=== PATIENT | male | born 1975 | race Caucasian/White ===

== ENCOUNTER 2017-06-30 05:47 | Inpatient (IN) ==
[2017-06-30] MEDS ORDERED: Ipratropium/Albuterol Neb 3 ML IH ONE (06:07)
[2017-06-30] MEDS ORDERED: Nitroglycerin 0.4 MG TAB.SUBL SL PRN (06:08)
--- NOTE | 2017-06-30 06:16 | Emergency Department Note ---
Disposition Clinical Impression: Hypoxia, SOB (shortness of breath) on exertion, Bronchitis Disposition: Admitted As Inpatient Condition: Serious Referrals: NONE,PCP [Primary Care Provider] - Forms: ED Satisfaction Letter Time of Disposition: 07:11 General Adult HPI - General Chief complaint: ED Upper Respiratory Infection Stated complaint: bronchitis Time Seen by Provider: 06/30/17 06:05 Source: patient Limitations: no limitations Nursing Notes Reviewed: Yes Vital Signs Reviewed: Yes - History of Present Illness HPI Narrative: 42-year-old male complains of severe shortness of breath over the past 4 days status post worsening. Patient states he has a history of having bad episodes of bronchitis. Patient has no history of prior lung issues or cardiac pathology. Patient states that 4 days ago he went to urgent care, and was sent home on medications. He found to be hypoxic at about 70% O2 sat. Patient was advised that his symptoms should get better with the medications. Patient's symptoms continue or worsen. The patient stated any standing would make him severely short of breath. Patient denies family history of cardiac or pulmonary pathology. Patient denies tobacco use, illicit drug use, alcohol use. Pain Scale: 6 - Related Data Previous Rx's Medication Instructions Recorded Albuterol Sulfate [Albuterol 1 puff IH Q4HR PRN #1 hfa.aer.ad 06/27/17 Inhaler] GuaiFENesin ER [Mucinex] 1,200 mg PO BID #20 tbbp.12hr 06/27/17 cephALEXin [Keflex] 500 mg PO QID #40 capsule 06/27/17 predniSONE [PredniSONE] See Taper PO DAILY #18 tablet 06/27/17 Allergies Allergy/AdvReac Type Severity Reaction Status Date / Time No Known Allergies Allergy Verified 06/30/17 05:55 All systems ED: reviewed and negative except as stated. Review of Systems: As Per HPI Constitutional: Denies: fever, chills ENT ED: Reports: congestion Cardiovascular: Denies: chest pain, palpitations Respiratory: Reports: cough, dyspnea, wheezes, sputum production Gastrointestinal: Denies: abdominal pain, nausea, vomiting, diarrhea Neurological: Denies: headache Endocrine: Reports: fatigue Past Medical History - Past Medical History Attestation: Yes The following information was validated with the patient. Source: patient, nursing notes reviewed Medical history: Reports: other Psychiatric history: Reports: anxiety - Social History Smoking Status: Never smoker Smokeless Tobacco Status: No Alcohol use: Reports: none Drug use: Reports: none Physical Exam Vital Signs Temperature 97.3 F L 06/30/17 05:49 Pulse Rate 105 06/30/17 05:49 Respiratory Rate 24 06/30/17 05:49 Blood Pressure 195/129 06/30/17 05:49 O2 Sat by Pulse Oximetry 65 06/30/17 05:49 Temperature 97.3 F L 06/30/17 05:49 Pulse Rate 105 06/30/17 05:49 Respiratory Rate 24 06/30/17 05:49 Blood Pressure 195/129 06/30/17 05:49 O2 Sat by Pulse Oximetry 65 06/30/17 05:49 Oxygen Delivery Oxygen Delivery Room Air CONSTITUTIONAL: Patient is alert and oriented 3, patient is nontoxic- appearing but is in respiratory distress. Respiratory rate 24 minute, patient has severe conversational dyspnea needing to take a breath after every word area patient is afebrile but has abnormal vital signs of tachycardia at 105, blood pressure 195/129, O2 sat 65% and was placed on supplemental oxygen 5 L/m via nasal cannula which improved his O2 saturation to 89% HEAD: Normocephalic; atraumatic EYES: PERRL, no scleral icterus NOSE: The nose is normal in appearance without rhinorrhea NECK: No JVD or distended neck veins RESP: Abnormal lung sounds with bilateral wheezing and rhonchi with rails. Poor air exchange with shallow rapid breathing CARD: Regular rhythm, without murmurs, rub or gallop ABD: Non-distended; non-tender, soft, without rigidity, rebound or guarding,no pulsatile mass CHEST: No pain with palpation SKIN: Normal for age and race; warm and dry without diaphoresis ; no apparent lesions EXTREMITIES: Pulses are 2 plus and equal times 4 extremities, no peripheral edema or calf muscle pain - General Limitations: no limitations General appearance: alert Course - Reevaluation(s) Reevaluation #1: Troponin 0.13 Time: 06:51 Vital Signs Temperature 97.3 F L 06/30/17 05:49 Pulse Rate 105 06/30/17 05:49 Respiratory Rate 24 06/30/17 05:49 Blood Pressure 195/129 06/30/17 05:49 O2 Sat by Pulse Oximetry 65 06/30/17 05:49 Temperature 97.3 F L 06/30/17 05:49 Pulse Rate 92 06/30/17 06:21 Respiratory Rate 20 06/30/17 06:21 Blood Pressure 155/100 06/30/17 06:21 O2 Sat by Pulse Oximetry 96 06/30/17 06:21 Oxygen Delivery Oxygen Delivery Bipap Medical Decision Making - MDM Narrative Medical decision making narrative: Patient in respiratory distress with associated hypoxia of 65%. Concerns for severe bronchitis/pneumonia, with possible systemic infection. Need to rule out sepsis. Patient is morbidly obese with a BMI 64 and weighing 498 pounds. RT has been notified. Duo nebs and BiPAP ordered. Nitroglycerin 0.4 mg sublingual 3 ordered Chest x-ray shows signs of pulmonary edema placing patient in the morbidly congestive heart failure presentation. Nitroglycerin places added after DuoNeb therapy and sublingual nitroglycerin therapy. Patient's BNP came back not high enough for CHF but patient is morbidly obese with subcutaneous the results. Clinically patient seems like CHF with bronchitis. Patient has an elevated WBC of 18.6 with left shift. The patient's electrolytes showed no abnormalities. But, troponin mildly elevated at 0.13. Patient's evaluation is not completed as yet but will end in admission. They crew Dr. Nascimento and Dr. Owen Ed Attending will finish the patient's workup and disposition. - Lab Data Lab results reviewed: Yes I reviewed the patient's lab results. Lab results narrative: Short CBC 06/30/17 Range/Units 06:05 WBC 18.5 H (4.3-11.1) K/mcL Hgb 14.4 (12.9-16.9) g/dL Hct 46.1 (37.5-50.1) % Plt Count 461 H (140-400) K/mcL Neutrophils # 14.2 H (1.6-8.9) K/mcL BMP 06/30/17 Range/Units 06:05 Sodium 138 (136-145) mEq/L Potassium 4.1 (3.5-5.1) mEq/L Chloride 100 (98-107) mEq/L Carbon Dioxide 28 (23-29) mEq/L BUN 14 (6-20) mg/dL Creatinine 0.71 (0.70-1.30) mg/dL Glucose 243 H (70-105) mg/dL Calcium 8.8 (8.6-10.3) mg/dL Cardiac Enzymes 06/30/17 Range/Units 06:05 Troponin I 0.13 H* (< 0.04) ng/mL Result diagrams: 06/30/17 06:05 06/30/17 06:05 Lab Results 06/30/17 06/30/17 06/30/17 Range/Units 06:05 06:05 06:08 WBC 18.5 H (4.3-11.1) K/mcL RBC 5.13 (4.19-5.50) M/mcL Hgb 14.4 (12.9-16.9) g/dL Hct 46.1 (37.5-50.1) % MCV 89.9 (83.0-100.0) fL MCH 28.1 (28.0-33.3) pg MCHC 31.2 L (31.6-35.5) g/dL RDW 13.3 (11.5-14.5) % Plt Count 461 H (140-400) K/mcL MPV 9.6 (9.4-12.4) fL Immature Gran % 2.0 (0-4) % Seg Neutrophils % 76.5 % Lymphocytes % 13.1 % Monocytes % 7.7 % Eosinophils % 0.1 % Basophils % 0.6 % Neutrophils # 14.2 H (1.6-8.9) K/mcL Lymphocytes # 2.4 (0.6-4.6) K/mcL Monocytes # 1.4 H (0.0-1.3) K/mcL Eosinophils # 0.0 (0.0-0.6) K/mcL Basophils # 0.1 (0.0-0.2) K/mcL Nucleated RBCs/100 WBC 1.0 H (0) /100 WBC Sodium 138 (136-145) mEq/L Potassium 4.1 (3.5-5.1) mEq/L Chloride 100 (98-107) mEq/L Carbon Dioxide 28 (23-29) mEq/L BUN 14 (6-20) mg/dL Creatinine 0.71 (0.70-1.30) mg/dL Est GFR ( Amer) > 60 (> 60) Est GFR (Non-Af Amer) > 60 (> 60) BUN/Creatinine Ratio 20 (6-26) Glucose 243 H (70-105) mg/dL Calculated Osmolality 295 (280-300) Lactic Acid (0.5-2.2) mmol/L Calcium 8.8 (8.6-10.3) mg/dL Phosphorus 4.1 (2.7-4.5) mg/dL Magnesium 1.9 (1.6-2.6) mg/dL Troponin I 0.13 H* (< 0.04) ng/mL B-Natriuretic Peptide 134 H (Less than 100) pg/mL 06/30/17 Range/Units 06:09 WBC (4.3-11.1) K/mcL RBC (4.19-5.50) M/mcL Hgb (12.9-16.9) g/dL Hct (37.5-50.1) % MCV (83.0-100.0) fL MCH (28.0-33.3) pg MCHC (31.6-35.5) g/dL RDW (11.5-14.5) % Plt Count (140-400) K/mcL MPV (9.4-12.4) fL Immature Gran % (0-4) % Seg Neutrophils % % Lymphocytes % % Monocytes % % Eosinophils % % Basophils % % Neutrophils # (1.6-8.9) K/mcL Lymphocytes # (0.6-4.6) K/mcL Monocytes # (0.0-1.3) K/mcL Eosinophils # (0.0-0.6) K/mcL Basophils # (0.0-0.2) K/mcL Nucleated RBCs/100 WBC (0) /100 WBC Sodium (136-145) mEq/L Potassium (3.5-5.1) mEq/L Chloride (98-107) mEq/L Carbon Dioxide (23-29) mEq/L BUN (6-20) mg/dL Creatinine (0.70-1.30) mg/dL Est GFR ( Amer) (> 60) Est GFR (Non-Af Amer) (> 60) BUN/Creatinine Ratio (6-26) Glucose (70-105) mg/dL Calculated Osmolality (280-300) Lactic Acid 2.0 (0.5-2.2) mmol/L Calcium (8.6-10.3) mg/dL Phosphorus (2.7-4.5) mg/dL Magnesium (1.6-2.6) mg/dL Troponin I (< 0.04) ng/mL B-Natriuretic Peptide (Less than 100) pg/mL - Radiology Data Radiology results reviewed: Yes I reviewed the patient's radiology results. Chest X-Ray 06/30/17 06:08 IMPRESSION: Limited exam with suspected pulmonary edema. D/ / Anand Dotson MD / Anand Dotson MD Interpreting Provider: Anand Dotson MD - EKG Data EKG #1 EKG attestation: Yes I reviewed and interpreted this EKG. EKG results narrative: EKG taken 06/30/2017 at 0602 hrs. shows sinus rhythm at a rate of 90 bpm with no acute [address] S.B.Fara - Diogenes.Yaneth Situation: Demographics, MOA Background: Presenting Complaint, Relevant PMH, Meds, & Allergies Assessment: Vital Signs, Course and respsone to treatment, Exam Concerns, Patient/Family Expectation, Pertinant Lab Results, Outstanding Labs Recommendation: Barrier(s) to disposition, Recommendation based on pending studies, treatments, or consults S.B.[email or web address] Report Given to: Dr. Azam Macias Repor Time: 07:00
--- NOTE | 2017-06-30 06:35 | Emergency Department Note ---
Disposition Clinical Impression: Hypoxia, SOB (shortness of breath) on exertion Disposition: Admitted As Inpatient Condition: Serious Referrals: NONE,PCP [Primary Care Provider] - Forms: ED Satisfaction Letter General Adult HPI - General Chief complaint: ED Upper Respiratory Infection Stated complaint: bronchitis Time Seen by Provider: 06/30/17 06:05 Source: patient Limitations: no limitations Nursing Notes Reviewed: Yes Vital Signs Reviewed: Yes - History of Present Illness Pain Scale: 6 - Related Data Previous Rx's Medication Instructions Recorded Albuterol Sulfate [Albuterol 1 puff IH Q4HR PRN #1 hfa.aer.ad 06/27/17 Inhaler] GuaiFENesin ER [Mucinex] 1,200 mg PO BID #20 tbbp.12hr 06/27/17 cephALEXin [Keflex] 500 mg PO QID #40 capsule 06/27/17 predniSONE [PredniSONE] See Taper PO DAILY #18 tablet 06/27/17 Allergies Allergy/AdvReac Type Severity Reaction Status Date / Time No Known Allergies Allergy Verified 06/30/17 05:55 Constitutional: Denies: fever, chills ENT ED: Reports: congestion Cardiovascular: Denies: chest pain, palpitations Respiratory: Reports: cough, dyspnea, wheezes, sputum production Gastrointestinal: Denies: abdominal pain, nausea, vomiting, diarrhea Neurological: Denies: headache Endocrine: Reports: fatigue Past Medical History - Past Medical History Medical history: Reports: other Psychiatric history: Reports: anxiety - Social History Smoking Status: Never smoker Smokeless Tobacco Status: No Alcohol use: Reports: none Drug use: Reports: none Physical Exam - General Limitations: no limitations General appearance: alert Course - Reevaluation(s) Reevaluation #1: Saw patient with Dr. Zhao. This is a 42 year-old male with history of morbid obesity and ?chronic bronchitis who presents with cough and congestion for 4 days and dyspnea worsening for the past day. On exam, patient is in moderate to severe respiratory distress. He is hypoxic, with SpO2 around 90% on 6L nasal cannula. Lungs with rhonchi and expiratory wheezes bilaterally. He is also severely hypertensive. DDx includes COPD exacerbation, acute CHF, PNA. Plan bipap, nebs, NTG, dyspnea workup, admit. Time: 06:31 Vital Signs Temperature 97.3 F L 06/30/17 05:49 Pulse Rate 105 04/06/18 05:49 Respiratory Rate 24 06/30/17 05:49 Blood Pressure 195/129 06/30/17 05:49 O2 Sat by Pulse Oximetry 65 06/30/17 05:49 Temperature 97.3 F L 06/30/17 05:49 Pulse Rate 92 06/30/17 06:21 Respiratory Rate 20 06/30/17 06:21 Blood Pressure 155/100 06/30/17 06:21 O2 Sat by Pulse Oximetry 96 06/30/17 06:21 Oxygen Delivery Oxygen Delivery Bipap Medical Decision Making - Lab Data Lab results reviewed: Yes I reviewed the patient's lab results. Result diagrams: 06/30/17 06:05 06/30/17 06:05 Lab Results 06/30/17 06/30/17 06/30/17 Range/Units 06:05 06:05 06:08 WBC 18.5 H (4.3-11.1) K/mcL RBC 5.13 (4.19-5.50) M/mcL Hgb 14.4 (12.9-16.9) g/dL Hct 46.1 (37.5-50.1) % MCV 89.9 (83.0-100.0) fL MCH 28.1 (28.0-33.3) pg MCHC 31.2 L (31.6-35.5) g/dL RDW 13.3 (11.5-14.5) % Plt Count 461 H (140-400) K/mcL MPV 9.6 (9.4-12.4) fL Immature Gran % 2.0 (0-4) % Seg Neutrophils % 76.5 % Lymphocytes % 13.1 % Monocytes % 7.7 % Eosinophils % 0.1 % Basophils % 0.6 % Neutrophils # 14.2 H (1.6-8.9) K/mcL Lymphocytes # 2.4 (0.6-4.6) K/mcL Monocytes # 1.4 H (0.0-1.3) K/mcL Eosinophils # 0.0 (0.0-0.6) K/mcL Basophils # 0.1 (0.0-0.2) K/mcL Nucleated RBCs/100 WBC 1.0 H (0) /100 WBC Sodium 138 (136-145) mEq/L Potassium 4.1 (3.5-5.1) mEq/L Chloride 100 (98-107) mEq/L Carbon Dioxide 28 (23-29) mEq/L BUN 14 (6-20) mg/dL Creatinine 0.71 (0.70-1.30) mg/dL Est GFR ( Amer) > 60 (> 60) Est GFR (Non-Af Amer) > 60 (> 60) BUN/Creatinine Ratio 20 (6-26) Glucose 243 H (70-105) mg/dL Calculated Osmolality 295 (280-300) Lactic Acid (0.5-2.2) mmol/L Calcium 8.8 (8.6-10.3) mg/dL Phosphorus 4.1 (2.7-4.5) mg/dL Magnesium 1.9 (1.6-2.6) mg/dL Troponin I 0.13 H* (< 0.04) ng/mL B-Natriuretic Peptide 134 H (Less than 100) pg/mL 06/30/17 Range/Units 06:09 WBC (4.3-11.1) K/mcL RBC (4.19-5.50) M/mcL Hgb (12.9-16.9) g/dL Hct (37.5-50.1) % MCV (83.0-100.0) fL MCH (28.0-33.3) pg MCHC (31.6-35.5) g/dL RDW (11.5-14.5) % Plt Count (140-400) K/mcL MPV (9.4-12.4) fL Immature Gran % (0-4) % Seg Neutrophils % % Lymphocytes % % Monocytes % % Eosinophils % % Basophils % % Neutrophils # (1.6-8.9) K/mcL Lymphocytes # (0.6-4.6) K/mcL Monocytes # (0.0-1.3) K/mcL Eosinophils # (0.0-0.6) K/mcL Basophils # (0.0-0.2) K/mcL Nucleated RBCs/100 WBC (0) /100 WBC Sodium (136-145) mEq/L Potassium (3.5-5.1) mEq/L Chloride (98-107) mEq/L Carbon Dioxide (23-29) mEq/L BUN (6-20) mg/dL Creatinine (0.70-1.30) mg/dL Est GFR ( Amer) (> 60) Est GFR (Non-Af Amer) (> 60) BUN/Creatinine Ratio (6-26) Glucose (70-105) mg/dL Calculated Osmolality (280-300) Lactic Acid 2.0 (0.5-2.2) mmol/L Calcium (8.6-10.3) mg/dL Phosphorus (2.7-4.5) mg/dL Magnesium (1.6-2.6) mg/dL Troponin I (< 0.04) ng/mL B-Natriuretic Peptide (Less than 100) pg/mL - Radiology Data Radiology results reviewed: Yes I reviewed the patient's radiology results. CXR IMPRESSION: Limited exam with suspected pulmonary edema.
[2017-06-30 06:48] LABS: Basophils # 0.1 K/mcL (0.0-0.2); Basophils % 0.6 %; Eosinophils % 0.1 %; Hematocrit 46.1 % (37.5-50.1); Hemoglobin 14.4 g/dL (12.9-16.9); Lymphocytes # 2.4 K/mcL (0.6-4.6); Lymphocytes % 13.1 %; Mean Corpuscular HGB Conc 31.2 g/dL (31.6-35.5); Mean Corpuscular Hemoglobin 28.1 pg (28.0-33.3); Mean Corpuscular Volume 89.9 fL (83.0-100.0); Mean Platelet Volume 9.6 fL (9.4-12.4); Monocytes # 1.4 K/mcL (0.0-1.3); Monocytes % 7.7 %; Neutrophils # 14.2 K/mcL (1.6-8.9); Platelet Count 461 K/mcL (140-400); Red Blood Count 5.13 M/mcL (4.19-5.50); Red Cell Distribution Width 13.3 % (11.5-14.5); Segmented Neutrophils % 76.5 %
[2017-06-30] MEDS ORDERED: Furosemide 40 MG/4 ML VIAL IVP ONE (06:50)
[2017-06-30] MEDS ORDERED: Nitroglycerin 1 INCH/GM PACKET TP ONE (06:50)
[2017-06-30 06:51] LABS: BUN/Creatinine Ratio 20 (6-26); Blood Urea Nitrogen 14 mg/dL (6-20); Calcium 8.8 mg/dL (8.6-10.3); Carbon Dioxide 28 mEq/L (23-29); Chloride 100 mEq/L (98-107); Glucose 243 mg/dL (70-105); Magnesium 1.9 mg/dL (1.6-2.6); Osmolality,Calculated 295 (280-300); Phosphorous 4.1 mg/dL (2.7-4.5); Potassium 4.1 mEq/L (3.5-5.1); Sodium 138 mEq/L (136-145); Troponin I 0.13 ng/mL (< 0.04); eGFR For African Americans > 60 (> 60); eGFR For Non-African Americans > 60 (> 60)
[2017-06-30] MEDS ORDERED: Aspirin 81 MG TAB.CHEW PO STA (06:51)
--- NOTE | 2017-06-30 07:15 | Emergency Department Note ---
Disposition Clinical Impression: Hypoxia, SOB (shortness of breath) on exertion, Bronchitis, Respiratory acidosis Disposition: Admitted As Inpatient Condition: Serious Referrals: NONE,PCP [Primary Care Provider] - Forms: ED Satisfaction Letter Time of Disposition: 07:16 General Adult HPI - General Chief complaint: ED Upper Respiratory Infection Stated complaint: bronchitis Time Seen by Provider: 06/30/17 06:05 Source: patient Limitations: no limitations - History of Present Illness Pain Scale: 6 - Related Data Previous Rx's Medication Instructions Recorded Albuterol Sulfate [Albuterol 1 puff IH Q4HR PRN #1 hfa.aer.ad 06/27/17 Inhaler] GuaiFENesin ER [Mucinex] 1,200 mg PO BID #20 tbbp.12hr 06/27/17 cephALEXin [Keflex] 500 mg PO QID #40 capsule 06/27/17 predniSONE [PredniSONE] See Taper PO DAILY #18 tablet 06/27/17 Allergies Allergy/AdvReac Type Severity Reaction Status Date / Time No Known Allergies Allergy Verified 06/30/17 05:55 Constitutional: Denies: fever, chills ENT ED: Reports: congestion Cardiovascular: Denies: chest pain, palpitations Respiratory: Reports: cough, dyspnea, wheezes, sputum production Gastrointestinal: Denies: abdominal pain, nausea, vomiting, diarrhea Neurological: Denies: headache Endocrine: Reports: fatigue Past Medical History - Past Medical History Medical history: Reports: other Psychiatric history: Reports: anxiety - Social History Smoking Status: Never smoker Smokeless Tobacco Status: No Alcohol use: Reports: none Drug use: Reports: none Physical Exam - General Limitations: no limitations General appearance: alert Course Vital Signs Temperature 97.3 F L 06/30/17 05:49 Pulse Rate 105 06/30/17 05:49 Respiratory Rate 24 06/30/17 05:49 Blood Pressure 195/129 06/30/17 05:49 O2 Sat by Pulse Oximetry 65 06/30/17 05:49 Temperature 97.3 F L 06/30/17 05:49 Pulse Rate 97 06/30/17 07:12 Respiratory Rate 20 06/30/17 07:12 Blood Pressure 172/88 06/30/17 07:12 O2 Sat by Pulse Oximetry 96 06/30/17 07:12 Oxygen Delivery Oxygen Delivery Bipap Medical Decision Making - Lab Data Lab results reviewed: Yes I reviewed the patient's lab results. Result diagrams: 06/30/17 06:05 06/30/17 06:05 Lab Results 06/30/17 06/30/17 06/30/17 Range/Units 06:05 06:05 06:08 WBC 18.5 H (4.3-11.1) K/mcL RBC 5.13 (4.19-5.50) M/mcL Hgb 14.4 (12.9-16.9) g/dL Hct 46.1 (37.5-50.1) % MCV 89.9 (83.0-100.0) fL MCH 28.1 (28.0-33.3) pg MCHC 31.2 L (31.6-35.5) g/dL RDW 13.3 (11.5-14.5) % Plt Count 461 H (140-400) K/mcL MPV 9.6 (9.4-12.4) fL Immature Gran % 2.0 (0-4) % Seg Neutrophils % 76.5 % Lymphocytes % 13.1 % Monocytes % 7.7 % Eosinophils % 0.1 % Basophils % 0.6 % Neutrophils # 14.2 H (1.6-8.9) K/mcL Lymphocytes # 2.4 (0.6-4.6) K/mcL Monocytes # 1.4 H (0.0-1.3) K/mcL Eosinophils # 0.0 (0.0-0.6) K/mcL Basophils # 0.1 (0.0-0.2) K/mcL Nucleated RBCs/100 WBC 1.0 H (0) /100 WBC Sample Site ABG pH (7.32-7.45) pH Units ABG pCO2 (35-45) mmHg ABG pO2 (85-104) mmHg ABG HCO3 (21-27) mEq/L ABG Total CO2 (20-26) mEq/L ABG O2 Saturation (95-98) % ABG Base Excess (-2 to 3) mEq/L Walter Test O2 Delivery Device Inspired O2 (1-15=lpm [id number]=%) Sodium 138 (136-145) mEq/L Potassium 4.1 (3.5-5.1) mEq/L Chloride 100 (98-107) mEq/L Carbon Dioxide 28 (23-29) mEq/L BUN 14 (6-20) mg/dL Creatinine 0.71 (0.70-1.30) mg/dL Est GFR ( Amer) > 60 (> 60) Est GFR (Non-Af Amer) > 60 (> 60) BUN/Creatinine Ratio 20 (6-26) Glucose 243 H (70-105) mg/dL Calculated Osmolality 295 (280-300) Lactic Acid (0.5-2.2) mmol/L Calcium 8.8 (8.6-10.3) mg/dL Phosphorus 4.1 (2.7-4.5) mg/dL Magnesium 1.9 (1.6-2.6) mg/dL Troponin I 0.13 H* (< 0.04) ng/mL B-Natriuretic Peptide 134 H (Less than 100) pg/mL 06/30/17 06/30/17 Range/Units 06:09 07:21 WBC (4.3-11.1) K/mcL RBC (4.19-5.50) M/mcL Hgb (12.9-16.9) g/dL Hct (37.5-50.1) % MCV (83.0-100.0) fL MCH (28.0-33.3) pg MCHC (31.6-35.5) g/dL RDW (11.5-14.5) % Plt Count (140-400) K/mcL MPV (9.4-12.4) fL Immature Gran % (0-4) % Seg Neutrophils % % Lymphocytes % % Monocytes % % Eosinophils % % Basophils % % Neutrophils # (1.6-8.9) K/mcL Lymphocytes # (0.6-4.6) K/mcL Monocytes # (0.0-1.3) K/mcL Eosinophils # (0.0-0.6) K/mcL Basophils # (0.0-0.2) K/mcL Nucleated RBCs/100 WBC (0) /100 WBC Sample Site L Radial ABG pH 7.26 L (7.32-7.45) pH Units ABG pCO2 73 H* (35-45) mmHg ABG pO2 74 L (85-104) mmHg ABG HCO3 32 H (21-27) mEq/L ABG Total CO2 34 H (20-26) mEq/L ABG O2 Saturation 91 L (95-98) % ABG Base Excess 3 (-2 to 3) mEq/L Walter Test Positive O2 Delivery Device Cannula Inspired O2 40.0 (1-15=lpm [id number]=%) Sodium (136-145) mEq/L Potassium (3.5-5.1) mEq/L Chloride (98-107) mEq/L Carbon Dioxide (23-29) mEq/L BUN (6-20) mg/dL Creatinine (0.70-1.30) mg/dL Est GFR ( Amer) (> 60) Est GFR (Non-Af Amer) (> 60) BUN/Creatinine Ratio (6-26) Glucose (70-105) mg/dL Calculated Osmolality (280-300) Lactic Acid 2.0 (0.5-2.2) mmol/L Calcium (8.6-10.3) mg/dL Phosphorus (2.7-4.5) mg/dL Magnesium (1.6-2.6) mg/dL Troponin I (< 0.04) ng/mL B-Natriuretic Peptide (Less than 100) pg/mL - Radiology Data Radiology results reviewed: Yes I reviewed the patient's radiology results. Critical Care Time Critical Care Time: Yes Total Critical Care Time: 30 Attestation: The high probability of a clinically significant, sudden or life threatening deterioration of the [] system(s) required my full and direct attention, intervention and personal management. The aggregate critical care time was [] minutes. This time is in addition to time spent performing reported procedures but includes the following: [] Data Review and interpretation [] Patient assessment and monitoring of vital signs [] Documentation [] Medication orders and management Attestation Statement - Attestation Attestation: Care inherited from at 07:00 pending repeat eval, ABG. Patient is obese who arrives dyspneic. He is on BiPAP at the time of my exam and he requests to have the BiPAP temporarily removed. I did review his labs. He is hyperglycemic with a mildly elevated troponin. Portable chest x-ray shows congestion. Patient will require admission to the medicine service
[2017-06-30 07:24] LABS: ABG Base Excess 3 mEq/L (-2 to 3); ABG HCO3 32 mEq/L (21-27); ABG Oxygen Saturation 91 % (95-98); ABG PCO2 73 mmHg (35-45); ABG PH 7.26 pH Units (7.32-7.45); ABG PO2 74 mmHg (85-104); ABG TCO2 34 mEq/L (20-26)
[2017-06-30] MEDS ORDERED: *HR* Midazolam HCl 5 MG/5 ML VIAL IVP ONE (08:07)
[2017-06-30] MEDS ORDERED: *HR* Etomidate 40 MG/20 ML VIAL IVP ONE (08:07)
[2017-06-30] MEDS ORDERED: *HR* Succinylcholine 200 MG/10 ML VIAL IVP ONE ×2 (08:07→08:12)
[2017-06-30] MEDS ORDERED: *HR* Etomidate 20 MG/10 ML AMPUL IVP ONE (08:12)
[2017-06-30] MEDS ORDERED: hydrALAZINE 25 MG TABLET PO PRN (09:12)
[2017-06-30] MEDS ORDERED: Furosemide 40 MG/4 ML VIAL IVP SCH (09:15)
--- NOTE | 2017-06-30 09:27 | Internal Med History&Physical ---
Date of Encounter: 06/30/17 Time of Encounter: 08:49 Internal Medicine - H&P: HPI Admitted From: Emergency Dept Plans for Post Hospital Care: Home History of present illness: Mr. Garcia is a 42 year old man with history of chronic bronchitis, super morbid obesity (BMI 64.2) and essential HTN presented in the ER this am c/o worsening sob and productive cough. His symptoms began 4 days ago and he was first seen at an Urgent Care center were his CXR did not show an infiltrate but did show signs of CHF. He was d/c to home with a prednisone taper and Keflex. He has an albuterol inhaler at home which hes been using more frequently. His symptoms worsened over the next three days until this am when he went to the ER. He was febrile at the Urgent Care but not this am. He's currently on BiBap due to hypoxia (SpO2 of mid 60s on RA). His ABG showed (7.26/73/74/91% on FiO2 = 40%). His CXR showed pulmonary edema and he was given 40 mg IV lasix. He currently breathing better but still requiring BiPAP. Past Med Surg Social Fam HX - Past Medical History Medical history: other Psychiatric history: anxiety - Social History Smoking Status: Never smoker Smokeless Tobacco Status: No Alcohol use: none Drug use: none Internal Medicine - H&P: Meds Albuterol Sulfate [Albuterol Inhaler] 1 puff IH Q4HR PRN #1 hfa.aer.ad 06/27/17 [Rx] GuaiFENesin ER [Mucinex] 1,200 mg PO BID #20 tbbp.12hr 06/27/17 [Rx] cephALEXin [Keflex] 500 mg PO QID #40 capsule 06/27/17 [Rx] predniSONE [PredniSONE] See Taper PO DAILY #18 tablet 06/27/17 [Rx] 3 Allergy/AdvReac Type Severity Reaction Status Date / Time No Known Allergies Allergy Verified 06/30/17 05:55 All Systems PM: A 10-system review of systems was performed and is negative for pertinent findings except as documented above in the HPI. - Constitutional Constitutional: fever(s), weakness, no chills - EENT Eyes: no blurry vision, no diplopia Ears: no decreased hearing, no ear discharge Nose, mouth and throat: no dental pain, no mouth pain, no neck mass - Cardiovascular Cardiovascular ROS IM: dyspnea, dyspnea on exertion, orthopnea, no chest pain, no irregular heart rhythm - Respiratory Respiratory: cough, dyspnea, wheezing, no hemoptysis, no stridor - Gastrointestinal Gastrointestinal: no abdominal pain, no coffee ground emesis, no diarrhea, no dysphagia, no melena - Musculoskeletal Musculoskeletal ROS IM: no arthralgias, no muscle weakness, no numbness, no tingling - Neurological Neurological ROS: no abnormal speech, no burning sensations, no focal weakness, no paresthesias, no radicular pain - Constitutional Vitals: Temp Pulse Resp BP Pulse Ox 97.3 F L 92 23 158/92 93 06/30/17 05:49 06/30/17 07:58 06/30/17 07:58 06/30/17 07:58 06/30/17 07:58 General appearance: Present: cooperative, mild distress, A&O X 3, pleasant, answers questions appropriately - Head Head exam: Present: atraumatic, normocephalic - Eye Eye exam: Present: EOMI, normal appearance, PERRL, conjuntiva pink, sclera anicteric Pupils: Present: PERRL - Neck Neck exam general surgery: Present: supple, trachea midline. Absent: lymphadenopathy - Respiratory Respiratory exam: Present: CTAB. Absent: accessory muscle use, rales, rhonchi, wheezes - Cardiovascular Cardiovascular exam: Present: RRR, +S1, +S2. Absent: diastolic murmur, gallop, rubs, systolic murmur - GI/Abdominal GI/Abdominal exam: Present: normal bowel sounds, soft, no peritoneal signs. Absent: distended, tenderness - Extremities Exam Extremities exam: Present: warm, radial pulses palpable and symmetrical. Absent : calf tenderness, cyanotic, pedal edema - Neurological Exam Neurological exam: Present: CN II-XII intact, oriented X3, no focal deficits. Absent: facial droop, speech deficit - Skin Skin exam: Present: dry, intact Internal Med - H&P Results - Labs CBC & Chem 7: 06/30/17 06:05 06/30/17 06:05 Labs: Short CBC 06/30/17 Range/Units 06:05 WBC 18.5 H (4.3-11.1) K/mcL Hgb 14.4 (12.9-16.9) g/dL Hct 46.1 (37.5-50.1) % Plt Count 461 H (140-400) K/mcL Neutrophils # 14.2 H (1.6-8.9) K/mcL BMP 06/30/17 06:05 Sodium 138 Potassium 4.1 Chloride 100 Carbon Dioxide 28 BUN 14 Creatinine 0.71 Glucose 243 H Calcium 8.8 Cardiac Enzymes 06/30/17 Range/Units 06:05 Troponin I 0.13 H* (< 0.04) ng/mL - ABG Interpretation ABG results: 06/30/17 07:21 ABG pH 7.26 L ABG pCO2 73 H* ABG pO2 74 L ABG HCO3 32 H ABG Total CO2 34 H ABG O2 Saturation 91 L ABG Base Excess 3 - Impressions ITS Impressions Chest X-Ray 06/30/17 06:08 IMPRESSION: Limited exam with suspected pulmonary edema. D/ / Anand Dotson MD / Anand Dotson MD Interpreting Provider: Anand Dotson MD - Assessment and plan (1) Acute and chronic respiratory failure Current Visit: Yes Status: Acute Assessment and plan: Continue BiPAP, continuous pulseox, DuoNebs Consider w/u as OP for FARNAZ Given super morbid obesity he likely has some component Obesity hypoventilation syndrome Repaeat ABG 2 hrs after Bipap Qualifiers: Respiratory failure complication: hypoxia and hypercapnia Qualified Code(s) : J96.21 - Acute and chronic respiratory failure with hypoxia; J96.22 - Acute and chronic respiratory failure with hypercapnia; J96.22 - Acute and chronic respiratory failure with hypercapnia; J96.22 - Acute and chronic respiratory failure with hypercapnia (2) Bronchitis Current Visit: Yes Status: Acute Assessment and plan: Continue empiric antibiotics. Not clear if this is acute or acute on chronic Continue prednisone taper started as OP 3 days ago Code(s): J40 - Bronchitis, not specified as acute or chronic (3) Diastolic heart failure Current Visit: Yes Status: Acute Assessment and plan: He has never been w/u for HF but given his super morbid obesity, orthopnea and radiographic pattern of pulmonary edema he likely has some diastolic dysfunction. Echo ordered Low salt diet Keep HOB up >70 degrees or allow him to sleep in bedside chair. Qualifiers: Heart failure chronicity: unspecified Qualified Code(s): I50.30 - Unspecified diastolic (congestive) heart failure (4) Benign essential hypertension Current Visit: No Status: Chronic Assessment and plan: Add scheduled hydralazine 25 PO q8 hrs and PRN Hydralazine Continue Losartan Code(s): I10 - Essential (primary) hypertension (5) Elevated troponin Current Visit: Yes Status: Acute Assessment and plan: Not c/o cp or pressure No ischemic changes on ECG No personal h/o CAD but multiple risk factors Continue aspirin and NG Likely secondary to HF If second Trp increased start Heparin drip and consult cardiology Code(s): R74.8 - Abnormal levels of other serum enzymes (6) Morbid (severe) obesity due to excess calories Current Visit: No Status: Chronic Assessment and plan: OP weight loss program or referral for bariatric surgey Likely obesity hypoventilation syndrome with chronic CO2 retention - Time Spent With Patient Total time spent is greater than 50% in coordination of care (as documented) at patient's floor/unit and/or counseling patient: Greater than 35 minutes
[2017-06-30 10:35] LABS: Chol/HDL Ratio 5.9 (0-4.9)
[2017-06-30] MEDS: Levofloxacin 750 MG/150 ML 750 MG/150 ML BAG IVPB SCH (10:57)
[2017-06-30 11:12] LABS: ABG Base Excess 3 mEq/L (-2 to 3); ABG HCO3 33 mEq/L (21-27); ABG Oxygen Saturation 93 % (95-98); ABG PCO2 75 mmHg (35-45); ABG PH 7.25 pH Units (7.32-7.45); ABG PO2 82 mmHg (85-104); ABG TCO2 35 mEq/L (20-26); Blood Gas PEEP 6 cm H2O; Blood Gas Pressure Support 12 cm H2O
[2017-06-30 11:21] LABS: Estimated Average Glucose 169 mg/dl; Hemoglobin A1C 7.5 %
[2017-06-30] MEDS ORDERED: *HR* LORazepam 2 MG/ML VIAL IVP ONE (13:22)
[2017-06-30] MEDS ORDERED: Furosemide 40 MG/4 ML VIAL ONE (15:30)
[2017-06-30 15:54] LABS: ABG Base Excess 4 mEq/L (-2 to 3); ABG HCO3 35 mEq/L (21-27); ABG Oxygen Saturation 97 % (95-98); ABG PCO2 81 mmHg (35-45); ABG PH 7.24 pH Units (7.32-7.45); ABG PO2 112 mmHg (85-104); ABG TCO2 37 mEq/L (20-26); Blood Gas PEEP 10 cm H2O; Blood Gas Pressure Support 20 cm H2O; Blood Gas Respiration Rate 8
[2017-06-30] MEDS ORDERED: MethylPREDNISolone 40 MG/ML VIAL IVP SCH (16:00)
--- NOTE | 2017-06-30 16:09 | Pulmonology Consult Note ---
Date of Encounter: 06/30/17 Time of Encounter: 16:05 Assessment and Plan (1) Acute and chronic respiratory failure Current Visit: Yes Status: Acute In conclusion this is a 42-year-old gentleman with past medical history of super morbid obesity who presented with acute shortness of breath found to be in hypertensive emergency and respiratory failure. He has been to some degree stabilized but no clear improvement on noninvasive ventilation however recent arterial blood gases shows a slight worsening in overall respiratory acidosis. I suspect underlying respiratory infection given patient presented febrile on admission with negative influenza a/b swab. He has been started on antimicrobial therapy with respiratory fluoroquinolone to treat for community acquired pneumonia organisms. Additionally patient has had periods of agitation intermittent with somnolence related to the diazepam administration to try to treat the former. Overall complex respiratory physiology of acute on chronic hypoxic hypercarbic respiratory failure secondary to likely acute bronchitis complicated by hydrostatic pulmonary edema mediated in part through hypertension. I suspect underlying heart failure with preserved ejection fraction given degree of hypertension and likely this is been chronic and not completely treated. Further complicated picture is the patient's chronic obesity hypoventilation syndrome. I do not see any clear evidence of chronic obstructive pulmonary disease however on an initial impression. Recs: -At bedside noninvasive ventilation mask was changed to have a better seal and increase airway pressure delivery on current settings of BiPAP 20/10 with a 50% bleed he is now starting to pull between 700 800 mL of tidal volume although respiratory rate is not clearly where we want related to [employer] depression from likely benzo use (along with hypercarbia) he will need a follow-up ABG in 30 minutes to evaluate trend. May benefit from AVAPS mode depending on outcome of next PCO2. If no improvement or worsening with the next one to 2 hours would likely need transfer to ICU and may need to be intubated clearly has a high risk of deterioration to needing inubation -Continue oxygen bleed to keep oxygen saturation around 89-90% -Please avoid all NON [employer] depressant medication -Recommend formal respiratory infectious panel swab -No clear indication of steroids and this could complicate hypertension and edema to recommend discontinuation of these -Cont schedule bronchodilators every 4-6 hours -Aggressive diuresis was goal net -1-2 L over the next 12 to 24 hours with close monitoring of urine output and electrolytes along with serum creatinine to be followed by medicine service. Placement of Claros catheters to help to monitor intake and output -Continue aggressive blood pressure management could consider afterload reduction agent such as hydralazine -Agree with empiric use of respiratory fluoroquinolone pending blood cultures sputum cultures can be obtained. -Formal ECHO I updated the primary medicine service strict there was my recommendations at the bedside. I also updated the family with increased risk the patient would need intubation based upon close monitoring at present I feel that he is still stable for stepdown unit Thank you for this consultation pulmonary follow closely Qualifiers: Respiratory failure complication: hypoxia and hypercapnia Qualified Code(s) : J96.21 - Acute and chronic respiratory failure with hypoxia; J96.22 - Acute and chronic respiratory failure with hypercapnia; J96.22 - Acute and chronic respiratory failure with hypercapnia; J96.22 - Acute and chronic respiratory failure with hypercapnia (2) Heart failure Current Visit: Yes Status: Acute Qualifiers: Heart failure chronicity: acute Qualified Code(s): I50.9 - Heart failure, unspecified (3) Bronchitis Current Visit: Yes Status: Acute (4) Benign essential hypertension Current Visit: No Status: Chronic (5) Elevated troponin Current Visit: Yes Status: Acute (6) Morbid (severe) obesity due to excess calories Current Visit: No Status: Chronic History of Present Illness Consult date: 06/30/17 Requesting physician: Jonathon Velazquez Reason for consult: hypoxemia Chief complaint: Difficulty in Breathing History of present illness: This is a 42-year-old gentleman with past medical history of super morbid obesity who presented to the ED complaining of dyspnea accompanied with cough and congestion for 4 days overall symptoms appear to be related to respiratory tract infection denies any sick contacts however. He was a moderate to severe respiratory distress when he came in and low oxygen level requiring 6 L to keep oxygen saturation around 90% he was also febrile to 101. He is not known to use subtotal oxygen at home. On arrival he was noted to have lungs with rhonchi and expiratory wheezes and was significantly hypertensive. Troponin was modestly elevated BNP was also elevated he was treated with steroids and antimicrobials for possible acute bronchitis complicating COPD exacerbation. He has been on noninvasive ventilation since admission however patient has become more somnolent with worsening evidence of respiratory acidosis. Denies fevers chills hemoptysis chest pain. He was noted to have lower extremity edema. His family is present at bedside and aiding in answering questions as patient is somnolent but able to be aroused. Patient is a lifelong nonsmoker and no clear evidence of COPD based upon history that the family has told me. Past Med Surg Social Fam HX - Past Medical History Medical history: other Psychiatric history: anxiety - Social History Smoking Status: Never smoker Smokeless Tobacco Status: No Alcohol use: none Drug use: none Medications and Allergies Albuterol Sulfate [Albuterol Inhaler] 1 puff IH Q4HR PRN #1 hfa.aer.ad 06/27/17 [Rx] GuaiFENesin ER [Mucinex] 1,200 mg PO BID #20 tbbp.12hr 06/27/17 [Rx] cephALEXin [Keflex] 500 mg PO QID #40 capsule 06/27/17 [Rx] predniSONE [PredniSONE] See Taper PO DAILY #18 tablet 06/27/17 [Rx] 3 Allergy/AdvReac Type Severity Reaction Status Date / Time No Known Allergies Allergy Verified 06/30/17 05:55 All Systems: The remainder of the systems were reviewed and are negative Physical Examination Vital Signs: Vital Signs, Last 4 Hours Temp Pulse Resp BP Pulse Ox 06/30/17 15:31 34 144/99 91 06/30/17 12:26 98.4 F 88 30 144/99 90 General appearance: lethargic (But easily arousable) Eyes: nonicteric Neck: supple, other (JVD could not be assessed because of body habitus) Effort: mildly labored Auscultation: bilateral: diminished breath sounds, wheezes (faint crackles in lung bases) Cardiovascular: regular rate and rhythm Gastrointestinal: normoactive bowel sounds, soft, non-tender (Patient is morbidly obese) Integumentary: normal Extremities: edema (He has 1+ lower extremity edema) Musculoskeletal: no deformities non-focal exam, pupils equal and round other (He appears comfortable at present and able to wilffully follow my basic commands) Results - Laboratory Findings CBC and BMP: 06/30/17 06:05 06/30/17 06:05 ABG ABG pH 7.24 pH Units (7.32-7.45) L 06/30/17 15:46 ABG pCO2 81 mmHg (35-45) H* 06/30/17 15:46 ABG pO2 112 mmHg (85-104) H 06/30/17 15:46 ABG O2 Saturation 97 % (95-98) 06/30/17 15:46 Abnormal lab findings: Abnormal lab results WBC 18.5 K/mcL (4.3-11.1) H 06/30/17 06:05 MCHC 31.2 g/dL (31.6-35.5) L 06/30/17 06:05 Plt Count 461 K/mcL (140-400) H 06/30/17 06:05 Neutrophils # 14.2 K/mcL (1.6-8.9) H 06/30/17 06:05 Monocytes # 1.4 K/mcL (0.0-1.3) H 06/30/17 06:05 Nucleated RBCs/100 WBC 1.0 /100 WBC (0) H 06/30/17 06:05 ABG pH 7.24 pH Units (7.32-7.45) L 06/30/17 15:46 ABG pCO2 81 mmHg (35-45) H* 06/30/17 15:46 ABG pO2 112 mmHg (85-104) H 06/30/17 15:46 ABG HCO3 35 mEq/L (21-27) H 06/30/17 15:46 ABG Total CO2 37 mEq/L (20-26) H 06/30/17 15:46 ABG Base Excess 4 mEq/L (-2 to 3) H 06/30/17 15:46 Glucose 243 mg/dL (70-105) H 06/30/17 06:05 Hemoglobin A1c 7.5 % (-5.6) H 06/30/17 10:02 Troponin I 0.04 ng/mL (< 0.04) H* 06/30/17 13:09 B-Natriuretic Peptide 134 pg/mL (Less than 100) H 06/30/17 06:08 LDL Cholesterol, Calc 128 mg/dL (0-99) H 06/30/17 10:02 HDL Cholesterol 32 mg/dL (40-59) L 06/30/17 10:02 Cholesterol/HDL Ratio 5.9 (0-4.9) H 06/30/17 10:02 - Diagnostic Findings Chest x-ray: report reviewed, image reviewed Consult Discharge Plan - Plan Referrals: Jose David Hood DO [Resident] - (a packet will be sent to patient for new patient information) Bacilio Ruiz DO [Resident] - 07/07/17 3:20 pm
--- NOTE | 2017-06-30 16:32 | Internal Med Progress Note ---
Date of Encounter: 06/30/17 Time of Encounter: 16:00 - Assessment and plan (1) Acute on chronic respiratory failure with hypoxia and hypercapnia Current Visit: Yes Status: Acute Assessment and plan: Multifactorial due to acute bronchitis, chronic obesity hypoventilation syndrome , possible CHF and/or cor pulmonale. See below. Continue with BiPAP If he fails BiPAP will need intubation. Family is present at bedside and understands. We will continue diuresis as I suspect he does have congestive heart failure, likely right-sided. I will check an echocardiogram although suspect this will be a suboptimal study. Closely monitor. (2) Sepsis Current Visit: Yes Status: Acute Assessment and plan: Due to bronchitis. He has an elevated white blood cell count, he has suspected source of infection, he has Resp failure with a respiratory rate of 34. Qualifiers: Sepsis type: sepsis due to unspecified organism Qualified Code(s): A41.9 - Sepsis, unspecified organism (3) Bronchitis Current Visit: Yes Status: Acute Assessment and plan: Patient is day 1 IV Levaquin. We will hold off on steroids as discussed with pulmonary medicine at this point he does not have a history of asthma or COPD, and he is not wheezing. I will however continue with aggressive bronchodilator therapy. Code(s): J40 - Bronchitis, not specified as acute or chronic (4) Diastolic heart failure Current Visit: Yes Status: Acute Assessment and plan: I suspect patient has acute on chronic diastolic CHF. They also have a cor pulmonale, pulmonary hypertension component. IV Lasix as he tolerates. Will add beta akhil as well if blood pressure remains elevated. For now we will continue with IV Lasix. I am hesitant to remove a BiPAP mask at this point to give any oral medications. Qualifiers: Heart failure chronicity: unspecified Qualified Code(s): I50.30 - Unspecified diastolic (congestive) heart failure (5) Benign essential hypertension Current Visit: No Status: Chronic Assessment and plan: For now we will use IV hydralazine. He is on losartan at home. His renal function is excellent and therefore we will continue. We will also add beta akhil once he is able to tolerate taking by mouth's. He has no history of asthma. Code(s): I10 - Essential (primary) hypertension (6) Elevated troponin Current Visit: Yes Status: Acute Assessment and plan: Not c/o cp or pressure No ischemic changes on ECG No personal h/o CAD but multiple risk factors Continue aspirin and NG Likely secondary to HF If second Trp increased start Heparin drip and consult cardiology 06/30: Suspect this is demand ischemia. We will monitor. Serial troponins. He is on aspirin. Code(s): R74.8 - Abnormal levels of other serum enzymes (7) Morbid (severe) obesity due to excess calories Current Visit: No Status: Chronic Assessment and plan: OP weight loss program or referral for bariatric surgey Likely obesity hypoventilation syndrome with chronic CO2 retention - Time Spent With Patient Total time spent is greater than 50% in coordination of care (as documented) at patient's floor/unit and/or counseling patient: Greater than 35 minutes (65 minutes critical care time spent in care and management of this patient.) - Subjective Interval history: CC: SOB HPI: See H&P dictated earlier today. This is a 42-year-old morbidly obese male who presents to the hospital with rest or a failure. He denies any previous respiratory issues, he denies ever having been diagnosed with sleep apnea. He was told he has diabetes in the past but otherwise describes himself as fairly healthy. He is very functional at home at baseline. He is a nonsmoker. Patient presented to the emergency room with markedly shortness of breath. He has a report of being seen [facility] a couple days ago and diagnosed with acute bronchitis and given steroids and an antibiotic. Despite this he did not improve. He continues to have a cough productive of white sputum. No wheezing. He did have reported fevers by his family yesterday. Patient does have some mild swelling in his legs chronically but states he has not had any worsening of this. Patient does state he always has to sleep sitting upright or else he gets short of breath. He denies any recent travel. He has had multiple ill contacts over the last week with multiple family members. On arrival to the emergency department he was afebrile at 98.4 temperature, pulse of 88, respiratory rate 34, blood pressure 144/99, and he was immediately placed on BiPAP 50% satting at 91%. On exam patient was in significant respiratory distress. Diaphoretic. He was initially awake alert and oriented 3. Lungs were showing rhonchi and wheezing bilaterally. Extremity showed trace edema. Labs showed a white count of 18.5, hemoglobin 14.4. 138 potassium 4.1 chloride 100 CO2 of 28. BUN 14 creatinine 0.71. Glucose 243. Troponin was . BNP of 134. Lactic acid 2.1. ABG showed a pH of 7.24 PCO2 of 81 PO2 of 112. A single view chest x-ray showed pulmonary edema. This was a suboptimal study due to his body habitus. She was given 40 mg of IV Lasix in the emergency department, IV Solu-Medrol, bronchodilator therapy and placed on Levaquin 750 mg IV daily. Patient was admitted to the progressive unit for further treatment. On arrival to the progressive unit patient became increasingly lethargic. We attempted to place a larger BiPAP mask on him as well as shaving his fung to allow for better seal. He also increased his BiPAP settings to 20/10, keeping FiO2 at 40%. She was pulling good volumes and his since that is currently 91%. Thus far he seems to be improving slowly but still falls asleep readily when not engaged. He is denying any pain. He received a second dose of IV Lasix. Due to his respiratory failure and concerns for intubation, of which he would be 8 difficult intubation, we did consult pulmonary medicine who came by and evaluated this patient. They agree with our management. We will continue to monitor closely. Family is present at bedside. Patient is a full code. We did discuss the possibility that he may need to be intubated if he does not improve or certainly if he worsens worsens. - Constitutional Vitals: Temp Pulse Resp BP Pulse Ox 98.4 F 88 34 144/99 91 06/30/17 12:26 06/30/17 12:26 06/30/17 15:31 06/30/17 15:31 06/30/17 15:31 General appearance: Present: cooperative, pleasant, severe distress, answers questions appropriately Exam: Awake and answers questions appropriately but requires engaging, otherwise he drifts back off to sleep. Super morbidly obese - Head Head exam: Present: atraumatic, normocephalic - Eye Eye exam: Present: PERRL, conjuntiva pink, sclera anicteric Pupils: Present: PERRL - Neck Neck exam general surgery: Present: supple, trachea midline. Absent: lymphadenopathy Additional comments: Obese neck - Respiratory Respiratory exam: Present: accessory muscle use, rhonchi - Cardiovascular Cardiovascular exam: Present: RRR, +S1, +S2. Absent: diastolic murmur, gallop, rubs, systolic murmur - GI/Abdominal GI/Abdominal exam: Present: normal bowel sounds, soft, no peritoneal signs. Absent: distended, tenderness - Extremities Exam Extremities exam: Present: pedal edema Additional comments: Rennick venous stasis changes bilaterally - Neurological Exam Neurological exam: Present: CN II-XII intact, no focal deficits. Absent: pronater drift, facial droop, speech deficit - Skin Skin exam: Present: diaphoretic, intact Additional comments: Capillary refill less than 2.5 seconds, hands and feet are warm and well perfused Internal Medicine: Result - Labs CBC & Chem 7: 06/30/17 06:05 06/30/17 06:05 Labs: Cardiac Enzymes 06/30/17 Range/Units 13:09 Troponin I 0.04 H* (< 0.04) ng/mL - ABG Interpretation ABG results: ABG ABG pH 7.24 pH Units (7.32-7.45) L 06/30/17 15:46 ABG pCO2 81 mmHg (35-45) H* 06/30/17 15:46 ABG pO2 112 mmHg (85-104) H 06/30/17 15:46 ABG O2 Saturation 97 % (95-98) 06/30/17 15:46 Consult Discharge Plan - Plan Referrals: Jose David Hood DO [Resident] - (a packet will be sent to patient for new patient information) Bacilio Ruiz DO [Resident] - 07/07/17 3:20 pm
[2017-06-30 17:03] LABS: Adenovirus Not Detected (Not Detect); Bordetella Pertussis Not Detected (Not Detect); Chlamydophila pneumoniae Not Detected (Not Detect); Coronavirus 229E Not Detected (Not Detect); Coronavirus HKU1 Not Detected (Not Detect); Coronavirus NL63 Not Detected (Not Detect); Coronavirus OC43 Not Detected (Not Detect); Human Metapneumovirus Not Detected (Not Detect); Human Rhinovirus/Enterovirus Not Detected (Not Detect); Influenza A Subtype 2009 H1 Not Detected (Not Detect); Influenza A Untypeable Not Detected (Not Detect); Influenza B Not Detected (Not Detect); Mycoplasma pneumoniae Not Detected (Not Detect); Parainfluenza Virus 1 Not Detected (Not Detect); Parainfluenza Virus 2 Not Detected (Not Detect); Parainfluenza Virus 3 Not Detected (Not Detect); Parainfluenza Virus 4 Not Detected (Not Detect); Respiratory Syncytial Virus Not Detected (Not Detect)
[2017-06-30] MEDS: Furosemide 40 MG/4 ML VIAL IVP SCH ×2 (17:03→20:56)
--- NOTE | 2017-06-30 20:15 | Anesthesia Procedures ---
Date of Encounter: 06/30/17 Time of Encounter: 08:05 Procedures: Anesthesia - Intubation Time out performed: No (emergency intubation) Sedative: Etomidate Paralytic: Succinylcholine Mg given: 300 Laryngoscope: video scope (D blade) Assist device used: Bougie ET Tube Size: 8 ET tube uncuffed: No Tube secured depth (cm): 25 Tube secured location: lips Tube Placement Confirmation: visualized tube passing through cords, equal breath sounds bilaterally, confirmation by colorimetric device Patient tolerated procedure: well Intubation complications: none
[2017-06-30] MEDS ORDERED: Lacri-Lube 3.5 GM TUBE BOTH EYES PRN (20:19)
[2017-06-30] MEDS ORDERED: methylPREDNISolone 125 MG/2 ML VIAL IVP ONE (20:23)
--- NOTE | 2017-06-30 20:26 | Event Note ---
Date of Encounter: 06/30/17 Time of Encounter: 19:00 I was called urgently to the bedside for patient experiencing mental status changes. Still wearing BiPAP. On my arrival patient was lethargic, not following any commands. He would arouse to verbal stimuli. Due to worsening resp failure decision was made to intubate this patient. He was transferred to the ICU. Pt was successfully intubated with the assistance of anesthesia, Dr. Salomon. Pt to remain in the ICU overnight with plans to transfer care to ICU service. We will continue with IV Lasix 40 mg twice a day, Levaquin, steroids restarted due to edematous airway. Total Critical Care time 97 minutrs. See anesthesia note.
[2017-06-30] MEDS: Chlorhexidine Rinse 15 ML MOUTHWASH MM SCH (21:01)
[2017-06-30] MEDS: Ipratropium/Albuterol Neb 3 ML IH SCH ×2 (21:57→23:57)
[2017-06-30 21:59] LABS: ABG Base Excess 5 mEq/L (-2 to 3); ABG HCO3 33 mEq/L (21-27); ABG Oxygen Saturation 94 % (95-98); ABG PCO2 63 mmHg (35-45); ABG PH 7.33 pH Units (7.32-7.45); ABG PO2 77 mmHg (85-104); ABG TCO2 35 mEq/L (20-26); Blood Gas Modality ASSIST CONTROL; Blood Gas PEEP 10 cm H2O; Blood Gas Respiration Rate 26; Blood Gas VT 600 cc
[2017-06-30] MEDS ORDERED: Perflutren Lipid Microsphere 1.3 ML in 0.9 % Sodium Chloride 8.7 ML IVP ONE (22:37)
[2017-06-30] MEDS: Lacri-Lube 3.5 GM TUBE BOTH EYES SCH (23:39)
[2017-06-30] MEDS: methylPREDNISolone 125 MG/2 ML VIAL IVP SCH (23:40)
[2017-07-01] MEDS: Ipratropium/Albuterol Neb 3 ML IH SCH ×6 (03:08→23:34)
[2017-07-01] MEDS: Lacri-Lube 3.5 GM TUBE BOTH EYES SCH ×6 (03:17→23:39)
--- NOTE | 2017-07-01 03:36 | Sepsis Event Note ---
Sepsis Reassessment Note - Evaluation Sepsis Screen: No Definite Risk Current Stage of Sepsis: severe sepsis Possible Source of Sepsis: pulmonary - Focused Exam Date of Encounter: 07/01/17 Time of Encounter: 02:00 Vital Signs: Vital Signs Temp Pulse Resp BP Pulse Ox 07/01/17 03:13 123/71 95 07/01/17 03:00 74 26 123/71 91 07/01/17 02:00 69 26 106/62 94 07/01/17 01:00 79 26 97/76 91 07/01/17 00:00 99.1 F 74 26 121/61 95 06/30/17 23:30 73 06/30/17 23:02 75 26 123/57 97 06/30/17 22:00 75 26 110/38 95 06/30/17 21:59 26 103/34 97 06/30/17 21:00 79 32 93/39 89 06/30/17 20:40 90 06/30/17 20:00 100.0 F H 112 26 97/63 88 06/30/17 19:57 26 91 06/30/17 17:32 98.6 F 90 28 144/76 89 Respiratory Exam: Present: rales, crackles Cardiovascular Exam: Present: RRR Capillary Refill: < 2 seconds Peripheral Pulse Strength: 2+ slightly diminished Peripheral Pulse Location: Radial Skin Exam: pink
[2017-07-01 04:06] LABS: Basophils # 0.1 K/mcL (0.0-0.2); Basophils % 0.3 %; Hemoglobin 12.9 g/dL (12.9-16.9); Immature Granulocytes % 1.8 % (0-4); Lymphocytes # 1.6 K/mcL (0.6-4.6); Lymphocytes % 8.4 %; Mean Corpuscular HGB Conc 31.5 g/dL (31.6-35.5); Mean Corpuscular Hemoglobin 28.6 pg (28.0-33.3); Mean Corpuscular Volume 90.9 fL (83.0-100.0); Mean Platelet Volume 9.4 fL (9.4-12.4); Monocytes # 1.2 K/mcL (0.0-1.3); Monocytes % 6.4 %; Neutrophils # 15.4 K/mcL (1.6-8.9); Nucleated Red Blood Cells 1.7 /100 WBC (0); Platelet Count 422 K/mcL (140-400); Red Blood Count 4.51 M/mcL (4.19-5.50); Red Cell Distribution Width 13.5 % (11.5-14.5); Segmented Neutrophils % 83.1 %
[2017-07-01 04:22] LABS: Albumin 3.1 g/dL (3.5-5.7); Albumin/Globulin Ratio 0.9 (1.1-2.2); Bilirubin,Total 0.4 mg/dL (0.3-1.0); Calcium 8.4 mg/dL (8.6-10.3); Globulin 3.6 g/dL (2.4-3.5); Potassium 4.5 mEq/L (3.5-5.1); Total Protein 6.7 g/dL (6.4-8.9)
[2017-07-01 04:51] LABS: ABG Base Excess 7 mEq/L (-2 to 3); ABG HCO3 33 mEq/L (21-27); ABG Oxygen Saturation 96 % (95-98); ABG PCO2 53 mmHg (35-45); ABG PO2 81 mmHg (85-104); ABG TCO2 35 mEq/L (20-26); Blood Gas Modality ASSIST CONTROL; Blood Gas PEEP 10 cm H2O; Blood Gas Respiration Rate 26; Blood Gas VT 600 cc
--- NOTE | 2017-07-01 05:37 | Pulmonology Progress Note ---
<Jhonatan Washington - Last Filed: 07/01/17 06:51> Date of Encounter: 07/01/17 Time of Encounter: 05:35 Assessment and Plan (1) Acute respiratory failure Current Visit: Yes Status: Acute - Acute respiratory failure likely multifactorial including pulmonary edema, bronchitis, obstructive sleep apnea suspected, obesity hypoventilation syndrome suspected. Also suspect possible ARDS picture. - Chest x-ray performed on presentation showing diffuse pulmonary edema - Most recent arterial blood gas showing pH 7.40, CO2 53, bicarbonate 33 - Patient did fail BiPAP therapy and was intubated on 06/30/17. Continues to remain ventilator dependent - No previous pulmonary disease, echocardiogram pending - Patient did meet sepsis criteria on presentation to the intensive care unit, however this is likely secondary to stress reaction. Patient was tachypnic with WBC of 18.5. Lactic acidosis of 2.1 has down trended to 1.6. No longer meeting sirs criteria - BNP of 134 on presentation - Respiratory panel negative for viral infection Plan - Echocardiogram pending, continue diuresis with 40 mg Lasix IV twice a day with goal output of 2 L per day - Continue Levaquin, methylprednisone for possible bronchitis component and edematous airway - Continue mechanical ventilation as necessary - Continue close monitoring in intensive care unit Qualifiers: Respiratory failure complication: hypoxia and hypercapnia Qualified Code(s) : J96.01 - Acute respiratory failure with hypoxia; J96.02 - Acute respiratory failure with hypercapnia; J96.02 - Acute respiratory failure with hypercapnia; J96.02 - Acute respiratory failure with hypercapnia (2) Bronchitis Current Visit: Yes Status: Acute - As above for acute respiratory failure - Per chart review, patient did report a for respiratory infection for presentation to emergency department - Patient did have one elevated temperature reading of 100.0 last evening - WBC of 18.5, stable from previous. This is likely secondary for stress reaction as well as steroid administration - No longer meeting sirs criteria, normal lactic acid Plan - Continue Levaquin, breathing treatments, methylprednisone (3) Diastolic heart failure Current Visit: Yes Status: Acute Qualifiers: Heart failure chronicity: unspecified Qualified Code(s): I50.30 - Unspecified diastolic (congestive) heart failure (4) Sepsis Current Visit: Yes Status: Acute - On Presentation to intensive care unit, patient was to And had an elevated WBC of 18.5 - Lactic acid initially 2.1, has down trended to 1.6 - Currently, patient is still meeting sirs criteria with respiratory rate of 26 , WBC of 18.5 - This is less likely sepsis however, as WBC is likely a stress reaction from hypoxia and steroid administration. - Respiratory rate secondary to vent settings Plan - Continue monitor for time being and continue Levaquin for bronchitis Qualifiers: Sepsis type: sepsis due to unspecified organism Qualified Code(s): A41.9 - Sepsis, unspecified organism (5) Elevated troponin Current Visit: Yes Status: Acute - Elevated troponin of 0.13 on presentation - Trended to 0.04/0.12/0.39 - This is likely secondary to hypoxia and demand ischemia - EKG and presentation showing no evidence of ischemia - Will continue to trend monitor and obtain echocardiogram as above (6) Benign essential hypertension Current Visit: Yes Status: Chronic - Blood pressure has been stable - Continue monitor closely given sedation medications (7) Morbid (severe) obesity due to excess calories Current Visit: Yes Status: Chronic Severe morbid obesity with BMI of 82 Would highly benefit from outpatient weight loss (8) Obesity hypoventilation syndrome Current Visit: Yes Status: Suspected Likely complicating acute respiratory failure picture Continue mechanical ventilation as above Will likely need BiPAP for home Would benefit from outpatient weight loss (9) Obstructive sleep apnea Current Visit: Yes Status: Suspected As above for obesity hypoventilation syndrome (10) Acute kidney injury Current Visit: Yes Status: Acute - Most recent BUNs/creatinine of 26/1.71, this is worsened from presentation of 14/0.71 - Etiology possibly fluid overload given respiratory picture Plan - We will continue to monitor and diuresis as able - Avoid nephrotoxic agents (11) Diabetes Current Visit: Yes Status: Chronic - No previous diagnosis of diabetes per chart review, however patient's A1c was measured at 7.5% - Blood sugars have been running in the 240s, which may be elevated further from steroid use - We will add a sliding scale insulin with goal of blood sugars 140-180 Qualifiers: Diabetes mellitus type: type 2 Diabetes mellitus prison insulin use: without terminal clerk use Diabetes mellitus complication status: with hyperglycemia Qualified Code(s): E11.65 - Type 2 diabetes mellitus with hyperglycemia (12) DVT prophylaxis Current Visit: Yes Status: Acute - Heparin 5000 units every 8 hours Subjective Principal diagnosis: Respiratory failure Interval history: Patient was seen and examined this morning at bedside. During time since constipation, patient's respiratory status declined despite the use of BiPAP and patient was subsequently intubated. Please see that note and procedure note on 06/30/17. This intubation was complicated by multiple failed attempts secondary to difficult airway. During time of exam, patient is sedated and intubated and unable to provide a subjective history. Objective PUL Vital signs: Last Vital Signs Temp 98.0 F 07/01/17 04:00 Pulse 63 07/01/17 05:00 Resp 26 07/01/17 05:00 BP 117/62 07/01/17 05:00 Pulse Ox 94 07/01/17 05:00 Gen.: Vitals noted. No acute distress. Morbidly obese male resting comfortably in bed on sedation. HEENT: PERRL, endotracheal tube in place, Normocephalic, atraumatic Neck: Unable to appreciate JVD secondary to body habitus Cardiac: RRR, no murmur, +S1/S2 Pulmonary: Coarse Rales diffusely on bilateral chest with crackles. equal chest expansion Abdomen: Distended abdomen, unable to appreciate deep palpation secondary to body habitus. soft, BS noted Extremities: no BLE edema, nontender calf, no cyanosis or clubbing Neuro: Sedated, unable to perform full neurological exam. Ventilator Settings Ventilator Settings: Ventilator Settings, Last 8 Hours Ventilator Mode A/C Ventilator Mode A/C Ventilator Mode A/C Ventilator Mode A/C Ventilator Mode A/C Ventilator Mode A/C Ventilator Mode A/C Ventilator Mode A/C Ventilator Mode A/C Ventilator Mode A/C Ventilator Mode A/C Ventilator Mode A/C Ventilator Mode A/C Ventilator Tidal Volume 600 Setting Ventilator Tidal Volume 600 Setting Ventilator Tidal Volume 600 Setting Ventilator Tidal Volume 600 Setting Ventilator Tidal Volume 600 Setting Ventilator Tidal Volume 600 Setting Ventilator Tidal Volume 600 Setting Ventilator Tidal Volume 600 Setting Ventilator Tidal Volume 600 Setting Ventilator Tidal Volume 600 Setting Ventilator Tidal Volume 600 Setting Ventilator Tidal Volume 600 Setting Ventilator Tidal Volume 600 Setting Ventilator Respiratory Rate 26 Setting Ventilator Respiratory Rate 26 Setting Ventilator Respiratory Rate 26 Setting Ventilator Respiratory Rate 26 Setting Ventilator Respiratory Rate 26 Setting Ventilator Respiratory Rate 26 Setting Ventilator Respiratory Rate 26 Setting Ventilator Respiratory Rate 26 Setting Ventilator Respiratory Rate 26 Setting Ventilator Respiratory Rate 26 Setting Ventilator Respiratory Rate 26 Setting Ventilator Respiratory Rate 26 Setting Ventilator Respiratory Rate 26 Setting Actual Respiratory Rate 26 Actual Respiratory Rate 26 Actual Respiratory Rate 26 Actual Respiratory Rate 26 Actual Respiratory Rate 26 Actual Respiratory Rate 26 Actual Respiratory Rate 26 Actual Respiratory Rate 26 Actual Respiratory Rate 26 Actual Respiratory Rate 26 Actual Respiratory Rate 26 Positive End Expiratory 10 Pressure Positive End Expiratory 10 Pressure Positive End Expiratory 10 Pressure Positive End Expiratory 10 Pressure Positive End Expiratory 10 Pressure Positive End Expiratory 10 Pressure Positive End Expiratory 10 Pressure Positive End Expiratory 10 Pressure Positive End Expiratory 10 Pressure Positive End Expiratory 10 Pressure Positive End Expiratory 10 Pressure Positive End Expiratory 10 Pressure Positive End Expiratory 10 Pressure Peak Inspiratory Airway 41 Pressure Peak Inspiratory Airway 40 Pressure Peak Inspiratory Airway 44 Pressure Peak Inspiratory Airway 41 Pressure Peak Inspiratory Airway 44 Pressure Peak Inspiratory Airway 41 Pressure Peak Inspiratory Airway 41 Pressure Peak Inspiratory Airway 41 Pressure Peak Inspiratory Airway 42 Pressure Peak Inspiratory Airway 42 Pressure Peak Inspiratory Airway 38 Pressure Results - Laboratory Findings CBC and BMP: 07/01/17 03:51 07/01/17 03:51 ABG ABG pH 7.40 pH Units (7.32-7.45) 07/01/17 04:48 ABG pCO2 53 mmHg (35-45) H 07/01/17 04:48 ABG pO2 81 mmHg (85-104) L 07/01/17 04:48 ABG O2 Saturation 96 % (95-98) 07/01/17 04:48 Abnormal lab findings: Abnormal lab results WBC 18.5 K/mcL (4.3-11.1) H 07/01/17 03:51 MCHC 31.5 g/dL (31.6-35.5) L 07/01/17 03:51 Plt Count 422 K/mcL (140-400) H 07/01/17 03:51 Neutrophils # 15.4 K/mcL (1.6-8.9) H 07/01/17 03:51 Nucleated RBCs/100 WBC 1.7 /100 WBC (0) H 07/01/17 03:51 ABG pCO2 53 mmHg (35-45) H 07/01/17 04:48 ABG pO2 81 mmHg (85-104) L 07/01/17 04:48 ABG HCO3 33 mEq/L (21-27) H 07/01/17 04:48 ABG Total CO2 35 mEq/L (20-26) H 07/01/17 04:48 ABG Base Excess 7 mEq/L (-2 to 3) H 07/01/17 04:48 Carbon Dioxide 30 mEq/L (23-29) H 07/01/17 03:51 BUN 26 mg/dL (6-20) H 07/01/17 03:51 Creatinine 1.71 mg/dL (0.70-1.30) H 07/01/17 03:51 Est GFR ( Amer) 53 (> 60) L 07/01/17 03:51 Est GFR (Non-Af Amer) 44 (> 60) L 07/01/17 03:51 Glucose 243 mg/dL (70-105) H 07/01/17 03:51 POC Glucose 219 mg/dL (70-99) H 06/30/17 20:39 Hemoglobin A1c 7.5 % (-5.6) H 06/30/17 10:02 Calcium 8.4 mg/dL (8.6-10.3) L 07/01/17 03:51 AST 46 Units/L (13-39) H 07/01/17 03:51 ALT 85 Units/L (7-52) H 07/01/17 03:51 Troponin I 0.39 ng/mL (< 0.04) H* 07/01/17 03:51 B-Natriuretic Peptide 134 pg/mL (Less than 100) H 06/30/17 06:08 Albumin 3.1 g/dL (3.5-5.7) L 07/01/17 03:51 Globulin 3.6 g/dL (2.4-3.5) H 07/01/17 03:51 Albumin/Globulin Ratio 0.9 (1.1-2.2) L 07/01/17 03:51 LDL Cholesterol, Calc 128 mg/dL (0-99) H 06/30/17 10:02 HDL Cholesterol 32 mg/dL (40-59) L 06/30/17 10:02 Cholesterol/HDL Ratio 5.9 (0-4.9) H 06/30/17 10:02 - Microbiology Findings Microbiology Findings: Microbiology, Last 48 Hours 07/01/17 03:51 Influenza Types A,B Antigen (DERRELL) - Final Nasopharyngeal - Clinical Findings Intake & Output: Intake & Output 06/30/17 06/30/17 07/01/17 15:59 23:59 07:59 Intake Total 150 / 150 120 / 120 258 / 258 Output Total 400 / 400 810 / 810 Balance 150 / 150 -280 / -280 -552 / -552 Weight 289.9 kg Consult Discharge Plan - Plan Referrals: Jose David Hood DO [Resident] - (a packet will be sent to patient for new patient information) Bacilio Ruiz DO [Resident] - 07/07/17 3:20 pm <Bryn Robertson - Last Filed: 07/01/17 10:15> Date of Encounter: 07/01/17 Assessment and Plan (1) Acute and chronic respiratory failure Current Visit: Yes Status: Acute Qualifiers: Respiratory failure complication: hypoxia and hypercapnia Qualified Code(s) : J96.21 - Acute and chronic respiratory failure with hypoxia; J96.22 - Acute and chronic respiratory failure with hypercapnia; J96.22 - Acute and chronic respiratory failure with hypercapnia; J96.22 - Acute and chronic respiratory failure with hypercapnia (2) Heart failure Current Visit: Yes Status: Acute Qualifiers: Heart failure chronicity: acute (3) Bronchitis Current Visit: Yes Status: Acute (4) Benign essential hypertension Current Visit: Yes Status: Chronic (5) Elevated troponin Current Visit: Yes Status: Acute (6) Morbid (severe) obesity due to excess calories Current Visit: Yes Status: Chronic Objective PUL Vital signs: Last Vital Signs Temp 98.8 F 07/01/17 07:06 Pulse 83 07/01/17 07:00 Resp 26 07/01/17 09:40 BP 165/81 07/01/17 09:40 Pulse Ox 91 07/01/17 09:40 Ventilator Settings Ventilator Settings: Ventilator Settings, Last 8 Hours Ventilator Mode A/C Ventilator Mode A/C Ventilator Mode A/C Ventilator Mode A/C Ventilator Mode A/C Ventilator Mode A/C Ventilator Mode A/C Ventilator Mode A/C Ventilator Mode A/C Ventilator Mode A/C Ventilator Tidal Volume 500 Setting Ventilator Tidal Volume 500 Setting Ventilator Tidal Volume 600 Setting Ventilator Tidal Volume 600 Setting Ventilator Tidal Volume 600 Setting Ventilator Tidal Volume 600 Setting Ventilator Tidal Volume 600 Setting Ventilator Tidal Volume 600 Setting Ventilator Tidal Volume 600 Setting Ventilator Tidal Volume 600 Setting Ventilator Respiratory Rate 26 Setting Ventilator Respiratory Rate 26 Setting Ventilator Respiratory Rate 26 Setting Ventilator Respiratory Rate 26 Setting Ventilator Respiratory Rate 26 Setting Ventilator Respiratory Rate 26 Setting Ventilator Respiratory Rate 26 Setting Ventilator Respiratory Rate 26 Setting Ventilator Respiratory Rate 26 Setting Ventilator Respiratory Rate 26 Setting Actual Respiratory Rate 26 Actual Respiratory Rate 26 Actual Respiratory Rate 26 Actual Respiratory Rate 26 Actual Respiratory Rate 26 Actual Respiratory Rate 26 Actual Respiratory Rate 26 Actual Respiratory Rate 26 Positive End Expiratory 15 Pressure Positive End Expiratory 15 Pressure Positive End Expiratory 10 Pressure Positive End Expiratory 10 Pressure Positive End Expiratory 10 Pressure Positive End Expiratory 10 Pressure Positive End Expiratory 10 Pressure Positive End Expiratory 10 Pressure Positive End Expiratory 10 Pressure Positive End Expiratory 10 Pressure Peak Inspiratory Airway 37 Pressure Peak Inspiratory Airway 36 Pressure Peak Inspiratory Airway 39 Pressure Peak Inspiratory Airway 41 Pressure Peak Inspiratory Airway 41 Pressure Peak Inspiratory Airway 40 Pressure Peak Inspiratory Airway 44 Pressure Peak Inspiratory Airway 41 Pressure Results - Laboratory Findings CBC and BMP: 07/01/17 03:51 07/01/17 03:51 ABG ABG pH 7.28 pH Units (7.32-7.45) L D 07/01/17 08:30 ABG pCO2 74 mmHg (35-45) H* D 07/01/17 08:30 ABG pO2 93 mmHg (85-104) 07/01/17 08:30 ABG O2 Saturation 96 % (95-98) 07/01/17 08:30 Abnormal lab findings: Abnormal lab results WBC 18.5 K/mcL (4.3-11.1) H 07/01/17 03:51 MCHC 31.5 g/dL (31.6-35.5) L 07/01/17 03:51 Plt Count 422 K/mcL (140-400) H 07/01/17 03:51 Neutrophils # 15.4 K/mcL (1.6-8.9) H 07/01/17 03:51 Nucleated RBCs/100 WBC 1.7 /100 WBC (0) H 07/01/17 03:51 ABG pH 7.28 pH Units (7.32-7.45) L D 07/01/17 08:30 ABG pCO2 74 mmHg (35-45) H* D 07/01/17 08:30 ABG HCO3 35 mEq/L (21-27) H 07/01/17 08:30 ABG Total CO2 37 mEq/L (20-26) H 07/01/17 08:30 ABG Base Excess 6 mEq/L (-2 to 3) H 07/01/17 08:30 Carbon Dioxide 30 mEq/L (23-29) H 07/01/17 03:51 BUN 26 mg/dL (6-20) H 07/01/17 03:51 Creatinine 1.71 mg/dL (0.70-1.30) H 07/01/17 03:51 Est GFR ( Amer) 53 (> 60) L 07/01/17 03:51 Est GFR (Non-Af Amer) 44 (> 60) L 07/01/17 03:51 Glucose 243 mg/dL (70-105) H 07/01/17 03:51 POC Glucose 219 mg/dL (70-99) H 06/30/17 20:39 Hemoglobin A1c 7.5 % (-5.6) H 06/30/17 10:02 Calcium 8.4 mg/dL (8.6-10.3) L 07/01/17 03:51 AST 46 Units/L (13-39) H 07/01/17 03:51 ALT 85 Units/L (7-52) H 07/01/17 03:51 Troponin I 0.39 ng/mL (< 0.04) H* 07/01/17 03:51 B-Natriuretic Peptide 134 pg/mL (Less than 100) H 06/30/17 06:08 Albumin 3.1 g/dL (3.5-5.7) L 07/01/17 03:51 Globulin 3.6 g/dL (2.4-3.5) H 07/01/17 03:51 Albumin/Globulin Ratio 0.9 (1.1-2.2) L 07/01/17 03:51 LDL Cholesterol, Calc 128 mg/dL (0-99) H 06/30/17 10:02 HDL Cholesterol 32 mg/dL (40-59) L 06/30/17 10:02 Cholesterol/HDL Ratio 5.9 (0-4.9) H 06/30/17 10:02 - Microbiology Findings Microbiology Findings: Microbiology, Last 48 Hours 07/01/17 03:51 Influenza Types A,B Antigen (DERRELL) - Final Nasopharyngeal - Clinical Findings Intake & Output: Intake & Output 06/30/17 07/01/17 07/01/17 23:59 07:59 15:59 Intake Total 120 / 120 258 / 258 137 / 137 Output Total 400 / 400 820 / 820 Balance -280 / -280 -562 / -562 137 / 137 Weight 289.9 kg - Attending Attestation I examined this patient and my medical decision-making was reviewed with the Resident Physician. I agree with the documented findings, disposition and treatment plan as described except to the extent set forth below. We independently had [id number] contact with the patient I spent 32min of Critical Care time with this patient. It involved decision making of high complexity to assess, manipulate, and support vital organ system failure and/or to prevent further life threatening deterioration of the patient' s condition. The time involved in the performance of separately reportable procedures was not counted toward critical care time. Patient seen and examined at bedside Labs, radiology, chart personally reviewed. Management was reviewed during multidisciplinary critical care rounds. LEATHER SEASONER: Sedated on the vent he remains agitated will need more deeply sedated for ventilator synchrony; noted to move spontaneously all extremities without evidence of focal deficit Pulm: Acute on chronic hypoxic hypercarbic respiratory failure suspected underlying bronchitis/pneumonia thought to be complicated by hydrostatic pulmonary edema however with aggressive diuresis kidney function deteriorated. Pattern likely more consistent with noncardiogenic pulmonary edema/ARDS currently on the vent with acceptable gas exchange however still requiring high FiO2 I have increased his PEEP markedly to account for significant atelectasis related to body habitus and underlying inflammatory physiology. Okay for permissive hypercarbia and will employee low tidal volume ventilatory strategy. Of note patient was very difficult intubated with multiple attempts which may result in propensity for laryngeal/upper airway edema. We will continue steroids for early ARDS. Continue bronchodilators. Thus far peak and plateau pressures have been acceptable despite body habitus which is reassuring will be difficult to accurately measure peak and plateau pressures based upon his body habitus in general if they become elevated. Cards: Patient has severe hypertension with hypertensive emergency on admission blood pressure currently controlled FEN-GI: Nothing by mouth for now continue GI prophylaxis Renal: Urine output monitor serum creatinine has markedly increased essentially doubled in 24 hours likely related to diuretic will repeat serum creatinine now and continues to trend may need gentle hydration with crystalloid although given tenuous respiratory status I am hesitant to do this but may be necessary ID: Treating for kidney acquired organisms for lower respiratory tract infection with Levaquin cultures as far negative respiratory infection panel/ PCR negative Heme/Onc:Given super morbid obesity and body habitus we will increase dose of subcutaneous heparin from 5000-10,000 units 3 times a day for DVT prophylaxis Endo: Glucose Monitored Integ/MSK: Skin Care per routine ICU Nursing Protocol to prevent ulcers. Lines: All lines examined without evidence of infection : Dispo: Remain ICU for vent management CODE: Full code family updated including mother father and sister at bedside all questions answered
[2017-07-01] MEDS ORDERED: *HR* Heparin 5,000 UNIT/ML VIAL SQ SCH (06:00)
[2017-07-01] MEDS ORDERED: *HR* Dextrose 50 % in Water (Syg) 50 ML SYRINGE IVP PRN (06:04)
[2017-07-01] MEDS ORDERED: D5% in Water 1,000 ML IVC PRN (06:04)
[2017-07-01] MEDS ORDERED: Dextrose Gel 15 GM/37.5 ML TUBE PO PRN ×2 (06:04)
[2017-07-01] MEDS: Insulin LISPRO 300 UNITS/3 ML VIAL SQ SCH ×4 (06:52→23:39)
[2017-07-01] MEDS: FentaNYL (PF) 1,000 MCG in 0.9 % Sodium Chloride 80 ML IVC SCH ×4 (08:21→23:47)
[2017-07-01] MEDS: methylPREDNISolone 125 MG/2 ML VIAL IVP SCH ×3 (08:25→23:38)
[2017-07-01 08:34] LABS: ABG Base Excess 6 mEq/L (-2 to 3); ABG HCO3 35 mEq/L (21-27); ABG Oxygen Saturation 96 % (95-98); ABG PCO2 74 mmHg (35-45); ABG PH 7.28 pH Units (7.32-7.45); ABG PO2 93 mmHg (85-104); ABG TCO2 37 mEq/L (20-26); Blood Gas PEEP 15 cm H2O; Blood Gas Respiration Rate 26; Blood Gas VT 500 cc
[2017-07-01] MEDS: Aspirin 81 MG TAB.CHEW PO SCH (09:42)
[2017-07-01] MEDS: Chlorhexidine Rinse 15 ML MOUTHWASH MM SCH ×2 (09:42→20:58)
[2017-07-01] MEDS: Pantoprazole 40 MG VIAL IVP SCH (09:42)
[2017-07-01] MEDS: Levofloxacin 750 MG/150 ML 750 MG/150 ML BAG IVPB SCH (09:42)
[2017-07-01 11:17] LABS: Calcium 8.2 mg/dL (8.6-10.3); Potassium 4.6 mEq/L (3.5-5.1)
[2017-07-01 12:10] LABS: ABG Base Excess 5 mEq/L (-2 to 3); ABG HCO3 33 mEq/L (21-27); ABG Oxygen Saturation 97 % (95-98); ABG PCO2 64 mmHg (35-45); ABG PH 7.32 pH Units (7.32-7.45); ABG PO2 99 mmHg (85-104); ABG TCO2 35 mEq/L (20-26); Blood Gas PEEP 16 cm H2O; Blood Gas Respiration Rate 26; Blood Gas VT 500 cc
[2017-07-01] MEDS ORDERED: Ringers Solution, Lactated 1,000 ML IVC ONE (12:14)
[2017-07-01] MEDS: *HR* Heparin 5,000 UNIT/ML VIAL SQ SCH ×2 (14:22→20:58)
[2017-07-01 16:42] LABS: Calcium 8.1 mg/dL (8.6-10.3); Potassium 4.6 mEq/L (3.5-5.1)
[2017-07-02] MEDS: Ipratropium/Albuterol Neb 3 ML IH SCH ×6 (03:32→23:31)
[2017-07-02] MEDS: Lacri-Lube 3.5 GM TUBE BOTH EYES SCH ×6 (03:44→23:43)
[2017-07-02] MEDS: FentaNYL (PF) 1,000 MCG in 0.9 % Sodium Chloride 80 ML IVC SCH ×4 (04:49→20:41)
[2017-07-02 05:09] LABS: Hematocrit 37.5 % (37.5-50.1); Hemoglobin 11.7 g/dL (12.9-16.9); Mean Corpuscular HGB Conc 31.2 g/dL (31.6-35.5); Mean Corpuscular Hemoglobin 28.2 pg (28.0-33.3); Mean Corpuscular Volume 90.4 fL (83.0-100.0); Mean Platelet Volume 9.4 fL (9.4-12.4); Platelet Count 363 K/mcL (140-400); Red Blood Count 4.15 M/mcL (4.19-5.50); Red Cell Distribution Width 13.4 % (11.5-14.5)
[2017-07-02 05:24] LABS: Magnesium 2.5 mg/dL (1.6-2.6); Phosphorous 7.2 mg/dL (2.7-4.5); Potassium 4.7 mEq/L (3.5-5.1)
[2017-07-02 05:35] LABS: Troponin I 0.51 ng/mL (< 0.04)
[2017-07-02] MEDS: *HR* Heparin 5,000 UNIT/ML VIAL SQ SCH (05:44)
[2017-07-02] MEDS: Insulin LISPRO 300 UNITS/3 ML VIAL SQ SCH ×3 (05:48→17:57)
[2017-07-02 05:50] LABS: ABG Base Excess 5 mEq/L (-2 to 3); ABG HCO3 34 mEq/L (21-27); ABG Oxygen Saturation 94 % (95-98); ABG PCO2 73 mmHg (35-45); ABG PH 7.27 pH Units (7.32-7.45); ABG PO2 82 mmHg (85-104); ABG TCO2 36 mEq/L (20-26); Blood Gas Modality ASSIST CONTROL; Blood Gas PEEP 16 cm H2O; Blood Gas Respiration Rate 26; Blood Gas VT 500 cc
--- NOTE | 2017-07-02 07:12 | Pulmonology Progress Note ---
Date of Encounter: 07/02/17 Time of Encounter: 07:11 Assessment and Plan (1) Acute and chronic respiratory failure Current Visit: Yes Status: Acute Patient seen and examined at bedside Labs, radiology, chart personally reviewed. Management was reviewed during multidisciplinary critical care rounds. 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 Continue sedation for goal [place] around 3-4 which is deeper than ideal but necessary because of ventilator dyssynchrony associated with agitation Pulm: Acute on chronic hypoxic hypercarbic respiratory or this appears to be related to lower respiratory tract infection likely pneumonia leading to diffuse inflammatory changes requiring intubation. He is stable on vent now with acceptable gas exchange reusing low tidal volume ventilatory strategy and high PEEP ratio. He is not a candidate for a spontaneous breathing trial today. Although BNP is elevated I still think the underlying physiology years more of noncardiogenic edema (ARDS) than cardiogenic edema and I have given steroids to treat for early ARDS Cards: Troponin slightly elevated but continued to trend up with evidence of ST depressions in the lateral leads on ECG cardiology was consulted they think this is demand ischemia from respiratory condition but may consider heart catheterization prior to extubation and recommended infusion of heparin per ACS protocol which we have initiated. Echocardiogram was performed with very poor windows because of body habitus but overall appeared to have a normal ejection fraction FEN-GI: Nothing by mouth for now cont GI prophylaxis consult dietary tomorrow for enteral nutrition recommendations Renal: Non Oliguric ZOHAIB which was related to diuretic use and ARB administration. ARB is on hold now he been given fluids overnight without improvement in renal function. Urine lytes and osmolalality is pending. He strict monitoring of intake and output renal dose all medications we will avoid nephrotoxins as possible Nephrology consult based upon clinical course ID: Is being treated for pneumonia with exposure to community organisms. Cultures as far have been unremarkable white count trending up this may be an effect of steroid however. Heme/Onc: Cont Heparin infusion per ACS protocol. No clinical evidence of bleeding but will monitor closely Endo: Glucose Monitored Integ/MSK: Skin Care per routine ICU Nursing Protocol to prevent ulcers. Lines: All lines examined without evidence of infection : Dispo: remain ICU for vent management CODE: Full. Qualifiers: Respiratory failure complication: hypoxia and hypercapnia Qualified Code(s) : J96.21 - Acute and chronic respiratory failure with hypoxia; J96.22 - Acute and chronic respiratory failure with hypercapnia; J96.22 - Acute and chronic respiratory failure with hypercapnia; J96.22 - Acute and chronic respiratory failure with hypercapnia (2) Heart failure Current Visit: Yes Status: Acute Qualifiers: Heart failure chronicity: acute Qualified Code(s): I50.9 - Heart failure, unspecified (3) Bronchitis Current Visit: Yes Status: Acute (4) Benign essential hypertension Current Visit: Yes Status: Chronic (5) Elevated troponin Current Visit: Yes Status: Acute (6) Morbid (severe) obesity due to excess calories Current Visit: Yes Status: Chronic (7) Elevated troponin Current Visit: Yes Status: Acute (8) Pneumonia Current Visit: Yes Status: Acute Qualifiers: Qualified Code(s): J18.9 - Pneumonia, unspecified organism (9) Acute kidney injury Current Visit: Yes Status: Acute (10) Diabetes Current Visit: Yes Status: Chronic Qualifiers: Diabetes mellitus type: type 2 Diabetes mellitus residential insulin use: without intermediate card tender use Diabetes mellitus complication status: with hyperglycemia Qualified Code(s): E11.65 - Type 2 diabetes mellitus with hyperglycemia Subjective Principal diagnosis: Respiratory failure Interval history: Remains sedated and intubated overnight was hemodynamically stable. Objective PUL Vital signs: Last Vital Signs Temp 97.4 F L 07/02/17 04:00 Pulse 65 07/02/17 06:00 Resp 26 07/02/17 06:00 BP 124/70 07/02/17 06:00 Pulse Ox 92 07/02/17 06:00 General appearance: other (sedated on vent) Auscultation: bilateral: diminished breath sounds Cardiovascular: regular rate and rhythm Gastrointestinal: normoactive bowel sounds, soft, non-tender Extremities: edema non-focal exam, pupils equal and round, other (Examined during spontaneous voiding trial is able to move all extremities and follow limited commands becomes very agitated quickly) Ventilator Settings Ventilator Settings: Ventilator Settings, Last 8 Hours Ventilator Mode A/C Ventilator Mode A/C Ventilator Mode A/C Ventilator Mode A/C Ventilator Mode A/C Ventilator Mode A/C Ventilator Mode A/C Ventilator Mode A/C Ventilator Mode A/C Ventilator Mode A/C Ventilator Mode A/C Ventilator Tidal Volume 500 Setting Ventilator Tidal Volume 500 Setting Ventilator Tidal Volume 500 Setting Ventilator Tidal Volume 500 Setting Ventilator Tidal Volume 500 Setting Ventilator Tidal Volume 500 Setting Ventilator Tidal Volume 500 Setting Ventilator Tidal Volume 500 Setting Ventilator Tidal Volume 500 Setting Ventilator Tidal Volume 500 Setting Ventilator Tidal Volume 500 Setting Ventilator Respiratory Rate 26 Setting Ventilator Respiratory Rate 26 Setting Ventilator Respiratory Rate 26 Setting Ventilator Respiratory Rate 26 Setting Ventilator Respiratory Rate 26 Setting Ventilator Respiratory Rate 26 Setting Ventilator Respiratory Rate 26 Setting Ventilator Respiratory Rate 26 Setting Ventilator Respiratory Rate 26 Setting Ventilator Respiratory Rate 26 Setting Ventilator Respiratory Rate 26 Setting Actual Respiratory Rate 26 Actual Respiratory Rate 26 Actual Respiratory Rate 26 Actual Respiratory Rate 26 Actual Respiratory Rate 26 Actual Respiratory Rate 26 Actual Respiratory Rate 26 Actual Respiratory Rate 26 Actual Respiratory Rate 26 Actual Respiratory Rate 26 Positive End Expiratory 16 Pressure Positive End Expiratory 16 Pressure Positive End Expiratory 16 Pressure Positive End Expiratory 16 Pressure Positive End Expiratory 16 Pressure Positive End Expiratory 16 Pressure Positive End Expiratory 16 Pressure Positive End Expiratory 16 Pressure Positive End Expiratory 16 Pressure Positive End Expiratory 16 Pressure Positive End Expiratory 16 Pressure Peak Inspiratory Airway 39 Pressure Peak Inspiratory Airway 40 Pressure Peak Inspiratory Airway 42 Pressure Peak Inspiratory Airway 45 Pressure Peak Inspiratory Airway 41 Pressure Peak Inspiratory Airway 46 Pressure Peak Inspiratory Airway 43 Pressure Peak Inspiratory Airway 41 Pressure Peak Inspiratory Airway 41 Pressure Peak Inspiratory Airway 41 Pressure Results - Laboratory Findings CBC and BMP: 07/02/17 04:00 07/02/17 07:12 ABG ABG pH 7.27 pH Units (7.32-7.45) L 07/02/17 05:44 ABG pCO2 73 mmHg (35-45) H* 07/02/17 05:44 ABG pO2 82 mmHg (85-104) L 07/02/17 05:44 ABG O2 Saturation 94 % (95-98) L 07/02/17 05:44 Abnormal lab findings: Abnormal lab results WBC 21.3 K/mcL (4.3-11.1) H 07/02/17 04:00 RBC 4.15 M/mcL (4.19-5.50) L 07/02/17 04:00 Hgb 11.7 g/dL (12.9-16.9) L 07/02/17 04:00 MCHC 31.2 g/dL (31.6-35.5) L 07/02/17 04:00 Neutrophils # 15.4 K/mcL (1.6-8.9) H 07/01/17 03:51 Nucleated RBCs/100 WBC 1.7 /100 WBC (0) H 07/01/17 03:51 ABG pH 7.27 pH Units (7.32-7.45) L 07/02/17 05:44 ABG pCO2 73 mmHg (35-45) H* 07/02/17 05:44 ABG pO2 82 mmHg (85-104) L 07/02/17 05:44 ABG HCO3 34 mEq/L (21-27) H 07/02/17 05:44 ABG Total CO2 36 mEq/L (20-26) H 07/02/17 05:44 ABG O2 Saturation 94 % (95-98) L 07/02/17 05:44 ABG Base Excess 5 mEq/L (-2 to 3) H 07/02/17 05:44 BUN 49 mg/dL (6-20) H 07/02/17 04:00 Creatinine 3.63 mg/dL (0.70-1.30) H 07/02/17 04:00 Est GFR ( Amer) 22 (> 60) L 07/02/17 04:00 Est GFR (Non-Af Amer) 18 (> 60) L 07/02/17 04:00 Glucose 235 mg/dL (70-105) H 07/02/17 04:00 POC Glucose 227 mg/dL (70-99) H 07/01/17 23:26 Hemoglobin A1c 7.5 % (-5.6) H 06/30/17 10:02 Calculated Osmolality 309 (280-300) H 07/02/17 04:00 Calcium 8.0 mg/dL (8.6-10.3) L 07/02/17 04:00 Phosphorus 7.2 mg/dL (2.7-4.5) H 07/02/17 04:00 AST 46 Units/L (13-39) H 07/01/17 03:51 ALT 85 Units/L (7-52) H 07/01/17 03:51 Troponin I 0.51 ng/mL (< 0.04) H* 07/02/17 04:00 B-Natriuretic Peptide 134 pg/mL (Less than 100) H 06/30/17 06:08 Albumin 3.1 g/dL (3.5-5.7) L 07/01/17 03:51 Globulin 3.6 g/dL (2.4-3.5) H 07/01/17 03:51 Albumin/Globulin Ratio 0.9 (1.1-2.2) L 07/01/17 03:51 LDL Cholesterol, Calc 128 mg/dL (0-99) H 06/30/17 10:02 HDL Cholesterol 32 mg/dL (40-59) L 06/30/17 10:02 Cholesterol/HDL Ratio 5.9 (0-4.9) H 06/30/17 10:02 - Microbiology Findings Microbiology Findings: Microbiology, Last 48 Hours 07/01/17 16:05 Legionella Antigen - Final Urine,Catheterized Streptococcus pneumoniae Antigen (M - Final 07/01/17 03:51 Influenza Types A,B Antigen (DERRELL) - Final Nasopharyngeal - Clinical Findings Intake & Output: Intake & Output 07/01/17 07/01/17 07/02/17 15:59 23:59 07:59 Intake Total 1437 / 1437 400 / 400 300 / 300 Output Total 580 / 580 150 / 150 500 / 500 Balance 857 / 857 250 / 250 -200 / -200 Weight 290.1 kg Consult Discharge Plan - Plan Referrals: Jose David Hood DO [Resident] - (a packet will be sent to patient for new patient information) Bacilio Ruiz DO [Resident] - 07/07/17 3:20 pm
[2017-07-02] MEDS: methylPREDNISolone 125 MG/2 ML VIAL IVP SCH ×3 (07:45→23:40)
[2017-07-02 08:03] LABS: Sodium, Urine 53.8 mEq/L
[2017-07-02 08:04] LABS: Albumin 2.9 g/dL (3.5-5.7); Phosphorous 7.4 mg/dL (2.7-4.5); Potassium 4.7 mEq/L (3.5-5.1)
--- NOTE | 2017-07-02 08:34 | Electrocardiograph Report ---
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
[2017-07-02] MEDS: Chlorhexidine Rinse 15 ML MOUTHWASH MM SCH ×2 (09:15→20:22)
[2017-07-02] MEDS: Pantoprazole 40 MG VIAL IVP SCH (09:15)
[2017-07-02] MEDS: Aspirin 81 MG TAB.CHEW PO SCH (09:15)
--- NOTE | 2017-07-02 09:21 | Cardiology Consult Note ---
Date of Encounter: 07/02/17 Time of Encounter: 09:18 Assessment and Plan (1) SOB (shortness of breath) on exertion Current Visit: Yes Status: Acute Likely related to bronchitis with possible diastolic dysfunction contrary to his decompensation. With his BNP of 133 and productive cough I would lean towards a primary pulmonary etiology. (2) Elevated troponin Current Visit: Yes Status: Acute A peak of 0.88 currently on the downtrend possibly secondary to demand ischemia and hypoxemia. If troponins trend upwards due to his significant obesity and difficulty laying flat we may consider a left heart catheter prior to extubation. If however his troponins continue to trend downward and he continues to improve regards to his hypoxemia we would not. This is in the setting of a preserved ejection fraction on echocardiogram a low BNP and an unremarkable nonspecific EKG. Continue heparin IV ACS if no contraindications. Discussion w patient/family: The assessment and plan as outlined above was discussed with the patient and/or family members who expressed understanding and agreement. All questions were answered. Thank you for involving us in the care of your patient. Please call with any questions. History of Present Illness Consult date: 07/02/17 Consult reason: Elevated troponins Chief complaint: SOB History of present illness: Mr. Garcia is a 42 year old male with history of hypertension morbidly obese presents with productive cough shortness of breath ultimately leading to respiratory insufficiency and intubation. He is currently sedated on the vent most of his history is obtained from his father who is at bedside. Patient has no significant past cardiac history no previous chest pains, or cardiac workup. Due to his excessive weight he does have orthopnea which likely is not cardiac in etiology. His father states that he continued to cough presented to urgent care was provided with medications which did not help much in the patient progressively got worse. His cardiac markers are mildly elevated with a peak of 0.88 currently on the downtrend. His echocardiogram although poor image quality reveals a preserved ejection fraction of 55% with no regional wall motion bodies. BNP is 133 which is significantly lower than expected for his presentation of shortness of breath if this was cardiac related and volume overload. Past Med Surg Social Fam HX - Past Medical History Medical history: other Psychiatric history: anxiety - Social History Smoking Status: Never smoker Smokeless Tobacco Status: No Alcohol use: none Drug use: none Medications and Allergies Albuterol Sulfate [Albuterol Inhaler] 1 puff IH Q4HR PRN #1 [email or web address] 06/27/17 [Rx] GuaiFENesin ER [Mucinex] 1,200 mg PO BID #20 tbbp.12hr 06/27/17 [Rx] cephALEXin [Keflex] 500 mg PO QID #40 capsule 06/27/17 [Rx] predniSONE [PredniSONE] See Taper PO DAILY #18 tablet 06/27/17 [Rx] 3 Allergy/AdvReac Type Severity Reaction Status Date / Time No Known Allergies Allergy Verified 06/30/17 05:55 All Systems Review: The remainder of the systems were reviewed and are negative Physical Examination Vital Signs, Last 4 Hours Temp Pulse Resp BP Pulse Ox 07/02/17 09:00 68 26 118/65 90 07/02/17 08:11 98.1 F 07/02/17 08:00 77 26 137/65 89 07/02/17 07:43 26 122/63 93 07/02/17 07:00 59 26 115/59 94 07/02/17 06:00 65 26 124/70 92 General: Conversant, No Apparent Distress HEENT: Atraumatic, Normocephaly, Mucus Membranes Moist Neck: No JVD, Normal carotid pulses Cardiac: Reg Rate and Rhythm, Normal S1 and S2, No Murmur Lungs: Normal Breath Sounds, No Wheeze, Rales, Rhonchi Neuro: Alert and responsive, No focal deficits noted Abdomen: Soft, Non-Tender Skin: No rashes noted on visualized skin Musculoskeletal: No Chest Wall Tenderness Extremities: No Clubbing, No Cyanosis, No Edema, Normal Pulses Results 07/02/17 04:00 07/02/17 07:12 Lab Results 07/01/17 07/01/17 07/01/17 10:00 10:38 16:00 WBC Hgb Hct Plt Count Sodium 141 Potassium 4.6 Chloride 100 Carbon Dioxide 31 H BUN 32 H Creatinine 2.45 H Glucose 210 H Calcium 8.2 L Magnesium Troponin I 0.79 H* 0.88 H* 07/01/17 07/02/17 07/02/17 16:00 01:30 04:00 WBC 21.3 H Hgb 11.7 L Hct 37.5 Plt Count 363 Sodium 137 Potassium 4.6 Chloride 98 Carbon Dioxide 31 H BUN 37 H Creatinine 2.93 H Glucose 208 H Calcium 8.1 L Magnesium Troponin I 0.63 H* 07/02/17 07/02/17 04:00 07:12 WBC Hgb Hct Plt Count Sodium 139 136 Potassium 4.7 4.7 Chloride 98 97 L Carbon Dioxide 29 29 BUN 49 H 52 H Creatinine 3.63 H 3.98 H Glucose 235 H 246 H Calcium 8.0 L 8.0 L Magnesium 2.5 Troponin I 0.51 H* Consult Discharge Plan - Plan Referrals: Jose David Hood DO [Resident] - (a packet will be sent to patient for new patient information) Bacilio Ruiz DO [Resident] - 07/07/17 3:20 pm
[2017-07-02] MEDS ORDERED: *HR* Heparin 5,000 UNIT/ML VIAL IVP PRN (12:46)
[2017-07-02] MEDS ORDERED: *HR* Heparin 5,000 UNIT/ML VIAL IVP ONE (12:46)
[2017-07-02 13:04] LABS: Hematocrit 38.6 % (37.5-50.1); Hemoglobin 12.2 g/dL (12.9-16.9); Mean Corpuscular HGB Conc 31.6 g/dL (31.6-35.5); Mean Corpuscular Hemoglobin 28.8 pg (28.0-33.3); Mean Corpuscular Volume 91.3 fL (83.0-100.0); Mean Platelet Volume 9.4 fL (9.4-12.4); Platelet Count 390 K/mcL (140-400); Red Blood Count 4.23 M/mcL (4.19-5.50); Red Cell Distribution Width 13.2 % (11.5-14.5)
[2017-07-02 13:10] LABS: INR 1.3; Prothrombin Time 13.8 Seconds (9.4-12.1)
[2017-07-02 13:13] LABS: Activated Partial Thrombo Time 28.9 Seconds (26.0-36.0)
[2017-07-02] MEDS: Heparin 25,000 UNIT/500 ML D5W 25,000 UNIT/500 ML BAG IVC SCH (13:37)
[2017-07-02 16:13] LABS: Calcium 8.3 mg/dL (8.6-10.3); Potassium 4.6 mEq/L (3.5-5.1)
[2017-07-02] MEDS ORDERED: Insulin DETEMIR 100 UNIT/ML X5UNITS SQ SCH (21:00)
[2017-07-02] MEDS: *HR* Heparin 5,000 UNIT/ML VIAL IVP PRN (21:09)
[2017-07-03] MEDS: Insulin LISPRO 300 UNITS/3 ML VIAL SQ SCH ×5 (00:34→23:45)
[2017-07-03] MEDS: FentaNYL (PF) 1,000 MCG in 0.9 % Sodium Chloride 80 ML IVC SCH ×2 (02:30→07:58)
[2017-07-03] MEDS: Ipratropium/Albuterol Neb 3 ML IH SCH ×5 (03:25→20:25)
[2017-07-03 04:13] LABS: Hematocrit 38.5 % (37.5-50.1); Mean Corpuscular HGB Conc 31.2 g/dL (31.6-35.5); Mean Corpuscular Hemoglobin 28.2 pg (28.0-33.3); Mean Corpuscular Volume 90.4 fL (83.0-100.0); Mean Platelet Volume 9.7 fL (9.4-12.4); Platelet Count 374 K/mcL (140-400); Red Blood Count 4.26 M/mcL (4.19-5.50); Red Cell Distribution Width 13.5 % (11.5-14.5)
[2017-07-03] MEDS: Lacri-Lube 3.5 GM TUBE BOTH EYES SCH ×5 (04:13→19:51)
[2017-07-03 04:36] LABS: Calcium 8.2 mg/dL (8.6-10.3); Potassium 4.7 mEq/L (3.5-5.1)
[2017-07-03 05:04] LABS: ABG Base Excess 4 mEq/L (-2 to 3); ABG HCO3 32 mEq/L (21-27); ABG Oxygen Saturation 96 % (95-98); ABG PCO2 62 mmHg (35-45); ABG PH 7.31 pH Units (7.32-7.45); ABG PO2 89 mmHg (85-104); ABG TCO2 34 mEq/L (20-26); Blood Gas Modality ASSIST CONTROL; Blood Gas PEEP 16 cm H2O; Blood Gas Respiration Rate 26; Blood Gas VT 500 cc
[2017-07-03] MEDS: Levofloxacin 750 MG/150 ML 750 MG/150 ML BAG IVPB SCH (07:59)
[2017-07-03] MEDS: methylPREDNISolone 125 MG/2 ML VIAL IVP SCH ×3 (08:00→23:37)
[2017-07-03] MEDS: Aspirin 81 MG TAB.CHEW PO SCH (08:00)
[2017-07-03] MEDS: Chlorhexidine Rinse 15 ML MOUTHWASH MM SCH ×2 (08:00→19:50)
[2017-07-03] MEDS: Pantoprazole 40 MG VIAL IVP SCH (08:01)
--- NOTE | 2017-07-03 09:35 | Pulmonology Progress Note ---
<ElmerAbad - Last Filed: 07/03/17 11:40> Date of Encounter: 07/03/17 Time of Encounter: 09:31 Assessment and Plan (1) Acute respiratory failure Current Visit: Yes Status: Acute Acute respiratory failure likely multifactorial including pulmonary edema, bronchitis, FARNAZ suspected, OHS suspected -Possible ARDS picture -CXR performed on presentation demonstrated diffuse pulmonary edema -Patient did fail BiPAP therapy and was intubated on 06/30/17. Continues to remain ventilator dependent -Patient has no prior history of pulmonary disease -Patient did meet sepsis criteria on presentation to the ICU; likely 2/2 stress reaction. Patient was tachypnic with WBC of 18.5. Lactic acidosis of 2.1 has down trended to 1.6. No longer meeting sirs criteria -BNP of 134 on presentation -Respiratory panel negative for viral infection Plan -Continue Levaquin, Solu-Medrol for possible bronchitis component and edematous airway -Continue mechanical ventilation as necessary -Sedation with propofol and fentanyl drip -Levaquin 750 mg IV every 48 -Solu-Medrol 60 mg every 8 Qualifiers: Qualified Code(s): J96.00 - Acute respiratory failure, unspecified whether with hypoxia or hypercapnia (2) Bronchitis Current Visit: Yes Status: Acute Patient initially presented with dyspnea, cough, and congestion 4 days -No longer meeting sirs criteria, normal lactic acid -Blood culture drawn on 06/30/17 negative 2 Plan -Continue Levaquin, breathing treatments, Solu-Medrol (3) Elevated troponin Current Visit: Yes Status: Acute Elevated troponin of 0.13 on presentation -Trended to 0.04/0.12/0.39 -EKG and presentation showing no evidence of ischemia -Cardiology has been consulted; per cardiology, likely due to demand ischemia and hypoxemia. -May consider LHC before extubation if troponin continues to trend upwards -Patient has difficulty lying flat -Preserved ejection fraction on echo -Continue heparin IV per ACS protocol (4) DVT (deep venous thrombosis) Current Visit: Yes Status: Acute -Heparin 5000 units every 8 hours Qualifiers: Qualified Code(s): I82.409 - Acute embolism and thrombosis of unspecified deep veins of unspecified lower extremity Subjective Principal diagnosis: Respiratory failure Interval history: Patient was seen and examined at bedside this morning. Currently asleep and intubated. Does not appear to have any acute distress. Objective PUL Vital signs: Last Vital Signs Temp 98.7 F 07/03/17 08:00 Pulse 59 07/03/17 09:00 Resp 20 07/03/17 09:00 BP 134/68 07/03/17 09:00 Pulse Ox 93 07/03/17 09:00 General appearance: no acute distress ENT: oropharynx moist Neck: supple Effort: normal Auscultation: bilateral: diminished breath sounds, wheezes Percussion: bilateral: not dull Tactile fremitus: bilateral: normal Cardiovascular: regular rate and rhythm Integumentary: normal Extremities: no cyanosis, no edema, no clubbing Musculoskeletal: no deformities, ROM normal Ventilator Settings Ventilator Settings: Ventilator Settings, Last 8 Hours Ventilator Mode A/C Ventilator Mode A/C Ventilator Mode VC+ Ventilator Mode A/C Ventilator Mode A/C Ventilator Mode A/C Ventilator Mode A/C Ventilator Mode A/C Ventilator Mode A/C Ventilator Mode A/C Ventilator Mode A/C Ventilator Mode A/C Ventilator Tidal Volume 500 Setting Ventilator Tidal Volume 500 Setting Ventilator Tidal Volume 600 Setting Ventilator Tidal Volume 500 Setting Ventilator Tidal Volume 500 Setting Ventilator Tidal Volume 500 Setting Ventilator Tidal Volume 500 Setting Ventilator Tidal Volume 500 Setting Ventilator Tidal Volume 500 Setting Ventilator Tidal Volume 500 Setting Ventilator Tidal Volume 500 Setting Ventilator Tidal Volume 500 Setting Ventilator Respiratory Rate 20 Setting Ventilator Respiratory Rate 20 Setting Ventilator Respiratory Rate 20 Setting Ventilator Respiratory Rate 20 Setting Ventilator Respiratory Rate 26 Setting Ventilator Respiratory Rate 26 Setting Ventilator Respiratory Rate 26 Setting Ventilator Respiratory Rate 26 Setting Ventilator Respiratory Rate 26 Setting Ventilator Respiratory Rate 26 Setting Ventilator Respiratory Rate 26 Setting Ventilator Respiratory Rate 26 Setting Actual Respiratory Rate 20 Actual Respiratory Rate 20 Actual Respiratory Rate 20 Actual Respiratory Rate 20 Actual Respiratory Rate 26 Actual Respiratory Rate 26 Actual Respiratory Rate 26 Actual Respiratory Rate 26 Actual Respiratory Rate 26 Actual Respiratory Rate 26 Actual Respiratory Rate 26 Positive End Expiratory 14 Pressure Positive End Expiratory 14 Pressure Positive End Expiratory 14 Pressure Positive End Expiratory 14 Pressure Positive End Expiratory 16 Pressure Positive End Expiratory 16 Pressure Positive End Expiratory 16 Pressure Positive End Expiratory 16 Pressure Positive End Expiratory 16 Pressure Positive End Expiratory 16 Pressure Positive End Expiratory 16 Pressure Positive End Expiratory 16 Pressure Peak Inspiratory Airway 41 Pressure Peak Inspiratory Airway 41 Pressure Peak Inspiratory Airway 41 Pressure Peak Inspiratory Airway 41 Pressure Peak Inspiratory Airway 39 Pressure Peak Inspiratory Airway 39 Pressure Peak Inspiratory Airway 38 Pressure Peak Inspiratory Airway 42 Pressure Peak Inspiratory Airway 40 Pressure Peak Inspiratory Airway 42 Pressure Peak Inspiratory Airway 41 Pressure Results - Laboratory Findings CBC and BMP: 07/03/17 04:00 07/03/17 04:00 ABG ABG pH 7.31 pH Units (7.32-7.45) L 07/03/17 05:01 ABG pCO2 62 mmHg (35-45) H 07/03/17 05:01 ABG pO2 89 mmHg (85-104) 07/03/17 05:01 ABG O2 Saturation 96 % (95-98) 07/03/17 05:01 PT/INR, D-dimer PT 13.8 Seconds (9.4-12.1) H 07/02/17 12:50 Abnormal lab findings: Abnormal lab results WBC 19.0 K/mcL (4.3-11.1) H 07/03/17 04:00 Hgb 12.0 g/dL (12.9-16.9) L 07/03/17 04:00 MCHC 31.2 g/dL (31.6-35.5) L 07/03/17 04:00 Neutrophils # 15.4 K/mcL (1.6-8.9) H 07/01/17 03:51 Nucleated RBCs/100 WBC 1.7 /100 WBC (0) H 07/01/17 03:51 PT 13.8 Seconds (9.4-12.1) H 07/02/17 12:50 APTT 42.1 Seconds (26.0-36.0) H 07/03/17 03:43 ABG pH 7.31 pH Units (7.32-7.45) L 07/03/17 05:01 ABG pCO2 62 mmHg (35-45) H 07/03/17 05:01 ABG HCO3 32 mEq/L (21-27) H 07/03/17 05:01 ABG Total CO2 34 mEq/L (20-26) H 07/03/17 05:01 ABG Base Excess 4 mEq/L (-2 to 3) H 07/03/17 05:01 BUN 71 mg/dL (6-20) H 07/03/17 04:00 Creatinine 4.61 mg/dL (0.70-1.30) H 07/03/17 04:00 Est GFR ( Amer) 17 (> 60) L 07/03/17 04:00 Est GFR (Non-Af Amer) 14 (> 60) L 07/03/17 04:00 Glucose 225 mg/dL (70-105) H 07/03/17 04:00 POC Glucose 215 mg/dL (70-99) H 07/03/17 00:02 Hemoglobin A1c 7.5 % (-5.6) H 06/30/17 10:02 Calculated Osmolality 314 (280-300) H 07/03/17 04:00 Calcium 8.2 mg/dL (8.6-10.3) L 07/03/17 04:00 Phosphorus 7.4 mg/dL (2.7-4.5) H 07/02/17 07:12 AST 46 Units/L (13-39) H 07/01/17 03:51 ALT 85 Units/L (7-52) H 07/01/17 03:51 Troponin I 0.51 ng/mL (< 0.04) H* 07/02/17 04:00 B-Natriuretic Peptide 134 pg/mL (Less than 100) H 06/30/17 06:08 Albumin 2.9 g/dL (3.5-5.7) L 07/02/17 07:12 Globulin 3.6 g/dL (2.4-3.5) H 07/01/17 03:51 Albumin/Globulin Ratio 0.9 (1.1-2.2) L 07/01/17 03:51 LDL Cholesterol, Calc 128 mg/dL (0-99) H 06/30/17 10:02 HDL Cholesterol 32 mg/dL (40-59) L 06/30/17 10:02 Cholesterol/HDL Ratio 5.9 (0-4.9) H 06/30/17 10:02 - Microbiology Findings Microbiology Findings: Microbiology, Last 48 Hours 07/01/17 16:05 Legionella Antigen - Final Urine,Catheterized Streptococcus pneumoniae Antigen (M - Final - Clinical Findings Intake & Output: Intake & Output 07/02/17 07/03/17 07/03/17 23:59 07:59 15:59 Intake Total 619 / 619 549 / 549 Output Total 300 / 300 850 / 850 225 / 225 Balance 319 / 319 -301 / -301 -225 / -225 Weight 295 kg Consult Discharge Plan - Plan Referrals: Jose David Hood DO [Resident] - (a packet will be sent to patient for new patient information) Bacilio Ruiz DO [Resident] - 07/07/17 3:20 pm <Kylie Danielle - Last Filed: 07/03/17 14:15> Date of Encounter: 07/03/17 Objective PUL Vital signs: Last Vital Signs Temp 98.7 F 07/03/17 08:00 Pulse 59 07/03/17 09:00 Resp 20 07/03/17 09:49 BP 131/64 07/03/17 09:49 Pulse Ox 93 07/03/17 09:49 Ventilator Settings Ventilator Settings: Ventilator Settings, Last 8 Hours Ventilator Mode VC+ Ventilator Mode A/C Ventilator Mode A/C Ventilator Mode VC+ Ventilator Mode A/C Ventilator Mode A/C Ventilator Mode A/C Ventilator Mode A/C Ventilator Mode A/C Ventilator Mode A/C Ventilator Mode A/C Ventilator Mode A/C Ventilator Tidal Volume 600 Setting Ventilator Tidal Volume 500 Setting Ventilator Tidal Volume 500 Setting Ventilator Tidal Volume 600 Setting Ventilator Tidal Volume 500 Setting Ventilator Tidal Volume 500 Setting Ventilator Tidal Volume 500 Setting Ventilator Tidal Volume 500 Setting Ventilator Tidal Volume 500 Setting Ventilator Tidal Volume 500 Setting Ventilator Tidal Volume 500 Setting Ventilator Tidal Volume 500 Setting Ventilator Respiratory Rate 20 Setting Ventilator Respiratory Rate 20 Setting Ventilator Respiratory Rate 20 Setting Ventilator Respiratory Rate 20 Setting Ventilator Respiratory Rate 20 Setting Ventilator Respiratory Rate 26 Setting Ventilator Respiratory Rate 26 Setting Ventilator Respiratory Rate 26 Setting Ventilator Respiratory Rate 26 Setting Ventilator Respiratory Rate 26 Setting Ventilator Respiratory Rate 26 Setting Ventilator Respiratory Rate 26 Setting Actual Respiratory Rate 20 Actual Respiratory Rate 20 Actual Respiratory Rate 20 Actual Respiratory Rate 20 Actual Respiratory Rate 20 Actual Respiratory Rate 26 Actual Respiratory Rate 26 Actual Respiratory Rate 26 Actual Respiratory Rate 26 Actual Respiratory Rate 26 Actual Respiratory Rate 26 Positive End Expiratory 14 Pressure Positive End Expiratory 14 Pressure Positive End Expiratory 14 Pressure Positive End Expiratory 14 Pressure Positive End Expiratory 14 Pressure Positive End Expiratory 16 Pressure Positive End Expiratory 16 Pressure Positive End Expiratory 16 Pressure Positive End Expiratory 16 Pressure Positive End Expiratory 16 Pressure Positive End Expiratory 16 Pressure Positive End Expiratory 16 Pressure Peak Inspiratory Airway 41 Pressure Peak Inspiratory Airway 41 Pressure Peak Inspiratory Airway 41 Pressure Peak Inspiratory Airway 41 Pressure Peak Inspiratory Airway 41 Pressure Peak Inspiratory Airway 39 Pressure Peak Inspiratory Airway 39 Pressure Peak Inspiratory Airway 38 Pressure Peak Inspiratory Airway 42 Pressure Peak Inspiratory Airway 40 Pressure Peak Inspiratory Airway 42 Pressure Results - Laboratory Findings CBC and BMP: 07/03/17 04:00 07/03/17 04:00 ABG ABG pH 7.31 pH Units (7.32-7.45) L 07/03/17 05:01 ABG pCO2 62 mmHg (35-45) H 07/03/17 05:01 ABG pO2 89 mmHg (85-104) 07/03/17 05:01 ABG O2 Saturation 96 % (95-98) 07/03/17 05:01 PT/INR, D-dimer PT 13.8 Seconds (9.4-12.1) H 07/02/17 12:50 Abnormal lab findings: Abnormal lab results WBC 19.0 K/mcL (4.3-11.1) H 07/03/17 04:00 Hgb 12.0 g/dL (12.9-16.9) L 07/03/17 04:00 MCHC 31.2 g/dL (31.6-35.5) L 07/03/17 04:00 Neutrophils # 15.4 K/mcL (1.6-8.9) H 07/01/17 03:51 Nucleated RBCs/100 WBC 1.7 /100 WBC (0) H 07/01/17 03:51 PT 13.8 Seconds (9.4-12.1) H 07/02/17 12:50 APTT 42.1 Seconds (26.0-36.0) H 07/03/17 03:43 ABG pH 7.31 pH Units (7.32-7.45) L 07/03/17 05:01 ABG pCO2 62 mmHg (35-45) H 07/03/17 05:01 ABG HCO3 32 mEq/L (21-27) H 07/03/17 05:01 ABG Total CO2 34 mEq/L (20-26) H 07/03/17 05:01 ABG Base Excess 4 mEq/L (-2 to 3) H 07/03/17 05:01 BUN 71 mg/dL (6-20) H 07/03/17 04:00 Creatinine 4.61 mg/dL (0.70-1.30) H 07/03/17 04:00 Est GFR ( Amer) 17 (> 60) L 07/03/17 04:00 Est GFR (Non-Af Amer) 14 (> 60) L 07/03/17 04:00 Glucose 225 mg/dL (70-105) H 07/03/17 04:00 POC Glucose 215 mg/dL (70-99) H 07/03/17 00:02 Hemoglobin A1c 7.5 % (-5.6) H 06/30/17 10:02 Calculated Osmolality 314 (280-300) H 07/03/17 04:00 Calcium 8.2 mg/dL (8.6-10.3) L 07/03/17 04:00 Phosphorus 7.4 mg/dL (2.7-4.5) H 07/02/17 07:12 AST 46 Units/L (13-39) H 07/01/17 03:51 ALT 85 Units/L (7-52) H 07/01/17 03:51 Troponin I 0.51 ng/mL (< 0.04) H* 07/02/17 04:00 B-Natriuretic Peptide 134 pg/mL (Less than 100) H 06/30/17 06:08 Albumin 2.9 g/dL (3.5-5.7) L 07/02/17 07:12 Globulin 3.6 g/dL (2.4-3.5) H 07/01/17 03:51 Albumin/Globulin Ratio 0.9 (1.1-2.2) L 07/01/17 03:51 LDL Cholesterol, Calc 128 mg/dL (0-99) H 06/30/17 10:02 HDL Cholesterol 32 mg/dL (40-59) L 06/30/17 10:02 Cholesterol/HDL Ratio 5.9 (0-4.9) H 06/30/17 10:02 - Microbiology Findings Microbiology Findings: Microbiology, Last 48 Hours 07/01/17 16:05 Legionella Antigen - Final Urine,Catheterized Streptococcus pneumoniae Antigen (M - Final - Clinical Findings Intake & Output: Intake & Output 07/02/17 07/03/17 07/03/17 23:59 07:59 15:59 Intake Total 619 / 619 549 / 549 Output Total 300 / 300 850 / 850 225 / 225 Balance 319 / 319 -301 / -301 -225 / -225 Weight 295 kg - Attending Attestation I examined this patient and my medical decision-making was reviewed with the Resident Physician. I agree with the documented findings, disposition and treatment plan as described except to the extent set forth below. Patient seen and examined. Labs, radiology, chart personally reviewed. Agree with resident's history and physical, assessment, plan with following comments: [employer]: Patient follows commands on patient on sedation, Pulmonary: It would be very hard to know exactly about Plateau pressure this patient with his morbid obesity and I suspect requiring high PEEP is combination of possible pulmonary edema and intra-abdominal pressure gradually lower his PEEP and increase his tidal volume more to still keep it around 7 mL/ Kg ideal body weight. Discussed with the family at the bedside. Cardiovascular: Cardiology follow-up and I would recommend if there is plan for cardiac catheterization is to do it now while he is intubated because he is difficult intubation and this is the time to do it. GI: Nutrition per dietary and GI prophylaxis per routine Heme: DVT prophylaxis per routine ID: Continue antibiotics and plan to de-escalation Renal; urine out put and renal funtion reviewed Endorcine: blood glucose is monitored Lines: all lines checked and no evidence of infections Skin: skin care to prevent pressure ulcers per nursing routine care Critical care performed: Time is exclusive of separately billable procedures. Time includes: direct patient care, patient reassessment, coordination of patient care, interpretation of data (laboratory data, radiology data, and respiratory data), review of patient's medical records, medical consultation and documentation of patient care. Procedures excluded from critical care time: 32 minutes
--- NOTE | 2017-07-03 12:00 | Cardiology Progress Note ---
Date of Encounter: 07/03/17 Time of Encounter: 11:30 Assessment and Plan (1) Elevated troponin Current Visit: Yes Status: Acute Peak of 0.88. Likely demand ischemia due to hypoxemia, SPO2 65% on admit. EKG with no acute ST changes. TTE reviewed with patient and family. Poor study due to body habitus. EF 55%. No significant valvular disease. He denies chest pain. Unfortunately, he developed ZOHAIB with creatinine 4.61. No further cardiac testing recommended at this time. Consider stress test in the future/ out-pt. Cardiology will sign off. Call with questions. (2) Acute and chronic respiratory failure Current Visit: Yes Status: Acute Acute respiratory failure in the setting of acute respiratory infection bronchitis, pulmonary edema, and possible ards. Management per italian lecturer team. EF preserved on TTE. Normal diastolic function. Qualifiers: Respiratory failure complication: hypoxia and hypercapnia Qualified Code(s) : J96.21 - Acute and chronic respiratory failure with hypoxia; J96.22 - Acute and chronic respiratory failure with hypercapnia; J96.22 - Acute and chronic respiratory failure with hypercapnia; J96.22 - Acute and chronic respiratory failure with hypercapnia Discussion w patient/family: The assessment and plan as outlined above was discussed with the patient and/or family members who expressed understanding and agreement. All questions were answered. Thank you for involving us in the care of your patient. Please call with any questions. Subjective Principal diagnosis: Respiratory failure Interval history: Mr. Garcia is a 42-year-old male with past medical history of morbid obesity and HTN who presents with acute bronchitis/ respiratory failure. Cardiology consulted for troponin elevation up to 0.88. Patient is on mild sedation and on ventilator. He answers yes and no to questions. Denies chest discomfort. Objective Vital Signs, Last 4 Hours Temp Pulse Resp BP Pulse Ox 07/03/17 11:19 20 140/72 92 07/03/17 10:00 54 20 138/70 93 07/03/17 09:49 20 131/64 93 07/03/17 09:00 59 20 134/68 93 07/03/17 08:33 20 140/65 93 07/03/17 08:00 98.7 F 55 20 136/72 94 HEENT: Atraumatic Neck: No JVD Cardiac: Reg Rate and Rhythm, Normal S1 and S2, No Murmur Lungs: Other (diminished breath sounds due to body habitus and ventilator support) Neuro: Alert and responsive, No focal deficits noted Abdomen: Soft, Non-Tender Skin: No rashes noted on visualized skin, Other (brownish discoloration BLE) Musculoskeletal: No Chest Wall Tenderness Extremities: No Clubbing, No Cyanosis, No Edema, Normal Pulses Results 07/03/17 04:00 07/03/17 04:00 Lab Results 07/02/17 07/02/17 07/02/17 12:50 12:50 15:45 WBC 21.2 H Hgb 12.2 L Hct 38.6 Plt Count 390 INR 1.3 APTT 28.9 Sodium 137 Potassium 4.6 Chloride 97 L Carbon Dioxide 29 BUN 62 H Creatinine 4.29 H Glucose 235 H Calcium 8.3 L 07/02/17 07/03/17 07/03/17 20:00 03:43 04:00 WBC 19.0 H Hgb 12.0 L Hct 38.5 Plt Count 374 INR APTT 31.1 42.1 H Sodium Potassium Chloride Carbon Dioxide BUN Creatinine Glucose Calcium 07/03/17 04:00 WBC Hgb Hct Plt Count INR APTT Sodium 138 Potassium 4.7 Chloride 98 Carbon Dioxide 28 BUN 71 H Creatinine 4.61 H Glucose 225 H Calcium 8.2 L - Imaging and Cardiology Echo: image reviewed - EKG Interpretation EKG results cardiology: personally reviewed Consult Discharge Plan - Plan Referrals: Jose David Hood DO [Resident] - (a packet will be sent to patient for new patient information) Bacilio Ruiz DO [Resident] - 07/07/17 3:20 pm
[2017-07-03] MEDS: Heparin 25,000 UNIT/500 ML D5W 25,000 UNIT/500 ML BAG IVC SCH ×2 (12:27→23:36)
[2017-07-03] MEDS: *HR* Heparin 5,000 UNIT/ML VIAL IVP PRN (12:37)
[2017-07-03] MEDS: FentaNYL (PF) 2,500 MCG in EMPTY BAG 50 EACH IVC SCH (14:22)
[2017-07-03] MEDS: Insulin DETEMIR 100 UNIT/ML X5UNITS SQ SCH (19:51)
[2017-07-04] MEDS: Ipratropium/Albuterol Neb 3 ML IH SCH ×7 (00:37→23:36)
[2017-07-04] MEDS: FentaNYL (PF) 2,500 MCG in EMPTY BAG 50 EACH IVC SCH ×2 (01:05→12:48)
[2017-07-04 03:01] LABS: Basophils # 0.1 K/mcL (0.0-0.2); Basophils % 0.4 %; Hematocrit 37.8 % (37.5-50.1); Hemoglobin 11.9 g/dL (12.9-16.9); Immature Granulocytes % 4.3 % (0-4); Lymphocytes # 1.2 K/mcL (0.6-4.6); Lymphocytes % 7.5 %; Mean Corpuscular HGB Conc 31.5 g/dL (31.6-35.5); Mean Corpuscular Hemoglobin 28.2 pg (28.0-33.3); Mean Corpuscular Volume 89.6 fL (83.0-100.0); Mean Platelet Volume 9.6 fL (9.4-12.4); Monocytes # 1.1 K/mcL (0.0-1.3); Monocytes % 6.8 %; Neutrophils # 13.3 K/mcL (1.6-8.9); Nucleated Red Blood Cells 0.2 /100 WBC (0); Platelet Count 347 K/mcL (140-400); Red Blood Count 4.22 M/mcL (4.19-5.50); Red Cell Distribution Width 13.2 % (11.5-14.5)
[2017-07-04 03:20] LABS: Calcium 8.2 mg/dL (8.6-10.3); Potassium 4.8 mEq/L (3.5-5.1)
[2017-07-04] MEDS: Lacri-Lube 3.5 GM TUBE BOTH EYES SCH ×5 (03:29→20:51)
[2017-07-04] MEDS: *HR* Heparin 5,000 UNIT/ML VIAL IVP PRN (03:36)
[2017-07-04] MEDS: Insulin LISPRO 300 UNITS/3 ML VIAL SQ SCH ×3 (05:40→17:06)
[2017-07-04 06:06] LABS: ABG Base Excess 2 mEq/L (-2 to 3); ABG HCO3 30 mEq/L (21-27); ABG Oxygen Saturation 96 % (95-98); ABG PCO2 59 mmHg (35-45); ABG PH 7.32 pH Units (7.32-7.45); ABG PO2 90 mmHg (85-104); ABG TCO2 32 mEq/L (20-26)
[2017-07-04] MEDS: Pantoprazole 40 MG VIAL IVP SCH (08:34)
[2017-07-04] MEDS: Aspirin 81 MG TAB.CHEW PO SCH (08:34)
[2017-07-04] MEDS: methylPREDNISolone 125 MG/2 ML VIAL IVP SCH ×2 (08:34→15:38)
[2017-07-04] MEDS: Chlorhexidine Rinse 15 ML MOUTHWASH MM SCH ×2 (08:34→20:51)
[2017-07-04] MEDS: Insulin DETEMIR 100 UNIT/ML X5UNITS SQ SCH ×3 (08:37→20:51)
--- NOTE | 2017-07-04 08:48 | Pulmonology Progress Note ---
<Kylie Danielle M - Last Filed: 07/04/17 09:44> Date of Encounter: 07/04/17 Objective PUL Vital signs: Last Vital Signs Temp 97.8 F 07/04/17 08:16 Pulse 53 07/04/17 08:00 Resp 20 07/04/17 08:00 BP 104/52 07/04/17 08:00 Pulse Ox 93 07/04/17 08:00 Ventilator Settings Ventilator Settings: Ventilator Settings, Last 8 Hours Ventilator Mode VC+ Ventilator Mode VC+ Ventilator Mode A/C Ventilator Mode VC+ Ventilator Mode VC+ Ventilator Mode VC+ Ventilator Mode VC+ Ventilator Mode VC+ Ventilator Mode VC+ Ventilator Mode VC+ Ventilator Tidal Volume 600 Setting Ventilator Tidal Volume 600 Setting Ventilator Tidal Volume 600 Setting Ventilator Tidal Volume 600 Setting Ventilator Tidal Volume 600 Setting Ventilator Tidal Volume 600 Setting Ventilator Tidal Volume 600 Setting Ventilator Tidal Volume 600 Setting Ventilator Tidal Volume 600 Setting Ventilator Tidal Volume 600 Setting Ventilator Respiratory Rate 20 Setting Ventilator Respiratory Rate 20 Setting Ventilator Respiratory Rate 20 Setting Ventilator Respiratory Rate 20 Setting Ventilator Respiratory Rate 20 Setting Ventilator Respiratory Rate 20 Setting Ventilator Respiratory Rate 20 Setting Ventilator Respiratory Rate 20 Setting Ventilator Respiratory Rate 20 Setting Ventilator Respiratory Rate 20 Setting Actual Respiratory Rate 20 Actual Respiratory Rate 20 Actual Respiratory Rate 20 Actual Respiratory Rate 20 Actual Respiratory Rate 20 Actual Respiratory Rate 20 Actual Respiratory Rate 20 Actual Respiratory Rate 21 Actual Respiratory Rate 20 Positive End Expiratory 12 Pressure Positive End Expiratory 12 Pressure Positive End Expiratory 14 Pressure Positive End Expiratory 14 Pressure Positive End Expiratory 14 Pressure Positive End Expiratory 14 Pressure Positive End Expiratory 14 Pressure Positive End Expiratory 14 Pressure Positive End Expiratory 5 Pressure Positive End Expiratory 14 Pressure Peak Inspiratory Airway 42 Pressure Peak Inspiratory Airway 42 Pressure Peak Inspiratory Airway 41 Pressure Peak Inspiratory Airway 43 Pressure Peak Inspiratory Airway 41 Pressure Peak Inspiratory Airway 41 Pressure Peak Inspiratory Airway 42 Pressure Peak Inspiratory Airway 29 Pressure Peak Inspiratory Airway 40 Pressure Results - Laboratory Findings CBC and BMP: 07/04/17 02:45 07/04/17 02:45 ABG ABG pH 7.32 pH Units (7.32-7.45) 07/04/17 06:01 ABG pCO2 59 mmHg (35-45) H 07/04/17 06:01 ABG pO2 90 mmHg (85-104) 07/04/17 06:01 ABG O2 Saturation 96 % (95-98) 07/04/17 06:01 PT/INR, D-dimer PT 13.8 Seconds (9.4-12.1) H 07/02/17 12:50 Abnormal lab findings: Abnormal lab results WBC 16.4 K/mcL (4.3-11.1) H 07/04/17 02:45 Hgb 11.9 g/dL (12.9-16.9) L 07/04/17 02:45 MCHC 31.5 g/dL (31.6-35.5) L 07/04/17 02:45 Immature Gran % 4.3 % (0-4) H 07/04/17 02:45 Neutrophils # 13.3 K/mcL (1.6-8.9) H 07/04/17 02:45 Nucleated RBCs/100 WBC 0.2 /100 WBC (0) H 07/04/17 02:45 PT 13.8 Seconds (9.4-12.1) H 07/02/17 12:50 APTT 38.2 Seconds (26.0-36.0) H 07/04/17 02:45 ABG pCO2 59 mmHg (35-45) H 07/04/17 06:01 ABG HCO3 30 mEq/L (21-27) H 07/04/17 06:01 ABG Total CO2 32 mEq/L (20-26) H 07/04/17 06:01 BUN 94 mg/dL (6-20) H 07/04/17 02:45 Creatinine 4.63 mg/dL (0.70-1.30) H 07/04/17 02:45 Est GFR ( Amer) 17 (> 60) L 07/04/17 02:45 Est GFR (Non-Af Amer) 14 (> 60) L 07/04/17 02:45 Glucose 275 mg/dL (70-105) H 07/04/17 02:45 POC Glucose 226 mg/dL (70-99) H 07/03/17 23:42 Hemoglobin A1c 7.5 % (-5.6) H 06/30/17 10:02 Calculated Osmolality 323 (280-300) H 07/04/17 02:45 Calcium 8.2 mg/dL (8.6-10.3) L 07/04/17 02:45 Phosphorus 7.4 mg/dL (2.7-4.5) H 07/02/17 07:12 AST 46 Units/L (13-39) H 07/01/17 03:51 ALT 85 Units/L (7-52) H 07/01/17 03:51 Troponin I 0.59 ng/mL (< 0.04) H* 07/04/17 02:45 B-Natriuretic Peptide 134 pg/mL (Less than 100) H 06/30/17 06:08 Albumin 2.9 g/dL (3.5-5.7) L 07/02/17 07:12 Globulin 3.6 g/dL (2.4-3.5) H 07/01/17 03:51 Albumin/Globulin Ratio 0.9 (1.1-2.2) L 07/01/17 03:51 LDL Cholesterol, Calc 128 mg/dL (0-99) H 06/30/17 10:02 HDL Cholesterol 32 mg/dL (40-59) L 06/30/17 10:02 Cholesterol/HDL Ratio 5.9 (0-4.9) H 06/30/17 10:02 - Clinical Findings Intake & Output: Intake & Output 07/03/17 07/04/17 07/04/17 23:59 07:59 15:59 Intake Total 1067 / 1067 836 / 836 60 / 60 Output Total 600 / 600 925 / 925 475 / 475 Balance 467 / 467 -89 / -89 -415 / -415 Weight 295 kg Consult Discharge Plan - Plan Referrals: Jose David Hood DO [Resident] - (a packet will be sent to patient for new patient information) Bacilio Ruiz DO [Resident] - 07/07/17 3:20 pm - Attending Attestation I examined this patient and my medical decision-making was reviewed with the Resident Physician. I agree with the documented findings, disposition and treatment plan as described except to the extent set forth below. Patient seen and examined. Labs, radiology, chart personally reviewed. Agree with resident's history and physical, assessment, plan with following comments: [facility]: Patient sedated and does not follows commands, Pulmonary: Acceptable oxygenation and ventilation. Gradually lower PEEP to 12. Discussed with the father at the bedside. Cardiovascular: stable GI: Nutrition per dietary and GI prophylaxis per routine Heme: DVT prophylaxis per routine ID: Continue antibiotics and plan to de-escalation Renal; urine out put and renal funtion reviewed Endorcine: blood glucose is monitored Lines: all lines checked and no evidence of infections Skin: skin care to prevent pressure ulcers per nursing routine care <Abad Payne - Last Filed: 07/04/17 13:48> Date of Encounter: 07/04/17 Time of Encounter: 08:47 Assessment and Plan (1) Acute respiratory failure Current Visit: Yes Status: Acute Acute respiratory failure likely multifactorial including pulmonary edema, bronchitis, FARNAZ suspected, OHS suspected -Possible ARDS picture -CXR performed on presentation demonstrated diffuse pulmonary edema -Patient did fail BiPAP therapy and was intubated on 06/30/17. Continues to remain ventilator dependent -Patient has no prior history of pulmonary disease -Patient did meet sepsis criteria on presentation to the ICU; likely 2/2 stress reaction. Patient was tachypnic with WBC of 18.5. Lactic acidosis of 2.1 has down trended to 1.6. No longer meeting sirs criteria -BNP of 134 on presentation -Respiratory panel negative for viral infection Plan -Continue Levaquin, Solu-Medrol for possible bronchitis component and edematous airway -Continue mechanical ventilation as necessary -Sedation with propofol and fentanyl drip -Levaquin 750 mg IV every 48 -Solu-Medrol 60 mg every 8 Qualifiers: Qualified Code(s): J96.00 - Acute respiratory failure, unspecified whether with hypoxia or hypercapnia (2) Bronchitis Current Visit: Yes Status: Acute Patient initially presented with dyspnea, cough, and congestion 4 days -No longer meeting sirs criteria, normal lactic acid -Blood culture drawn on 06/30/17 negative 2 Plan -Continue Levaquin, breathing treatments, Solu-Medrol (3) Elevated troponin Current Visit: Yes Status: Acute Elevated troponin of 0.13 on presentation -Trended to 0.04/0.12/0.39 -EKG and presentation showing no evidence of ischemia -Per cardiology, likely due to demand ischemia and hypoxemia -Cardiology signed off -Preserved ejection fraction on echo -d/c heparin drip (4) DVT (deep venous thrombosis) Current Visit: Yes Status: Acute -Heparin 5000 units every 8 hours Qualifiers: Qualified Code(s): I82.409 - Acute embolism and thrombosis of unspecified deep veins of unspecified lower extremity Subjective Principal diagnosis: Respiratory failure Interval history: Patient was seen and examined at bedside this morning. Currently asleep and intubated. Does not appear to have any acute distress. Objective PUL Vital signs: Last Vital Signs Temp 97.8 F 07/04/17 08:16 Pulse 53 07/04/17 06:00 Resp 20 07/04/17 07:48 BP 109/61 07/04/17 07:48 Pulse Ox 94 07/04/17 07:48 General appearance: no acute distress, asleep Eyes: nonicteric ENT: oropharynx moist Neck: supple Effort: normal Auscultation: bilateral: diminished breath sounds Percussion: bilateral: not dull Tactile fremitus: bilateral: normal Cardiovascular: regular rate and rhythm Integumentary: normal Ventilator Settings Ventilator Settings: Ventilator Settings, Last 8 Hours Ventilator Mode VC+ Ventilator Mode A/C Ventilator Mode VC+ Ventilator Mode VC+ Ventilator Mode VC+ Ventilator Mode VC+ Ventilator Mode VC+ Ventilator Mode VC+ Ventilator Mode VC+ Ventilator Mode VC+ Ventilator Tidal Volume 600 Setting Ventilator Tidal Volume 600 Setting Ventilator Tidal Volume 600 Setting Ventilator Tidal Volume 600 Setting Ventilator Tidal Volume 600 Setting Ventilator Tidal Volume 600 Setting Ventilator Tidal Volume 600 Setting Ventilator Tidal Volume 600 Setting Ventilator Tidal Volume 600 Setting Ventilator Tidal Volume 600 Setting Ventilator Respiratory Rate 20 Setting Ventilator Respiratory Rate 20 Setting Ventilator Respiratory Rate 20 Setting Ventilator Respiratory Rate 20 Setting Ventilator Respiratory Rate 20 Setting Ventilator Respiratory Rate 20 Setting Ventilator Respiratory Rate 20 Setting Ventilator Respiratory Rate 20 Setting Ventilator Respiratory Rate 20 Setting Ventilator Respiratory Rate 20 Setting Actual Respiratory Rate 20 Actual Respiratory Rate 20 Actual Respiratory Rate 20 Actual Respiratory Rate 20 Actual Respiratory Rate 20 Actual Respiratory Rate 20 Actual Respiratory Rate 21 Actual Respiratory Rate 20 Actual Respiratory Rate 20 Positive End Expiratory 12 Pressure Positive End Expiratory 14 Pressure Positive End Expiratory 14 Pressure Positive End Expiratory 14 Pressure Positive End Expiratory 14 Pressure Positive End Expiratory 14 Pressure Positive End Expiratory 14 Pressure Positive End Expiratory 5 Pressure Positive End Expiratory 14 Pressure Positive End Expiratory 14 Pressure Peak Inspiratory Airway 42 Pressure Peak Inspiratory Airway 41 Pressure Peak Inspiratory Airway 43 Pressure Peak Inspiratory Airway 41 Pressure Peak Inspiratory Airway 41 Pressure Peak Inspiratory Airway 42 Pressure Peak Inspiratory Airway 29 Pressure Peak Inspiratory Airway 40 Pressure Peak Inspiratory Airway 40 Pressure Results - Laboratory Findings CBC and BMP: 07/04/17 02:45 07/04/17 02:45 ABG ABG pH 7.32 pH Units (7.32-7.45) 07/04/17 06:01 ABG pCO2 59 mmHg (35-45) H 07/04/17 06:01 ABG pO2 90 mmHg (85-104) 07/04/17 06:01 ABG O2 Saturation 96 % (95-98) 07/04/17 06:01 PT/INR, D-dimer PT 13.8 Seconds (9.4-12.1) H 07/02/17 12:50 Abnormal lab findings: Abnormal lab results WBC 16.4 K/mcL (4.3-11.1) H 07/04/17 02:45 Hgb 11.9 g/dL (12.9-16.9) L 07/04/17 02:45 MCHC 31.5 g/dL (31.6-35.5) L 07/04/17 02:45 Immature Gran % 4.3 % (0-4) H 07/04/17 02:45 Neutrophils # 13.3 K/mcL (1.6-8.9) H 07/04/17 02:45 Nucleated RBCs/100 WBC 0.2 /100 WBC (0) H 07/04/17 02:45 PT 13.8 Seconds (9.4-12.1) H 07/02/17 12:50 APTT 38.2 Seconds (26.0-36.0) H 07/04/17 02:45 ABG pCO2 59 mmHg (35-45) H 07/04/17 06:01 ABG HCO3 30 mEq/L (21-27) H 07/04/17 06:01 ABG Total CO2 32 mEq/L (20-26) H 07/04/17 06:01 BUN 94 mg/dL (6-20) H 07/04/17 02:45 Creatinine 4.63 mg/dL (0.70-1.30) H 07/04/17 02:45 Est GFR ( Amer) 17 (> 60) L 07/04/17 02:45 Est GFR (Non-Af Amer) 14 (> 60) L 07/04/17 02:45 Glucose 275 mg/dL (70-105) H 07/04/17 02:45 POC Glucose 226 mg/dL (70-99) H 07/03/17 23:42 Hemoglobin A1c 7.5 % (-5.6) H 06/30/17 10:02 Calculated Osmolality 323 (280-300) H 07/04/17 02:45 Calcium 8.2 mg/dL (8.6-10.3) L 07/04/17 02:45 Phosphorus 7.4 mg/dL (2.7-4.5) H 07/02/17 07:12 AST 46 Units/L (13-39) H 07/01/17 03:51 ALT 85 Units/L (7-52) H 07/01/17 03:51 Troponin I 0.59 ng/mL (< 0.04) H* 07/04/17 02:45 B-Natriuretic Peptide 134 pg/mL (Less than 100) H 06/30/17 06:08 Albumin 2.9 g/dL (3.5-5.7) L 07/02/17 07:12 Globulin 3.6 g/dL (2.4-3.5) H 07/01/17 03:51 Albumin/Globulin Ratio 0.9 (1.1-2.2) L 07/01/17 03:51 LDL Cholesterol, Calc 128 mg/dL (0-99) H 06/30/17 10:02 HDL Cholesterol 32 mg/dL (40-59) L 06/30/17 10:02 Cholesterol/HDL Ratio 5.9 (0-4.9) H 06/30/17 10:02 - Clinical Findings Intake & Output: Intake & Output 07/03/17 07/04/17 07/04/17 23:59 07:59 15:59 Intake Total 1067 / 1067 836 / 836 Output Total 600 / 600 925 / 925 475 / 475 Balance 467 / 467 -89 / -89 -475 / -475 Weight 295 kg
[2017-07-04] MEDS: *HR* Heparin 5,000 UNIT/ML VIAL SQ SCH ×2 (11:50→17:10)
[2017-07-04] MEDS: Sennosides/Docusate Sodium TABLET PO SCH ×2 (11:51→20:51)
[2017-07-05] MEDS: methylPREDNISolone 125 MG/2 ML VIAL IVP SCH ×2 (00:04→08:27)
[2017-07-05] MEDS: Lacri-Lube 3.5 GM TUBE BOTH EYES SCH ×7 (00:04→23:29)
[2017-07-05] MEDS: Insulin LISPRO 300 UNITS/3 ML VIAL SQ SCH ×6 (00:07→23:29)
--- NOTE | 2017-07-05 00:30 | Electrocardiograph Report ---
[place] [id number] Test Date: 2017-07-01 Pat Name: Michael Garcia Department: 109 Room: [facility] Gender: M Caregiver Services Home: LISA : 1975 Requested By: Sharon Correa Order Number: [id number] Reading MD: Ade Valentino Measurements Intervals [place] Rate: 74 P: 50 DE: 125 QRS: 7 QRSD: 109 T: 76 QT: 434 QTc: 462 Interpretive Statements SINUS RHYTHM NONSPECIFIC T-WAVE ABNORMALITY PROLONGED QT INTERVAL Electronically Signed On 07-05-2017 0:28:09 EDT by Ade Valentino
[2017-07-05] MEDS: FentaNYL (PF) 2,500 MCG in EMPTY BAG 50 EACH IVC SCH ×3 (03:19→19:00)
[2017-07-05] MEDS: Ipratropium/Albuterol Neb 3 ML IH SCH ×6 (03:29→23:14)
[2017-07-05 05:00] LABS: Basophils # 0.1 K/mcL (0.0-0.2); Basophils % 0.4 %; Hematocrit 37.5 % (37.5-50.1); Hemoglobin 11.9 g/dL (12.9-16.9); Immature Granulocytes % 4.3 % (0-4); Lymphocytes # 1.4 K/mcL (0.6-4.6); Lymphocytes % 8.5 %; Mean Corpuscular HGB Conc 31.7 g/dL (31.6-35.5); Mean Corpuscular Hemoglobin 28.5 pg (28.0-33.3); Mean Corpuscular Volume 89.7 fL (83.0-100.0); Monocytes # 1.2 K/mcL (0.0-1.3); Monocytes % 6.9 %; Neutrophils # 13.4 K/mcL (1.6-8.9); Platelet Count 312 K/mcL (140-400); Red Blood Count 4.18 M/mcL (4.19-5.50); Red Cell Distribution Width 13.2 % (11.5-14.5); Segmented Neutrophils % 79.9 %
[2017-07-05 05:14] LABS: Calcium 8.3 mg/dL (8.6-10.3); Potassium 5.4 mEq/L (3.5-5.1)
[2017-07-05 05:32] LABS: ABG Base Excess 5 mEq/L (-2 to 3); ABG HCO3 32 mEq/L (21-27); ABG Oxygen Saturation 96 % (95-98); ABG PCO2 59 mmHg (35-45); ABG PH 7.34 pH Units (7.32-7.45); ABG PO2 90 mmHg (85-104); ABG TCO2 34 mEq/L (20-26); Blood Gas Modality PRVC; Blood Gas PEEP 12 cm H2O; Blood Gas Respiration Rate 20; Blood Gas VT 600 cc
[2017-07-05] MEDS: *HR* Heparin 5,000 UNIT/ML VIAL SQ SCH ×3 (06:10→22:22)
[2017-07-05] MEDS: Sennosides/Docusate Sodium TABLET PO SCH ×2 (08:00→19:49)
[2017-07-05] MEDS: Pantoprazole 40 MG VIAL IVP SCH (08:27)
[2017-07-05] MEDS: Chlorhexidine Rinse 15 ML MOUTHWASH MM SCH ×2 (08:27→19:48)
--- NOTE | 2017-07-05 08:27 | Pulmonology Progress Note ---
<Kylie Danielle M - Last Filed: 07/05/17 13:24> Date of Encounter: 07/05/17 Objective PUL Vital signs: Last Vital Signs Temp 98.0 F 07/05/17 11:56 Pulse 83 07/05/17 11:00 Resp 19 07/05/17 11:15 BP 183/91 07/05/17 11:15 Pulse Ox 90 07/05/17 11:15 Ventilator Settings Ventilator Settings: Ventilator Settings, Last 8 Hours Ventilator Mode CPAP Ventilator Mode CPAP Ventilator Mode CPAP Ventilator Mode CPAP Ventilator Mode CPAP Ventilator Mode CPAP Ventilator Mode CPAP Ventilator Mode VC+ Ventilator Mode VC+ Ventilator Mode VC+ Ventilator Tidal Volume 600 Setting Ventilator Tidal Volume 600 Setting Ventilator Tidal Volume 600 Setting Ventilator Respiratory Rate 20 Setting Ventilator Respiratory Rate 20 Setting Ventilator Respiratory Rate 20 Setting Actual Respiratory Rate 19 Actual Respiratory Rate 18 Actual Respiratory Rate 19 Actual Respiratory Rate 14 Actual Respiratory Rate 19 Actual Respiratory Rate 20 Actual Respiratory Rate 16 Actual Respiratory Rate 20 Actual Respiratory Rate 20 Positive End Expiratory 10 Pressure Positive End Expiratory 10 Pressure Positive End Expiratory 10 Pressure Positive End Expiratory 10 Pressure Positive End Expiratory 10 Pressure Positive End Expiratory 10 Pressure Positive End Expiratory 10 Pressure Positive End Expiratory 10 Pressure Positive End Expiratory 10 Pressure Positive End Expiratory 12 Pressure Peak Inspiratory Airway 22 Pressure Peak Inspiratory Airway 33 Pressure Peak Inspiratory Airway 22 Pressure Peak Inspiratory Airway 21 Pressure Peak Inspiratory Airway 29 Pressure Peak Inspiratory Airway 22 Pressure Peak Inspiratory Airway 21 Pressure Peak Inspiratory Airway 35 Pressure Peak Inspiratory Airway 41 Pressure Results - Laboratory Findings CBC and BMP: 07/05/17 04:00 07/05/17 04:00 ABG ABG pH 7.34 pH Units (7.32-7.45) 07/05/17 05:29 ABG pCO2 59 mmHg (35-45) H 07/05/17 05:29 ABG pO2 90 mmHg (85-104) 07/05/17 05:29 ABG O2 Saturation 96 % (95-98) 07/05/17 05:29 PT/INR, D-dimer PT 13.8 Seconds (9.4-12.1) H 07/02/17 12:50 Abnormal lab findings: Abnormal lab results WBC 16.8 K/mcL (4.3-11.1) H 07/05/17 04:00 RBC 4.18 M/mcL (4.19-5.50) L 07/05/17 04:00 Hgb 11.9 g/dL (12.9-16.9) L 07/05/17 04:00 Immature Gran % 4.3 % (0-4) H 07/05/17 04:00 Neutrophils # 13.4 K/mcL (1.6-8.9) H 07/05/17 04:00 Nucleated RBCs/100 WBC 0.2 /100 WBC (0) H 07/04/17 02:45 PT 13.8 Seconds (9.4-12.1) H 07/02/17 12:50 APTT 38.2 Seconds (26.0-36.0) H 07/04/17 02:45 ABG pCO2 59 mmHg (35-45) H 07/05/17 05:29 ABG HCO3 32 mEq/L (21-27) H 07/05/17 05:29 ABG Total CO2 34 mEq/L (20-26) H 07/05/17 05:29 ABG Base Excess 5 mEq/L (-2 to 3) H 07/05/17 05:29 Potassium 5.4 mEq/L (3.5-5.1) H 07/05/17 04:00 BUN 117 mg/dL (6-20) H 07/05/17 04:00 Creatinine 4.10 mg/dL (0.70-1.30) H 07/05/17 04:00 Est GFR ( Amer) 19 (> 60) L 07/05/17 04:00 Est GFR (Non-Af Amer) 16 (> 60) L 07/05/17 04:00 BUN/Creatinine Ratio 29 (6-26) H 07/05/17 04:00 Glucose 212 mg/dL (70-105) H 07/05/17 04:00 POC Glucose 243 mg/dL (70-99) H 07/05/17 00:06 Hemoglobin A1c 7.5 % (-5.6) H 06/30/17 10:02 Calculated Osmolality 334 (280-300) H 07/05/17 04:00 Calcium 8.3 mg/dL (8.6-10.3) L 07/05/17 04:00 Phosphorus 7.4 mg/dL (2.7-4.5) H 07/02/17 07:12 AST 46 Units/L (13-39) H 07/01/17 03:51 ALT 85 Units/L (7-52) H 07/01/17 03:51 Troponin I 0.59 ng/mL (< 0.04) H* 07/04/17 02:45 B-Natriuretic Peptide 134 pg/mL (Less than 100) H 06/30/17 06:08 Albumin 2.9 g/dL (3.5-5.7) L 07/02/17 07:12 Globulin 3.6 g/dL (2.4-3.5) H 07/01/17 03:51 Albumin/Globulin Ratio 0.9 (1.1-2.2) L 07/01/17 03:51 LDL Cholesterol, Calc 128 mg/dL (0-99) H 06/30/17 10:02 HDL Cholesterol 32 mg/dL (40-59) L 06/30/17 10:02 Cholesterol/HDL Ratio 5.9 (0-4.9) H 06/30/17 10:02 - Clinical Findings Intake & Output: Intake & Output 07/04/17 07/05/17 07/05/17 23:59 07:59 15:59 Intake Total 200 / 200 270.9 / 270.9 Output Total 250 / 250 1325 / 1325 200 / 200 Balance -50 / -50 -1054.1 / -1054.1 -200 / -200 Weight 290.6 kg Consult Discharge Plan - Plan Referrals: Jose David Hood DO [Resident] - (a packet will be sent to patient for new patient information) Bacilio Ruiz DO [Resident] - 07/07/17 3:20 pm - Attending Attestation I examined this patient and my medical decision-making was reviewed with the Resident Physician. I agree with the documented findings, disposition and treatment plan as described except to the extent set forth below. Patient seen and examined. Labs, radiology, chart personally reviewed. Agree with resident's history and physical, assessment, plan with following comments: CLARIFIER: Patient follows commands, Pulmonary: Acceptable oxygenation and ventilation. This morning patient tolerated spontaneous breathing trial and was able to lower PEEP to 10 and because of the concern of the airway decision made patient was to the OR to be extubated and have ENT available. ENT evaluated the patient and discussed option of tracheostomy which was discussed with the family. The patient and my opinion ready to be extubated whenever to set up is available and coordination between anesthesia and ENT be done. Cardiovascular: stable GI: Nutrition per dietary and GI prophylaxis per routine Heme: DVT prophylaxis per routine ID: Continue antibiotics and plan to de-escalation Renal; urine out put and renal funtion reviewed Endorcine: blood glucose is monitored Lines: all lines checked and no evidence of infections Skin: skin care to prevent pressure ulcers per nursing routine care <Abad Payne - Last Filed: 07/05/17 14:24> Date of Encounter: 07/05/17 Time of Encounter: 08:23 Assessment and Plan (1) Acute respiratory failure Current Visit: Yes Status: Acute Acute respiratory failure likely multifactorial including pulmonary edema, bronchitis, FARNAZ suspected, OHS suspected -Possible ARDS picture -CXR performed on presentation demonstrated diffuse pulmonary edema -Patient did fail BiPAP therapy and was intubated on 06/30/17. Continues to remain ventilator dependent -Patient has no prior history of pulmonary disease -Patient did meet sepsis criteria on presentation to the ICU; likely 2/2 stress reaction. Patient was tachypnic with WBC of 18.5. Lactic acidosis of 2.1 has down trended to 1.6. No longer meeting sirs criteria -BNP of 134 on presentation -Respiratory panel negative for viral infection Plan -Continue Levaquin, Solu-Medrol for possible bronchitis component and edematous airway -Continue mechanical ventilation as necessary -Sedation with propofol and fentanyl drip -Levaquin 750 mg IV every 48 -Solu-Medrol 40 Q12 Qualifiers: Qualified Code(s): J96.00 - Acute respiratory failure, unspecified whether with hypoxia or hypercapnia (2) Bronchitis Current Visit: Yes Status: Acute Patient initially presented with dyspnea, cough, and congestion 4 days -No longer meeting sirs criteria, normal lactic acid -Blood culture drawn on 06/30/17 negative 2 Plan -Continue Levaquin, breathing treatments, Solu-Medrol (3) Elevated troponin Current Visit: Yes Status: Acute Elevated troponin of 0.13 on presentation -Trended to 0.04/0.12/0.39 -EKG and presentation showing no evidence of ischemia -Per cardiology, likely due to demand ischemia and hypoxemia -Cardiology signed off -Preserved ejection fraction on echo -d/c heparin drip (4) DVT (deep venous thrombosis) Current Visit: Yes Status: Acute -Heparin 5000 units every 8 hours Qualifiers: Qualified Code(s): I82.409 - Acute embolism and thrombosis of unspecified deep veins of unspecified lower extremity Subjective Principal diagnosis: Respiratory failure Interval history: Patient was seen and examined at bedside this morning. Currently intubated. Appears more alert today compared to yesterday. Denies having any respiratory distress or abdominal pain. Objective PUL Vital signs: Last Vital Signs Temp 98.7 F 07/05/17 08:00 Pulse 59 07/05/17 07:15 Resp 18 07/05/17 07:25 BP 143/78 07/05/17 07:25 Pulse Ox 92 07/05/17 07:25 General appearance: no acute distress Eyes: nonicteric ENT: oropharynx moist Neck: supple Effort: normal Auscultation: bilateral: clear Percussion: bilateral: not dull Tactile fremitus: bilateral: normal Cardiovascular: regular rate and rhythm Gastrointestinal: normoactive bowel sounds, non-distended Integumentary: normal Extremities: no cyanosis, no edema, no clubbing Musculoskeletal: no deformities, ROM normal normal mental status, non-focal exam mood appropriate, affect normal Ventilator Settings Ventilator Settings: Ventilator Settings, Last 8 Hours Ventilator Mode CPAP Ventilator Mode VC+ Ventilator Mode VC+ Ventilator Mode VC+ Ventilator Mode VC+ Ventilator Mode VC+ Ventilator Mode VC+ Ventilator Mode VC+ Ventilator Mode VC+ Ventilator Mode VC+ Ventilator Mode VC+ Ventilator Tidal Volume 600 Setting Ventilator Tidal Volume 600 Setting Ventilator Tidal Volume 600 Setting Ventilator Tidal Volume 600 Setting Ventilator Tidal Volume 600 Setting Ventilator Tidal Volume 600 Setting Ventilator Tidal Volume 600 Setting Ventilator Tidal Volume 600 Setting Ventilator Tidal Volume 600 Setting Ventilator Tidal Volume 600 Setting Ventilator Respiratory Rate 20 Setting Ventilator Respiratory Rate 20 Setting Ventilator Respiratory Rate 20 Setting Ventilator Respiratory Rate 20 Setting Ventilator Respiratory Rate 20 Setting Ventilator Respiratory Rate 20 Setting Ventilator Respiratory Rate 20 Setting Ventilator Respiratory Rate 20 Setting Ventilator Respiratory Rate 20 Setting Ventilator Respiratory Rate 20 Setting Actual Respiratory Rate 16 Actual Respiratory Rate 20 Actual Respiratory Rate 20 Actual Respiratory Rate 20 Actual Respiratory Rate 20 Actual Respiratory Rate 20 Actual Respiratory Rate 20 Actual Respiratory Rate 20 Actual Respiratory Rate 20 Actual Respiratory Rate 20 Positive End Expiratory 10 Pressure Positive End Expiratory 10 Pressure Positive End Expiratory 10 Pressure Positive End Expiratory 12 Pressure Positive End Expiratory 12 Pressure Positive End Expiratory 12 Pressure Positive End Expiratory 12 Pressure Positive End Expiratory 12 Pressure Positive End Expiratory 12 Pressure Positive End Expiratory 12 Pressure Positive End Expiratory 12 Pressure Peak Inspiratory Airway 21 Pressure Peak Inspiratory Airway 35 Pressure Peak Inspiratory Airway 41 Pressure Peak Inspiratory Airway 40 Pressure Peak Inspiratory Airway 40 Pressure Peak Inspiratory Airway 39 Pressure Peak Inspiratory Airway 41 Pressure Peak Inspiratory Airway 40 Pressure Peak Inspiratory Airway 40 Pressure Peak Inspiratory Airway 40 Pressure Results - Laboratory Findings CBC and BMP: 07/05/17 04:00 07/05/17 04:00 ABG ABG pH 7.34 pH Units (7.32-7.45) 07/05/17 05:29 ABG pCO2 59 mmHg (35-45) H 07/05/17 05:29 ABG pO2 90 mmHg (85-104) 07/05/17 05:29 ABG O2 Saturation 96 % (95-98) 07/05/17 05:29 PT/INR, D-dimer PT 13.8 Seconds (9.4-12.1) H 07/02/17 12:50 Abnormal lab findings: Abnormal lab results WBC 16.8 K/mcL (4.3-11.1) H 07/05/17 04:00 RBC 4.18 M/mcL (4.19-5.50) L 07/05/17 04:00 Hgb 11.9 g/dL (12.9-16.9) L 07/05/17 04:00 Immature Gran % 4.3 % (0-4) H 07/05/17 04:00 Neutrophils # 13.4 K/mcL (1.6-8.9) H 07/05/17 04:00 Nucleated RBCs/100 WBC 0.2 /100 WBC (0) H 07/04/17 02:45 PT 13.8 Seconds (9.4-12.1) H 07/02/17 12:50 APTT 38.2 Seconds (26.0-36.0) H 07/04/17 02:45 ABG pCO2 59 mmHg (35-45) H 07/05/17 05:29 ABG HCO3 32 mEq/L (21-27) H 07/05/17 05:29 ABG Total CO2 34 mEq/L (20-26) H 07/05/17 05:29 ABG Base Excess 5 mEq/L (-2 to 3) H 07/05/17 05:29 Potassium 5.4 mEq/L (3.5-5.1) H 07/05/17 04:00 BUN 117 mg/dL (6-20) H 07/05/17 04:00 Creatinine 4.10 mg/dL (0.70-1.30) H 07/05/17 04:00 Est GFR ( Amer) 19 (> 60) L 07/05/17 04:00 Est GFR (Non-Af Amer) 16 (> 60) L 07/05/17 04:00 BUN/Creatinine Ratio 29 (6-26) H 07/05/17 04:00 Glucose 212 mg/dL (70-105) H 07/05/17 04:00 POC Glucose 243 mg/dL (70-99) H 07/05/17 00:06 Hemoglobin A1c 7.5 % (-5.6) H 06/30/17 10:02 Calculated Osmolality 334 (280-300) H 07/05/17 04:00 Calcium 8.3 mg/dL (8.6-10.3) L 07/05/17 04:00 Phosphorus 7.4 mg/dL (2.7-4.5) H 07/02/17 07:12 AST 46 Units/L (13-39) H 07/01/17 03:51 ALT 85 Units/L (7-52) H 07/01/17 03:51 Troponin I 0.59 ng/mL (< 0.04) H* 07/04/17 02:45 B-Natriuretic Peptide 134 pg/mL (Less than 100) H 06/30/17 06:08 Albumin 2.9 g/dL (3.5-5.7) L 07/02/17 07:12 Globulin 3.6 g/dL (2.4-3.5) H 07/01/17 03:51 Albumin/Globulin Ratio 0.9 (1.1-2.2) L 07/01/17 03:51 LDL Cholesterol, Calc 128 mg/dL (0-99) H 06/30/17 10:02 HDL Cholesterol 32 mg/dL (40-59) L 06/30/17 10:02 Cholesterol/HDL Ratio 5.9 (0-4.9) H 06/30/17 10:02 - Clinical Findings Intake & Output: Intake & Output 07/04/17 07/05/17 07/05/17 23:59 07:59 15:59 Intake Total 200 / 200 270.9 / 270.9 Output Total 250 / 250 1325 / 1325 200 / 200 Balance -50 / -50 -1054.1 / -1054.1 -200 / -200 Weight 290.6 kg
[2017-07-05] MEDS: Aspirin 81 MG TAB.CHEW PO SCH (08:28)
[2017-07-05] MEDS: Levofloxacin 750 MG/150 ML 750 MG/150 ML BAG IVPB SCH (08:28)
[2017-07-05] MEDS: Insulin DETEMIR 100 UNIT/ML X5UNITS SQ SCH ×2 (08:33→19:48)
--- NOTE | 2017-07-05 09:48 | Event Note ---
Date of Encounter: 07/05/17 Time of Encounter: 09:44 Patient currently on CPAP trial with anticipation of extubation today. I reviewed his prior medical records that he was intubated on 06/30/17 by anesthesia requiring a D blade and bougie assistance for intubation. Given this history I discussed with the on-call anesthesiologist Dr. Cavazos and requested anesthesia presence for extubation. We reviewed the patient's prior intubation and came to an agreement that it would be safer for the patient to be extubated in the operating room under controlled conditions. Dr. Cavazos also requested the presence of ENT, should an emergent tracheostomy be required. I discussed this patient with the on-call ENT Dr. Virgen. Discussed the patient 's prior intubation, body habitus, concerns from anesthesia. She reports availability today around noon. Discussed scheduling for the operating room at noon with coordination of anesthesia and ENT tentatively. I relayed the discussions I had with anesthesia, ENT as well as the ICU team to the patient's family. I also discussed our concerns with extubation including requirement for reintubation, emergent tracheostomy if failure to intubate. They were hoping that he would be extubated this morning but understand that we are attempting to create the safest environment to extubate their son. We will plan tentatively for extubation around noon today in the operating suite.
[2017-07-05] MEDS ORDERED: GuaiFENesin Liq 200 MG/10 ML UDC PO PRN (11:09)
--- NOTE | 2017-07-05 11:17 | Anesthesia Evaluation PreOp ---
Date of Encounter: 07/05/17 Time of Encounter: 11:13 - Past History Planned Operation: Extubation in Operating Room Pulmonary History: Other (Anxiety) Alcohol Use: none Drug use: none Medications and Allergies Albuterol Sulfate [Albuterol Inhaler] 1 puff IH Q4HR PRN #1 hfa.aer.ad 06/27/17 [Rx] GuaiFENesin ER [Mucinex] 1,200 mg PO BID #20 tbbp.12hr 06/27/17 [Rx] cephALEXin [Keflex] 500 mg PO QID #40 capsule 06/27/17 [Rx] predniSONE [PredniSONE] See Taper PO DAILY #18 tablet 06/27/17 [Rx] 3 Allergy/AdvReac Type Severity Reaction Status Date / Time No Known Allergies Allergy Verified 06/30/17 05:55 Anesthesia Results - Labs 07/05/17 04:00 07/05/17 04:00 Echo with Imaging Enhancement Agent Name: Michael Garcia Date of Study: 06/30/2017 Impressions: Poorly visualized endocardial definition with definity but LVEF seems to be preserved at 55% Normal left ventricular diastolic function. Unable to evaluate segmental wall motion due to technical quality. No significant valvular dysfunction by doppler Anesthesia Exam Vital Signs/O2 Sat, Most Current Temp Pulse Resp BP Pulse Ox 98.7 F 83 19 183/91 90 07/05/17 08:00 07/05/17 11:00 07/05/17 11:15 07/05/17 11:15 07/05/17 11:15
--- NOTE | 2017-07-05 15:56 | ENT - Consult Note ---
Date of Encounter: 07/05/17 Time of Encounter: 15:55 Assessment and Plan (1) Morbid (severe) obesity due to excess calories Current Visit: Yes Status: Chronic Recommend weight loss to help possibility of decannulation in the future. (2) Obesity hypoventilation syndrome Current Visit: Yes Status: Suspected Permanent trach until patient we loss occurs would be optimal for this patient. This was discussed with the family at the bedside at the time of tracheostomy consent. (3) Airway obstruction, anatomic Current Visit: Yes Status: Acute Recommend the following for the patient tracheostomy. Risks, benefits, alternatives to this procedure were discussed at length with the patient as well as his family at the bedside. Patient is awake and alert despite being intubated. Risks include but not limited to bleeding, infection, tracheoesophageal fistula, pneumothorax, airway obstruction, persistent stoma, possible need for further surgery, and possibly were discussed. Patient and his family understand these risks and have agreed to proceed with surgery as outlined. Consent was signed and placed in the chart. We will plan to take the patient to the operating room tomorrow at approximately 1:15 for tracheostomy. Tube feeds are currently being held will continue to hold tube feeds until after the procedure tomorrow. (4) Acute on chronic respiratory failure with hypoxia and hypercapnia Current Visit: Yes Status: Acute Will plan on tracheostomy tomorrow as patient not good candidate for extubation. History of Present Illness Consult date: 07/05/17 Reason for ENT Consult: airway complication, trach placement Requesting physician: Kylie Danielle History of present illness: Patient is a 42-year-old gentleman who is admitted with increasing shortness of breath. Patient initially seen for shortness of breath and an urgent care and was given steroid taper and antibiotics. Shortness of breath progressed and patient was seen in the emergency department which showed an infiltrate in his lungs. Patient was subsequently admitted and placed on BiPAP. Patient's shortness of breath continued to progress and patient was intubated. Patient did have a very rough intubation due to his extremely morbid obesity. Patient normally sits in the chair at night to sleep but does not use of BiPAP or CPAP at home. Flu swab's on admission of come back negative to this point. Patient continued to improve and it was determined that they were going to try to extubate due to his improvement in his breathing after treatment with IV antibiotics and Solu-Medrol. Due to patient's size and difficulty in the intubation anesthesiology was consulted for extubation. Anesthesia 180 ENT present for possible tracheostomy. Past Med Surg Social Fam HX - Past Medical History Medical history: other Psychiatric history: anxiety - Social History Smoking Status: Never smoker Smokeless Tobacco Status: No Alcohol use: none Drug use: none Medications and Allergies Albuterol Sulfate [Albuterol Inhaler] 1 puff IH Q4HR PRN #1 hfa.aer.ad 06/27/17 [Rx] GuaiFENesin ER [Mucinex] 1,200 mg PO BID #20 tbbp.12hr 06/27/17 [Rx] cephALEXin [Keflex] 500 mg PO QID #40 capsule 06/27/17 [Rx] predniSONE [PredniSONE] See Taper PO DAILY #18 tablet 06/27/17 [Rx] 3 Allergy/AdvReac Type Severity Reaction Status Date / Time No Known Allergies Allergy Verified 06/30/17 05:55 ENT - ROS ROS unobtainable: due to endotracheal tube ENT Exam Initial Vital Signs Temp Pulse Resp BP Pulse Ox 97.3 F L 105 24 195/129 65 06/30/17 05:49 06/30/17 05:49 06/30/17 05:49 06/30/17 05:49 06/30/17 05:49 - General physical appearance obese - Eyes PERRL, normal ocular movement - ENT Other (Oral exam could not be performed secondary to endotracheal tube. Mucous membranes moist.) - Neck trachea midline, other (Thick neck with submental pannus. Thyroid cartilage palpable and cricoi palpable at the sternal notch. ) - Respiratory other (Currently on the vent) Exam Initial Vital Signs Temp Pulse Resp BP Pulse Ox 97.3 F L 105 24 195/129 65 06/30/17 05:49 06/30/17 05:49 06/30/17 05:49 06/30/17 05:49 06/30/17 05:49 Results - Labs 07/05/17 04:00 07/05/17 04:00 Abnormal lab results WBC 16.8 K/mcL (4.3-11.1) H 07/05/17 04:00 RBC 4.18 M/mcL (4.19-5.50) L 07/05/17 04:00 Hgb 11.9 g/dL (12.9-16.9) L 07/05/17 04:00 Immature Gran % 4.3 % (0-4) H 07/05/17 04:00 Neutrophils # 13.4 K/mcL (1.6-8.9) H 07/05/17 04:00 Nucleated RBCs/100 WBC 0.2 /100 WBC (0) H 07/04/17 02:45 PT 13.8 Seconds (9.4-12.1) H 07/02/17 12:50 APTT 38.2 Seconds (26.0-36.0) H 07/04/17 02:45 ABG pCO2 59 mmHg (35-45) H 07/05/17 05:29 ABG HCO3 32 mEq/L (21-27) H 07/05/17 05:29 ABG Total CO2 34 mEq/L (20-26) H 07/05/17 05:29 ABG Base Excess 5 mEq/L (-2 to 3) H 07/05/17 05:29 Potassium 5.4 mEq/L (3.5-5.1) H 07/05/17 04:00 BUN 117 mg/dL (6-20) H 07/05/17 04:00 Creatinine 4.10 mg/dL (0.70-1.30) H 07/05/17 04:00 Est GFR ( Amer) 19 (> 60) L 07/05/17 04:00 Est GFR (Non-Af Amer) 16 (> 60) L 07/05/17 04:00 BUN/Creatinine Ratio 29 (6-26) H 07/05/17 04:00 Glucose 212 mg/dL (70-105) H 07/05/17 04:00 POC Glucose 243 mg/dL (70-99) H 07/05/17 00:06 Hemoglobin A1c 7.5 % (-5.6) H 06/30/17 10:02 Calculated Osmolality 334 (280-300) H 07/05/17 04:00 Calcium 8.3 mg/dL (8.6-10.3) L 07/05/17 04:00 Phosphorus 7.4 mg/dL (2.7-4.5) H 07/02/17 07:12 AST 46 Units/L (13-39) H 07/01/17 03:51 ALT 85 Units/L (7-52) H 07/01/17 03:51 Troponin I 0.59 ng/mL (< 0.04) H* 07/04/17 02:45 B-Natriuretic Peptide 134 pg/mL (Less than 100) H 06/30/17 06:08 Albumin 2.9 g/dL (3.5-5.7) L 07/02/17 07:12 Globulin 3.6 g/dL (2.4-3.5) H 07/01/17 03:51 Albumin/Globulin Ratio 0.9 (1.1-2.2) L 07/01/17 03:51 LDL Cholesterol, Calc 128 mg/dL (0-99) H 06/30/17 10:02 HDL Cholesterol 32 mg/dL (40-59) L 06/30/17 10:02 Cholesterol/HDL Ratio 5.9 (0-4.9) H 06/30/17 10:02 Diabetes panel 07/05/17 Range/Units 04:00 Sodium 140 (136-145) mEq/L Potassium 5.4 H (3.5-5.1) mEq/L Chloride 102 (98-107) mEq/L Carbon Dioxide 27 (23-29) mEq/L BUN 117 H (6-20) mg/dL Creatinine 4.10 H (0.70-1.30) mg/dL Glucose 212 H (70-105) mg/dL Calcium 8.3 L (8.6-10.3) mg/dL Calcium panel 07/05/17 Range/Units 04:00 Calcium 8.3 L (8.6-10.3) mg/dL Pituitary panel 07/05/17 Range/Units 04:00 Sodium 140 (136-145) mEq/L Potassium 5.4 H (3.5-5.1) mEq/L Chloride 102 (98-107) mEq/L Carbon Dioxide 27 (23-29) mEq/L BUN 117 H (6-20) mg/dL Creatinine 4.10 H (0.70-1.30) mg/dL Glucose 212 H (70-105) mg/dL Calcium 8.3 L (8.6-10.3) mg/dL Adrenal panel 07/05/17 Range/Units 04:00 Sodium 140 (136-145) mEq/L Potassium 5.4 H (3.5-5.1) mEq/L Chloride 102 (98-107) mEq/L Carbon Dioxide 27 (23-29) mEq/L BUN 117 H (6-20) mg/dL Creatinine 4.10 H (0.70-1.30) mg/dL Glucose 212 H (70-105) mg/dL Calcium 8.3 L (8.6-10.3) mg/dL All other labs normal. Consult Discharge Plan - Plan Referrals: Jose David Hood DO [Resident] - (a packet will be sent to patient for new patient information) Bacilio Ruiz DO [Resident] - 07/07/17 3:20 pm
[2017-07-05] MEDS: MethylPREDNISolone 40 MG/ML VIAL IVP SCH (16:56)
--- NOTE | 2017-07-05 19:27 | Anesthesia Evaluation PreOp ---
Date of Encounter: 07/05/17 Time of Encounter: 22:58 - Past History Planned Operation: Tracheostomy Cardiac History: Other (elevated troponins--cardiology consulted, troponins peaked at 0.88, likely due to demand ischemia from hypoxemia {SpO2 65% on admission}) Pulmonary History: Other (obesity hypoventilation syndrome, acute and chronic respiratory failure) LIMB DRIVER History: Denies Any Significant HX Other Medical History: Renal (acute kidney injury), Other (obesity BMI=82.3, anxiety) Anesthesia History: Past Anesthesia (no prior surgery) Alcohol Use: none Drug use: none Medications and Allergies Albuterol Sulfate [Albuterol Inhaler] 1 puff IH Q4HR PRN #1 hfa.aer.ad 06/27/17 [Rx] GuaiFENesin ER [Mucinex] 1,200 mg PO BID #20 tbbp.12hr 06/27/17 [Rx] cephALEXin [Keflex] 500 mg PO QID #40 capsule 06/27/17 [Rx] predniSONE [PredniSONE] See Taper PO DAILY #18 tablet 06/27/17 [Rx] 3 Allergy/AdvReac Type Severity Reaction Status Date / Time No Known Allergies Allergy Verified 06/30/17 05:55 - Meds/Allergy Pre-op Review Medications Reviewed: Yes Allergies Reviewed: Yes Beta Blockers on Current Med List: No Anesthesia Results - Labs 07/05/17 04:00 07/05/17 04:00 - Imaging EKG: report reviewed (07/01/2017 SINUS RHYTHM NONSPECIFIC T-WAVE ABNORMALITY PROLONGED QT INTERVAL) Chest x-ray: report reviewed (06/30/2017 MPRESSION: Interval placement of enteric and endotracheal tubes. Enlargement of the cardiopericardial silhouette and prominence of the superior mediastinum. Follow-up PA and lateral would be helpful when possible. Suspected pulmonary vascular congestion. Asymmetric left basilar airspace disease is present, asymmetric edema, atelectasis or pneumonia.) Additional studies: 06/30/2017 Echo Impressions: Poorly visualized endocardial definition with definity but LVEF seems to be preserved at 55% Normal left ventricular diastolic function. Unable to evaluate segmental wall motion due to technical quality. No significant valvular dysfunction by doppler Anesthesia Exam Vital Signs/O2 Sat/Glucose, Most Recent Temp Pulse Resp BP Pulse Ox 98.1 F 87 21 169/95 90 07/05/17 16:24 07/05/17 18:00 07/05/17 18:00 07/05/17 18:00 07/05/17 18:00 Blood Glucose* 253 Height: 6'2''/1.88 m Weight: 640 lbs/290.6 kg - HEENT Mallampati: Intubated - LIMB DRIVER LOC: Unable to assess (sedated) - Cardiac Rhythm: Regular Murmur: None - Pulmonary Breath Sounds: bilateral Rales Respiratory Effort: Symmetrical Anesthesia Assess/Plan ASA Score: 4 Modified Kapil Scale for Level of Consciousness: Asleep with sluggish response to stimulus (Patient is intubated and sedated. Consent obtained from father) Anesthetic Plan: General Monitoring Plan: Standard Monitors Recovery Plan: ICU
[2017-07-05 19:31] LABS: Hepatitis B Surface Antibody 0.29 mIU/mL; Hepatitis B Surface Antigen Nonreactive (Nonreactive)
[2017-07-06] MEDS: Ipratropium/Albuterol Neb 3 ML IH SCH ×6 (03:17→23:26)
[2017-07-06 03:52] LABS: Basophils # 0.1 K/mcL (0.0-0.2); Basophils % 0.3 %; Hematocrit 41.8 % (37.5-50.1); Hemoglobin 13.2 g/dL (12.9-16.9); Immature Granulocytes % 4.4 % (0-4); Lymphocytes % 8.5 %; Mean Corpuscular HGB Conc 31.6 g/dL (31.6-35.5); Mean Corpuscular Hemoglobin 28.6 pg (28.0-33.3); Mean Corpuscular Volume 90.5 fL (83.0-100.0); Monocytes # 1.7 K/mcL (0.0-1.3); Monocytes % 7.3 %; Neutrophils # 18.8 K/mcL (1.6-8.9); Nucleated Red Blood Cells 0.1 /100 WBC (0); Platelet Count 328 K/mcL (140-400); Red Blood Count 4.62 M/mcL (4.19-5.50); Red Cell Distribution Width 13.5 % (11.5-14.5); Segmented Neutrophils % 79.5 %
[2017-07-06 03:57] LABS: INR 1.2
[2017-07-06] MEDS: Lacri-Lube 3.5 GM TUBE BOTH EYES SCH ×5 (03:57→23:24)
[2017-07-06] MEDS: Insulin LISPRO 300 UNITS/3 ML VIAL SQ SCH ×5 (04:00→23:23)
[2017-07-06 04:21] LABS: Blood Urea Nitrogen > 130 mg/dL (6-20); Calcium 8.6 mg/dL (8.6-10.3); Carbon Dioxide 27 mEq/L (23-29); Chloride 101 mEq/L (98-107); Glucose 185 mg/dL (70-105); Potassium 5.5 mEq/L (3.5-5.1); Sodium 141 mEq/L (136-145); eGFR For African Americans 15 (> 60); eGFR For Non-African Americans 12 (> 60)
[2017-07-06 05:32] LABS: ABG Base Excess 3 mEq/L (-2 to 3); ABG HCO3 30 mEq/L (21-27); ABG Oxygen Saturation 96 % (95-98); ABG PCO2 58 mmHg (35-45); ABG PH 7.32 pH Units (7.32-7.45); ABG PO2 91 mmHg (85-104); ABG TCO2 32 mEq/L (20-26); Blood Gas Modality PRVC; Blood Gas PEEP 10 cm H2O; Blood Gas Respiration Rate 20; Blood Gas VT 600 cc
[2017-07-06] MEDS: MethylPREDNISolone 40 MG/ML VIAL IVP SCH ×2 (05:57→18:07)
[2017-07-06] MEDS ORDERED: 0.9 % Sodium Chloride 1,000 ML IVC ONE ×2 (05:59→06:02)
--- NOTE | 2017-07-06 07:54 | Pulmonology Progress Note ---
<Abad Payne - Last Filed: 07/06/17 08:12> Date of Encounter: 07/06/17 Time of Encounter: 07:48 Assessment and Plan (1) Acute respiratory failure Current Visit: Yes Status: Acute Acute respiratory failure likely multifactorial including pulmonary edema, bronchitis, FARNAZ suspected, OHS suspected -Possible ARDS picture -CXR performed on presentation demonstrated diffuse pulmonary edema -Patient did fail BiPAP therapy and was intubated on 06/30/17. Continues to remain ventilator dependent -Patient has no prior history of pulmonary disease -Patient did meet sepsis criteria on presentation to the ICU; likely 2/2 stress reaction. Patient was tachypnic with WBC of 18.5. Lactic acidosis of 2.1 has down trended to 1.6. No longer meeting sirs criteria -BNP of 134 on presentation -Respiratory panel negative for viral infection Plan -Continue Levaquin, Solu-Medrol for possible bronchitis component and edematous airway -Continue mechanical ventilation as necessary -Levaquin 750 mg IV every 48 -Solu-Medrol 40 Q12 (2) Bronchitis Current Visit: Yes Status: Acute Patient initially presented with dyspnea, cough, and congestion 4 days -No longer meeting sirs criteria, normal lactic acid -Blood culture drawn on 06/30/17 negative 2 Plan -Continue Levaquin, breathing treatments, Solu-Medrol (3) ZOHAIB (acute kidney injury) Current Visit: Yes Status: Acute Worsening renal function; Cr has increased from 4.10 to 5.16, BUN >130 - Nephrology has been consulted - Avoid nephrotoxic agents (4) Elevated troponin Current Visit: Yes Status: Acute Elevated troponin of 0.13 on presentation -Trended to 0.04/0.12/0.39 -EKG and presentation showing no evidence of ischemia -Per cardiology, likely due to demand ischemia and hypoxemia -Cardiology signed off -Preserved ejection fraction on echo -d/c heparin drip (5) DVT (deep venous thrombosis) Current Visit: Yes Status: Acute -Heparin SQ has been held for the time being Subjective Principal diagnosis: Respiratory failure Interval history: Patient was seen and examined at bedside this morning. Currently intubated. Steroids were reduced yesterday to 40 mg q12. Hydralazine 10 mg IV Q6 PRN for BP control; was running high yesterday from the 160s to 180s SBP; at one point BP reached 214/110. currently better controlled with SBP ranging from the 130s to 140s. Robitussin 200 mg PO Q6 PRN was started yesterday. Worsening renal function; Cr has increased from 4.10 to 5.16, BUN >130. Nephrology has been consulted Objective PUL Vital signs: Last Vital Signs Temp 97.6 F 07/06/17 07:35 Pulse 71 07/06/17 07:35 Resp 20 07/06/17 07:35 BP 144/80 07/06/17 07:35 Pulse Ox 92 07/06/17 07:35 General appearance: no acute distress Eyes: nonicteric ENT: oropharynx moist Neck: supple Effort: normal Auscultation: bilateral: clear Percussion: bilateral: not dull Tactile fremitus: bilateral: normal Cardiovascular: regular rate and rhythm Gastrointestinal: normoactive bowel sounds, non-distended Integumentary: normal Extremities: no cyanosis, no edema, no clubbing Musculoskeletal: no deformities, ROM normal normal mental status, non-focal exam mood appropriate, affect normal Ventilator Settings Ventilator Settings: Ventilator Settings, Last 8 Hours Ventilator Mode VC+ Ventilator Mode VC+ Ventilator Mode VC+ Ventilator Mode VC+ Ventilator Mode VC+ Ventilator Mode VC+ Ventilator Mode VC+ Ventilator Mode VC+ Ventilator Mode VC+ Ventilator Mode VC+ Ventilator Mode VC+ Ventilator Mode VC+ Ventilator Tidal Volume 600 Setting Ventilator Tidal Volume 600 Setting Ventilator Tidal Volume 600 Setting Ventilator Tidal Volume 600 Setting Ventilator Tidal Volume 600 Setting Ventilator Tidal Volume 600 Setting Ventilator Tidal Volume 600 Setting Ventilator Tidal Volume 600 Setting Ventilator Tidal Volume 600 Setting Ventilator Tidal Volume 600 Setting Ventilator Tidal Volume 600 Setting Ventilator Tidal Volume 600 Setting Ventilator Respiratory Rate 20 Setting Ventilator Respiratory Rate 20 Setting Ventilator Respiratory Rate 20 Setting Ventilator Respiratory Rate 20 Setting Ventilator Respiratory Rate 20 Setting Ventilator Respiratory Rate 20 Setting Ventilator Respiratory Rate 20 Setting Ventilator Respiratory Rate 20 Setting Ventilator Respiratory Rate 20 Setting Ventilator Respiratory Rate 20 Setting Ventilator Respiratory Rate 20 Setting Ventilator Respiratory Rate 20 Setting Actual Respiratory Rate 20 Actual Respiratory Rate 20 Actual Respiratory Rate 20 Actual Respiratory Rate 20 Positive End Expiratory 10 Pressure Positive End Expiratory 10 Pressure Positive End Expiratory 10 Pressure Positive End Expiratory 10 Pressure Positive End Expiratory 10 Pressure Positive End Expiratory 10 Pressure Positive End Expiratory 10 Pressure Positive End Expiratory 10 Pressure Positive End Expiratory 10 Pressure Positive End Expiratory 10 Pressure Positive End Expiratory 10 Pressure Positive End Expiratory 10 Pressure Peak Inspiratory Airway 35 Pressure Peak Inspiratory Airway 35 Pressure Peak Inspiratory Airway 35 Pressure Peak Inspiratory Airway 32 Pressure Peak Inspiratory Airway 33 Pressure Peak Inspiratory Airway 32 Pressure Peak Inspiratory Airway 34 Pressure Peak Inspiratory Airway 32 Pressure Peak Inspiratory Airway 32 Pressure Peak Inspiratory Airway 31 Pressure Peak Inspiratory Airway 32 Pressure Results - Laboratory Findings CBC and BMP: 07/06/17 03:32 07/06/17 03:32 ABG ABG pH 7.32 pH Units (7.32-7.45) 07/06/17 05:26 ABG pCO2 58 mmHg (35-45) H 07/06/17 05:26 ABG pO2 91 mmHg (85-104) 07/06/17 05:26 ABG O2 Saturation 96 % (95-98) 07/06/17 05:26 PT/INR, D-dimer PT 13.0 Seconds (9.4-12.1) H 07/06/17 03:32 Abnormal lab findings: Abnormal lab results WBC 23.7 K/mcL (4.3-11.1) H 07/06/17 03:32 Immature Gran % 4.4 % (0-4) H 07/06/17 03:32 Neutrophils # 18.8 K/mcL (1.6-8.9) H 07/06/17 03:32 Monocytes # 1.7 K/mcL (0.0-1.3) H 07/06/17 03:32 Nucleated RBCs/100 WBC 0.1 /100 WBC (0) H 07/06/17 03:32 PT 13.0 Seconds (9.4-12.1) H 07/06/17 03:32 APTT 38.2 Seconds (26.0-36.0) H 07/04/17 02:45 ABG pCO2 58 mmHg (35-45) H 07/06/17 05:26 ABG HCO3 30 mEq/L (21-27) H 07/06/17 05:26 ABG Total CO2 32 mEq/L (20-26) H 07/06/17 05:26 Potassium 5.5 mEq/L (3.5-5.1) H 07/06/17 03:32 BUN > 130 mg/dL (6-20) H 07/06/17 03:32 Creatinine 5.16 mg/dL (0.70-1.30) H 07/06/17 03:32 Est GFR ( Amer) 15 (> 60) L 07/06/17 03:32 Est GFR (Non-Af Amer) 12 (> 60) L 07/06/17 03:32 Glucose 185 mg/dL (70-105) H 07/06/17 03:32 POC Glucose 200 mg/dL (70-99) H 07/05/17 23:28 Hemoglobin A1c 7.5 % (-5.6) H 06/30/17 10:02 Phosphorus 7.4 mg/dL (2.7-4.5) H 07/02/17 07:12 AST 46 Units/L (13-39) H 07/01/17 03:51 ALT 85 Units/L (7-52) H 07/01/17 03:51 Troponin I 0.59 ng/mL (< 0.04) H* 07/04/17 02:45 B-Natriuretic Peptide 134 pg/mL (Less than 100) H 06/30/17 06:08 Albumin 2.9 g/dL (3.5-5.7) L 07/02/17 07:12 Globulin 3.6 g/dL (2.4-3.5) H 07/01/17 03:51 Albumin/Globulin Ratio 0.9 (1.1-2.2) L 07/01/17 03:51 LDL Cholesterol, Calc 128 mg/dL (0-99) H 06/30/17 10:02 HDL Cholesterol 32 mg/dL (40-59) L 06/30/17 10:02 Cholesterol/HDL Ratio 5.9 (0-4.9) H 06/30/17 10:02 - Clinical Findings Intake & Output: Intake & Output 07/05/17 07/05/17 07/06/17 15:59 23:59 07:59 Intake Total 250 / 250 486.9 / 486.9 500 / 500 Output Total 200 / 200 310 / 310 50 / 50 Balance 50 / 50 176.9 / 176.9 450 / 450 Weight 286 kg Consult Discharge Plan - Plan Referrals: Jose David Hood DO [Resident] - (a packet will be sent to patient for new patient information) Bacilio Ruiz DO [Resident] - 07/07/17 3:20 pm <Kylie Danielle - Last Filed: 07/06/17 18:14> Date of Encounter: 07/06/17 Objective PUL Vital signs: Last Vital Signs Temp 97.3 F L 07/06/17 16:05 Pulse 76 07/06/17 17:27 Resp 20 07/06/17 17:27 BP 148/83 07/06/17 17:27 Pulse Ox 93 07/06/17 17:27 Ventilator Settings Ventilator Settings: Ventilator Settings, Last 8 Hours Ventilator Mode VC+ Ventilator Mode A/C Ventilator Mode VC+ Ventilator Mode VC+ Ventilator Mode VC+ Ventilator Mode VC+ Ventilator Mode VC+ Ventilator Mode VC+ Ventilator Mode VC+ Ventilator Mode VC+ Ventilator Tidal Volume 600 Setting Ventilator Tidal Volume 600 Setting Ventilator Tidal Volume 600 Setting Ventilator Tidal Volume 600 Setting Ventilator Tidal Volume 600 Setting Ventilator Tidal Volume 600 Setting Ventilator Tidal Volume 600 Setting Ventilator Tidal Volume 600 Setting Ventilator Tidal Volume 600 Setting Ventilator Tidal Volume 600 Setting Ventilator Respiratory Rate 20 Setting Ventilator Respiratory Rate 20 Setting Ventilator Respiratory Rate 20 Setting Ventilator Respiratory Rate 20 Setting Ventilator Respiratory Rate 20 Setting Ventilator Respiratory Rate 20 Setting Ventilator Respiratory Rate 20 Setting Ventilator Respiratory Rate 20 Setting Ventilator Respiratory Rate 20 Setting Ventilator Respiratory Rate 20 Setting Actual Respiratory Rate 20 Actual Respiratory Rate 20 Actual Respiratory Rate 20 Actual Respiratory Rate 20 Actual Respiratory Rate 20 Actual Respiratory Rate 20 Actual Respiratory Rate 20 Actual Respiratory Rate 20 Actual Respiratory Rate 20 Actual Respiratory Rate 20 Positive End Expiratory 14 Pressure Positive End Expiratory 14 Pressure Positive End Expiratory 14 Pressure Positive End Expiratory 14 Pressure Positive End Expiratory 10 Pressure Positive End Expiratory 10 Pressure Positive End Expiratory 10 Pressure Positive End Expiratory 10 Pressure Positive End Expiratory 10 Pressure Positive End Expiratory 10 Pressure Peak Inspiratory Airway 33 Pressure Peak Inspiratory Airway 42 Pressure Peak Inspiratory Airway 31 Pressure Peak Inspiratory Airway 38 Pressure Peak Inspiratory Airway 39 Pressure Peak Inspiratory Airway 39 Pressure Peak Inspiratory Airway 38 Pressure Peak Inspiratory Airway 33 Pressure Peak Inspiratory Airway 29 Pressure Peak Inspiratory Airway 33 Pressure Results - Laboratory Findings CBC and BMP: 07/06/17 03:32 07/06/17 03:32 ABG ABG pH 7.32 pH Units (7.32-7.45) 07/06/17 05:26 ABG pCO2 58 mmHg (35-45) H 07/06/17 05:26 ABG pO2 91 mmHg (85-104) 07/06/17 05:26 ABG O2 Saturation 96 % (95-98) 07/06/17 05:26 PT/INR, D-dimer PT 13.0 Seconds (9.4-12.1) H 07/06/17 03:32 Abnormal lab findings: Abnormal lab results WBC 23.7 K/mcL (4.3-11.1) H 07/06/17 03:32 Immature Gran % 4.4 % (0-4) H 07/06/17 03:32 Neutrophils # 18.8 K/mcL (1.6-8.9) H 07/06/17 03:32 Monocytes # 1.7 K/mcL (0.0-1.3) H 07/06/17 03:32 Nucleated RBCs/100 WBC 0.1 /100 WBC (0) H 07/06/17 03:32 PT 13.0 Seconds (9.4-12.1) H 07/06/17 03:32 APTT 38.2 Seconds (26.0-36.0) H 07/04/17 02:45 ABG pCO2 58 mmHg (35-45) H 07/06/17 05:26 ABG HCO3 30 mEq/L (21-27) H 07/06/17 05:26 ABG Total CO2 32 mEq/L (20-26) H 07/06/17 05:26 Potassium 5.5 mEq/L (3.5-5.1) H 07/06/17 03:32 BUN > 130 mg/dL (6-20) H 07/06/17 03:32 Creatinine 5.16 mg/dL (0.70-1.30) H 07/06/17 03:32 Est GFR ( Amer) 15 (> 60) L 07/06/17 03:32 Est GFR (Non-Af Amer) 12 (> 60) L 07/06/17 03:32 Glucose 185 mg/dL (70-105) H 07/06/17 03:32 POC Glucose 200 mg/dL (70-99) H 07/05/17 23:28 Hemoglobin A1c 7.5 % (-5.6) H 06/30/17 10:02 Phosphorus 7.4 mg/dL (2.7-4.5) H 07/02/17 07:12 AST 46 Units/L (13-39) H 07/01/17 03:51 ALT 85 Units/L (7-52) H 07/01/17 03:51 Troponin I 0.59 ng/mL (< 0.04) H* 07/04/17 02:45 B-Natriuretic Peptide 134 pg/mL (Less than 100) H 06/30/17 06:08 Albumin 2.9 g/dL (3.5-5.7) L 07/02/17 07:12 Globulin 3.6 g/dL (2.4-3.5) H 07/01/17 03:51 Albumin/Globulin Ratio 0.9 (1.1-2.2) L 07/01/17 03:51 LDL Cholesterol, Calc 128 mg/dL (0-99) H 06/30/17 10:02 HDL Cholesterol 32 mg/dL (40-59) L 06/30/17 10:02 Cholesterol/HDL Ratio 5.9 (0-4.9) H 06/30/17 10:02 - Clinical Findings Intake & Output: Intake & Output 07/06/17 07/06/17 07/06/17 07:59 15:59 23:59 Intake Total 600 / 600 1242.2 / 1242.2 100 / 100 Output Total 50 / 50 220 / 220 200 / 200 Balance 550 / 550 1022.2 / 1022.2 -100 / -100 Weight 286 kg - Attending Attestation I examined this patient and my medical decision-making was reviewed with the Resident Physician. I agree with the documented findings, disposition and treatment plan as described except to the extent set forth below. Patient seen and examined. Labs, radiology, chart personally reviewed. Agree with resident's history and physical, assessment, plan with following comments: TREATING INSPECTOR: Patient follows commands, Pulmonary: Acceptable oxygenation and ventilation and patient status post tracheostomy. I had multiple discussions with the family at the bedside and also discussed with the ENT. I will try to wean off the patient from the vent and adjust to me is the acute for obstructive sleep apnea which I feel this patient has had. Cardiovascular: stable GI: Nutrition per dietary and GI prophylaxis per routine Heme: DVT prophylaxis per routine ID: Continue antibiotics and plan to de-escalation Renal; urine out put and renal funtion reviewed. Patient with acute kidney injury and nephrology consulted for dialysis. Patient intravascularly volume depleted and fluid was given. Endorcine: blood glucose is monitored Lines: all lines checked and no evidence of infections Skin: skin care to prevent pressure ulcers per nursing routine care Patient may need a skilled facility.
[2017-07-06] MEDS: Chlorhexidine Rinse 15 ML MOUTHWASH MM SCH ×2 (08:09→20:38)
[2017-07-06] MEDS: Sennosides/Docusate Sodium TABLET PO SCH ×2 (08:10→20:39)
[2017-07-06] MEDS: Pantoprazole 40 MG VIAL IVP SCH (08:15)
[2017-07-06] MEDS: Insulin DETEMIR 100 UNIT/ML X5UNITS SQ SCH ×2 (08:15→20:22)
[2017-07-06] MEDS: FentaNYL (PF) 2,500 MCG in EMPTY BAG 50 EACH IVC SCH ×2 (08:30→20:39)
[2017-07-06] MEDS: 0.9 % Sodium Chloride 1,000 ML IVC SCH ×3 (09:35→18:08)
--- NOTE | 2017-07-06 10:21 | Nephrology Consult Note ---
Date of Encounter: 07/06/17 Time of Encounter: 10:19 Assessment and Plan (1) ZOHAIB (acute kidney injury) Current Visit: Yes Status: Acute Patient has developed acute kidney injury likely secondary to volume depletion from diuresis. Renal decline was also complicated by the presence of sepsis upon admission that seemed to have resolved. Initially he was nonoliguric with fairly good urine output, however, overnight he has become anuric and hyperkalemic. Other than being diuresed I do not see any additional nephrotoxins nor do I see episodes of hypotension. The and urea that developed suddenly is quite concerning as there is no obvious etiology for this at this time. I am requesting a renal ultrasound to evaluate for obstruction and if this is negative we will need to image his renal arteries to evaluate for occlusion. Complete anuria is extremely uncommon in renal failure patients. Secondary to the patient's anuria and hyperkalemia I recommend initiating renal replacement therapy with hemodialysis. Avoid nephrotoxic agents and adjust medications for renal function. I recommend a positive volume status for now. (2) Acute on chronic respiratory failure with hypoxia and hypercapnia Current Visit: Yes Status: Acute Patient is on the ventilator. Management per primary team. (3) Benign essential hypertension Current Visit: Yes Status: Chronic Blood pressure is reasonably controlled. (4) Diabetes Current Visit: Yes Status: Chronic Management per primary team. Qualifiers: Diabetes mellitus type: type 2 Diabetes mellitus custodial insulin use: without termite control servicer use Diabetes mellitus complication status: with hyperglycemia Qualified Code(s): E11.65 - Type 2 diabetes mellitus with hyperglycemia (5) Morbid (severe) obesity due to excess calories Current Visit: Yes Status: Chronic Outpatient management. History of Present Illness - Reason for Consult Consult date: 07/06/17 Acute Kidney Injury - Chief Complaint ZOHAIB - History of Present Illness Mr. Garcia is a 42 yo man with a history of hypertension who presents with dyspnea. The patient experienced respiratory failure and was intubated. Respiratory failure was secondary to severe bronchitis and pulmonary edema along with obesity hypoventilation syndrome. The patient was diuresed initially and suffered acute kidney injury over the last few days his renal function has continued to decline. Yesterday [facility] was consulted to assist with evaluation and management of his acute kidney injury. History is obtained from review of the electronic charting as the patient is intubated and sedated. Per review of the labs the patient entered with normal renal function. Past Med Surg Social Fam HX - Past Medical History Medical history: other Psychiatric history: anxiety - Social History Smoking Status: Never smoker Smokeless Tobacco Status: No Alcohol use: none Drug use: none Medications and Allergies Albuterol Sulfate [Albuterol Inhaler] 1 puff IH Q4HR PRN #1 hfa.aer.ad 06/27/17 [Rx] GuaiFENesin ER [Mucinex] 1,200 mg PO BID #20 tbbp.12hr 06/27/17 [Rx] cephALEXin [Keflex] 500 mg PO QID #40 capsule 06/27/17 [Rx] predniSONE [PredniSONE] See Taper PO DAILY #18 tablet 06/27/17 [Rx] 3 Allergy/AdvReac Type Severity Reaction Status Date / Time No Known Allergies Allergy Verified 06/30/17 05:55 Review of Systems ROS unobtainable: due to endotracheal tube, due to mental status Exam - Vital Signs Vital signs: Initial Vital Signs Temp Pulse Resp BP Pulse Ox 97.3 F L 105 24 195/129 65 06/30/17 05:49 06/30/17 05:49 06/30/17 05:49 06/30/17 05:49 06/30/17 05:49 Vital Signs - Last 8 Hours Temp Pulse Resp BP Pulse Ox 07/06/17 09:30 67 20 147/79 91 07/06/17 09:07 20 147/79 93 07/06/17 08:28 68 20 146/79 92 07/06/17 07:35 97.6 F 71 20 144/80 92 07/06/17 07:12 20 144/80 93 07/06/17 06:00 68 20 136/74 93 07/06/17 05:00 70 20 144/82 93 07/06/17 04:00 72 20 135/70 93 07/06/17 03:17 21 142/77 92 07/06/17 03:00 72 20 147/79 93 Intake and Output 07/05/17 07/06/17 07/06/17 23:59 07:59 15:59 Intake Total 486.9 / 486.9 600 / 600 100 / 100 Output Total 310 / 310 50 / 50 10 / 10 Balance 176.9 / 176.9 550 / 550 90 / 90 Intake: IV Fluids 486.9 / 486.9 600 / 600 100 / 100 FentaNYL (PF) 2,500 MCG In 86.9 / 86.9 Empty Bag 50 Each @ 200 MCG/HR 4 mls/hr IVC CONT SHANTE Rx#: [id number] Diprivan 1,000 mg In 100 ml @ 5 400 / 400 600 / 600 100 / 100 MCG/KG/MIN 8.58 mls/hr IVC . [id number] SHANTE Rx#:[id number] Output: Catheter 10 0 / 0 0 / 0 Gastric Drainage 300 / 300 50 / 50 10 / 10 Other: Weight 286 kg Blood Glucose* 177 165 Patient Weight 07/06/17 23:59 Weight 286 kg - General Appearance General appearance: well-developed, well-nourished, obese EENT: ATNC Neck: supple Respiratory: course breath sounds Cardiology: no edema, regular rate, regular rhythm Gastrointestinal: normoactive bowel sounds, no tenderness, no guarding, obese Integumentary: warm and dry Additional Comments: Patient is intubated and sedated. Musculoskeletal: no cyanosis Results - Lab Results 07/06/17 03:32 07/06/17 03:32 Most recent lab results ABG pH 7.32 pH Units (7.32-7.45) 07/06/17 05:26 ABG pCO2 58 mmHg (35-45) H 07/06/17 05:26 ABG pO2 91 mmHg (85-104) 07/06/17 05:26 ABG HCO3 30 mEq/L (21-27) H 07/06/17 05:26 ABG O2 Saturation 96 % (95-98) 07/06/17 05:26 Calcium 8.6 mg/dL (8.6-10.3) 07/06/17 03:32 Phosphorus 7.4 mg/dL (2.7-4.5) H 07/02/17 07:12 Magnesium 2.5 mg/dL (1.6-2.6) 07/02/17 04:00 Urine Creatinine 151 mg/dL 07/02/17 07:12 Urine Sodium 53.8 mEq/L 07/02/17 07:12 Consult Discharge Plan - Plan Referrals: Jose David Hood DO [Resident] - (a packet will be sent to patient for new patient information) Bacilio Ruiz DO [Resident] - 07/07/17 3:20 pm
--- NOTE | 2017-07-06 12:09 | IR Procedure Note ---
Date of procedure: 07/06/17 Consent Obtained: Verbal consent, Written consent Timeout: Correct patient and procedure verified, Correct site verified, Time out performed, Skin prep completed Local anesthetic: Lidocaine 1% Indications: Renal failure Procedure Performed: Temp HD catheter placement Was there an bilingual legal assistant present: No Site/Technique: Temp HD catheter placed bedside Results/Findings: 20 cm temp HD catheter placed Estimated blood loss (cc): 2 Complications: None; Tolerated procedure well Post Procedure Treatment Plan: May use catheter pending CXR Specimen: none
[2017-07-06] MEDS ORDERED: 0.9 % Sodium Chloride 1,000 ML PRIME SCH ×2 (13:00→16:04)
[2017-07-06] MEDS ORDERED: 0.9 % Sodium Chloride 250 ML IVC PRN ×2 (13:00→16:04)
[2017-07-06] MEDS ORDERED: *HR* Heparin 10,000 UNIT/10 ML VIAL IV PRN ×2 (13:00→16:04)
[2017-07-06] MEDS ORDERED: *HR* FentaNYL (PF) 100 MCG/2 ML VIAL ONE (13:14)
--- NOTE | 2017-07-06 13:35 | History & Physical Report ---
Date of Encounter: 07/06/17 Time of Encounter: 13:33 24 Hour HP Update - Instructions Instructions: If the History and Physical is less than 30 days old and was completed prior to A.M. admission and or procedure and has NOT been updated on calendar day of procedure please complete this update prior to performing procedure. - Update Patient reports changes in Medical Condition: No Changes in examination, assessment, or condition: No Changes in Medication: No Preop tests/diagnostics Reviewed: Yes Pre-Op MRSA Screen: Negative Surgery Remains Indicated: Yes Consent for Planned Operative Procedure(s) Verified: Yes - Pre-Operative Checklist Preoperative Checklist Indicated: Yes Prophylactic Antibiotic Ordered: No (Patient has been on Levaquin IV ) Home Medications Include Beta Gautam: No Beta Gautam Taken Today (Day of Surgery): No Beta Gautam Taken Yesterday (Day Prior to Surgery): No Is VTE Prophylaxis Indicated?: Yes
--- NOTE | 2017-07-06 14:12 | Operative Note ---
Date of procedure: 07/06/17 Procedure: Preoperative Diagnosis: Airway obstruction, obesity hypoventilation syndrome, difficult intubation Postoperative Diagnosis: Same Name of Procedure: Tracheostomy Surgeon: Halle Virgen D.O. Campus Recruiting Coordinator: None Blood loss: 10 mL Fluids: 300 mL normal saline Anesthesia: GETA Specimens: None Indications for the procedure: Patient is a 42-year-old gentleman who was admitted after persistent shortness of breath despite outpatient therapy with steroids and antibiotic. Patient progressed and became extremely dyspneic. Patient was admitted and placed on BiPAP. Patient continued to progress and he was eventually intubated. Patient required anesthesia for intubation that had a very difficult time getting the tube down. After eventual successful intubation patient had been intubated for 4 days. Decision was made to try to extubate due to improvement in his symptoms. Thought was to extubating the OR with possible emergent trach if he was unable to maintain but due to his significant body habitus this was not deemed safe. Decision was made to perform a tracheostomy one the airway was secured and then decannulate from a tracheostomy in the future if that is possible. Patient would likely benefit from a chronic tracheostomy due to his severe morbid obesity. Consent; risks benefits alternatives to tracheostomy were discussed in detail with the patient and his family including his parents and sister. Risks including but not limited to bleeding, infection, loss of airway, pneumothorax, tracheoesophageal fistula, persistent stoma, tracheoinnominate fistula, possible need for further surgery, pulmonary embolism, [place], CVA, . It was discussed that this is a more complex tracheostomy due to his body habitus. He and his parents both understands these risks, all questions were answered. Written consent was obtained and placed within the chart. Procedure in detail: Informed consent was reviewed. The patient was delivered to the OR where he was identified by name and date of . He was placed in the supine position. The table remained in place with the HOB elevated. Landmarks were palpated and marked including the: thyroid notch, cricoid, and suprasternal notch. Planned incision site was marked and injected with 10 cc of 1% lidocaine with 1:100,000 epinephrine. Patient was prepped and draped in a sterile fashion. Timeout was performed identifying patient by name and date of and procedure being performed. 15 blade was then used to make a horizontal incision. This incision was made slightly wide due to his habitus and the deep nature of his cricoid on palpation. [place]'s were placed on either side of this incision to retract laterally. Fatty tissue was removed from the subcutaneous layer is patient had copious amounts of subcutaneous fat. Palpation was used to make sure that we are over the trachea the entire time and remain midline. The Bovie was used to continue to dissect in a superior to inferior fashion splitting the midline. Strap muscles were easily identified and split. Strap muscles were then retracted laterally with lady finger retractors. Another retractor was placed inferiorly. Once dissection took place down to the thyroid isthmus, tonsil hemostat was used to dissect between the mass and the visible trachea. Bovie was then used this lift the thyroid isthmus over the tonsil dissector all the way down to the trachea. Once split the cut edges of the thyroid were cauterized with the bipolar cautery so that hemostasis was achieved. The anterior face of the trachea was cleared with Kitner dissector. At this point the anterior face of the trachea and cricoid were clearly visible with the thyroid split to either side. Retractors were then adjusted to retract the thyroid laterally so that only the trachea was in view. Anesthesia was directed to place the patient on 100% O2 and fully oxygenate the patient. At this time the #8 proximal extended tracheostomy tube was tested by inflating the cuff at the end of the tube with a 10 mL syringe. Cuff was good. Cuff was then deflated and obturator was placed within the tracheostomy tube and tube was lubricated. Once anesthesia was happy with her oxygenation a cricoid hook was placed just below the cricoid to lift it superiorly. Approximately 1 cm below the cricoid the trachea was inspected and horizontal incision was made using a 15 blade from lateral to medial on the left side. A heavy Gautam scissors was used to cut through the trachea on the right from medial to lateral. Vertical cuts were then made on either side of this horizontal incision directed downwards. This created us a window within inferior base Angel flap. Lap was sutured into place and anchored to the lower skin using a 2-0 chromic. At this point tracheal dilator was placed within the tracheostomy window in the window was dilated. Anesthesia was then instructed to deflate the ET tube cuff and partially removed the endotracheal tube so that the tip was just superior to the tracheostomy window. A #8 proximal extended cuffed Shiley with obturator was placed within the tracheostomy stoma. Tracheostomy tube placement was confirmed with direct visualization into the tracheostomy stoma. Inner cannula was placed and cuff was inflated. Anesthesia circuit was then attached to the tracheostomy. Placement of the tube was confirmed with CO2 return on the anesthesia monitor. Fibrillar hemostatic gauze was then placed within the tracheostomy stoma above the trachea in all 4 quadrants. Base plate of the tracheostomy tube was secured with 4 point sutures using 2-0 silk. Drain sponge was placed under the plate of the tracheostomy tube. Umbilical tape was used to secure the tracheostomy tube. Damp gauze was then used to clean the perioperative area. This concluded the end of the procedure and patient was handed back over to anesthesia. Patient tolerated the procedure well without apparent complication. Counts were correct x2 at the end of the case. Was there an social services assistant present: Yes Campus Recruiting Coordinator: Hugo Gonsalez Estimated blood loss (cc): 10 Specimen: none
[2017-07-06] MEDS ORDERED: Lidocaine/EPI 1:100k 1% 20 ML VIAL ONE (14:13)
[2017-07-06] MEDS ORDERED: *HR* Propofol 200 MG/20 ML VIAL IVP ONE (15:24)
--- NOTE | 2017-07-06 15:44 | Event Note ---
Date of Encounter: 07/06/17 Time of Encounter: 15:42 Patient seen and evaluated following surgery. Tracheostomy tube in place and secure. No blood or subcutaneous air noted. Patient on ventilator and saturating well. ENT will change trach ties, please do not cut or change.
[2017-07-06] MEDS ORDERED: D5% in Water 1,000 ML IVC PRN (16:04)
[2017-07-06] MEDS ORDERED: Lacri-Lube 3.5 GM TUBE BOTH EYES PRN (16:04)
[2017-07-06] MEDS ORDERED: Dextrose Gel 15 GM/37.5 ML TUBE PO PRN ×2 (16:04)
[2017-07-06] MEDS ORDERED: Nitroglycerin 0.4 MG TAB.SUBL SL PRN (16:04)
[2017-07-06] MEDS ORDERED: *HR* Dextrose 50 % in Water (Syg) 50 ML SYRINGE IVP PRN (16:04)
[2017-07-06] MEDS: *HR* Heparin 5,000 UNIT/ML VIAL SQ SCH (22:02)
[2017-07-07] MEDS: 0.9 % Sodium Chloride 1,000 ML IVC SCH ×3 (00:47→07:41)
[2017-07-07] MEDS: FentaNYL (PF) 2,500 MCG in EMPTY BAG 50 EACH IVC SCH (01:33)
[2017-07-07] MEDS: Ipratropium/Albuterol Neb 3 ML IH SCH ×6 (03:30→23:10)
[2017-07-07] MEDS: Lacri-Lube 3.5 GM TUBE BOTH EYES SCH ×6 (04:07→22:43)
[2017-07-07] MEDS: Insulin LISPRO 300 UNITS/3 ML VIAL SQ SCH ×5 (04:07→20:38)
[2017-07-07 04:43] LABS: Basophils # 0.1 K/mcL (0.0-0.2); Basophils % 0.2 %; Hematocrit 38.8 % (37.5-50.1); Immature Granulocytes % 3.3 % (0-4); Lymphocytes # 1.7 K/mcL (0.6-4.6); Lymphocytes % 7.1 %; Mean Corpuscular HGB Conc 30.9 g/dL (31.6-35.5); Mean Corpuscular Hemoglobin 28.2 pg (28.0-33.3); Mean Corpuscular Volume 91.3 fL (83.0-100.0); Mean Platelet Volume 10.4 fL (9.4-12.4); Monocytes # 1.5 K/mcL (0.0-1.3); Monocytes % 6.3 %; Neutrophils # 19.8 K/mcL (1.6-8.9); Platelet Count 269 K/mcL (140-400); Red Blood Count 4.25 M/mcL (4.19-5.50); Red Cell Distribution Width 13.6 % (11.5-14.5); Segmented Neutrophils % 83.1 %
[2017-07-07 05:07] LABS: Blood Urea Nitrogen > 130 mg/dL (6-20); Calcium 7.7 mg/dL (8.6-10.3); Carbon Dioxide 22 mEq/L (23-29); Chloride 101 mEq/L (98-107); Glucose 148 mg/dL (70-105); Potassium 6.5 mEq/L (3.5-5.1); Sodium 138 mEq/L (136-145); eGFR For African Americans 12 (> 60); eGFR For Non-African Americans 10 (> 60)
[2017-07-07 05:21] LABS: ABG Base Excess -3 mEq/L (-2 to 3); ABG HCO3 25 mEq/L (21-27); ABG Oxygen Saturation 96 % (95-98); ABG PCO2 58 mmHg (35-45); ABG PH 7.24 pH Units (7.32-7.45); ABG PO2 95 mmHg (85-104); ABG TCO2 27 mEq/L (20-26); Blood Gas Modality PRVC; Blood Gas PEEP 14 cm H2O; Blood Gas Respiration Rate 20; Blood Gas VT 600 cc
[2017-07-07] MEDS ORDERED: *HR* Dextrose 50 % in Water (Syg) 50 ML SYRINGE IVP ONE ×2 (05:23→09:00)
[2017-07-07] MEDS ORDERED: Insulin LISPRO 300 UNITS/3 ML VIAL SQ ONE (05:24)
--- NOTE | 2017-07-07 05:28 | Event Note ---
Date of Encounter: 07/07/17 Time of Encounter: 05:25 Reported by RN that potassium high to 6.5. Will treat pt with IV calcium gluconate 1g, D50 50ml plus insulin 6 unit, sodium bicarbonate 50 mEq, repeat potassium in one hour. Pt already started hemodialysis since yesterday, nephro on case.
[2017-07-07] MEDS: *HR* Heparin 5,000 UNIT/ML VIAL SQ SCH ×3 (06:03→20:45)
[2017-07-07] MEDS: MethylPREDNISolone 40 MG/ML VIAL IVP SCH ×2 (06:03→17:40)
[2017-07-07] MEDS: Insulin Human Regular 6 UNIT in 0.9 % Sodium Chloride 10 ML IV SCH (06:09)
[2017-07-07] MEDS ORDERED: *HR* Heparin 10,000 UNIT/10 ML VIAL IV PRN (07:39)
[2017-07-07] MEDS ORDERED: 0.9 % Sodium Chloride 250 ML IVC PRN (07:39)
--- NOTE | 2017-07-07 07:42 | Pulmonology Progress Note ---
<Rex Prieto - Last Filed: 07/07/17 11:58> Date of Encounter: 07/07/17 Time of Encounter: 08:40 Assessment and Plan (1) Renal failure Current Visit: Yes Status: Acute A neuritic renal failure necessitating HD catheter placement 07/06/17 with dialysis. Worsening renal function today with hyperkalemia of 6.5 which worsened to 6.7 this morning. Discussed with nephrology who plans to dialyze again today. Qualifiers: Renal failure chronicity: acute Acute renal failure type: unspecified Qualified Code(s): N17.9 - Acute kidney failure, unspecified (2) Hyperkalemia Current Visit: Yes Status: Acute Potassium of 6.5 this morning treated with insulin, D50 and bicarbonate. Repeat potassium after treatment of 6.7 in the setting of worsening renal function despite dialysis yesterday. Nephrology aware and patient will have dialysis today. EKG without changes consistent with hyperkalemia. Plan to retreat with insulin, D50 and bicarbonate. Continue daily BMP (3) Benign essential hypertension Current Visit: Yes Status: Chronic Continue hydralazine as needed (4) Obesity hypoventilation syndrome Current Visit: Yes Status: Suspected Underlying morbid obesity. Intubated for respiratory failure from initial bronchitis felt to have evolved into ARDS. Postop day #1 from tracheostomy placement. 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 Difficulty with intubation requiring anesthesiology. Patient is postoperative day 1 from tracheostomy placement. Qualifiers: Respiratory failure complication: hypoxia Qualified Code(s): J96.01 - Acute respiratory failure with hypoxia (7) Morbid (severe) obesity due to excess calories Current Visit: Yes Status: Chronic (8) DVT prophylaxis Current Visit: Yes Status: Acute Heparin 5000 units every 8 hours Subjective Principal diagnosis: Respiratory failure Interval history: No acute events overnight. Patient is postoperative day 1 from tracheostomy placement by ENT as well as HD catheter placement by interventional radiology. He had dialysis yesterday. Was noted to have worsening renal function as well as hyperkalemia at 6.5 this morning treated with calcium insulin and bicarbonate. Repeat potassium of 6.7. Repeated insulin, D50 and bicarbonate. Discussed with nephrology. He remains on the vent and sedated. Objective PUL Vital signs: Last Vital Signs Temp 97.4 F L 07/07/17 03:56 Pulse 78 07/07/17 06:00 Resp 20 07/07/17 06:00 BP 138/72 07/07/17 06:00 Pulse Ox 92 07/07/17 06:00 General appearance: no acute distress, other (Sedated on exam with tracheostomy) Neck: other (Trach in place) Effort: other (Mechanically ventilated through tracheostomy) Auscultation: bilateral: diminished breath sounds Cardiovascular: regular rate and rhythm Gastrointestinal: soft, non-distended Integumentary: normal Extremities: no cyanosis, edema Musculoskeletal: no deformities other (Sedated) Ventilator Settings Ventilator Settings: Ventilator Settings, Last 8 Hours Ventilator Mode VC+ Ventilator Mode VC+ Ventilator Mode VC+ Ventilator Mode VC+ Ventilator Mode VC+ Ventilator Mode VC+ Ventilator Mode VC+ Ventilator Mode VC+ Ventilator Mode VC+ Ventilator Mode VC+ Ventilator Mode VC+ Ventilator Tidal Volume 600 Setting Ventilator Tidal Volume 600 Setting Ventilator Tidal Volume 600 Setting Ventilator Tidal Volume 600 Setting Ventilator Tidal Volume 600 Setting Ventilator Tidal Volume 600 Setting Ventilator Tidal Volume 600 Setting Ventilator Tidal Volume 600 Setting Ventilator Tidal Volume 600 Setting Ventilator Tidal Volume 600 Setting Ventilator Tidal Volume 600 Setting Ventilator Respiratory Rate 20 Setting Ventilator Respiratory Rate 20 Setting Ventilator Respiratory Rate 20 Setting Ventilator Respiratory Rate 20 Setting Ventilator Respiratory Rate 20 Setting Ventilator Respiratory Rate 20 Setting Ventilator Respiratory Rate 20 Setting Ventilator Respiratory Rate 20 Setting Ventilator Respiratory Rate 20 Setting Ventilator Respiratory Rate 20 Setting Ventilator Respiratory Rate 20 Setting Actual Respiratory Rate 20 Actual Respiratory Rate 20 Actual Respiratory Rate 22 Actual Respiratory Rate 20 Actual Respiratory Rate 21 Actual Respiratory Rate 22 Actual Respiratory Rate 20 Actual Respiratory Rate 22 Actual Respiratory Rate 20 Actual Respiratory Rate 22 Positive End Expiratory 14 Pressure Positive End Expiratory 14 Pressure Positive End Expiratory 14 Pressure Positive End Expiratory 14 Pressure Positive End Expiratory 14 Pressure Positive End Expiratory 14 Pressure Positive End Expiratory 14 Pressure Positive End Expiratory 14 Pressure Positive End Expiratory 14 Pressure Positive End Expiratory 14 Pressure Positive End Expiratory 14 Pressure Peak Inspiratory Airway 34 Pressure Peak Inspiratory Airway 35 Pressure Peak Inspiratory Airway 36 Pressure Peak Inspiratory Airway 37 Pressure Peak Inspiratory Airway 33 Pressure Peak Inspiratory Airway 38 Pressure Peak Inspiratory Airway 36 Pressure Peak Inspiratory Airway 34 Pressure Peak Inspiratory Airway 37 Pressure Peak Inspiratory Airway 37 Pressure Results - Laboratory Findings CBC and BMP: 07/07/17 04:00 07/07/17 06:25 ABG ABG pH 7.24 pH Units (7.32-7.45) L 07/07/17 05:18 ABG pCO2 58 mmHg (35-45) H 07/07/17 05:18 ABG pO2 95 mmHg (85-104) 07/07/17 05:18 ABG O2 Saturation 96 % (95-98) 07/07/17 05:18 PT/INR, D-dimer PT 13.0 Seconds (9.4-12.1) H 07/06/17 03:32 Abnormal lab findings: Abnormal lab results WBC 23.9 K/mcL (4.3-11.1) H 07/07/17 04:00 Hgb 12.0 g/dL (12.9-16.9) L 07/07/17 04:00 MCHC 30.9 g/dL (31.6-35.5) L 07/07/17 04:00 Neutrophils # 19.8 K/mcL (1.6-8.9) H 07/07/17 04:00 Monocytes # 1.5 K/mcL (0.0-1.3) H 07/07/17 04:00 Nucleated RBCs/100 WBC 0.1 /100 WBC (0) H 07/06/17 03:32 PT 13.0 Seconds (9.4-12.1) H 07/06/17 03:32 APTT 38.2 Seconds (26.0-36.0) H 07/04/17 02:45 ABG pH 7.24 pH Units (7.32-7.45) L 07/07/17 05:18 ABG pCO2 58 mmHg (35-45) H 07/07/17 05:18 ABG Total CO2 27 mEq/L (20-26) H 07/07/17 05:18 ABG Base Excess -3 mEq/L (-2 to 3) L 07/07/17 05:18 Potassium 6.5 mEq/L (3.5-5.1) H* 07/07/17 04:00 Carbon Dioxide 22 mEq/L (23-29) L 07/07/17 04:00 BUN > 130 mg/dL (6-20) H 07/07/17 04:00 Creatinine 6.42 mg/dL (0.70-1.30) H 07/07/17 04:00 Est GFR ( Amer) 12 (> 60) L 07/07/17 04:00 Est GFR (Non-Af Amer) 10 (> 60) L 07/07/17 04:00 Glucose 148 mg/dL (70-105) H 07/07/17 04:00 POC Glucose 179 mg/dL (70-99) H 07/06/17 23:21 Hemoglobin A1c 7.5 % (-5.6) H 06/30/17 10:02 Calcium 7.7 mg/dL (8.6-10.3) L 07/07/17 04:00 Phosphorus 7.4 mg/dL (2.7-4.5) H 07/02/17 07:12 AST 46 Units/L (13-39) H 07/01/17 03:51 ALT 85 Units/L (7-52) H 07/01/17 03:51 Troponin I 0.59 ng/mL (< 0.04) H* 07/04/17 02:45 B-Natriuretic Peptide 134 pg/mL (Less than 100) H 06/30/17 06:08 Albumin 2.9 g/dL (3.5-5.7) L 07/02/17 07:12 Globulin 3.6 g/dL (2.4-3.5) H 07/01/17 03:51 Albumin/Globulin Ratio 0.9 (1.1-2.2) L 07/01/17 03:51 Prealbumin 34.9 mg/dL (17.0-34.0) H 07/07/17 04:00 LDL Cholesterol, Calc 128 mg/dL (0-99) H 06/30/17 10:02 HDL Cholesterol 32 mg/dL (40-59) L 06/30/17 10:02 Cholesterol/HDL Ratio 5.9 (0-4.9) H 06/30/17 10:02 - Clinical Findings Intake & Output: Intake & Output 07/06/17 07/06/17 07/07/17 15:59 23:59 07:59 Intake Total 1242.2 / 1242.2 2160 / 2160 1326 / 1326 Output Total 220 / 220 900 / 900 0 / 0 Balance 1022.2 / 1022.2 1260 / 1260 1326 / 1326 Weight 286 kg Consult Discharge Plan - Plan Referrals: Jose David Hood DO [Resident] - (a packet will be sent to patient for new patient information) Bacilio Ruiz DO [Resident] - 07/07/17 3:20 pm <Kylie Danielle - Last Filed: 07/07/17 16:11> Date of Encounter: 07/07/17 Objective PUL Vital signs: Last Vital Signs Temp 98.3 F 07/07/17 13:30 Pulse 68 07/07/17 14:00 Resp 22 07/07/17 14:00 BP 134/72 07/07/17 14:00 Pulse Ox 96 07/07/17 14:00 Ventilator Settings Ventilator Settings: Ventilator Settings, Last 8 Hours Ventilator Mode VC+ Ventilator Mode VC+ Ventilator Mode VC+ Ventilator Mode VC+ Ventilator Mode VC+ Ventilator Mode VC+ Ventilator Mode VC+ Ventilator Mode VC+ Ventilator Tidal Volume 650 Setting Ventilator Tidal Volume 650 Setting Ventilator Tidal Volume 650 Setting Ventilator Tidal Volume 650 Setting Ventilator Tidal Volume 650 Setting Ventilator Tidal Volume 650 Setting Ventilator Tidal Volume 650 Setting Ventilator Tidal Volume 650 Setting Ventilator Respiratory Rate 22 Setting Ventilator Respiratory Rate 22 Setting Ventilator Respiratory Rate 22 Setting Ventilator Respiratory Rate 22 Setting Ventilator Respiratory Rate 22 Setting Ventilator Respiratory Rate 22 Setting Ventilator Respiratory Rate 22 Setting Ventilator Respiratory Rate 22 Setting Actual Respiratory Rate 22 Actual Respiratory Rate 22 Actual Respiratory Rate 22 Actual Respiratory Rate 22 Actual Respiratory Rate 24 Actual Respiratory Rate 26 Actual Respiratory Rate 27 Positive End Expiratory 14 Pressure Positive End Expiratory 14 Pressure Positive End Expiratory 14 Pressure Positive End Expiratory 14 Pressure Positive End Expiratory 14 Pressure Positive End Expiratory 14 Pressure Positive End Expiratory 14 Pressure Positive End Expiratory 14 Pressure Peak Inspiratory Airway 33 Pressure Peak Inspiratory Airway 41 Pressure Peak Inspiratory Airway 30 Pressure Peak Inspiratory Airway 30 Pressure Peak Inspiratory Airway 30 Pressure Results - Laboratory Findings CBC and BMP: 07/07/17 04:00 07/07/17 06:25 ABG ABG pH 7.27 pH Units (7.32-7.45) L 07/07/17 09:17 ABG pCO2 54 mmHg (35-45) H 07/07/17 09:17 ABG pO2 85 mmHg (85-104) 07/07/17 09:17 ABG O2 Saturation 95 % (95-98) 07/07/17 09:17 PT/INR, D-dimer PT 13.0 Seconds (9.4-12.1) H 07/06/17 03:32 Abnormal lab findings: Abnormal lab results WBC 23.9 K/mcL (4.3-11.1) H 07/07/17 04:00 Hgb 12.0 g/dL (12.9-16.9) L 07/07/17 04:00 MCHC 30.9 g/dL (31.6-35.5) L 07/07/17 04:00 Neutrophils # 19.8 K/mcL (1.6-8.9) H 07/07/17 04:00 Monocytes # 1.5 K/mcL (0.0-1.3) H 07/07/17 04:00 Nucleated RBCs/100 WBC 0.1 /100 WBC (0) H 07/06/17 03:32 PT 13.0 Seconds (9.4-12.1) H 07/06/17 03:32 APTT 38.2 Seconds (26.0-36.0) H 07/04/17 02:45 ABG pH 7.27 pH Units (7.32-7.45) L 07/07/17 09:17 ABG pCO2 54 mmHg (35-45) H 07/07/17 09:17 ABG Total CO2 27 mEq/L (20-26) H 07/07/17 09:17 ABG Base Excess -3 mEq/L (-2 to 3) L 07/07/17 09:17 Potassium 6.7 mEq/L (3.5-5.1) H* 07/07/17 06:25 Carbon Dioxide 22 mEq/L (23-29) L 07/07/17 04:00 BUN > 130 mg/dL (6-20) H 07/07/17 04:00 Creatinine 6.42 mg/dL (0.70-1.30) H 07/07/17 04:00 Est GFR ( Amer) 12 (> 60) L 07/07/17 04:00 Est GFR (Non-Af Amer) 10 (> 60) L 07/07/17 04:00 Glucose 148 mg/dL (70-105) H 07/07/17 04:00 POC Glucose 179 mg/dL (70-99) H 07/06/17 23:21 Hemoglobin A1c 7.5 % (-5.6) H 06/30/17 10:02 Calcium 7.7 mg/dL (8.6-10.3) L 07/07/17 04:00 Phosphorus 7.4 mg/dL (2.7-4.5) H 07/02/17 07:12 AST 46 Units/L (13-39) H 07/01/17 03:51 ALT 85 Units/L (7-52) H 07/01/17 03:51 Troponin I 0.59 ng/mL (< 0.04) H* 07/04/17 02:45 B-Natriuretic Peptide 134 pg/mL (Less than 100) H 06/30/17 06:08 Albumin 2.9 g/dL (3.5-5.7) L 07/02/17 07:12 Globulin 3.6 g/dL (2.4-3.5) H 07/01/17 03:51 Albumin/Globulin Ratio 0.9 (1.1-2.2) L 07/01/17 03:51 Prealbumin 34.9 mg/dL (17.0-34.0) H 07/07/17 04:00 LDL Cholesterol, Calc 128 mg/dL (0-99) H 06/30/17 10:02 HDL Cholesterol 32 mg/dL (40-59) L 06/30/17 10:02 Cholesterol/HDL Ratio 5.9 (0-4.9) H 06/30/17 10:02 - Clinical Findings Intake & Output: Intake & Output 07/07/17 07/07/17 07/07/17 07:59 15:59 23:59 Intake Total 2426 / 2426 1270 / 1270 Output Total 0 / 0 2600 / 2600 Balance 2426 / 2426 -1330 / -1330 Weight 286 kg 286 kg - Attending Attestation I examined this patient and my medical decision-making was reviewed with the Resident Physician. I agree with the documented findings, disposition and treatment plan as described except to the extent set forth below. Patient seen and examined. Labs, radiology, chart personally reviewed. 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 Patient with some evidence of respiratory acidosis and changed tidal volume and not stable for wean off the ventilator. Cardiovascular: stable GI: Nutrition per dietary and GI prophylaxis per routine Heme: DVT prophylaxis per routine ID: Continue antibiotics and plan to de-escalation Renal; urine out put and renal funtion reviewed. 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
[2017-07-07] MEDS ORDERED: 0.9 % Sodium Chloride 1,000 ML PRIME SCH (07:45)
[2017-07-07] MEDS ORDERED: 0.9 % Sodium Chloride 1,000 ML ONE (08:09)
[2017-07-07] MEDS ORDERED: Insulin Human Regular 10 UNIT in 0.9 % Sodium Chloride 10 ML IV ONE (08:59)
[2017-07-07] MEDS ORDERED: Levofloxacin 750 MG/150 ML 750 MG/150 ML BAG IVPB SCH (09:00)
[2017-07-07] MEDS ORDERED: Aspirin 81 MG TAB.CHEW PO SCH (09:00)
[2017-07-07] MEDS: Chlorhexidine Rinse 15 ML MOUTHWASH MM SCH ×2 (09:04→20:42)
[2017-07-07] MEDS: Insulin DETEMIR 100 UNIT/ML X5UNITS SQ SCH ×2 (09:05→22:20)
[2017-07-07] MEDS: Sennosides/Docusate Sodium TABLET PO SCH ×2 (09:05→20:43)
[2017-07-07] MEDS: Pantoprazole 40 MG VIAL IVP SCH (09:05)
[2017-07-07 09:22] LABS: ABG Base Excess -3 mEq/L (-2 to 3); ABG HCO3 25 mEq/L (21-27); ABG Oxygen Saturation 95 % (95-98); ABG PCO2 54 mmHg (35-45); ABG PH 7.27 pH Units (7.32-7.45); ABG PO2 85 mmHg (85-104); ABG TCO2 27 mEq/L (20-26); Blood Gas Modality VC; Blood Gas PEEP 14 cm H2O; Blood Gas Respiration Rate 22; Blood Gas VT 650 cc
--- NOTE | 2017-07-07 12:28 | Gastroenterology Consult Note ---
<ByrdGianluca larios Melissa - Last Filed: 07/07/17 12:38> Date of Encounter: 07/07/17 Time of Encounter: 10:50 - Assessment and plan (1) Coffee ground emesis Current Visit: Yes Status: Acute Assessment and plan: Could be secondary to stress induced gastritis, continue PPI. Hgb is stable at this time. Pt is clinically unstable for EGD. If Hgb drops, will consider EGD. (2) Acute respiratory failure Current Visit: Yes Status: Acute Assessment and plan: Management per ICU team. Qualifiers: Respiratory failure complication: hypoxia Qualified Code(s): J96.01 - Acute respiratory failure with hypoxia (3) Renal failure Current Visit: Yes Status: Acute Qualifiers: Renal failure chronicity: acute Acute renal failure type: unspecified Qualified Code(s): N17.9 - Acute kidney failure, unspecified (4) Hyperkalemia Current Visit: Yes Status: Acute Assessment and plan: Potassium of 6.5 this morning treated with insulin, D50 and bicarbonate. Pt having dialysis today. (5) Morbid (severe) obesity due to excess calories Current Visit: Yes Status: Chronic - Time Spent With Patient Total time spent is greater than 50% in coordination of care (as documented) at patient's floor/unit and/or counseling patient: GI History of Present Illness - Data of Consult Patient: new to practice Consult date: 07/07/17 Requesting Physician: Nic Reagan - Consult Narrative Reason for consult: Coffee ground emesis History of present illness: Mr. Garcia is a 42 year old male with PMHx of chronic bronchitis, HTN, and morbid obesity who presented to the ED with c/o SOB and productive cough that started 4 days prior to admission. The patient experienced respitatory failure and was intubated. Tracheostomy was completed 07/06/17 by ENT. We have been consulted to evaluate episode of coffee-ground emesis. Hgb on admission was 14.4 and today Hgb 12. History obtained from chart review. Procedures: None NSAIDs: None Anticoagulation: None Past Med Surg Social Fam HX - Past Medical History Medical history: other Psychiatric history: anxiety - Social History Smoking Status: Never smoker Smokeless Tobacco Status: No Alcohol use: none Drug use: none ROS unobtainable: due to endotracheal tube - Constitutional Vitals: Temp Pulse Resp BP Pulse Ox 99.3 F 81 22 142/68 95 04/13/18 10:10 07/07/17 11:00 07/07/17 11:26 07/07/17 11:55 07/07/17 11:26 Exam: Sedated, with tracheostomy and ventilator support. - Head Head exam: Present: atraumatic, normocephalic - Eye Eye exam: Present: normal appearance, sclera anicteric - ENT ENT exam: Present: mucous membranes dry - Neck Neck exam general surgery: Present: trachea midline Additional comments: Tracheostomy in place - Respiratory Additional comments: Mechanical breath sounds - Cardiovascular Cardiovascular exam: Present: RRR, +S1, +S2 - GI/Abdominal GI/Abdominal exam: Present: distended, soft, no peritoneal signs. Absent: firm , guarding, tenderness Additional comments: Morbidly obese - Rectal Rectal exam: Present: deferred - Extremities Exam Extremities exam: Present: warm - Neurological Exam Additional comments: Sedated - Psychiatric Additional comments: Sedated - Skin Skin exam: Present: dry, intact, normal color, warm Results - Labs CBC & Chem 7: 07/07/17 04:00 07/07/17 06:25 Labs: Last Result Calcium 7.7 mg/dL (8.6-10.3) L 07/07/17 04:00 Troponin I 0.59 ng/mL (< 0.04) H* 07/04/17 02:45 Triglycerides 149 mg/dL (< 150) 06/30/17 10:02 Entire Visit Hgb 12.0 g/dL (12.9-16.9) L 07/07/17 04:00 Hct 38.8 % (37.5-50.1) 07/07/17 04:00 PT 13.0 Seconds (9.4-12.1) H 07/06/17 03:32 Total Bilirubin 0.4 mg/dL (0.3-1.0) 07/01/17 03:51 AST 46 Units/L (13-39) H 07/01/17 03:51 ALT 85 Units/L (7-52) H 07/01/17 03:51 - ABG ABG results: ABG ABG pH 7.27 pH Units (7.32-7.45) L 07/07/17 09:17 ABG pCO2 54 mmHg (35-45) H 07/07/17 09:17 ABG pO2 85 mmHg (85-104) 07/07/17 09:17 ABG O2 Saturation 95 % (95-98) 07/07/17 09:17 PT/INR, D-dimer PT 13.0 Seconds (9.4-12.1) H 07/06/17 03:32 - Impressions Impressions Guidance Needle Placement Ultrasound 07/06/17 00:00 IMPRESSION: Ultrasound-guided placement of a temporary HD catheter as above. No immediate complications. A postprocedure chest radiograph confirms good position in the SVC. The catheter is ready for use. D/ / Jhonatan Bowen MD / Jhonatan Bowen MD Interpreting Provider: Jhonatan Bowen MD Insertion Non-Tunneled Catheter 07/06/17 00:00 IMPRESSION: Ultrasound-guided placement of a temporary HD catheter as above. No immediate complications. A postprocedure chest radiograph confirms good position in the SVC. The catheter is ready for use. D/ / Jhonatan Bowen MD / Jhonatan Bowen MD Interpreting Provider: Jhonatan Bowen MD Chest X-Ray 07/06/17 12:05 IMPRESSION: Right IJ central venous catheter in place, tip in the SVC. No pneumothorax seen. D/ / 07/06/2017 13:04:16 Travis Christensen MD / jennifer Interpreting Provider: Travis Christensen MD Consult Discharge Plan - Plan Referrals: Jose David Hood DO [Resident] - (a packet will be sent to patient for new patient information) Bacilio Ruiz DO [Resident] - 07/07/17 3:20 pm <Mia Johansen - Last Filed: 07/07/17 23:51> Date of Encounter: 07/07/17 Time of Encounter: 13:30 - Time Spent With Patient Total time spent is greater than 50% in coordination of care (as documented) at patient's floor/unit and/or counseling patient: GI History of Present Illness - Data of Consult Requesting Physician: Nic Reagan - Consult Narrative History of present illness: Mr. Garcia is a 42 year old male - Constitutional Vitals: Temp Pulse Resp BP Pulse Ox 99.0 F 82 23 179/87 94 07/07/17 20:00 07/07/17 22:00 07/07/17 23:10 07/07/17 23:10 07/07/17 23:10 Results - Labs CBC & Chem 7: 07/07/17 17:24 07/07/17 15:06 Labs: Last Result Calcium 7.7 mg/dL (8.6-10.3) L 07/07/17 04:00 Troponin I 0.59 ng/mL (< 0.04) H* 07/04/17 02:45 Triglycerides 149 mg/dL (< 150) 06/30/17 10:02 Entire Visit Hgb 11.6 g/dL (12.9-16.9) L 07/07/17 17:24 Hct 36.7 % (37.5-50.1) L 07/07/17 17:24 PT 13.0 Seconds (9.4-12.1) H 07/06/17 03:32 Total Bilirubin 0.4 mg/dL (0.3-1.0) 07/01/17 03:51 AST 46 Units/L (13-39) H 07/01/17 03:51 ALT 85 Units/L (7-52) H 07/01/17 03:51 - ABG ABG results: ABG ABG pH 7.27 pH Units (7.32-7.45) L 07/07/17 09:17 ABG pCO2 54 mmHg (35-45) H 07/07/17 09:17 ABG pO2 85 mmHg (85-104) 07/07/17 09:17 ABG O2 Saturation 95 % (95-98) 07/07/17 09:17 PT/INR, D-dimer PT 13.0 Seconds (9.4-12.1) H 07/06/17 03:32 - Attending Attestation I have personally performed a face to face evaluation on this patient. I have reviewed and agree with the care plan. History and Exam by me shows: Pt seen. Coffee ground emesis but H/H stable. No plan for EGD
--- NOTE | 2017-07-07 12:39 | ENT - Progress Note ---
Date of Encounter: 07/07/17 Time of Encounter: 12:36 - Assessment and Plan (1) Acute on chronic respiratory failure with hypoxia and hypercapnia Current Visit: Yes Status: Acute s/p tracheotomy POD#1 Pt sedated on ventilator. No issues with trach per nursing other than appropriate bloody secretions. 8XLT shiley in place, cuff up. Continue routine trach care. Will remove sutures and change neck tie on POD#5. (2) Renal failure Current Visit: Yes Status: Acute Qualifiers: Renal failure chronicity: acute Acute renal failure type: unspecified Qualified Code(s): N17.9 - Acute kidney failure, unspecified (3) Benign essential hypertension Current Visit: Yes Status: Chronic (4) Diabetes Current Visit: Yes Status: Chronic Qualifiers: Diabetes mellitus type: type 2 Diabetes mellitus fpc insulin use: without moth exterminator use Diabetes mellitus complication status: with hyperglycemia Qualified Code(s): E11.65 - Type 2 diabetes mellitus with hyperglycemia (5) Morbid (severe) obesity due to excess calories Current Visit: Yes Status: Chronic (6) Obesity hypoventilation syndrome Current Visit: Yes Status: Suspected Subjective Narrative: No new respiratory events overnight. Normal postop bloody secretions around trach. Objective Initial Vital Signs Temp Pulse Resp BP Pulse Ox 97.3 F L 105 24 195/129 65 06/30/17 05:49 06/30/17 05:49 06/30/17 05:49 06/30/17 05:49 06/30/17 05:49 - General physical appearance other (sedated on ventilator) - ENT Other (8XLT shiley in place secured with silk sutures and neck tie, balloon up. Inner cannula was partially dislodged at beginning of exam, but was adequetly secured. Minimal bloody mucus with suctioning. No neck crepitus. ) - Respiratory other (ventilator support) - Labs 07/07/17 04:00 07/07/17 06:25 Diabetes panel 07/07/17 07/07/17 Range/Units 04:00 06:25 Sodium 138 (136-145) mEq/L Potassium 6.5 H* 6.7 H* (3.5-5.1) mEq/L Chloride 101 (98-107) mEq/L Carbon Dioxide 22 L (23-29) mEq/L BUN > 130 H (6-20) mg/dL Creatinine 6.42 H (0.70-1.30) mg/dL Glucose 148 H (70-105) mg/dL Calcium 7.7 L (8.6-10.3) mg/dL Calcium panel 07/07/17 Range/Units 04:00 Calcium 7.7 L (8.6-10.3) mg/dL Pituitary panel 07/07/17 07/07/17 Range/Units 04:00 06:25 Sodium 138 (136-145) mEq/L Potassium 6.5 H* 6.7 H* (3.5-5.1) mEq/L Chloride 101 (98-107) mEq/L Carbon Dioxide 22 L (23-29) mEq/L BUN > 130 H (6-20) mg/dL Creatinine 6.42 H (0.70-1.30) mg/dL Glucose 148 H (70-105) mg/dL Calcium 7.7 L (8.6-10.3) mg/dL Adrenal panel 07/07/17 07/07/17 Range/Units 04:00 06:25 Sodium 138 (136-145) mEq/L Potassium 6.5 H* 6.7 H* (3.5-5.1) mEq/L Chloride 101 (98-107) mEq/L Carbon Dioxide 22 L (23-29) mEq/L BUN > 130 H (6-20) mg/dL Creatinine 6.42 H (0.70-1.30) mg/dL Glucose 148 H (70-105) mg/dL Calcium 7.7 L (8.6-10.3) mg/dL Consult Discharge Plan - Plan Referrals: Jose David Hood DO [Resident] - (a packet will be sent to patient for new patient information) Bacilio Ruiz DO [Resident] - 07/07/17 3:20 pm
[2017-07-07 18:44] LABS: Hematocrit 36.7 % (37.5-50.1); Hemoglobin 11.6 g/dL (12.9-16.9)
--- NOTE | 2017-07-07 23:42 | Nephrology Progress Note ---
Date of Encounter: 07/07/17 Time of Encounter: 11:00 - Assessment and Plan (1) ZOHAIB (acute kidney injury) Status: Acute SCr continues to worse with continued anuria. s/p first HD session yesterday limited to only 2hrs Second HD today underway Plan for third HD session today and then assess need daily Continue to avoid nephrotoxins if possible Limit obligate fluids if possibke especially while anuric Discussed goal od care with family and primary team (2) Acute and chronic respiratory failure Status: Resolved Qualifiers: Respiratory failure complication: hypoxia and hypercapnia Qualified Code(s) : J96.21 - Acute and chronic respiratory failure with hypoxia; J96.22 - Acute and chronic respiratory failure with hypercapnia; J96.22 - Acute and chronic respiratory failure with hypercapnia; J96.22 - Acute and chronic respiratory failure with hypercapnia (3) Hyperkalemia Status: Acute Repeat potassium after HD today, likely very catabolic and also very large body habitus makes adequate HD more difficult, may need daily 4+ hr HD sessions Renal friendly feeds advised if possible Subjective Principal diagnosis: Respiratory failure Interval history: Interim events noted with pt seen and examined, intubated with trach and sedated while completing HD. Family present at bedside. Objective - Vital Signs Vital signs: Vital Signs Temp Pulse Resp BP Pulse Ox 07/07/17 23:10 23 179/87 94 07/07/17 22:00 82 24 174/96 93 07/07/17 21:04 29 161/93 94 07/07/17 21:00 77 26 188/92 93 07/07/17 20:00 99.0 F 92 24 175/83 93 07/07/17 19:37 25 172/82 93 07/07/17 19:00 83 26 161/93 93 07/07/17 18:00 79 24 171/82 94 07/07/17 17:27 22 170/82 94 07/07/17 17:00 78 24 170/82 94 07/07/17 16:00 78 22 156/79 95 07/07/17 15:00 77 22 152/73 95 07/07/17 14:00 68 22 134/72 96 07/07/17 13:30 98.3 F 18 137/73 07/07/17 13:10 133/73 07/07/17 13:00 75 22 130/76 96 07/07/17 12:55 134/77 07/07/17 12:40 133/74 07/07/17 12:25 124/64 07/07/17 12:10 131/67 07/07/17 12:00 78 24 132/72 96 07/07/17 11:55 142/68 07/07/17 11:40 152/74 07/07/17 11:26 22 154/70 95 07/07/17 11:25 143/87 07/07/17 11:10 131/67 07/07/17 11:00 81 24 160/80 95 07/07/17 10:55 149/80 07/07/17 10:40 154/77 07/07/17 10:25 163/78 07/07/17 10:10 99.3 F 20 155/74 07/07/17 10:00 81 26 158/76 91 07/07/17 09:00 74 152/74 07/07/17 08:00 99.3 F 72 29 144/68 90 07/07/17 07:43 24 141/75 92 07/07/17 07:00 79 23 141/75 92 07/07/17 06:00 78 20 138/72 92 07/07/17 05:45 20 138/72 92 07/07/17 05:00 76 22 138/72 92 07/07/17 04:00 75 20 146/74 92 07/07/17 03:56 97.4 F L 07/07/17 03:43 75 07/07/17 03:30 21 143/71 92 07/07/17 03:00 76 22 146/71 92 07/07/17 02:00 73 21 138/69 93 07/07/17 01:25 22 145/73 93 07/07/17 01:00 73 20 138/74 93 07/07/17 00:03 75 07/07/17 00:00 97.7 F 74 20 155/72 94 Intake and Output 07/07/17 07/07/17 07/07/17 07:59 15:59 23:59 Intake Total 2436.06 / 2436.06 1270 / 1270 297 / 297 Output Total 0 / 0 2600 / 2600 Balance 2436.06 / 2436.06 -1330 / -1330 297 / 297 Intake: IV Fluids 2376.06 / 2376.06 550 / 550 122 / 122 HumuLIN R 6 UNIT In 0.9 % 10.06 / 10.06 Sodium Chloride 10 ML @ 1207.2 mls/hr IV ONCE [facility] Rx#: [id number] 0.9 % Sodium Chloride 1,000 ML 1999 / 1999 550 / 550 @ 150 mls/hr IVC .[id number] [facility] Rx #:[id number] FentaNYL (PF) 2,500 MCG In 66 / 66 22 / 22 Empty Bag 50 Each @ 200 MCG/HR 4 mls/hr IVC CONT [facility] Rx#: [id number] Diprivan 1,000 mg In 100 ml @ 5 300 / 300 100 / 100 MCG/KG/MIN 8.58 mls/hr IVC . [id number] [facility] Rx#:[id number] Oral 0 / 0 Tube Feeding 175 / 175 Free Water 60 / 60 120 / 120 Intake, Rinseback and Flushes 600 / 600 Output: Urine 0 / 0 0 / 0 Total Dialysis (HD) Output 2600 / 2600 Catheter 0 / 0 Gastric Drainage 0 / 0 Other: Weight 286 kg 286 kg Blood Glucose* 137 162 165 Hemodialysis Net Fluid Removed 1999 (mL) Patient Weight 07/07/17 23:59 Weight 286 kg - General Appearance General appearance: Present: sedated on ventilator, intubated EENT: Present: ATNC Neck: Present: no JVD, supple Respiratory: Present: course breath sounds Cardiology: Present: edema, normal S1, normal S2 Dialysis Vascular Access: Venous Catheter (temp HD) Gastrointestinal: Present: no tenderness, no guarding, obese Integumentary: Present: warm and dry Additional Comments: sedated Musculoskeletal: Present: no deformities Additional Comments: sedated - Lab 07/12/17 04:05 07/12/17 11:47 Most recent lab results ABG pH 7.27 pH Units (7.32-7.45) L 07/07/17 09:17 ABG pCO2 54 mmHg (35-45) H 07/07/17 09:17 ABG pO2 85 mmHg (85-104) 07/07/17 09:17 ABG HCO3 25 mEq/L (21-27) 07/07/17 09:17 ABG O2 Saturation 95 % (95-98) 07/07/17 09:17 Calcium 7.7 mg/dL (8.6-10.3) L 07/07/17 04:00 Phosphorus 7.4 mg/dL (2.7-4.5) H 07/02/17 07:12 Magnesium 2.5 mg/dL (1.6-2.6) 07/02/17 04:00 Urine Creatinine 151 mg/dL 07/02/17 07:12 Urine Sodium 53.8 mEq/L 07/02/17 07:12 Consult Discharge Plan - Plan Additional Instructions: Patient did have tube feed over the weekend, however will require [facility] for long-term enteral nutrition. Referrals: Jose David Hood DO [Resident] - (a packet will be sent to patient for new patient information) Bacilio Ruiz DO [Resident] - 07/07/17 3:20 pm
[2017-07-08] MEDS: Insulin LISPRO 300 UNITS/3 ML VIAL SQ SCH ×7 (00:06→23:50)
[2017-07-08] MEDS: Ipratropium/Albuterol Neb 3 ML IH SCH ×6 (03:29→23:44)
[2017-07-08 03:42] LABS: Basophils % 0.2 %; Eosinophils % 0.2 %; Hemoglobin 11.6 g/dL (12.9-16.9); Immature Granulocytes % 2.1 % (0-4); Lymphocytes # 1.2 K/mcL (0.6-4.6); Lymphocytes % 5.3 %; Mean Corpuscular HGB Conc 31.4 g/dL (31.6-35.5); Mean Corpuscular Hemoglobin 27.9 pg (28.0-33.3); Mean Corpuscular Volume 88.9 fL (83.0-100.0); Mean Platelet Volume 10.4 fL (9.4-12.4); Monocytes # 1.6 K/mcL (0.0-1.3); Monocytes % 7.1 %; Neutrophils # 18.8 K/mcL (1.6-8.9); Platelet Count 205 K/mcL (140-400); Red Blood Count 4.16 M/mcL (4.19-5.50); Red Cell Distribution Width 13.7 % (11.5-14.5); Segmented Neutrophils % 85.1 %
[2017-07-08 04:05] LABS: Calcium 7.7 mg/dL (8.6-10.3); Potassium 5.2 mEq/L (3.5-5.1)
[2017-07-08] MEDS: Lacri-Lube 3.5 GM TUBE BOTH EYES SCH ×6 (04:15→23:45)
[2017-07-08] MEDS: Insulin Human Regular 6 UNIT in 0.9 % Sodium Chloride 10 ML IV SCH (04:24)
[2017-07-08 04:33] LABS: ABG Base Excess 1 mEq/L (-2 to 3); ABG HCO3 28 mEq/L (21-27); ABG Oxygen Saturation 99 % (95-98); ABG PCO2 54 mmHg (35-45); ABG PH 7.32 pH Units (7.32-7.45); ABG PO2 127 mmHg (85-104); ABG TCO2 30 mEq/L (20-26); Blood Gas Modality VC; Blood Gas PEEP 14 cm H2O; Blood Gas Respiration Rate 22; Blood Gas VT 650 cc
[2017-07-08] MEDS: MethylPREDNISolone 40 MG/ML VIAL IVP SCH ×2 (05:31→18:21)
[2017-07-08] MEDS: *HR* Heparin 5,000 UNIT/ML VIAL SQ SCH ×3 (05:34→20:51)
--- NOTE | 2017-07-08 07:16 | Pulmonology Progress Note ---
<Kylie Danielle M - Last Filed: 07/08/17 09:47> Date of Encounter: 07/08/17 Objective PUL Vital signs: Last Vital Signs Temp 99.2 F 07/08/17 09:00 Pulse 80 07/08/17 08:00 Resp 24 07/08/17 09:40 BP 137/77 07/08/17 09:40 Pulse Ox 94 07/08/17 09:40 Ventilator Settings Ventilator Settings: Ventilator Settings, Last 8 Hours Ventilator Mode CPAP Ventilator Mode CPAP Ventilator Mode CPAP Ventilator Mode VC+ Ventilator Mode VC+ Ventilator Mode VC+ Ventilator Mode VC+ Ventilator Mode VC+ Ventilator Mode VC+ Ventilator Mode VC+ Ventilator Mode VC+ Ventilator Mode VC+ Ventilator Mode VC+ Ventilator Tidal Volume 650 Setting Ventilator Tidal Volume 650 Setting Ventilator Tidal Volume 650 Setting Ventilator Tidal Volume 650 Setting Ventilator Tidal Volume 650 Setting Ventilator Tidal Volume 650 Setting Ventilator Tidal Volume 650 Setting Ventilator Tidal Volume 650 Setting Ventilator Tidal Volume 650 Setting Ventilator Tidal Volume 650 Setting Ventilator Tidal Volume 650 Setting Ventilator Respiratory Rate 22 Setting Ventilator Respiratory Rate 22 Setting Ventilator Respiratory Rate 22 Setting Ventilator Respiratory Rate 22 Setting Ventilator Respiratory Rate 22 Setting Ventilator Respiratory Rate 22 Setting Ventilator Respiratory Rate 22 Setting Ventilator Respiratory Rate 22 Setting Ventilator Respiratory Rate 22 Setting Ventilator Respiratory Rate 22 Setting Actual Respiratory Rate 25 Actual Respiratory Rate 29 Actual Respiratory Rate 24 Actual Respiratory Rate 24 Actual Respiratory Rate 24 Actual Respiratory Rate 24 Actual Respiratory Rate 26 Actual Respiratory Rate 26 Actual Respiratory Rate 23 Actual Respiratory Rate 26 Actual Respiratory Rate 22 Positive End Expiratory 8.0 Pressure Positive End Expiratory 14 Pressure Positive End Expiratory 14 Pressure Positive End Expiratory 14 Pressure Positive End Expiratory 14 Pressure Positive End Expiratory 14 Pressure Positive End Expiratory 14 Pressure Positive End Expiratory 14 Pressure Positive End Expiratory 14 Pressure Positive End Expiratory 14 Pressure Positive End Expiratory 14 Pressure Peak Inspiratory Airway 22 Pressure Peak Inspiratory Airway 31 Pressure Peak Inspiratory Airway 23 Pressure Peak Inspiratory Airway 29 Pressure Peak Inspiratory Airway 30 Pressure Peak Inspiratory Airway 27 Pressure Peak Inspiratory Airway 48 Pressure Peak Inspiratory Airway 31 Pressure Peak Inspiratory Airway 31 Pressure Peak Inspiratory Airway 30 Pressure Results - Laboratory Findings CBC and BMP: 07/08/17 03:30 07/08/17 03:30 ABG ABG pH 7.32 pH Units (7.32-7.45) 07/08/17 04:29 ABG pCO2 54 mmHg (35-45) H 07/08/17 04:29 ABG pO2 127 mmHg (85-104) H 07/08/17 04:29 ABG O2 Saturation 99 % (95-98) H 07/08/17 04:29 PT/INR, D-dimer PT 13.0 Seconds (9.4-12.1) H 07/06/17 03:32 Abnormal lab findings: Abnormal lab results WBC 22.1 K/mcL (4.3-11.1) H 07/08/17 03:30 RBC 4.16 M/mcL (4.19-5.50) L 07/08/17 03:30 Hgb 11.6 g/dL (12.9-16.9) L 07/08/17 03:30 Hct 37.0 % (37.5-50.1) L 07/08/17 03:30 MCH 27.9 pg (28.0-33.3) L 07/08/17 03:30 MCHC 31.4 g/dL (31.6-35.5) L 07/08/17 03:30 Neutrophils # 18.8 K/mcL (1.6-8.9) H 07/08/17 03:30 Monocytes # 1.6 K/mcL (0.0-1.3) H 07/08/17 03:30 Nucleated RBCs/100 WBC 0.1 /100 WBC (0) H 07/06/17 03:32 PT 13.0 Seconds (9.4-12.1) H 07/06/17 03:32 APTT 38.2 Seconds (26.0-36.0) H 07/04/17 02:45 ABG pCO2 54 mmHg (35-45) H 07/08/17 04:29 ABG pO2 127 mmHg (85-104) H 07/08/17 04:29 ABG HCO3 28 mEq/L (21-27) H 07/08/17 04:29 ABG Total CO2 30 mEq/L (20-26) H 07/08/17 04:29 ABG O2 Saturation 99 % (95-98) H 07/08/17 04:29 Potassium 5.2 mEq/L (3.5-5.1) H 07/08/17 03:30 Chloride 97 mEq/L (98-107) L 07/08/17 03:30 BUN 125 mg/dL (6-20) H 07/08/17 03:30 Creatinine 6.11 mg/dL (0.70-1.30) H 07/08/17 03:30 Est GFR ( Amer) 12 (> 60) L 07/08/17 03:30 Est GFR (Non-Af Amer) 10 (> 60) L 07/08/17 03:30 Glucose 140 mg/dL (70-105) H 07/08/17 03:30 POC Glucose 161 mg/dL (70-99) H 07/07/17 23:59 Hemoglobin A1c 7.5 % (-5.6) H 06/30/17 10:02 Calculated Osmolality 328 (280-300) H 07/08/17 03:30 Calcium 7.7 mg/dL (8.6-10.3) L 07/08/17 03:30 Phosphorus 7.4 mg/dL (2.7-4.5) H 07/02/17 07:12 AST 46 Units/L (13-39) H 07/01/17 03:51 ALT 85 Units/L (7-52) H 07/01/17 03:51 Troponin I 0.59 ng/mL (< 0.04) H* 07/04/17 02:45 B-Natriuretic Peptide 134 pg/mL (Less than 100) H 06/30/17 06:08 Albumin 2.9 g/dL (3.5-5.7) L 07/02/17 07:12 Globulin 3.6 g/dL (2.4-3.5) H 07/01/17 03:51 Albumin/Globulin Ratio 0.9 (1.1-2.2) L 07/01/17 03:51 Prealbumin 34.9 mg/dL (17.0-34.0) H 07/07/17 04:00 LDL Cholesterol, Calc 128 mg/dL (0-99) H 06/30/17 10:02 HDL Cholesterol 32 mg/dL (40-59) L 06/30/17 10:02 Cholesterol/HDL Ratio 5.9 (0-4.9) H 06/30/17 10:02 - Clinical Findings Intake & Output: Intake & Output 07/07/17 07/08/17 07/08/17 23:59 07:59 15:59 Intake Total 297 / 297 746 / 746 885 / 885 Output Total 5 / 5 0 / 0 Balance 297 / 297 741 / 741 885 / 885 Weight 286 kg Consult Discharge Plan - Plan Referrals: Jose David Hood DO [Resident] - (a packet will be sent to patient for new patient information) Bacilio Ruiz DO [Resident] - 07/07/17 3:20 pm - Attending Attestation I examined this patient and my medical decision-making was reviewed with the Resident Physician. I agree with the documented findings, disposition and treatment plan as described except to the extent set forth below. Patient seen and examined. Labs, radiology, chart personally reviewed. 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 Cardiovascular: stable GI: Nutrition per dietary and GI prophylaxis per routine Heme: DVT prophylaxis per routine ID: Continue antibiotics and plan to de-escalation Renal; urine out put and renal funtion reviewed and nephrology follow-up for possible hemodialysis Endorcine: blood glucose is monitored Lines: all lines checked and no evidence of infections Skin: skin care to prevent pressure ulcers per nursing routine care <Rex Prieto - Last Filed: 07/08/17 10:00> Date of Encounter: 07/08/17 Time of Encounter: 09:07 Assessment and Plan (1) Renal failure Current Visit: Yes Status: Acute Anuric renal failure necessitating HD catheter placement 07/06/17 with dialysis. Nephrology consulted and managing dialysis. 2 L removed yesterday. Previous hyperkalemia necessitating urgent dialysis. Potassium improved today. Continue dialysis as guided by nephrology. Qualifiers: Renal failure chronicity: acute Acute renal failure type: unspecified Qualified Code(s): N17.9 - Acute kidney failure, unspecified (2) Acute respiratory failure Current Visit: Yes Status: Acute Acute respiratory failure secondary to bronchitis with resultant ARDS. Difficulty with intubation requiring anesthesiology. Patient is POD #2 from tracheostomy placement. Increased secretions overnight. Consider Robinul with continued secretions. Plan to trial on pressure support today as tolerated. Qualifiers: Respiratory failure complication: hypoxia Qualified Code(s): J96.01 - Acute respiratory failure with hypoxia (3) Hyperkalemia Current Visit: Yes Status: Acute Potassium of 5.2 this morning. Potassium up to 6.7 on 07/07/17. Continue dialysis as per nephrology Continue daily BMP (4) Benign essential hypertension Current Visit: Yes Status: Chronic Continue hydralazine as needed (5) Leukocytosis Current Visit: Yes Status: Acute WBC of 22 today. Variable findings over the last several days likely from infectious etiology. Likely component of stress response from recent operative intervention. Continue daily CBC. Qualifiers: Leukocytosis type: unspecified Qualified Code(s): D72.829 - Elevated white blood cell count, unspecified (6) Obesity hypoventilation syndrome Current Visit: Yes Status: Suspected Underlying morbid obesity. Intubated for respiratory failure from initial bronchitis felt to have evolved into ARDS. Postop day #2 from tracheostomy placement. (7) Diabetes Current Visit: Yes Status: Chronic Continue sliding scale insulin Qualifiers: Diabetes mellitus type: type 2 Diabetes mellitus nursing home insulin use: without nursing home use Diabetes mellitus complication status: with hyperglycemia Qualified Code(s): E11.65 - Type 2 diabetes mellitus with hyperglycemia (8) Morbid (severe) obesity due to excess calories Current Visit: Yes Status: Chronic (9) DVT prophylaxis Current Visit: Yes Status: Acute Heparin 5000 units every 8 hours Subjective Principal diagnosis: Respiratory failure Interval history: No acute events overnight. Patient is POD #2 from tracheostomy placement by ENT as well as HD catheter placement by interventional radiology. He had dialysis yesterday. Continued creatinine of 6. Hyperkalemia improved today. Reports a lot of secretions overnight. Objective PUL Vital signs: Last Vital Signs Temp 100.1 F H 07/08/17 04:00 Pulse 75 07/08/17 06:00 Resp 24 07/08/17 06:09 BP 168/80 07/08/17 06:09 Pulse Ox 93 07/08/17 06:09 General appearance: no acute distress Eyes: nonicteric ENT: other (Tracheostomy in place) Effort: normal Auscultation: bilateral: rhonchi Cardiovascular: regular rate and rhythm Gastrointestinal: soft, non-tender Integumentary: normal Extremities: no cyanosis, edema (2+ bilateral lower extremity pitting edema) Musculoskeletal: no deformities other (Nods head yes and no. Opens eyes spontaneously.) Ventilator Settings Ventilator Settings: Ventilator Settings, Last 8 Hours Ventilator Mode VC+ Ventilator Mode VC+ Ventilator Mode VC+ Ventilator Mode VC+ Ventilator Mode VC+ Ventilator Mode VC+ Ventilator Mode VC+ Ventilator Mode VC+ Ventilator Mode VC+ Ventilator Mode VC+ Ventilator Mode VC+ Ventilator Tidal Volume 650 Setting Ventilator Tidal Volume 650 Setting Ventilator Tidal Volume 650 Setting Ventilator Tidal Volume 650 Setting Ventilator Tidal Volume 650 Setting Ventilator Tidal Volume 650 Setting Ventilator Tidal Volume 650 Setting Ventilator Tidal Volume 650 Setting Ventilator Tidal Volume 650 Setting Ventilator Tidal Volume 650 Setting Ventilator Tidal Volume 650 Setting Ventilator Respiratory Rate 22 Setting Ventilator Respiratory Rate 22 Setting Ventilator Respiratory Rate 22 Setting Ventilator Respiratory Rate 22 Setting Ventilator Respiratory Rate 22 Setting Ventilator Respiratory Rate 22 Setting Ventilator Respiratory Rate 22 Setting Ventilator Respiratory Rate 22 Setting Ventilator Respiratory Rate 22 Setting Ventilator Respiratory Rate 22 Setting Ventilator Respiratory Rate 22 Setting Actual Respiratory Rate 24 Actual Respiratory Rate 24 Actual Respiratory Rate 26 Actual Respiratory Rate 26 Actual Respiratory Rate 23 Actual Respiratory Rate 26 Actual Respiratory Rate 22 Actual Respiratory Rate 24 Actual Respiratory Rate 26 Actual Respiratory Rate 26 Positive End Expiratory 14 Pressure Positive End Expiratory 14 Pressure Positive End Expiratory 14 Pressure Positive End Expiratory 14 Pressure Positive End Expiratory 14 Pressure Positive End Expiratory 14 Pressure Positive End Expiratory 14 Pressure Positive End Expiratory 14 Pressure Positive End Expiratory 14 Pressure Positive End Expiratory 14 Pressure Positive End Expiratory 14 Pressure Peak Inspiratory Airway 29 Pressure Peak Inspiratory Airway 30 Pressure Peak Inspiratory Airway 27 Pressure Peak Inspiratory Airway 48 Pressure Peak Inspiratory Airway 31 Pressure Peak Inspiratory Airway 31 Pressure Peak Inspiratory Airway 30 Pressure Peak Inspiratory Airway 30 Pressure Peak Inspiratory Airway 30 Pressure Peak Inspiratory Airway 32 Pressure Results - Laboratory Findings CBC and BMP: 07/08/17 03:30 07/08/17 03:30 ABG ABG pH 7.32 pH Units (7.32-7.45) 07/08/17 04:29 ABG pCO2 54 mmHg (35-45) H 07/08/17 04:29 ABG pO2 127 mmHg (85-104) H 07/08/17 04:29 ABG O2 Saturation 99 % (95-98) H 07/08/17 04:29 PT/INR, D-dimer PT 13.0 Seconds (9.4-12.1) H 07/06/17 03:32 Abnormal lab findings: Abnormal lab results WBC 22.1 K/mcL (4.3-11.1) H 07/08/17 03:30 RBC 4.16 M/mcL (4.19-5.50) L 07/08/17 03:30 Hgb 11.6 g/dL (12.9-16.9) L 07/08/17 03:30 Hct 37.0 % (37.5-50.1) L 07/08/17 03:30 MCH 27.9 pg (28.0-33.3) L 07/08/17 03:30 MCHC 31.4 g/dL (31.6-35.5) L 07/08/17 03:30 Neutrophils # 18.8 K/mcL (1.6-8.9) H 07/08/17 03:30 Monocytes # 1.6 K/mcL (0.0-1.3) H 07/08/17 03:30 Nucleated RBCs/100 WBC 0.1 /100 WBC (0) H 07/06/17 03:32 PT 13.0 Seconds (9.4-12.1) H 07/06/17 03:32 APTT 38.2 Seconds (26.0-36.0) H 07/04/17 02:45 ABG pCO2 54 mmHg (35-45) H 07/08/17 04:29 ABG pO2 127 mmHg (85-104) H 07/08/17 04:29 ABG HCO3 28 mEq/L (21-27) H 07/08/17 04:29 ABG Total CO2 30 mEq/L (20-26) H 07/08/17 04:29 ABG O2 Saturation 99 % (95-98) H 07/08/17 04:29 Potassium 5.2 mEq/L (3.5-5.1) H 07/08/17 03:30 Chloride 97 mEq/L (98-107) L 07/08/17 03:30 BUN 125 mg/dL (6-20) H 07/08/17 03:30 Creatinine 6.11 mg/dL (0.70-1.30) H 07/08/17 03:30 Est GFR ( Amer) 12 (> 60) L 07/08/17 03:30 Est GFR (Non-Af Amer) 10 (> 60) L 07/08/17 03:30 Glucose 140 mg/dL (70-105) H 07/08/17 03:30 POC Glucose 161 mg/dL (70-99) H 07/07/17 23:59 Hemoglobin A1c 7.5 % (-5.6) H 06/30/17 10:02 Calculated Osmolality 328 (280-300) H 07/08/17 03:30 Calcium 7.7 mg/dL (8.6-10.3) L 07/08/17 03:30 Phosphorus 7.4 mg/dL (2.7-4.5) H 07/02/17 07:12 AST 46 Units/L (13-39) H 07/01/17 03:51 ALT 85 Units/L (7-52) H 07/01/17 03:51 Troponin I 0.59 ng/mL (< 0.04) H* 07/04/17 02:45 B-Natriuretic Peptide 134 pg/mL (Less than 100) H 06/30/17 06:08 Albumin 2.9 g/dL (3.5-5.7) L 07/02/17 07:12 Globulin 3.6 g/dL (2.4-3.5) H 07/01/17 03:51 Albumin/Globulin Ratio 0.9 (1.1-2.2) L 07/01/17 03:51 Prealbumin 34.9 mg/dL (17.0-34.0) H 07/07/17 04:00 LDL Cholesterol, Calc 128 mg/dL (0-99) H 06/30/17 10:02 HDL Cholesterol 32 mg/dL (40-59) L 06/30/17 10:02 Cholesterol/HDL Ratio 5.9 (0-4.9) H 06/30/17 10:02 - Clinical Findings Intake & Output: Intake & Output 07/07/17 07/07/17 07/08/17 15:59 23:59 07:59 Intake Total 1270 / 1270 297 / 297 746 / 746 Output Total 2600 / 2600 5 / 5 Balance -1330 / -1330 297 / 297 741 / 741 Weight 286 kg
[2017-07-08] MEDS ORDERED: 0.9 % Sodium Chloride 1,000 ML ONE (07:49)
[2017-07-08] MEDS ORDERED: 0.9 % Sodium Chloride 250 ML IVC PRN (07:55)
[2017-07-08] MEDS ORDERED: 0.9 % Sodium Chloride 1,000 ML PRIME SCH (08:00)
[2017-07-08] MEDS: Sennosides/Docusate Sodium TABLET PO SCH ×2 (08:13→20:50)
[2017-07-08] MEDS: Aspirin 81 MG TAB.CHEW PO SCH (08:13)
[2017-07-08] MEDS: Pantoprazole 40 MG VIAL IVP SCH (08:13)
[2017-07-08] MEDS: Chlorhexidine Rinse 15 ML MOUTHWASH MM SCH ×2 (08:13→20:50)
[2017-07-08] MEDS: Insulin DETEMIR 100 UNIT/ML X5UNITS SQ SCH ×2 (10:17→20:53)
--- NOTE | 2017-07-08 10:57 | Nephrology Progress Note ---
Date of Encounter: 07/08/17 Time of Encounter: 10:45 - Assessment and Plan (1) ZOHAIB (acute kidney injury) Status: Acute SCr continues to be poor with continued anuria despite second HD yesterday Plan for third HD session today and then assess need daily Continue to avoid nephrotoxins if possible Limit obligate fluids if possibke especially while anuric Discussed goal of care with family and primary team (2) Acute and chronic respiratory failure Status: Resolved Per primary team Qualifiers: Respiratory failure complication: hypoxia and hypercapnia Qualified Code(s) : J96.21 - Acute and chronic respiratory failure with hypoxia; J96.22 - Acute and chronic respiratory failure with hypercapnia; J96.22 - Acute and chronic respiratory failure with hypercapnia; J96.22 - Acute and chronic respiratory failure with hypercapnia (3) Hyperkalemia Status: Acute Potassium improved, will monitor closely as very catabolic with very large body habitus makes adequate HD more difficult, may need daily 4+ hr HD sessions Renal friendly feeds advised if possible Subjective Principal diagnosis: Respiratory failure Interval history: Interim events noted with pt seen and examined, intubated with trach and sedated no overnight issues Objective - Vital Signs Vital signs: Vital Signs Temp Pulse Resp BP Pulse Ox 07/08/17 10:45 140/75 07/08/17 10:30 164/81 07/08/17 10:15 142/72 07/08/17 10:00 80 30 160/83 95 07/08/17 09:45 147/82 07/08/17 09:40 24 137/77 94 07/08/17 09:30 143/77 07/08/17 09:15 134/78 07/08/17 09:00 99.2 F 85 28 141/77 91 07/08/17 08:00 80 29 162/87 92 07/08/17 07:47 92 07/08/17 07:19 24 174/88 92 07/08/17 07:00 78 24 174/88 93 07/08/17 06:09 24 168/80 93 07/08/17 06:00 75 24 168/80 93 07/08/17 05:00 77 26 171/80 94 07/08/17 04:00 100.1 F H 81 22 188/108 95 07/08/17 03:30 23 169/79 92 07/08/17 03:00 79 26 160/76 94 04/14/18 02:00 74 22 161/84 95 07/08/17 01:02 24 169/79 94 07/08/17 01:00 80 26 169/79 92 07/08/17 00:00 99.5 F 75 26 162/83 95 07/07/17 23:10 23 179/87 94 07/07/17 23:00 77 24 163/82 95 07/07/17 22:00 82 24 174/96 93 07/07/17 21:04 29 161/93 94 07/07/17 21:00 77 26 188/92 93 07/07/17 20:00 99.0 F 92 24 175/83 93 07/07/17 19:37 25 172/82 93 07/07/17 19:00 83 26 161/93 93 07/07/17 18:00 79 24 171/82 94 07/07/17 17:27 22 170/82 94 07/07/17 17:00 78 24 170/82 94 07/07/17 16:00 78 22 156/79 95 07/07/17 15:00 77 22 152/73 95 07/07/17 14:00 68 22 134/72 96 07/07/17 13:30 98.3 F 18 137/73 07/07/17 13:10 133/73 07/07/17 13:00 75 22 130/76 96 07/07/17 12:55 134/77 07/07/17 12:40 133/74 07/07/17 12:25 124/64 07/07/17 12:10 131/67 07/07/17 12:00 78 24 132/72 96 07/07/17 11:55 142/68 07/07/17 11:40 152/74 07/07/17 11:26 22 154/70 95 07/07/17 11:25 143/87 07/07/17 11:10 131/67 07/07/17 11:00 81 24 160/80 95 Intake and Output 07/07/17 07/08/17 07/08/17 23:59 07:59 15:59 Intake Total 297 / 297 746 / 746 885 / 885 Output Total 5 / 5 0 / 0 Balance 297 / 297 741 / 741 885 / 885 Intake: IV Fluids 122 / 122 FentaNYL (PF) 2,500 MCG In / Empty Bag 50 Each @ 200 MCG/HR 4 mls/hr IVC CONT SHANTE Rx#: [id number] Diprivan 1,000 mg In 100 ml @ 5 100 / 100 MCG/KG/MIN 8.58 mls/hr IVC . [id number] SHANTE Rx#:[id number] Oral 0 / 0 Tube Feeding 175 / 175 346 / 346 285 / 285 Free Water 400 / 400 Intake, Rinseback and Flushes 600 / 600 Output: Catheter 5 / 5 0 / 0 Other: Weight 286 kg Blood Glucose* 165 121 163 Hemodialysis Net Fluid Removed 2009 (mL) Patient Weight 07/08/17 23:59 Weight 286 kg - General Appearance General appearance: Present: obese, sedated on ventilator, intubated EENT: Present: ATNC Neck: Present: no JVD, supple Respiratory: Present: course breath sounds Cardiology: Present: edema, normal S1, normal S2 Dialysis Vascular Access: Venous Catheter (temp HD) Gastrointestinal: Present: no tenderness, no guarding, obese Integumentary: Present: warm and dry Additional Comments: sedated Musculoskeletal: Present: no deformities Additional Comments: sedated - Lab 07/12/17 04:05 07/12/17 11:47 Most recent lab results ABG pH 7.32 pH Units (7.32-7.45) 07/08/17 04:29 ABG pCO2 54 mmHg (35-45) H 07/08/17 04:29 ABG pO2 127 mmHg (85-104) H 07/08/17 04:29 ABG HCO3 28 mEq/L (21-27) H 07/08/17 04:29 ABG O2 Saturation 99 % (95-98) H 07/08/17 04:29 Calcium 7.7 mg/dL (8.6-10.3) L 07/08/17 03:30 Phosphorus 7.4 mg/dL (2.7-4.5) H 07/02/17 07:12 Magnesium 2.5 mg/dL (1.6-2.6) 07/02/17 04:00 Urine Creatinine 151 mg/dL 07/02/17 07:12 Urine Sodium 53.8 mEq/L 07/02/17 07:12 Consult Discharge Plan - Plan Additional Instructions: Patient did have tube feed over the weekend, however will require [place] for long-term enteral nutrition. Referrals: Jose David Hood DO [Resident] - (a packet will be sent to patient for new patient information) Bacilio Ruiz DO [Resident] - 07/07/17 3:20 pm
[2017-07-08 13:24] LABS: Uric Acid 6.2 mg/dL (2.3-7.6)
[2017-07-08] MEDS ORDERED: Ondansetron 4 MG/2 ML VIAL ONE (14:59)
[2017-07-08] MEDS ORDERED: Ondansetron 4 MG/2 ML VIAL IVP PRN (15:00)
[2017-07-08] MEDS ORDERED: Ondansetron 4 MG/2 ML VIAL IVP ONE (15:14)
[2017-07-08] MEDS: FentaNYL (PF) 2,500 MCG in EMPTY BAG 50 EACH IVC SCH (20:36)
[2017-07-09] MEDS: Lacri-Lube 3.5 GM TUBE BOTH EYES SCH ×6 (03:21→23:05)
[2017-07-09] MEDS: Insulin Human Regular 6 UNIT in 0.9 % Sodium Chloride 10 ML IV SCH (03:23)
[2017-07-09] MEDS: Insulin LISPRO 300 UNITS/3 ML VIAL SQ SCH ×6 (03:37→23:20)
[2017-07-09] MEDS: Ipratropium/Albuterol Neb 3 ML IH SCH ×6 (04:05→23:37)
[2017-07-09 04:41] LABS: Basophils % 0.2 %; Eosinophils # 0.2 K/mcL (0.0-0.6); Eosinophils % 0.7 %; Hematocrit 36.5 % (37.5-50.1); Hemoglobin 11.8 g/dL (12.9-16.9); Immature Granulocytes % 1.3 % (0-4); Lymphocytes # 0.9 K/mcL (0.6-4.6); Mean Corpuscular HGB Conc 32.3 g/dL (31.6-35.5); Mean Corpuscular Hemoglobin 28.4 pg (28.0-33.3); Mean Corpuscular Volume 87.7 fL (83.0-100.0); Mean Platelet Volume 10.7 fL (9.4-12.4); Monocytes # 1.6 K/mcL (0.0-1.3); Monocytes % 6.8 %; Neutrophils # 20.3 K/mcL (1.6-8.9); Platelet Count 200 K/mcL (140-400); Red Blood Count 4.16 M/mcL (4.19-5.50); Red Cell Distribution Width 13.3 % (11.5-14.5)
[2017-07-09 04:57] LABS: Calcium 7.9 mg/dL (8.6-10.3); Potassium 5.9 mEq/L (3.5-5.1)
[2017-07-09] MEDS: MethylPREDNISolone 40 MG/ML VIAL IVP SCH ×2 (06:23→17:59)
[2017-07-09] MEDS: *HR* Heparin 5,000 UNIT/ML VIAL SQ SCH ×3 (06:26→21:13)
--- NOTE | 2017-07-09 07:06 | Pulmonology Progress Note ---
<Rex Prieto - Last Filed: 07/09/17 09:32> Date of Encounter: 07/09/17 Time of Encounter: 09:32 Assessment and Plan (1) Renal failure Current Visit: Yes Status: Acute Anuric renal failure necessitating HD catheter placement 07/06/17 with dialysis. Nephrology consulted and managing dialysis. Creatinine 6.46 with potassium 5.9 Continue dialysis as guided by nephrology. Qualifiers: Renal failure chronicity: acute Acute renal failure type: unspecified Qualified Code(s): N17.9 - Acute kidney failure, unspecified (2) Acute respiratory failure Current Visit: Yes Status: Acute Acute respiratory failure secondary to bronchitis with resultant ARDS. Difficulty with intubation requiring anesthesiology. Patient is POD #3 from tracheostomy placement. Continued copious secretions Consider Robinul with continued secretions. Plan to trial on pressure support today as tolerated. Qualifiers: Respiratory failure complication: hypoxia Qualified Code(s): J96.01 - Acute respiratory failure with hypoxia (3) Hyperkalemia Current Visit: Yes Status: Acute Potassium of 5.9 this morning. Continue dialysis as per nephrology Continue daily BMP (4) Benign essential hypertension Current Visit: Yes Status: Chronic Continue hydralazine as needed (5) Leukocytosis Current Visit: Yes Status: Acute WBC of 23.4 today, previously 22.1. Variable findings over the last several days. Likely component of stress response from recent operative intervention. Continue daily CBC. Qualifiers: Leukocytosis type: unspecified Qualified Code(s): D72.829 - Elevated white blood cell count, unspecified (6) Obesity hypoventilation syndrome Current Visit: Yes Status: Suspected Underlying morbid obesity. Intubated for respiratory failure from initial bronchitis felt to have evolved into ARDS. Postop day #3 from tracheostomy placement. (7) Diabetes Current Visit: Yes Status: Chronic Continue sliding scale insulin Qualifiers: Diabetes mellitus type: type 2 Diabetes mellitus longterm insulin use: without gem setter use Diabetes mellitus complication status: with hyperglycemia Qualified Code(s): E11.65 - Type 2 diabetes mellitus with hyperglycemia (8) Morbid (severe) obesity due to excess calories Current Visit: Yes Status: Chronic (9) DVT prophylaxis Current Visit: Yes Status: Acute Heparin 5000 units every 8 hours Subjective Principal diagnosis: Respiratory failure Interval history: No acute events overnight. Patient is POD #3 from tracheostomy placement by ENT as well as HD catheter placement by interventional radiology. He had dialysis yesterday. Potassium of 5.9. Attempting to mobilize with physical therapy. Objective PUL Vital signs: Last Vital Signs Temp 99.6 F 07/09/17 03:34 Pulse 84 07/09/17 06:00 Resp 29 07/09/17 06:09 BP 145/86 07/09/17 06:09 Pulse Ox 93 07/09/17 06:09 General appearance: no acute distress Eyes: nonicteric Neck: other (Trach collar in place) Effort: mildly labored Auscultation: bilateral: diminished breath sounds Cardiovascular: regular rate and rhythm Gastrointestinal: soft, non-tender Integumentary: normal Extremities: edema (1+ bilateral lower extremity edema) Musculoskeletal: no deformities Ventilator Settings Ventilator Settings: Ventilator Settings, Last 8 Hours Ventilator Mode VC+ Ventilator Mode VC+ Ventilator Mode VC+ Ventilator Mode VC+ Ventilator Mode VC+ Ventilator Mode VC+ Ventilator Mode VC+ Ventilator Mode VC+ Ventilator Mode VC+ Ventilator Mode VC+ Ventilator Mode VC+ Ventilator Tidal Volume 650 Setting Ventilator Tidal Volume 650 Setting Ventilator Tidal Volume 650 Setting Ventilator Tidal Volume 650 Setting Ventilator Tidal Volume 650 Setting Ventilator Tidal Volume 650 Setting Ventilator Tidal Volume 650 Setting Ventilator Tidal Volume 650 Setting Ventilator Tidal Volume 650 Setting Ventilator Tidal Volume 650 Setting Ventilator Tidal Volume 650 Setting Ventilator Respiratory Rate 22 Setting Ventilator Respiratory Rate 22 Setting Ventilator Respiratory Rate 22 Setting Ventilator Respiratory Rate 22 Setting Ventilator Respiratory Rate 22 Setting Ventilator Respiratory Rate 22 Setting Ventilator Respiratory Rate 22 Setting Ventilator Respiratory Rate 22 Setting Ventilator Respiratory Rate 22 Setting Ventilator Respiratory Rate 22 Setting Ventilator Respiratory Rate 22 Setting Actual Respiratory Rate 27 Actual Respiratory Rate 26 Actual Respiratory Rate 26 Actual Respiratory Rate 22 Actual Respiratory Rate 24 Actual Respiratory Rate 26 Actual Respiratory Rate 28 Actual Respiratory Rate 28 Actual Respiratory Rate 22 Actual Respiratory Rate 26 Actual Respiratory Rate 24 Positive End Expiratory 8.0 Pressure Positive End Expiratory 8.0 Pressure Positive End Expiratory 8.0 Pressure Positive End Expiratory 8.0 Pressure Positive End Expiratory 8.0 Pressure Positive End Expiratory 8.0 Pressure Positive End Expiratory 8.0 Pressure Positive End Expiratory 8.0 Pressure Positive End Expiratory 8.0 Pressure Positive End Expiratory 8.0 Pressure Positive End Expiratory 8.0 Pressure Peak Inspiratory Airway 27 Pressure Peak Inspiratory Airway 38 Pressure Peak Inspiratory Airway 27 Pressure Peak Inspiratory Airway 30 Pressure Peak Inspiratory Airway 29 Pressure Peak Inspiratory Airway 57 Pressure Peak Inspiratory Airway 33 Pressure Peak Inspiratory Airway 28 Pressure Peak Inspiratory Airway 28 Pressure Peak Inspiratory Airway 54 Pressure Peak Inspiratory Airway 37 Pressure Results - Laboratory Findings CBC and BMP: 07/09/17 04:20 07/09/17 04:20 ABG ABG pH 7.32 pH Units (7.32-7.45) 07/08/17 04:29 ABG pCO2 54 mmHg (35-45) H 07/08/17 04:29 ABG pO2 127 mmHg (85-104) H 07/08/17 04:29 ABG O2 Saturation 99 % (95-98) H 07/08/17 04:29 PT/INR, D-dimer PT 13.0 Seconds (9.4-12.1) H 07/06/17 03:32 Abnormal lab findings: Abnormal lab results WBC 23.4 K/mcL (4.3-11.1) H 07/09/17 04:20 RBC 4.16 M/mcL (4.19-5.50) L 07/09/17 04:20 Hgb 11.8 g/dL (12.9-16.9) L 07/09/17 04:20 Hct 36.5 % (37.5-50.1) L 07/09/17 04:20 Neutrophils # 20.3 K/mcL (1.6-8.9) H 07/09/17 04:20 Monocytes # 1.6 K/mcL (0.0-1.3) H 07/09/17 04:20 Nucleated RBCs/100 WBC 0.1 /100 WBC (0) H 07/06/17 03:32 PT 13.0 Seconds (9.4-12.1) H 07/06/17 03:32 APTT 38.2 Seconds (26.0-36.0) H 07/04/17 02:45 ABG pCO2 54 mmHg (35-45) H 07/08/17 04:29 ABG pO2 127 mmHg (85-104) H 07/08/17 04:29 ABG HCO3 28 mEq/L (21-27) H 07/08/17 04:29 ABG Total CO2 30 mEq/L (20-26) H 07/08/17 04:29 ABG O2 Saturation 99 % (95-98) H 07/08/17 04:29 Potassium 5.9 mEq/L (3.5-5.1) H 07/09/17 04:20 Chloride 94 mEq/L (98-107) L 07/09/17 04:20 BUN 115 mg/dL (6-20) H 07/09/17 04:20 Creatinine 6.46 mg/dL (0.70-1.30) H 07/09/17 04:20 Est GFR ( Amer) 11 (> 60) L 07/09/17 04:20 Est GFR (Non-Af Amer) 9 (> 60) L 07/09/17 04:20 Glucose 162 mg/dL (70-105) H 07/09/17 04:20 POC Glucose 229 mg/dL (70-99) H 07/08/17 23:48 Hemoglobin A1c 7.5 % (-5.6) H 06/30/17 10:02 Calculated Osmolality 322 (280-300) H 07/09/17 04:20 Calcium 7.9 mg/dL (8.6-10.3) L 07/09/17 04:20 Phosphorus 7.4 mg/dL (2.7-4.5) H 07/02/17 07:12 AST 46 Units/L (13-39) H 07/01/17 03:51 ALT 85 Units/L (7-52) H 07/01/17 03:51 Creatine Kinase 1251 Units/L (30-223) H 07/08/17 10:56 Troponin I 0.59 ng/mL (< 0.04) H* 07/04/17 02:45 B-Natriuretic Peptide 134 pg/mL (Less than 100) H 06/30/17 06:08 Albumin 2.9 g/dL (3.5-5.7) L 07/02/17 07:12 Globulin 3.6 g/dL (2.4-3.5) H 07/01/17 03:51 Albumin/Globulin Ratio 0.9 (1.1-2.2) L 07/01/17 03:51 Prealbumin 34.9 mg/dL (17.0-34.0) H 07/07/17 04:00 LDL Cholesterol, Calc 128 mg/dL (0-99) H 06/30/17 10:02 HDL Cholesterol 32 mg/dL (40-59) L 06/30/17 10:02 Cholesterol/HDL Ratio 5.9 (0-4.9) H 06/30/17 10:02 - Clinical Findings Intake & Output: Intake & Output 07/08/17 07/08/17 07/09/17 15:59 23:59 07:59 Intake Total 1151 / 1151 567 / 567 990 / 990 Output Total 4509 / 4509 105 / 105 0 / 0 Balance -3358 / -3358 462 / 462 990 / 990 Weight 286 kg 246.6 kg Consult Discharge Plan - Plan Referrals: Jose David Hood DO [Resident] - (a packet will be sent to patient for new patient information) Bacilio Ruiz DO [Resident] - 07/07/17 3:20 pm <Kylie Danielle - Last Filed: 07/09/17 11:18> Date of Encounter: 07/09/17 Objective PUL Vital signs: Last Vital Signs Temp 99.4 F 07/09/17 08:00 Pulse 86 07/09/17 10:00 Resp 21 07/09/17 10:00 BP 160/85 07/09/17 10:00 Pulse Ox 90 07/09/17 10:00 Ventilator Settings Ventilator Settings: Ventilator Settings, Last 8 Hours Ventilator Mode CPAP Ventilator Mode CPAP Ventilator Mode CPAP Ventilator Mode CPAP Ventilator Mode CPAP Ventilator Mode VC+ Ventilator Mode VC+ Ventilator Mode VC+ Ventilator Mode VC+ Ventilator Mode VC+ Ventilator Mode VC+ Ventilator Tidal Volume 650 Setting Ventilator Tidal Volume 650 Setting Ventilator Tidal Volume 650 Setting Ventilator Tidal Volume 650 Setting Ventilator Tidal Volume 650 Setting Ventilator Tidal Volume 650 Setting Ventilator Tidal Volume 650 Setting Ventilator Tidal Volume 650 Setting Ventilator Respiratory Rate 22 Setting Ventilator Respiratory Rate 22 Setting Ventilator Respiratory Rate 22 Setting Ventilator Respiratory Rate 22 Setting Ventilator Respiratory Rate 22 Setting Ventilator Respiratory Rate 22 Setting Actual Respiratory Rate 21 Actual Respiratory Rate 21 Actual Respiratory Rate 22 Actual Respiratory Rate 26 Actual Respiratory Rate 25 Actual Respiratory Rate 28 Actual Respiratory Rate 27 Actual Respiratory Rate 26 Actual Respiratory Rate 26 Actual Respiratory Rate 22 Actual Respiratory Rate 24 Positive End Expiratory 8.0 Pressure Positive End Expiratory 8.0 Pressure Positive End Expiratory 8.0 Pressure Positive End Expiratory 8.0 Pressure Positive End Expiratory 8.0 Pressure Positive End Expiratory 8.0 Pressure Positive End Expiratory 8.0 Pressure Positive End Expiratory 8.0 Pressure Positive End Expiratory 8.0 Pressure Positive End Expiratory 8.0 Pressure Positive End Expiratory 8.0 Pressure Peak Inspiratory Airway 20 Pressure Peak Inspiratory Airway 20 Pressure Peak Inspiratory Airway 20 Pressure Peak Inspiratory Airway 18 Pressure Peak Inspiratory Airway 18 Pressure Peak Inspiratory Airway 27 Pressure Peak Inspiratory Airway 38 Pressure Peak Inspiratory Airway 27 Pressure Peak Inspiratory Airway 30 Pressure Peak Inspiratory Airway 29 Pressure Results - Laboratory Findings CBC and BMP: 07/09/17 04:20 07/09/17 04:20 ABG ABG pH 7.32 pH Units (7.32-7.45) 07/08/17 04:29 ABG pCO2 54 mmHg (35-45) H 07/08/17 04:29 ABG pO2 127 mmHg (85-104) H 07/08/17 04:29 ABG O2 Saturation 99 % (95-98) H 07/08/17 04:29 PT/INR, D-dimer PT 13.0 Seconds (9.4-12.1) H 07/06/17 03:32 Abnormal lab findings: Abnormal lab results WBC 23.4 K/mcL (4.3-11.1) H 07/09/17 04:20 RBC 4.16 M/mcL (4.19-5.50) L 07/09/17 04:20 Hgb 11.8 g/dL (12.9-16.9) L 07/09/17 04:20 Hct 36.5 % (37.5-50.1) L 07/09/17 04:20 Neutrophils # 20.3 K/mcL (1.6-8.9) H 07/09/17 04:20 Monocytes # 1.6 K/mcL (0.0-1.3) H 07/09/17 04:20 Nucleated RBCs/100 WBC 0.1 /100 WBC (0) H 07/06/17 03:32 PT 13.0 Seconds (9.4-12.1) H 07/06/17 03:32 APTT 38.2 Seconds (26.0-36.0) H 07/04/17 02:45 ABG pCO2 54 mmHg (35-45) H 07/08/17 04:29 ABG pO2 127 mmHg (85-104) H 07/08/17 04:29 ABG HCO3 28 mEq/L (21-27) H 07/08/17 04:29 ABG Total CO2 30 mEq/L (20-26) H 07/08/17 04:29 ABG O2 Saturation 99 % (95-98) H 07/08/17 04:29 Potassium 5.9 mEq/L (3.5-5.1) H 07/09/17 04:20 Chloride 94 mEq/L (98-107) L 07/09/17 04:20 BUN 115 mg/dL (6-20) H 07/09/17 04:20 Creatinine 6.46 mg/dL (0.70-1.30) H 07/09/17 04:20 Est GFR ( Amer) 11 (> 60) L 07/09/17 04:20 Est GFR (Non-Af Amer) 9 (> 60) L 07/09/17 04:20 Glucose 162 mg/dL (70-105) H 07/09/17 04:20 POC Glucose 229 mg/dL (70-99) H 07/08/17 23:48 Hemoglobin A1c 7.5 % (-5.6) H 06/30/17 10:02 Calculated Osmolality 322 (280-300) H 07/09/17 04:20 Calcium 7.9 mg/dL (8.6-10.3) L 07/09/17 04:20 Phosphorus 7.4 mg/dL (2.7-4.5) H 07/02/17 07:12 AST 46 Units/L (13-39) H 07/01/17 03:51 ALT 85 Units/L (7-52) H 07/01/17 03:51 Creatine Kinase 1251 Units/L (30-223) H 07/08/17 10:56 Troponin I 0.59 ng/mL (< 0.04) H* 07/04/17 02:45 B-Natriuretic Peptide 134 pg/mL (Less than 100) H 06/30/17 06:08 Albumin 2.9 g/dL (3.5-5.7) L 07/02/17 07:12 Globulin 3.6 g/dL (2.4-3.5) H 07/01/17 03:51 Albumin/Globulin Ratio 0.9 (1.1-2.2) L 07/01/17 03:51 Prealbumin 34.9 mg/dL (17.0-34.0) H 07/07/17 04:00 LDL Cholesterol, Calc 128 mg/dL (0-99) H 06/30/17 10:02 HDL Cholesterol 32 mg/dL (40-59) L 06/30/17 10:02 Cholesterol/HDL Ratio 5.9 (0-4.9) H 06/30/17 10:02 - Clinical Findings Intake & Output: Intake & Output 07/08/17 07/09/17 07/09/17 23:59 07:59 15:59 Intake Total 567 / 567 990 / 990 353 / 353 Output Total 105 / 105 0 / 0 Balance 462 / 462 990 / 990 353 / 353 Weight 246.6 kg - Attending Attestation I examined this patient and my medical decision-making was reviewed with the Resident Physician. I agree with the documented findings, disposition and treatment plan as described except to the extent set forth below. Patient seen and examined. Labs, radiology, chart personally reviewed. Agree with resident's history and physical, assessment, plan with following comments: SCRIPT COORDINATOR: Patient follows commands, Pulmonary: Acceptable oxygenation and ventilation and attempting spontaneous breathing trial with the goal patient to be tolerating trach mask so he can start mobilization since patient is feeling weakness. Cardiovascular: stable GI: Nutrition per dietary and GI prophylaxis per routine Heme: DVT prophylaxis per routine ID: Continue antibiotics and plan to de-escalation Renal; urine out put and renal funtion reviewed. Nephrology follow-up Endorcine: blood glucose is monitored Lines: all lines checked and no evidence of infections Skin: skin care to prevent pressure ulcers per nursing routine care
[2017-07-09] MEDS: GuaiFENesin Liq 200 MG/10 ML UDC PO PRN ×2 (07:40→16:29)
[2017-07-09] MEDS: Chlorhexidine Rinse 15 ML MOUTHWASH MM SCH ×2 (09:04→21:13)
[2017-07-09] MEDS: Aspirin 81 MG TAB.CHEW PO SCH (09:04)
[2017-07-09] MEDS: Sennosides/Docusate Sodium TABLET PO SCH ×2 (09:04→21:12)
[2017-07-09] MEDS: Pantoprazole 40 MG VIAL IVP SCH (09:04)
[2017-07-09] MEDS: Insulin DETEMIR 100 UNIT/ML X5UNITS SQ SCH ×2 (09:05→21:13)
--- NOTE | 2017-07-09 09:56 | ENT - Progress Note ---
Date of Encounter: 07/09/17 Time of Encounter: 09:54 - Assessment and Plan (1) Acute on chronic respiratory failure with hypoxia and hypercapnia Current Visit: Yes Status: Acute s/p tracheotomy POD#3 Awake, alert, on ventilator with pressure support No issues with trach per nursing other than appropriate bloody secretions. 8XLT shiley in place, cuff up, sutures secure Continue routine trach care. Will remove sutures and change neck tie on POD#5. 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 insulin use: without halfway use Diabetes mellitus complication status: with hyperglycemia Qualified Code(s): E11.65 - Type 2 diabetes mellitus with hyperglycemia (5) Morbid (severe) obesity due to excess calories Current Visit: Yes Status: Chronic (6) Obesity hypoventilation syndrome Current Visit: Yes Status: Suspected Subjective Patient reports: no new complaints (pt awake and alert, answers questions with nods and appropriate expressions.) Objective Initial Vital Signs Temp Pulse Resp BP Pulse Ox 97.3 F L 105 24 195/129 65 06/30/17 05:49 06/30/17 05:49 06/30/17 05:49 06/30/17 05:49 06/30/17 05:49 - ENT Other (8XLT shiley in place, dried bloody secretions from stoma suctioned away, no active bleeding. Appropriate secretion on trach suctioning. Cuff up, sutures secure, trach tie in place.) - Respiratory other (ventilator pressure support but breathing spontaneously) - Labs 07/09/17 04:20 07/09/17 04:20 Diabetes panel 07/09/17 Range/Units 04:20 Sodium 136 (136-145) mEq/L Potassium 5.9 H (3.5-5.1) mEq/L Chloride 94 L (98-107) mEq/L Carbon Dioxide 25 (23-29) mEq/L BUN 115 H (6-20) mg/dL Creatinine 6.46 H (0.70-1.30) mg/dL Glucose 162 H (70-105) mg/dL Calcium 7.9 L (8.6-10.3) mg/dL Calcium panel 07/09/17 Range/Units 04:20 Calcium 7.9 L (8.6-10.3) mg/dL Pituitary panel 07/09/17 Range/Units 04:20 Sodium 136 (136-145) mEq/L Potassium 5.9 H (3.5-5.1) mEq/L Chloride 94 L (98-107) mEq/L Carbon Dioxide 25 (23-29) mEq/L BUN 115 H (6-20) mg/dL Creatinine 6.46 H (0.70-1.30) mg/dL Glucose 162 H (70-105) mg/dL Calcium 7.9 L (8.6-10.3) mg/dL Adrenal panel 07/09/17 Range/Units 04:20 Sodium 136 (136-145) mEq/L Potassium 5.9 H (3.5-5.1) mEq/L Chloride 94 L (98-107) mEq/L Carbon Dioxide 25 (23-29) mEq/L BUN 115 H (6-20) mg/dL Creatinine 6.46 H (0.70-1.30) mg/dL Glucose 162 H (70-105) mg/dL Calcium 7.9 L (8.6-10.3) mg/dL Consult Discharge Plan - Plan Referrals: Jose David Hood DO [Resident] - (a packet will be sent to patient for new patient information) Bacilio Ruiz DO [Resident] - 07/07/17 3:20 pm
[2017-07-09] MEDS: Lactulose Oral Soln 20 GM/30 ML UDC PO SCH ×2 (10:16→21:12)
--- NOTE | 2017-07-09 15:39 | Nephrology Progress Note ---
Date of Encounter: 07/09/17 Time of Encounter: 11:00 - Assessment and Plan (1) ZOHAIB (acute kidney injury) Status: Acute SCr continues to poor with continued anuria. s/p HD yesterday for 4 hrs making third consecutive session Plan for HD tomorrow as well Continue to avoid nephrotoxins if possible Limit obligate fluids if possible especially while anuric Discussed goal of care with family and primary team (2) Acute and chronic respiratory failure Status: Resolved on cpap, weaning per primary team Qualifiers: Respiratory failure complication: hypoxia and hypercapnia Qualified Code(s) : J96.21 - Acute and chronic respiratory failure with hypoxia; J96.22 - Acute and chronic respiratory failure with hypercapnia; J96.22 - Acute and chronic respiratory failure with hypercapnia; J96.22 - Acute and chronic respiratory failure with hypercapnia (3) Hyperkalemia Status: Acute Potassium elevated at 5.9, likely very catabolic and also very large body habitus makes adequate HD more difficult, may need daily 4+ hr HD sessions Renal friendly feeds advised if possible Subjective Principal diagnosis: Respiratory failure Interval history: Pt seen and examined, intubated with trach in place with no overnight issues Objective - Vital Signs Vital signs: Vital Signs Temp Pulse Resp BP Pulse Ox 07/09/17 15:00 86 26 169/98 94 07/09/17 14:00 100 25 168/99 91 07/09/17 13:15 25 168/99 91 07/09/17 13:00 91 24 147/88 92 07/09/17 12:27 98.8 F 07/09/17 12:00 94 22 151/97 90 07/09/17 11:12 21 168/99 89 07/09/17 10:00 86 21 160/85 90 07/09/17 09:10 21 156/80 89 07/09/17 09:00 88 22 156/80 89 07/09/17 08:00 99.4 F 80 28 164/87 91 07/09/17 07:18 25 164/87 90 07/09/17 07:00 83 28 124/89 92 07/09/17 06:09 29 145/86 93 07/09/17 06:00 84 26 145/86 90 07/09/17 05:00 82 26 141/83 92 07/09/17 04:05 22 140/81 92 07/09/17 04:00 71 24 140/81 93 07/09/17 03:34 99.6 F 07/09/17 03:00 73 26 131/75 93 07/09/17 02:22 28 132/70 94 07/09/17 02:00 84 28 132/70 92 07/09/17 01:00 78 22 146/83 94 07/09/17 00:00 98.3 F 75 26 141/81 94 07/08/17 23:44 25 155/82 93 07/08/17 23:00 75 24 155/82 93 07/08/17 22:00 83 26 157/85 92 07/08/17 21:56 28 146/82 93 07/08/17 21:00 78 22 146/82 94 07/08/17 20:23 97.7 F 07/08/17 20:00 72 22 147/79 94 07/08/17 19:44 22 145/83 94 07/08/17 19:00 70 22 145/83 94 07/08/17 18:00 73 22 136/82 94 07/08/17 17:05 22 135/69 93 07/08/17 17:00 69 22 135/69 93 07/08/17 16:00 98.4 F 73 24 145/80 92 Intake and Output 07/08/17 07/09/17 07/09/17 23:59 07:59 15:59 Intake Total 567 / 567 990 / 990 724 / 724 Output Total 105 / 105 0 / 0 7 / 7 Balance 462 / 462 990 / 990 717 / 717 Intake: Tube Feeding 367 / 367 590 / 590 524 / 524 Free Water 200 / 200 400 / 400 200 / 200 Output: Catheter 5 / 5 0 / 0 7 / 7 Gastric Drainage 100 / 100 Other: Stool Size Small Stool Consistency liquid Stool Color Brown # Bowel Movements 1 Weight 246.6 kg Blood Glucose* 165 149 185 Patient Weight 07/09/17 23:59 Weight 246.6 kg - General Appearance General appearance: Present: intubated EENT: Present: ATNC, mucous membranes moist Neck: Present: no JVD, supple (+trach) Additional Comments: good areation ramone bilat Cardiology: Present: edema, normal S1, normal S2 Dialysis Vascular Access: Venous Catheter (temp HD) Gastrointestinal: Present: no tenderness, no guarding, obese Integumentary: Present: warm and dry Neurologic: Present: no focal deficit (awake and responsive) Musculoskeletal: Present: no deformities Psychiatric: Present: pressured speech - Lab 07/12/17 04:05 07/12/17 11:47 Most recent lab results ABG pH 7.32 pH Units (7.32-7.45) 07/08/17 04:29 ABG pCO2 54 mmHg (35-45) H 07/08/17 04:29 ABG pO2 127 mmHg (85-104) H 07/08/17 04:29 ABG HCO3 28 mEq/L (21-27) H 07/08/17 04:29 ABG O2 Saturation 99 % (95-98) H 07/08/17 04:29 Calcium 7.9 mg/dL (8.6-10.3) L 07/09/17 04:20 Phosphorus 7.4 mg/dL (2.7-4.5) H 07/02/17 07:12 Magnesium 2.5 mg/dL (1.6-2.6) 07/02/17 04:00 Urine Creatinine 151 mg/dL 07/02/17 07:12 Urine Sodium 53.8 mEq/L 07/02/17 07:12 Consult Discharge Plan - Plan Additional Instructions: Patient did have tube feed over the weekend, however will require [place] for long-term enteral nutrition. Referrals: Jose David Hood DO [Resident] - (a packet will be sent to patient for new patient information) Bacilio Ruiz DO [Resident] - 07/07/17 3:20 pm
[2017-07-10] MEDS: Lacri-Lube 3.5 GM TUBE BOTH EYES SCH ×6 (03:26→22:55)
[2017-07-10] MEDS: Ipratropium/Albuterol Neb 3 ML IH SCH ×6 (04:05→23:55)
[2017-07-10] MEDS: MethylPREDNISolone 40 MG/ML VIAL IVP SCH (05:03)
[2017-07-10] MEDS: *HR* Heparin 5,000 UNIT/ML VIAL SQ SCH ×3 (05:05→22:13)
[2017-07-10] MEDS: Insulin LISPRO 300 UNITS/3 ML VIAL SQ SCH ×6 (05:08→23:38)
[2017-07-10 05:27] LABS: Immature Granulocytes % 1.2 % (0-4); Segmented Neutrophils % 89.2 %
[2017-07-10 05:28] LABS: Basophils # 0.1 K/mcL (0.0-0.2); Basophils % 0.2 %; Eosinophils # 0.1 K/mcL (0.0-0.6); Eosinophils % 0.3 %; Hematocrit 36.7 % (37.5-50.1); Hemoglobin 11.7 g/dL (12.9-16.9); Lymphocytes % 3.7 %; Mean Corpuscular HGB Conc 31.9 g/dL (31.6-35.5); Mean Corpuscular Hemoglobin 28.1 pg (28.0-33.3); Mean Corpuscular Volume 88.2 fL (83.0-100.0); Mean Platelet Volume 10.8 fL (9.4-12.4); Monocytes # 1.4 K/mcL (0.0-1.3); Monocytes % 5.4 %; Platelet Count 234 K/mcL (140-400); Red Blood Count 4.16 M/mcL (4.19-5.50); Red Cell Distribution Width 13.3 % (11.5-14.5)
[2017-07-10 05:29] LABS: Neutrophils # 23.6 K/mcL (1.6-8.9)
[2017-07-10 05:48] LABS: Large Platelets Present (Not Present); Platelet Estimate Normal (Normal)
[2017-07-10 05:57] LABS: Carbon Dioxide 23 mEq/L (23-29)
[2017-07-10 05:58] LABS: Blood Urea Nitrogen > 130 mg/dL (6-20); Calcium 8.1 mg/dL (8.6-10.3); Chloride 92 mEq/L (98-107); Glucose 159 mg/dL (70-105); Potassium 6.3 mEq/L (3.5-5.1); Sodium 136 mEq/L (136-145); eGFR For African Americans 9 (> 60); eGFR For Non-African Americans 7 (> 60)
--- NOTE | 2017-07-10 07:06 | Pulmonology Progress Note ---
Date of Encounter: 07/10/17 Time of Encounter: 07:06 Assessment and Plan (1) Acute and chronic respiratory failure Current Visit: Yes Status: Resolved Patient seen and examined at bedside Labs, radiology, chart personally reviewed. Management was reviewed during multidisciplinary critical care rounds. 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 ENT managing trach care. Continue pressure support ventilation during the day and can switch back to assist control in the evenings patient will need long-term vent weaning for which LTAC will be needed and we will consult social work faculty member to begin this process Cards: Blood pressure stable continue to treat for hypertension FEN-GI: Continue enteral nutrition via nasogastric tube per dietary recommendations Renal: Non Oliguric ZOHAIB which has required dialysis given hyperkalemiasuspect patient will benefit from dialysis again today as he did not have any over the weekend. Nephrology following ID: Persistent leukocytosis of unclear etiology possibly related to tracheitis versus lower respiratory tract infection/pneumonia we will reculture patient today including sputum and blood and urine as well as indwelling central venous catheters. Some of this may be medication effect related to steroids and I will stop those today Heme/Onc: Cont Heparin subcutaneous for DVT prophylaxis H&H monitored and stable Endo: History of diabetes ration is receiving basal bolus insulin dosing Integ/MSK: Skin Care per routine ICU Nursing Protocol to prevent ulcers. Lines: All lines examined without evidence of infection : Dispo: remain ICU for vent management CODE: Full. Qualifiers: Respiratory failure complication: hypoxia and hypercapnia Qualified Code(s) : J96.21 - Acute and chronic respiratory failure with hypoxia; J96.22 - Acute and chronic respiratory failure with hypercapnia; J96.22 - Acute and chronic respiratory failure with hypercapnia; J96.22 - Acute and chronic respiratory failure with hypercapnia (2) Benign essential hypertension Current Visit: Yes Status: Chronic (3) Morbid (severe) obesity due to excess calories Current Visit: Yes Status: Chronic (4) Acute kidney injury Current Visit: Yes Status: Acute (5) Diabetes Current Visit: Yes Status: Chronic Qualifiers: Diabetes mellitus type: type 2 Diabetes mellitus buttermaker insulin use: without buttermaker use Diabetes mellitus complication status: with hyperglycemia Qualified Code(s): E11.65 - Type 2 diabetes mellitus with hyperglycemia (6) Leukocytosis Current Visit: Yes Status: Acute Qualifiers: Leukocytosis type: unspecified Qualified Code(s): D72.829 - Elevated white blood cell count, unspecified (7) Hyperkalemia Current Visit: Yes Status: Acute Subjective Principal diagnosis: Respiratory failure Interval history: No acute events overnight. Patient remains hemodynamically stable. Objective PUL Vital signs: Last Vital Signs Temp 99.1 F 07/10/17 04:00 Pulse 88 07/10/17 06:00 Resp 27 07/10/17 06:14 BP 161/93 07/10/17 06:14 Pulse Ox 93 07/10/17 06:14 General appearance: no acute distress Eyes: nonicteric ENT: other (Trach site with some purulent appearing secretions around the trach area. No bloody output however) Auscultation: bilateral: diminished breath sounds, rhonchi Cardiovascular: regular rate and rhythm Gastrointestinal: normoactive bowel sounds, soft, non-tender Integumentary: normal Extremities: no edema normal mental status, non-focal exam mood appropriate Ventilator Settings Ventilator Settings: Ventilator Settings, Last 8 Hours Ventilator Mode VC+ Ventilator Mode VC+ Ventilator Mode VC+ Ventilator Mode VC+ Ventilator Mode VC+ Ventilator Mode VC+ Ventilator Mode VC+ Ventilator Mode VC+ Ventilator Mode VC+ Ventilator Mode VC+ Ventilator Mode VC+ Ventilator Tidal Volume 650 Setting Ventilator Tidal Volume 650 Setting Ventilator Tidal Volume 650 Setting Ventilator Tidal Volume 650 Setting Ventilator Tidal Volume 650 Setting Ventilator Tidal Volume 650 Setting Ventilator Tidal Volume 650 Setting Ventilator Tidal Volume 650 Setting Ventilator Tidal Volume 650 Setting Ventilator Tidal Volume 650 Setting Ventilator Tidal Volume 650 Setting Ventilator Respiratory Rate 22 Setting Ventilator Respiratory Rate 22 Setting Ventilator Respiratory Rate 22 Setting Ventilator Respiratory Rate 22 Setting Ventilator Respiratory Rate 22 Setting Ventilator Respiratory Rate 22 Setting Ventilator Respiratory Rate 22 Setting Ventilator Respiratory Rate 22 Setting Ventilator Respiratory Rate 22 Setting Ventilator Respiratory Rate 22 Setting Ventilator Respiratory Rate 22 Setting Actual Respiratory Rate 26 Actual Respiratory Rate 28 Actual Respiratory Rate 22 Actual Respiratory Rate 27 Actual Respiratory Rate 26 Actual Respiratory Rate 22 Actual Respiratory Rate 28 Actual Respiratory Rate 24 Actual Respiratory Rate 24 Actual Respiratory Rate 26 Actual Respiratory Rate 26 Positive End Expiratory 8.0 Pressure Positive End Expiratory 8.0 Pressure Positive End Expiratory 8.0 Pressure Positive End Expiratory 8.0 Pressure Positive End Expiratory 8.0 Pressure Positive End Expiratory 8.0 Pressure Positive End Expiratory 8.0 Pressure Positive End Expiratory 8.0 Pressure Positive End Expiratory 8.0 Pressure Positive End Expiratory 8.0 Pressure Positive End Expiratory 8.0 Pressure Peak Inspiratory Airway 18 Pressure Peak Inspiratory Airway 33 Pressure Peak Inspiratory Airway 28 Pressure Peak Inspiratory Airway 27 Pressure Peak Inspiratory Airway 23 Pressure Peak Inspiratory Airway 19 Pressure Peak Inspiratory Airway 32 Pressure Peak Inspiratory Airway 19 Pressure Peak Inspiratory Airway 28 Pressure Peak Inspiratory Airway 31 Pressure Peak Inspiratory Airway 26 Pressure Results - Laboratory Findings CBC and BMP: 07/10/17 04:00 07/10/17 04:00 ABG ABG pH 7.32 pH Units (7.32-7.45) 07/08/17 04:29 ABG pCO2 54 mmHg (35-45) H 07/08/17 04:29 ABG pO2 127 mmHg (85-104) H 07/08/17 04:29 ABG O2 Saturation 99 % (95-98) H 07/08/17 04:29 PT/INR, D-dimer PT 13.0 Seconds (9.4-12.1) H 07/06/17 03:32 Abnormal lab findings: Abnormal lab results WBC 26.5 K/mcL (4.3-11.1) H 07/10/17 04:00 RBC 4.16 M/mcL (4.19-5.50) L 07/10/17 04:00 Hgb 11.7 g/dL (12.9-16.9) L 07/10/17 04:00 Hct 36.7 % (37.5-50.1) L 07/10/17 04:00 Neutrophils # 23.6 K/mcL (1.6-8.9) H 07/10/17 04:00 Monocytes # 1.4 K/mcL (0.0-1.3) H 07/10/17 04:00 Nucleated RBCs/100 WBC 0.1 /100 WBC (0) H 07/06/17 03:32 Large Platelets Present (Not Present) A 07/10/17 04:00 PT 13.0 Seconds (9.4-12.1) H 07/06/17 03:32 APTT 38.2 Seconds (26.0-36.0) H 07/04/17 02:45 ABG pCO2 54 mmHg (35-45) H 07/08/17 04:29 ABG pO2 127 mmHg (85-104) H 07/08/17 04:29 ABG HCO3 28 mEq/L (21-27) H 07/08/17 04:29 ABG Total CO2 30 mEq/L (20-26) H 07/08/17 04:29 ABG O2 Saturation 99 % (95-98) H 07/08/17 04:29 Potassium 6.3 mEq/L (3.5-5.1) H 07/10/17 04:00 Chloride 92 mEq/L (98-107) L 07/10/17 04:00 BUN > 130 mg/dL (6-20) H 07/10/17 04:00 Creatinine 8.20 mg/dL (0.70-1.30) H 07/10/17 04:00 Est GFR ( Amer) 9 (> 60) L 07/10/17 04:00 Est GFR (Non-Af Amer) 7 (> 60) L 07/10/17 04:00 Glucose 159 mg/dL (70-105) H 07/10/17 04:00 POC Glucose 193 mg/dL (70-99) H 07/09/17 23:19 Hemoglobin A1c 7.5 % (-5.6) H 06/30/17 10:02 Calcium 8.1 mg/dL (8.6-10.3) L 07/10/17 04:00 Phosphorus 7.4 mg/dL (2.7-4.5) H 07/02/17 07:12 AST 46 Units/L (13-39) H 07/01/17 03:51 ALT 85 Units/L (7-52) H 07/01/17 03:51 Creatine Kinase 1251 Units/L (30-223) H 07/08/17 10:56 Troponin I 0.59 ng/mL (< 0.04) H* 07/04/17 02:45 B-Natriuretic Peptide 134 pg/mL (Less than 100) H 06/30/17 06:08 Albumin 2.9 g/dL (3.5-5.7) L 07/02/17 07:12 Globulin 3.6 g/dL (2.4-3.5) H 07/01/17 03:51 Albumin/Globulin Ratio 0.9 (1.1-2.2) L 07/01/17 03:51 Prealbumin 34.9 mg/dL (17.0-34.0) H 07/07/17 04:00 LDL Cholesterol, Calc 128 mg/dL (0-99) H 06/30/17 10:02 HDL Cholesterol 32 mg/dL (40-59) L 06/30/17 10:02 Cholesterol/HDL Ratio 5.9 (0-4.9) H 06/30/17 10:02 - Clinical Findings Intake & Output: Intake & Output 07/09/17 07/09/17 07/10/17 15:59 23:59 07:59 Intake Total 724 / 724 453 / 453 774 / 774 Output Total 0 / 0 0 / 0 Balance 717 / 717 453 / 453 774 / 774 Weight 253.8 kg Consult Discharge Plan - Plan Referrals: Jose David Hood DO [Resident] - (a packet will be sent to patient for new patient information) Bacilio Ruiz DO [Resident] - 07/07/17 3:20 pm
[2017-07-10] MEDS ORDERED: 0.9 % Sodium Chloride 250 ML IVC PRN (08:45)
[2017-07-10] MEDS ORDERED: *HR* Heparin 10,000 UNIT/10 ML VIAL IV PRN (08:45)
[2017-07-10] MEDS: Aspirin 81 MG TAB.CHEW PO SCH (08:46)
[2017-07-10] MEDS: Pantoprazole 40 MG VIAL IVP SCH (08:46)
[2017-07-10] MEDS: Chlorhexidine Rinse 15 ML MOUTHWASH MM SCH ×2 (08:46→22:12)
[2017-07-10] MEDS: Insulin DETEMIR 100 UNIT/ML X5UNITS SQ SCH ×3 (08:50→22:13)
[2017-07-10] MEDS: Sennosides/Docusate Sodium TABLET PO SCH (08:53)
[2017-07-10] MEDS: FentaNYL (PF) 2,500 MCG in EMPTY BAG 50 EACH IVC SCH (09:18)
[2017-07-10] MEDS ORDERED: Sennosides/Docusate Sodium TABLET PO PRN (11:24)
[2017-07-10] MEDS ORDERED: *HR* Alteplase (Cathflo) 2 MG VIAL IVP STA (13:53)
--- NOTE | 2017-07-10 15:58 | General Surgery Consult Note ---
<Colette Rodriguez - Last Filed: 07/10/17 16:16> Date of Encounter: 07/10/17 Time of Encounter: 15:54 Assessment and Plan (1) Acute on chronic respiratory failure with hypoxia and hypercapnia Current Visit: Yes Status: Acute s/p tracheostomy 07/06/2017. Super morbid obesity (BMI 71.8; 253.8kg) No history of CT or MRI per family No current CT or MRI d/t patient weight vs CT/MRI weight capabilities Pt is a poor PEG or laproscopic candidate at this time. Recommend replacing an NG tube or [place] for feeding per primary team or transfer to a tertiary center with the capabilities to care for a patient of this body habitus. Please see attending attestation for final recommendations. (2) Morbid (severe) obesity due to excess calories Current Visit: Yes Status: Chronic History of Present Illness Consult date: 07/10/17 (Dr. Fabián Hess) Reason for consult: other (Possible PEG tube placement) Requesting physician: Gianluca Henriquez History of present illness: Michael is a 42 year old male admitted for acute on chronic respiratory failure. He is s/p tracheotomy on 07/06/2017. His mother and sister are at bedside and assist with obtaining subjective information, but patient is drowsy and therefore subjective information is limited. He has a past medical history of super morbid obesity and Lower extremity cellulitis. His mother and sister reports that he lived at home with his mother and worked outside the home prior to admission. Patient and family denies surgical history or any other imaging out side facilities. He states one history of hospitalization for lower extremity cellulitis at [facility] but the family is unable to state when this occurred. He took no medications as an outpatient. Family states, "He had no problems whatsoever before this admission." Bedside RN reports that patient did have NG for a period, but there was difficulty verifying placement and the patient pulled the NG out. Surgery has been consulted for possible PEG tube placement. Past Med Surg Social Fam HX - Past Medical History Medical history: other Psychiatric history: anxiety - Past Surgical History Surgical History: no surgical history - Social History Smoking Status: Never smoker Smokeless Tobacco Status: No Alcohol use: none Drug use: none Occupational status: employed Current living situation: With Family Medications and Allergies Albuterol Sulfate [Albuterol Inhaler] 1 puff IH Q4HR PRN #1 [email or web address] 06/27/17 [Rx] GuaiFENesin ER [Mucinex] 1,200 mg PO BID #20 tbbp.12hr 06/27/17 [Rx] cephALEXin [Keflex] 500 mg PO QID #40 capsule 06/27/17 [Rx] predniSONE [PredniSONE] See Taper PO DAILY #18 tablet 06/27/17 [Rx] 3 Allergy/AdvReac Type Severity Reaction Status Date / Time No Known Allergies Allergy Verified 06/30/17 05:55 Review of Systems All systems PM: reviewed and no additional remarkable complaints except as stated All systems PM: The remainder of the systems were reviewed and are negative General Surgery Exam Initial Vital Signs Temp Pulse Resp BP Pulse Ox 97.3 F L 105 24 195/129 65 06/30/17 05:49 06/30/17 05:49 06/30/17 05:49 06/30/17 05:49 06/30/17 05:49 VITAL SIGNS: Reviewed. See [facility] GENERAL: decreased level of consciousness, super morbid obesity, tracheostomy tube in place. HEENT: [Normocephalic, atraumatic, pupils are equal and reactive.] CHEST/RESPIRATORY: The thorax is free from signs of trauma. Lung sounds: [ course mechanical breath sounds noted ] CARDIAC: [distant heart tones. RRR per telemetry] ABDOMEN: [ super morbid obese; protuberant abdomen, difficult to assess bowel sounds. ] MUSCULOSKELETAL: [Good range of motion of all major joints. Extremities without clubbing, cyanosis or edema.] NEUROLOGIC EXAM: [Drowsy, Trach in place-nonverbal Follows commands.] PSYCHIATRIC: [Drowsy.] SKIN: [Brawny lower extremities.] Exam Initial Vital Signs Temp Pulse Resp BP Pulse Ox 97.3 F L 105 24 195/129 65 06/30/17 05:49 06/30/17 05:49 06/30/17 05:49 06/30/17 05:49 06/30/17 05:49 Results - Labs 07/10/17 04:00 07/10/17 11:40 Abnormal lab results WBC 26.5 K/mcL (4.3-11.1) H 07/10/17 04:00 RBC 4.16 M/mcL (4.19-5.50) L 07/10/17 04:00 Hgb 11.7 g/dL (12.9-16.9) L 07/10/17 04:00 Hct 36.7 % (37.5-50.1) L 07/10/17 04:00 Neutrophils # 23.6 K/mcL (1.6-8.9) H 07/10/17 04:00 Monocytes # 1.4 K/mcL (0.0-1.3) H 07/10/17 04:00 Nucleated RBCs/100 WBC 0.1 /100 WBC (0) H 07/06/17 03:32 Large Platelets Present (Not Present) A 07/10/17 04:00 PT 13.0 Seconds (9.4-12.1) H 07/06/17 03:32 APTT 38.2 Seconds (26.0-36.0) H 07/04/17 02:45 ABG pCO2 54 mmHg (35-45) H 07/08/17 04:29 ABG pO2 127 mmHg (85-104) H 07/08/17 04:29 ABG HCO3 28 mEq/L (21-27) H 07/08/17 04:29 ABG Total CO2 30 mEq/L (20-26) H 07/08/17 04:29 ABG O2 Saturation 99 % (95-98) H 07/08/17 04:29 Chloride 92 mEq/L (98-107) L 07/10/17 04:00 BUN > 130 mg/dL (6-20) H 07/10/17 04:00 Creatinine 8.20 mg/dL (0.70-1.30) H 07/10/17 04:00 Est GFR ( Amer) 9 (> 60) L 07/10/17 04:00 Est GFR (Non-Af Amer) 7 (> 60) L 07/10/17 04:00 Glucose 159 mg/dL (70-105) H 07/10/17 04:00 POC Glucose 193 mg/dL (70-99) H 07/09/17 23:19 Hemoglobin A1c 7.5 % (-5.6) H 06/30/17 10:02 Calcium 8.1 mg/dL (8.6-10.3) L 07/10/17 04:00 Phosphorus 7.4 mg/dL (2.7-4.5) H 07/02/17 07:12 AST 46 Units/L (13-39) H 07/01/17 03:51 ALT 85 Units/L (7-52) H 07/01/17 03:51 Creatine Kinase 1251 Units/L (30-223) H 07/08/17 10:56 Troponin I 0.59 ng/mL (< 0.04) H* 07/04/17 02:45 B-Natriuretic Peptide 134 pg/mL (Less than 100) H 06/30/17 06:08 Albumin 2.9 g/dL (3.5-5.7) L 07/02/17 07:12 Globulin 3.6 g/dL (2.4-3.5) H 07/01/17 03:51 Albumin/Globulin Ratio 0.9 (1.1-2.2) L 07/01/17 03:51 Prealbumin 34.9 mg/dL (17.0-34.0) H 07/07/17 04:00 LDL Cholesterol, Calc 128 mg/dL (0-99) H 06/30/17 10:02 HDL Cholesterol 32 mg/dL (40-59) L 06/30/17 10:02 Cholesterol/HDL Ratio 5.9 (0-4.9) H 06/30/17 10:02 Diabetes panel 07/10/17 07/10/17 Range/Units 04:00 11:40 Sodium 136 (136-145) mEq/L Potassium 6.3 H 4.8 (3.5-5.1) mEq/L Chloride 92 L (98-107) mEq/L Carbon Dioxide 23 (23-29) mEq/L BUN > 130 H (6-20) mg/dL Creatinine 8.20 H (0.70-1.30) mg/dL Glucose 159 H (70-105) mg/dL Calcium 8.1 L (8.6-10.3) mg/dL Calcium panel 07/10/17 Range/Units 04:00 Calcium 8.1 L (8.6-10.3) mg/dL Pituitary panel 07/10/17 07/10/17 Range/Units 04:00 11:40 Sodium 136 (136-145) mEq/L Potassium 6.3 H 4.8 (3.5-5.1) mEq/L Chloride 92 L (98-107) mEq/L Carbon Dioxide 23 (23-29) mEq/L BUN > 130 H (6-20) mg/dL Creatinine 8.20 H (0.70-1.30) mg/dL Glucose 159 H (70-105) mg/dL Calcium 8.1 L (8.6-10.3) mg/dL Adrenal panel 07/10/17 07/10/17 Range/Units 04:00 11:40 Sodium 136 (136-145) mEq/L Potassium 6.3 H 4.8 (3.5-5.1) mEq/L Chloride 92 L (98-107) mEq/L Carbon Dioxide 23 (23-29) mEq/L BUN > 130 H (6-20) mg/dL Creatinine 8.20 H (0.70-1.30) mg/dL Glucose 159 H (70-105) mg/dL Calcium 8.1 L (8.6-10.3) mg/dL All other labs normal. - Imaging Chest x-ray: report reviewed US - kidney/bladder: report reviewed (Per report, unable to obtain a reading d/ t body habitus) Consult Discharge Plan - Plan Referrals: Jose David Hood DO [Resident] - (a packet will be sent to patient for new patient information) Bacilio Ruiz DO [Resident] - 07/07/17 3:20 pm <Fabián Hess - Last Filed: 07/12/17 07:14> Date of Encounter: 07/10/17 Review of Systems All systems PM: The remainder of the systems were reviewed and are negative General Surgery Exam Initial Vital Signs Temp Pulse Resp BP Pulse Ox 97.3 F L 105 24 195/129 65 06/30/17 05:49 06/30/17 05:49 06/30/17 05:49 06/30/17 05:49 06/30/17 05:49 Exam Initial Vital Signs Temp Pulse Resp BP Pulse Ox 97.3 F L 105 24 195/129 65 06/30/17 05:49 06/30/17 05:49 06/30/17 05:49 06/30/17 05:49 06/30/17 05:49 Results - Labs 07/12/17 04:05 07/12/17 04:05 Abnormal lab results WBC 25.0 K/mcL (4.3-11.1) H 07/11/17 04:50 RBC 3.91 M/mcL (4.19-5.50) L 07/11/17 04:50 Hgb 11.1 g/dL (12.9-16.9) L 07/11/17 04:50 Hct 34.2 % (37.5-50.1) L 07/11/17 04:50 Neutrophils # 21.8 K/mcL (1.6-8.9) H 07/11/17 04:50 Nucleated RBCs/100 WBC 0.1 /100 WBC (0) H 07/06/17 03:32 Large Platelets Present (Not Present) A 07/10/17 04:00 PT 13.0 Seconds (9.4-12.1) H 07/06/17 03:32 APTT 38.2 Seconds (26.0-36.0) H 07/04/17 02:45 ABG pCO2 54 mmHg (35-45) H 07/08/17 04:29 ABG pO2 127 mmHg (85-104) H 07/08/17 04:29 ABG HCO3 28 mEq/L (21-27) H 07/08/17 04:29 ABG Total CO2 30 mEq/L (20-26) H 07/08/17 04:29 ABG O2 Saturation 99 % (95-98) H 07/08/17 04:29 Sodium 135 mEq/L (136-145) L 07/11/17 04:50 Potassium 5.7 mEq/L (3.5-5.1) H 07/11/17 04:50 Chloride 89 mEq/L (98-107) L 07/11/17 04:50 BUN > 130 mg/dL (6-20) H 07/11/17 04:50 Creatinine 8.11 mg/dL (0.70-1.30) H 07/11/17 04:50 Est GFR ( Amer) 9 (> 60) L 07/11/17 04:50 Est GFR (Non-Af Amer) 7 (> 60) L 07/11/17 04:50 Glucose 177 mg/dL (70-105) H 07/11/17 04:50 POC Glucose 170 mg/dL (70-99) H 07/10/17 23:36 Hemoglobin A1c 7.5 % (-5.6) H 06/30/17 10:02 Calcium 8.2 mg/dL (8.6-10.3) L 07/11/17 04:50 Phosphorus 7.4 mg/dL (2.7-4.5) H 07/02/17 07:12 AST 46 Units/L (13-39) H 07/01/17 03:51 ALT 85 Units/L (7-52) H 07/01/17 03:51 Creatine Kinase 1251 Units/L (30-223) H 07/08/17 10:56 Troponin I 0.59 ng/mL (< 0.04) H* 07/04/17 02:45 B-Natriuretic Peptide 134 pg/mL (Less than 100) H 06/30/17 06:08 Albumin 2.9 g/dL (3.5-5.7) L 07/02/17 07:12 Globulin 3.6 g/dL (2.4-3.5) H 07/01/17 03:51 Albumin/Globulin Ratio 0.9 (1.1-2.2) L 07/01/17 03:51 Prealbumin 34.9 mg/dL (17.0-34.0) H 07/07/17 04:00 LDL Cholesterol, Calc 128 mg/dL (0-99) H 06/30/17 10:02 HDL Cholesterol 32 mg/dL (40-59) L 06/30/17 10:02 Cholesterol/HDL Ratio 5.9 (0-4.9) H 06/30/17 10:02 Diabetes panel 07/10/17 07/11/17 Range/Units 11:40 04:50 Sodium 135 L (136-145) mEq/L Potassium 4.8 5.7 H (3.5-5.1) mEq/L Chloride 89 L (98-107) mEq/L Carbon Dioxide 24 (23-29) mEq/L BUN > 130 H (6-20) mg/dL Creatinine 8.11 H (0.70-1.30) mg/dL Glucose 177 H (70-105) mg/dL Calcium 8.2 L (8.6-10.3) mg/dL Calcium panel 07/11/17 Range/Units 04:50 Calcium 8.2 L (8.6-10.3) mg/dL Pituitary panel 07/10/17 07/11/17 Range/Units 11:40 04:50 Sodium 135 L (136-145) mEq/L Potassium 4.8 5.7 H (3.5-5.1) mEq/L Chloride 89 L (98-107) mEq/L Carbon Dioxide 24 (23-29) mEq/L BUN > 130 H (6-20) mg/dL Creatinine 8.11 H (0.70-1.30) mg/dL Glucose 177 H (70-105) mg/dL Calcium 8.2 L (8.6-10.3) mg/dL Adrenal panel 07/10/17 07/11/17 Range/Units 11:40 04:50 Sodium 135 L (136-145) mEq/L Potassium 4.8 5.7 H (3.5-5.1) mEq/L Chloride 89 L (98-107) mEq/L Carbon Dioxide 24 (23-29) mEq/L BUN > 130 H (6-20) mg/dL Creatinine 8.11 H (0.70-1.30) mg/dL Glucose 177 H (70-105) mg/dL Calcium 8.2 L (8.6-10.3) mg/dL All other labs normal. - Attending Attestation I have personally performed a face to face evaluation on this patient. I have reviewed and agree with the care plan. History and Exam by me shows: I reviewed the above assessment and evaluation with the nurse practitioner and agree with the above plan. Physical examination demonstrates a patient with severe obesity. He has never had any abdominal surgeries and has no symptoms of abdominal pain. The overall body habitus is prohibitive for a PEG tube placement due to the fact the instruments are not long enough to actually reach the stomach for percutaneous placement. Additionally, in order to technically to the procedure one must be confident that the indentation or palpation from the skin can definitely be seen through the scope from the inside of the stomach ; the indentation by applying pressure in the left upper quadrant shows the ideal location for the PEG tube placement. If this is not seen or the needles/ devices are not long enough then there is a severe/significant chance of injury to the small bowel or the transverse colon. The patient's body habitus also precludes a CT scan to determine or ensure that the stomach is in close approximation to the abdominal wall in the left upper quadrant abdominal region. I will review the patient's ultrasound images with radiology to see if we can calculate the exact depth of his abdominal wall tissue, however I feel the PEG tube placement will not be able to be performed. Additionally, a PEG tube cannot be placed by interventional radiology because of his overall weight. I feel that most appropriate course to be to strongly encouraged placement of a NG tube or [place] for feeds until he recovers and is able to swallow appropriately.
--- NOTE | 2017-07-10 16:07 | Event Note ---
Date of Encounter: 07/10/17 Time of Encounter: 16:03 I had an extensive meeting today with the patient's sister and mother and the patient himself regarding prognosis and discharge planning. The family had felt that communication had been suboptimal regarding transitioning to LTAC tracheostomy placement and kidney failure. They are also concerned about the lack of PTOT evaluation in the patient. I went over the case again with the family and explained that he will need convalescence in a long-term acute care facility at least in the short-term given complex medical comorbidities and body habitus. Overall prognosis of renal injury is unclear with need to continue dialysis in the short-term long-term but still holding out hope for long-term recovery. I consulted with physical therapy and occupational therapy regarding policies to see the patient and they are going to reassess the patient today. Also planning for PEG tube placement because of recurrent dislodging of the NG tube for definitive nutritional source. All questions answered and the family hours expressed understanding and agreement with treatment plan as outlined today and will continue to have close dialogue hopefully on a daily basis with the family with medical staff and nursing staff.
--- NOTE | 2017-07-11 00:04 | Nephrology Progress Note ---
Date of Encounter: 07/11/17 Time of Encounter: 12:00 - Assessment and Plan (1) ZOHAIB (acute kidney injury) Current Visit: Yes Status: Acute SCr continues to poor with continued anuria. Continue 4hr HD today for adequate clerance Will reassess daily for HD need, planning tentatively to dialyze again tomorrow Continue to avoid nephrotoxins if possible Limit obligate fluids if possible especially while anuric Discussed goal of care with primary team (2) Acute and chronic respiratory failure Current Visit: Yes Status: Resolved on cpap, weaning per primary team Qualifiers: Respiratory failure complication: hypoxia and hypercapnia Qualified Code(s) : J96.21 - Acute and chronic respiratory failure with hypoxia; J96.22 - Acute and chronic respiratory failure with hypercapnia; J96.22 - Acute and chronic respiratory failure with hypercapnia; J96.22 - Acute and chronic respiratory failure with hypercapnia (3) Hyperkalemia Current Visit: Yes Status: Acute Potassium elevated at 6.3, likely very catabolic and also very large body habitus makes adequate HD more difficult, may need daily 4+ hr HD sessions. Now on nepro feeds Subjective Principal diagnosis: Respiratory failure Interval history: Pt seen and examined awake with trach on cpap while receiving HD. Communicative , denies any complaints. Objective - Vital Signs Vital signs: Vital Signs Temp Pulse Resp BP Pulse Ox 07/10/17 23:55 27 137/64 91 07/10/17 23:00 80 24 139/64 90 07/10/17 22:00 77 26 169/98 90 07/10/17 21:49 23 162/83 91 07/10/17 21:00 71 22 162/83 91 07/10/17 20:16 25 144/79 91 07/10/17 20:00 98.7 F 80 22 144/79 87 07/10/17 19:00 81 24 138/80 89 07/10/17 18:00 88 30 158/81 07/10/17 17:03 27 149/87 92 07/10/17 17:00 88 24 149/87 93 07/10/17 16:00 89 24 131/61 92 07/10/17 15:38 28 156/90 91 07/10/17 15:00 97.6 F 88 22 142/67 07/10/17 14:00 92 22 170/96 94 07/10/17 13:00 85 22 131/68 91 07/10/17 12:40 152/90 07/10/17 12:25 154/86 07/10/17 12:10 137/85 07/10/17 12:00 84 23 147/91 91 07/10/17 11:55 136/87 07/10/17 11:40 146/83 07/10/17 11:25 144/83 07/10/17 11:17 22 137/83 90 07/10/17 11:10 148/87 07/10/17 11:00 80 07/10/17 10:55 150/80 07/10/17 10:40 152/89 07/10/17 10:25 170/91 07/10/17 10:10 162/98 07/10/17 10:00 77 22 140/75 91 07/10/17 09:55 172/90 07/10/17 09:45 22 168/85 91 07/10/17 09:40 97.7 F 20 178/92 07/10/17 09:00 83 30 160/88 93 07/10/17 08:10 97.7 F 07/10/17 08:00 76 07/10/17 07:52 27 149/85 93 07/10/17 06:14 27 161/93 93 07/10/17 06:00 88 28 161/93 92 07/10/17 05:00 74 22 153/85 91 07/10/17 04:05 25 142/80 93 07/10/17 04:00 99.1 F 84 26 142/80 93 07/10/17 03:00 83 22 177/94 92 07/10/17 02:17 22 92 07/10/17 02:00 82 24 179/87 91 07/10/17 01:00 85 24 179/94 92 Intake and Output 07/10/17 07/10/17 07/11/17 15:59 23:59 07:59 Intake Total 1112 / 1112 240 / 240 Output Total 3200 / 3200 0 / 0 Balance -2087 / -2087 240 / 240 Intake: Oral 0 / 0 Tube Feeding 312 / 312 240 / 240 Intake, Rinseback and Flushes 600 / 600 Free Water Intake Amount 200 / 200 Output: Total Dialysis (HD) Output 3200 / 3200 Catheter 0 / 0 Other: Blood Glucose* 136 141 Hemodialysis Net Fluid Removed 1600 (mL) - General Appearance General appearance: Present: chronically ill, intubated EENT: Present: ATNC, mucous membranes moist Neck: Present: no JVD, supple Additional Comments: +trach Respiratory: Present: course breath sounds Cardiology: Present: edema, normal S1, normal S2 Dialysis Vascular Access: Venous Catheter (temp IJ) Gastrointestinal: Present: no tenderness, no guarding, obese Integumentary: Present: warm and dry Neurologic: Present: no focal deficit Musculoskeletal: Present: no deformities Psychiatric: Present: mood/affect appropriate - Lab 07/10/17 04:00 07/10/17 11:40 Most recent lab results ABG pH 7.32 pH Units (7.32-7.45) 07/08/17 04:29 ABG pCO2 54 mmHg (35-45) H 07/08/17 04:29 ABG pO2 127 mmHg (85-104) H 07/08/17 04:29 ABG HCO3 28 mEq/L (21-27) H 07/08/17 04:29 ABG O2 Saturation 99 % (95-98) H 07/08/17 04:29 Calcium 8.1 mg/dL (8.6-10.3) L 07/10/17 04:00 Phosphorus 7.4 mg/dL (2.7-4.5) H 07/02/17 07:12 Magnesium 2.5 mg/dL (1.6-2.6) 07/02/17 04:00 Urine Creatinine 151 mg/dL 07/02/17 07:12 Urine Sodium 53.8 mEq/L 07/02/17 07:12 Consult Discharge Plan - Plan Referrals: Jose David Hood DO [Resident] - (a packet will be sent to patient for new patient information) Bacilio Ruiz DO [Resident] - 07/07/17 3:20 pm
[2017-07-11] MEDS: Ipratropium/Albuterol Neb 3 ML IH SCH ×6 (04:31→23:16)
[2017-07-11 05:02] LABS: Basophils % 0.2 %; Eosinophils % 1.5 %
[2017-07-11 05:04] LABS: Basophils # 0.1 K/mcL (0.0-0.2); Eosinophils # 0.4 K/mcL (0.0-0.6); Hematocrit 34.2 % (37.5-50.1); Hemoglobin 11.1 g/dL (12.9-16.9); Lymphocytes # 1.2 K/mcL (0.6-4.6); Lymphocytes % 4.8 %; Mean Corpuscular HGB Conc 32.5 g/dL (31.6-35.5); Mean Corpuscular Hemoglobin 28.4 pg (28.0-33.3); Mean Corpuscular Volume 87.5 fL (83.0-100.0); Mean Platelet Volume 10.7 fL (9.4-12.4); Monocytes # 1.3 K/mcL (0.0-1.3); Monocytes % 5.3 %; Neutrophils # 21.8 K/mcL (1.6-8.9); Platelet Count 247 K/mcL (140-400); Red Blood Count 3.91 M/mcL (4.19-5.50); Red Cell Distribution Width 13.5 % (11.5-14.5); Segmented Neutrophils % 87.2 %
[2017-07-11] MEDS: Lacri-Lube 3.5 GM TUBE BOTH EYES SCH ×2 (05:11→07:58)
[2017-07-11] MEDS: *HR* Heparin 5,000 UNIT/ML VIAL SQ SCH ×3 (05:14→20:13)
[2017-07-11] MEDS: Insulin LISPRO 300 UNITS/3 ML VIAL SQ SCH ×6 (05:16→23:46)
[2017-07-11 05:25] LABS: Blood Urea Nitrogen > 130 mg/dL (6-20); Calcium 8.2 mg/dL (8.6-10.3); Carbon Dioxide 24 mEq/L (23-29); Chloride 89 mEq/L (98-107); Glucose 177 mg/dL (70-105); Potassium 5.7 mEq/L (3.5-5.1); Sodium 135 mEq/L (136-145); eGFR For African Americans 9 (> 60); eGFR For Non-African Americans 7 (> 60)
[2017-07-11 05:28] LABS: Platelet Estimate Normal (Normal)
[2017-07-11] MEDS ORDERED: 0.9 % Sodium Chloride 1,000 ML ONE (06:07)
--- NOTE | 2017-07-11 07:17 | Pulmonology Progress Note ---
<Bryn Robertson W - Last Filed: 07/11/17 11:26> Date of Encounter: 07/11/17 Assessment and Plan (1) Acute and chronic respiratory failure Current Visit: Yes Status: Resolved Qualifiers: Respiratory failure complication: hypoxia and hypercapnia Qualified Code(s) : J96.21 - Acute and chronic respiratory failure with hypoxia; J96.22 - Acute and chronic respiratory failure with hypercapnia; J96.22 - Acute and chronic respiratory failure with hypercapnia; J96.22 - Acute and chronic respiratory failure with hypercapnia (2) Benign essential hypertension Current Visit: Yes Status: Chronic (3) Morbid (severe) obesity due to excess calories Current Visit: Yes Status: Chronic (4) Acute kidney injury Current Visit: Yes Status: Acute (5) Diabetes Current Visit: Yes Status: Chronic Qualifiers: Diabetes mellitus type: type 2 Diabetes mellitus superintendent container terminal insulin use: without residential use Diabetes mellitus complication status: with hyperglycemia Qualified Code(s): E11.65 - Type 2 diabetes mellitus with hyperglycemia (6) Leukocytosis Current Visit: Yes Status: Acute Qualifiers: Leukocytosis type: unspecified Qualified Code(s): D72.829 - Elevated white blood cell count, unspecified (7) Hyperkalemia Current Visit: Yes Status: Acute Objective PUL Vital signs: Last Vital Signs Temp 97.6 F 07/11/17 04:00 Pulse 67 07/11/17 07:00 Resp 28 07/11/17 07:32 BP 109/66 07/11/17 07:32 Pulse Ox 94 07/11/17 07:32 Ventilator Settings Ventilator Settings: Ventilator Settings, Last 8 Hours Ventilator Mode CPAP Ventilator Mode VC+ Ventilator Mode VC+ Ventilator Mode VC+ Ventilator Mode VC+ Ventilator Mode VC+ Ventilator Mode VC+ Ventilator Mode VC+ Ventilator Mode VC+ Ventilator Mode VC+ Ventilator Tidal Volume 650 Setting Ventilator Tidal Volume 650 Setting Ventilator Tidal Volume 650 Setting Ventilator Tidal Volume 650 Setting Ventilator Tidal Volume 650 Setting Ventilator Tidal Volume 650 Setting Ventilator Tidal Volume 650 Setting Ventilator Tidal Volume 650 Setting Ventilator Tidal Volume 650 Setting Ventilator Tidal Volume 650 Setting Ventilator Respiratory Rate 22 Setting Ventilator Respiratory Rate 22 Setting Ventilator Respiratory Rate 22 Setting Ventilator Respiratory Rate 22 Setting Ventilator Respiratory Rate 22 Setting Ventilator Respiratory Rate 22 Setting Ventilator Respiratory Rate 22 Setting Ventilator Respiratory Rate 22 Setting Ventilator Respiratory Rate 22 Setting Ventilator Respiratory Rate 22 Setting Actual Respiratory Rate 26 Actual Respiratory Rate 26 Actual Respiratory Rate 25 Actual Respiratory Rate 25 Actual Respiratory Rate 24 Actual Respiratory Rate 22 Actual Respiratory Rate 25 Actual Respiratory Rate 25 Actual Respiratory Rate 25 Actual Respiratory Rate 25 Actual Respiratory Rate 24 Positive End Expiratory 8 Pressure Positive End Expiratory 8 Pressure Positive End Expiratory 8 Pressure Positive End Expiratory 8 Pressure Positive End Expiratory 8 Pressure Positive End Expiratory 8 Pressure Positive End Expiratory 8 Pressure Positive End Expiratory 8 Pressure Positive End Expiratory 8 Pressure Positive End Expiratory 8 Pressure Positive End Expiratory 8 Pressure Peak Inspiratory Airway 20 Pressure Peak Inspiratory Airway 29 Pressure Peak Inspiratory Airway 28 Pressure Peak Inspiratory Airway 27 Pressure Peak Inspiratory Airway 34 Pressure Peak Inspiratory Airway 36 Pressure Peak Inspiratory Airway 24 Pressure Peak Inspiratory Airway 24 Pressure Peak Inspiratory Airway 28 Pressure Peak Inspiratory Airway 29 Pressure Peak Inspiratory Airway 32 Pressure Results - Laboratory Findings CBC and BMP: 07/11/17 04:50 07/11/17 04:50 ABG ABG pH 7.32 pH Units (7.32-7.45) 07/08/17 04:29 ABG pCO2 54 mmHg (35-45) H 07/08/17 04:29 ABG pO2 127 mmHg (85-104) H 07/08/17 04:29 ABG O2 Saturation 99 % (95-98) H 07/08/17 04:29 PT/INR, D-dimer PT 13.0 Seconds (9.4-12.1) H 07/06/17 03:32 Abnormal lab findings: Abnormal lab results WBC 25.0 K/mcL (4.3-11.1) H 07/11/17 04:50 RBC 3.91 M/mcL (4.19-5.50) L 07/11/17 04:50 Hgb 11.1 g/dL (12.9-16.9) L 07/11/17 04:50 Hct 34.2 % (37.5-50.1) L 07/11/17 04:50 Neutrophils # 21.8 K/mcL (1.6-8.9) H 07/11/17 04:50 Nucleated RBCs/100 WBC 0.1 /100 WBC (0) H 07/06/17 03:32 Large Platelets Present (Not Present) A 07/10/17 04:00 PT 13.0 Seconds (9.4-12.1) H 07/06/17 03:32 APTT 38.2 Seconds (26.0-36.0) H 07/04/17 02:45 ABG pCO2 54 mmHg (35-45) H 07/08/17 04:29 ABG pO2 127 mmHg (85-104) H 07/08/17 04:29 ABG HCO3 28 mEq/L (21-27) H 07/08/17 04:29 ABG Total CO2 30 mEq/L (20-26) H 07/08/17 04:29 ABG O2 Saturation 99 % (95-98) H 07/08/17 04:29 Sodium 135 mEq/L (136-145) L 07/11/17 04:50 Potassium 5.7 mEq/L (3.5-5.1) H 07/11/17 04:50 Chloride 89 mEq/L (98-107) L 07/11/17 04:50 BUN > 130 mg/dL (6-20) H 07/11/17 04:50 Creatinine 8.11 mg/dL (0.70-1.30) H 07/11/17 04:50 Est GFR ( Amer) 9 (> 60) L 07/11/17 04:50 Est GFR (Non-Af Amer) 7 (> 60) L 07/11/17 04:50 Glucose 177 mg/dL (70-105) H 07/11/17 04:50 POC Glucose 170 mg/dL (70-99) H 07/10/17 23:36 Hemoglobin A1c 7.5 % (-5.6) H 06/30/17 10:02 Calcium 8.2 mg/dL (8.6-10.3) L 07/11/17 04:50 Phosphorus 7.4 mg/dL (2.7-4.5) H 07/02/17 07:12 AST 46 Units/L (13-39) H 07/01/17 03:51 ALT 85 Units/L (7-52) H 07/01/17 03:51 Creatine Kinase 1251 Units/L (30-223) H 07/08/17 10:56 Troponin I 0.59 ng/mL (< 0.04) H* 07/04/17 02:45 B-Natriuretic Peptide 134 pg/mL (Less than 100) H 06/30/17 06:08 Albumin 2.9 g/dL (3.5-5.7) L 07/02/17 07:12 Globulin 3.6 g/dL (2.4-3.5) H 07/01/17 03:51 Albumin/Globulin Ratio 0.9 (1.1-2.2) L 07/01/17 03:51 Prealbumin 34.9 mg/dL (17.0-34.0) H 07/07/17 04:00 LDL Cholesterol, Calc 128 mg/dL (0-99) H 06/30/17 10:02 HDL Cholesterol 32 mg/dL (40-59) L 06/30/17 10:02 Cholesterol/HDL Ratio 5.9 (0-4.9) H 06/30/17 10:02 - Microbiology Findings Microbiology Findings: Microbiology, Last 48 Hours 07/10/17 12:40 Sputum Culture - Preliminary Sputum - Clinical Findings Intake & Output: Intake & Output 07/10/17 07/11/17 07/11/17 23:59 07:59 15:59 Intake Total 240 / 240 0 / 0 Output Total 0 / 0 0 / 0 Balance 240 / 240 0 / 0 Weight 249.7 kg Consult Discharge Plan - Plan Referrals: Jose David Hood DO [Resident] - (a packet will be sent to patient for new patient information) Bacilio Ruiz DO [Resident] - 07/07/17 3:20 pm - Attending Attestation I examined this patient and my medical decision-making was reviewed with the Resident Physician. I agree with the documented findings, disposition and treatment plan as described except to the extent set forth below. We independently had [id number] contact with the patient Patient seen and examined at bedside Labs, radiology, chart personally reviewed. Management was reviewed during multidisciplinary critical care rounds. VEGETABLE PACKER: Awake and alert no deficits. Pulm: Chronic Resp failure s/p Trach stable on PSV will need residential weaning. Cont BPT (secretion control) Cards: BP stable on antihypertensives FEN-GI: Dobhoff placement planned with Fluoroscopy not a candidate for PEG tube placement Renal: ZOHAIB needing DIRECTOR EXECUTIVE COMMUNICATIONS ID: Persistent leuckocytosis Cultures pending will monitor for now pending results as patient quite stable Heme/Onc: Endo: Glucose Monitored Integ/MSK: Skin Care per routine ICU Nursing Protocol to prevent ulcers. Cont PT /OT Lines: All lines examined without evidence of infection : Dispo: Preparing for SNF placement SW following CODE: Full. <Rex Prieto - Last Filed: 07/11/17 11:57> Date of Encounter: 07/11/17 Time of Encounter: 08:00 Assessment and Plan (1) Renal failure Current Visit: Yes Status: Acute Anuric renal failure necessitating HD catheter placement 07/06/17 with dialysis. Nephrology consulted and managing dialysis. Continue dialysis as guided by nephrology. Qualifiers: Renal failure chronicity: acute Acute renal failure type: unspecified Qualified Code(s): N17.9 - Acute kidney failure, unspecified (2) Acute respiratory failure Current Visit: Yes Status: Acute Acute respiratory failure secondary to bronchitis with resultant ARDS. Difficulty with intubation requiring anesthesiology. Patient is POD #5 from tracheostomy placement. Continued secretions. Sputum culture 07/10/17: Many WBCs, few gram-positive cocci, moderate gram- negative rods. Consider Robinul with continued secretions. Pressure support during the day as tolerated with switching to assist at night. Qualifiers: Respiratory failure complication: hypoxia Qualified Code(s): J96.01 - Acute respiratory failure with hypoxia (3) Leukocytosis Current Visit: Yes Status: Acute Persistent leukocytosis in the 20s. Afebrile throughout this timeframe. Infectious etiology given increased tracheal secretions versus potential side effect from recent steroid use. Blood and trach cultures pending Daily CBCs Qualifiers: Leukocytosis type: unspecified Qualified Code(s): D72.829 - Elevated white blood cell count, unspecified (4) Hyperkalemia Current Visit: Yes Status: Acute In the setting of a anuric renal failure. Patient undergoing dialysis per management of nephrology. (5) Benign essential hypertension Current Visit: Yes Status: Chronic Continue hydralazine as needed (6) Obesity hypoventilation syndrome Current Visit: Yes Status: Suspected Underlying morbid obesity. Intubated for respiratory failure from initial bronchitis felt to have evolved into ARDS. Postop day #3 from tracheostomy placement. (7) Diabetes Current Visit: Yes Status: Chronic Continue sliding scale insulin Qualifiers: Diabetes mellitus type: type 2 Diabetes mellitus residential insulin use: without residential use Diabetes mellitus complication status: with hyperglycemia Qualified Code(s): E11.65 - Type 2 diabetes mellitus with hyperglycemia (8) Morbid (severe) obesity due to excess calories Current Visit: Yes Status: Chronic (9) DVT prophylaxis Current Visit: Yes Status: Acute Heparin 5000 units every 8 hours Subjective Principal diagnosis: Respiratory failure Interval history: Remained hemodynamically stable overnight. No acute events overnight. Recently issues with NG tube which was removed. General surgery evaluated the patient and patient was felt to be a poor candidate for percutaneous tube placement. Recommend replacing NG tube or Dobbhoff. 07/11/17: Plan for today is Dobbhoff placement under fluoroscopy. We will also discuss with physical therapy to mobilize the patient up to a chair today. Objective PUL Vital signs: Last Vital Signs Temp 97.6 F 07/11/17 04:00 Pulse 72 07/11/17 06:00 Resp 25 07/11/17 06:00 BP 142/82 07/11/17 06:00 Pulse Ox 95 07/11/17 06:00 General appearance: no acute distress, other (Vented through trach) Eyes: nonicteric Neck: other (Tracheostomy site midline. Right dialysis catheter in place.) Effort: normal Auscultation: bilateral: diminished breath sounds Cardiovascular: regular rate and rhythm Gastrointestinal: soft, non-tender Integumentary: normal Extremities: no cyanosis Musculoskeletal: no deformities normal mental status Ventilator Settings Ventilator Settings: Ventilator Settings, Last 8 Hours Ventilator Mode VC+ Ventilator Mode VC+ Ventilator Mode VC+ Ventilator Mode VC+ Ventilator Mode VC+ Ventilator Mode VC+ Ventilator Mode VC+ Ventilator Mode VC+ Ventilator Mode VC+ Ventilator Mode VC+ Ventilator Mode VC+ Ventilator Tidal Volume 650 Setting Ventilator Tidal Volume 650 Setting Ventilator Tidal Volume 650 Setting Ventilator Tidal Volume 650 Setting Ventilator Tidal Volume 650 Setting Ventilator Tidal Volume 650 Setting Ventilator Tidal Volume 650 Setting Ventilator Tidal Volume 650 Setting Ventilator Tidal Volume 650 Setting Ventilator Tidal Volume 650 Setting Ventilator Tidal Volume 650 Setting Ventilator Respiratory Rate 22 Setting Ventilator Respiratory Rate 22 Setting Ventilator Respiratory Rate 22 Setting Ventilator Respiratory Rate 22 Setting Ventilator Respiratory Rate 22 Setting Ventilator Respiratory Rate 22 Setting Ventilator Respiratory Rate 22 Setting Ventilator Respiratory Rate 22 Setting Ventilator Respiratory Rate 22 Setting Ventilator Respiratory Rate 22 Setting Ventilator Respiratory Rate 22 Setting Actual Respiratory Rate 25 Actual Respiratory Rate 25 Actual Respiratory Rate 24 Actual Respiratory Rate 22 Actual Respiratory Rate 25 Actual Respiratory Rate 25 Actual Respiratory Rate 25 Actual Respiratory Rate 25 Actual Respiratory Rate 24 Actual Respiratory Rate 24 Actual Respiratory Rate 24 Positive End Expiratory 8 Pressure Positive End Expiratory 8 Pressure Positive End Expiratory 8 Pressure Positive End Expiratory 8 Pressure Positive End Expiratory 8 Pressure Positive End Expiratory 8 Pressure Positive End Expiratory 8 Pressure Positive End Expiratory 8 Pressure Positive End Expiratory 8 Pressure Positive End Expiratory 8 Pressure Positive End Expiratory 8 Pressure Peak Inspiratory Airway 28 Pressure Peak Inspiratory Airway 27 Pressure Peak Inspiratory Airway 34 Pressure Peak Inspiratory Airway 36 Pressure Peak Inspiratory Airway 24 Pressure Peak Inspiratory Airway 24 Pressure Peak Inspiratory Airway 28 Pressure Peak Inspiratory Airway 29 Pressure Peak Inspiratory Airway 32 Pressure Peak Inspiratory Airway 38 Pressure Peak Inspiratory Airway 27 Pressure Results - Laboratory Findings CBC and BMP: 07/11/17 04:50 07/11/17 04:50 ABG ABG pH 7.32 pH Units (7.32-7.45) 07/08/17 04:29 ABG pCO2 54 mmHg (35-45) H 07/08/17 04:29 ABG pO2 127 mmHg (85-104) H 07/08/17 04:29 ABG O2 Saturation 99 % (95-98) H 07/08/17 04:29 PT/INR, D-dimer PT 13.0 Seconds (9.4-12.1) H 07/06/17 03:32 Abnormal lab findings: Abnormal lab results WBC 25.0 K/mcL (4.3-11.1) H 07/11/17 04:50 RBC 3.91 M/mcL (4.19-5.50) L 07/11/17 04:50 Hgb 11.1 g/dL (12.9-16.9) L 07/11/17 04:50 Hct 34.2 % (37.5-50.1) L 07/11/17 04:50 Neutrophils # 21.8 K/mcL (1.6-8.9) H 07/11/17 04:50 Nucleated RBCs/100 WBC 0.1 /100 WBC (0) H 07/06/17 03:32 Large Platelets Present (Not Present) A 07/10/17 04:00 PT 13.0 Seconds (9.4-12.1) H 07/06/17 03:32 APTT 38.2 Seconds (26.0-36.0) H 07/04/17 02:45 ABG pCO2 54 mmHg (35-45) H 07/08/17 04:29 ABG pO2 127 mmHg (85-104) H 07/08/17 04:29 ABG HCO3 28 mEq/L (21-27) H 07/08/17 04:29 ABG Total CO2 30 mEq/L (20-26) H 07/08/17 04:29 ABG O2 Saturation 99 % (95-98) H 07/08/17 04:29 Sodium 135 mEq/L (136-145) L 07/11/17 04:50 Potassium 5.7 mEq/L (3.5-5.1) H 07/11/17 04:50 Chloride 89 mEq/L (98-107) L 07/11/17 04:50 BUN > 130 mg/dL (6-20) H 07/11/17 04:50 Creatinine 8.11 mg/dL (0.70-1.30) H 07/11/17 04:50 Est GFR ( Amer) 9 (> 60) L 07/11/17 04:50 Est GFR (Non-Af Amer) 7 (> 60) L 07/11/17 04:50 Glucose 177 mg/dL (70-105) H 07/11/17 04:50 POC Glucose 170 mg/dL (70-99) H 07/10/17 23:36 Hemoglobin A1c 7.5 % (-5.6) H 06/30/17 10:02 Calcium 8.2 mg/dL (8.6-10.3) L 07/11/17 04:50 Phosphorus 7.4 mg/dL (2.7-4.5) H 07/02/17 07:12 AST 46 Units/L (13-39) H 07/01/17 03:51 ALT 85 Units/L (7-52) H 07/01/17 03:51 Creatine Kinase 1251 Units/L (30-223) H 07/08/17 10:56 Troponin I 0.59 ng/mL (< 0.04) H* 07/04/17 02:45 B-Natriuretic Peptide 134 pg/mL (Less than 100) H 06/30/17 06:08 Albumin 2.9 g/dL (3.5-5.7) L 07/02/17 07:12 Globulin 3.6 g/dL (2.4-3.5) H 07/01/17 03:51 Albumin/Globulin Ratio 0.9 (1.1-2.2) L 07/01/17 03:51 Prealbumin 34.9 mg/dL (17.0-34.0) H 07/07/17 04:00 LDL Cholesterol, Calc 128 mg/dL (0-99) H 06/30/17 10:02 HDL Cholesterol 32 mg/dL (40-59) L 06/30/17 10:02 Cholesterol/HDL Ratio 5.9 (0-4.9) H 06/30/17 10:02 - Microbiology Findings Microbiology Findings: Microbiology, Last 48 Hours 07/10/17 12:40 Sputum Culture - Preliminary Sputum - Clinical Findings Intake & Output: Intake & Output 07/10/17 07/10/17 07/11/17 15:59 23:59 07:59 Intake Total 1112 / 1112 240 / 240 0 / 0 Output Total 3200 / 3200 0 / 0 0 / 0 Balance -2087 / -2087 240 / 240 0 / 0 Weight 249.7 kg
[2017-07-11] MEDS ORDERED: *HR* Heparin 10,000 UNIT/10 ML VIAL IV PRN (07:44)
[2017-07-11] MEDS ORDERED: 0.9 % Sodium Chloride 250 ML IVC PRN (07:44)
[2017-07-11] MEDS: Insulin DETEMIR 100 UNIT/ML X5UNITS SQ SCH ×2 (07:58→21:14)
[2017-07-11] MEDS: Pantoprazole 40 MG VIAL IVP SCH (07:58)
[2017-07-11] MEDS: Aspirin 81 MG TAB.CHEW PO SCH (07:58)
[2017-07-11] MEDS: Chlorhexidine Rinse 15 ML MOUTHWASH MM SCH ×2 (07:58→20:12)
--- NOTE | 2017-07-11 13:46 | ENT - Progress Note ---
Date of Encounter: 07/11/17 Time of Encounter: 13:44 - Assessment and Plan (1) Morbid (severe) obesity due to excess calories Current Visit: Yes Status: Chronic Recommend weight loss to help possibility of decannulation in the future. (2) Obesity hypoventilation syndrome Current Visit: Yes Status: Suspected Permanent trach until patient weight loss occurs would be optimal for this patient. (3) Airway obstruction, anatomic Current Visit: Yes Status: Acute Tracheostomy tube assessed in previous 4 point sutures were removed and new Velcro trach tie was placed around the neck. Patient was suctioned at the bedside tracheostomy tube is well seated without any bleeding or granulation tissue around the trach stoma. There is watery drainage suctioned from the trachea and within the folds of the neck with the foul odor which was recently cultured, waiting culture. Tracheostomy tube placement does look good and drainage does appear to be coming from the actual airway not the stoma. We will keep tracheostomy tube in place for another 3 weeks prior to the first tracheostomy tube change since he was such a difficult tracheostomy due to his body habitus. If patient is still in house ENT will change the trach tube otherwise patient will likely need trach tube change in 3 weeks at [facility] facility if transferred. ENT to follow from a distance please contact ENT as needed. (4) Acute on chronic respiratory failure with hypoxia and hypercapnia Current Visit: Yes Status: Acute Will plan on tracheostomy tomorrow as patient not good candidate for extubation. Subjective Narrative: Patient seen and examined in the ICU. Patient remains on vent with tracheostomy tube in place. Patient awake and response to some commands. Objective Initial Vital Signs Temp Pulse Resp BP Pulse Ox 97.3 F L 105 24 195/129 65 06/30/17 05:49 06/30/17 05:49 06/30/17 05:49 06/30/17 05:49 06/30/17 05:49 - General physical appearance chronically ill - Eyes normal ocular movement - ENT normal pinna, normal nares - Neck trachea midline, other (Thick neck with large submental pannus, #8 proximal extended Shiley tracheostomy tube in place, 4. sutures in place and trach tie in place. Patient with thin drainage in the folds of his neck, this was cleaned at the bedside and trach suctioned.) - Labs 07/11/17 04:50 07/11/17 04:50 Diabetes panel 07/11/17 Range/Units 04:50 Sodium 135 L (136-145) mEq/L Potassium 5.7 H (3.5-5.1) mEq/L Chloride 89 L (98-107) mEq/L Carbon Dioxide 24 (23-29) mEq/L BUN > 130 H (6-20) mg/dL Creatinine 8.11 H (0.70-1.30) mg/dL Glucose 177 H (70-105) mg/dL Calcium 8.2 L (8.6-10.3) mg/dL Calcium panel 07/11/17 Range/Units 04:50 Calcium 8.2 L (8.6-10.3) mg/dL Pituitary panel 07/11/17 Range/Units 04:50 Sodium 135 L (136-145) mEq/L Potassium 5.7 H (3.5-5.1) mEq/L Chloride 89 L (98-107) mEq/L Carbon Dioxide 24 (23-29) mEq/L BUN > 130 H (6-20) mg/dL Creatinine 8.11 H (0.70-1.30) mg/dL Glucose 177 H (70-105) mg/dL Calcium 8.2 L (8.6-10.3) mg/dL Adrenal panel 07/11/17 Range/Units 04:50 Sodium 135 L (136-145) mEq/L Potassium 5.7 H (3.5-5.1) mEq/L Chloride 89 L (98-107) mEq/L Carbon Dioxide 24 (23-29) mEq/L BUN > 130 H (6-20) mg/dL Creatinine 8.11 H (0.70-1.30) mg/dL Glucose 177 H (70-105) mg/dL Calcium 8.2 L (8.6-10.3) mg/dL Consult Discharge Plan - Plan Referrals: Jose David Hood DO [Resident] - (a packet will be sent to patient for new patient information) Bacilio Ruiz DO [Resident] - 07/07/17 3:20 pm
--- NOTE | 2017-07-11 13:52 | General Surgery Progress Note ---
<Nicola Nicole - Last Filed: 07/11/17 14:07> Date of Encounter: 07/11/17 Time of Encounter: 08:00 - Assessment and Plan (1) Acute on chronic respiratory failure with hypoxia and hypercapnia Current Visit: Yes Status: Acute Chronic tracheostomy patient, history obtained through question and yes/no gesture+handheld whiteboard. Per HPI, patient did pull at his NG tube causing NG failure; patient endorses interest in dobbhoff tube and does not plan to pull at it, he notes his restlessness was a primary cause of his unintentional pulling of the initial NG tube. Plan: Dobbhoff under fluoroscopy per primary team as primary delivery of nutrition. Thank you for the consult, Surgery to sign-off at this time. (2) Morbid (severe) obesity due to excess calories Current Visit: Yes Status: Chronic Subjective Patient reports: no new complaints, afebrile Narrative: Mr. Garcia was seen and evaluated at bedside. Tracheostomy patient able to make yes and no gestures and communicate with marker/whiteboard. He states the NG tube he previously had did not feel too uncomfortable, he is willing to try the dobbhoff tube as well. He writes he tugged at the NG tube during a period where he felt restless. Objective Vital Signs - Last 8 Hours Temp Pulse Resp BP Pulse Ox 07/11/17 13:40 118/75 07/11/17 13:25 120/83 07/11/17 13:23 97.9 F 07/11/17 13:10 117/79 07/11/17 12:55 126/69 07/11/17 12:40 123/79 07/11/17 12:25 122/71 07/11/17 12:10 128/83 07/11/17 12:00 86 27 128/83 95 07/11/17 11:55 145/76 07/11/17 11:40 126/85 07/11/17 11:35 27 139/87 95 07/11/17 11:25 97.9 F 22 146/84 07/11/17 11:00 74 32 146/81 94 07/11/17 10:59 34 160/89 95 07/11/17 10:00 76 27 166/94 95 07/11/17 09:00 75 26 142/73 94 07/11/17 08:00 98.5 F 73 27 146/82 95 07/11/17 07:32 28 109/66 94 07/11/17 07:00 67 26 109/66 96 07/11/17 06:00 72 25 142/82 95 07/11/17 05:56 26 139/83 96 Intake and Output 07/10/17 07/11/17 07/11/17 23:59 07:59 15:59 Intake Total 240 / 240 0 / 0 600 / 600 Output Total 0 / 0 0 / 0 0 / 0 Balance 240 / 240 0 / 0 600 / 600 Intake: Oral 0 / 0 0 / 0 Tube Feeding 240 / 240 Intake, Rinseback and Flushes 600 / 600 Output: Catheter 0 / 0 0 / 0 0 / 0 Other: Weight 249.7 kg Blood Glucose* 141 165 137 Hemodialysis Net Fluid Removed 2594 (mL) Patient Weight 07/11/17 23:59 Weight 249.7 kg - General physical appearance no distress, other (BMI 70 super-morbid obesity) - Eyes normal ocular movement - ENT normal mucosa - Neck Neck exam: other (presence of tracheostomy) - Respiratory other (expansion limited by obese trunk; diminished breath sounds bilaterally) - Cardiovascular Cardiovascular exam: Present: RRR, no murmurs/rubs/gallops - Abdomen Abdomen: Present: soft. Absent: guarding, rigid - Integumentary no abnormal pigmentation - Neurologic normal sensation - Psychiatric memory intact - Labs 07/11/17 04:50 07/11/17 04:50 Diabetes panel 07/11/17 Range/Units 04:50 Sodium 135 L (136-145) mEq/L Potassium 5.7 H (3.5-5.1) mEq/L Chloride 89 L (98-107) mEq/L Carbon Dioxide 24 (23-29) mEq/L BUN > 130 H (6-20) mg/dL Creatinine 8.11 H (0.70-1.30) mg/dL Glucose 177 H (70-105) mg/dL Calcium 8.2 L (8.6-10.3) mg/dL Calcium panel 07/11/17 Range/Units 04:50 Calcium 8.2 L (8.6-10.3) mg/dL Pituitary panel 07/11/17 Range/Units 04:50 Sodium 135 L (136-145) mEq/L Potassium 5.7 H (3.5-5.1) mEq/L Chloride 89 L (98-107) mEq/L Carbon Dioxide 24 (23-29) mEq/L BUN > 130 H (6-20) mg/dL Creatinine 8.11 H (0.70-1.30) mg/dL Glucose 177 H (70-105) mg/dL Calcium 8.2 L (8.6-10.3) mg/dL Adrenal panel 07/11/17 Range/Units 04:50 Sodium 135 L (136-145) mEq/L Potassium 5.7 H (3.5-5.1) mEq/L Chloride 89 L (98-107) mEq/L Carbon Dioxide 24 (23-29) mEq/L BUN > 130 H (6-20) mg/dL Creatinine 8.11 H (0.70-1.30) mg/dL Glucose 177 H (70-105) mg/dL Calcium 8.2 L (8.6-10.3) mg/dL Consult Discharge Plan - Plan Referrals: Jose David Hood DO [Resident] - (a packet will be sent to patient for new patient information) Bacilio Ruiz DO [Resident] - 07/07/17 3:20 pm <Fabián Hess - Last Filed: 07/12/17 07:15> Date of Encounter: 07/11/17 Objective Vital Signs - Last 8 Hours Temp Pulse Resp BP Pulse Ox 07/12/17 06:27 26 154/90 94 07/12/17 06:00 78 22 154/90 97 07/12/17 05:18 26 139/85 98 07/12/17 05:00 92 31 139/85 96 07/12/17 04:00 97.8 F 81 30 129/84 98 07/12/17 03:25 29 142/84 97 07/12/17 03:00 80 24 142/84 96 07/12/17 02:00 83 28 117/61 98 07/12/17 01:09 23 145/82 99 07/12/17 01:00 71 23 145/82 99 07/12/17 00:11 98.6 F 07/12/17 00:00 79 26 148/84 96 07/11/17 23:16 29 135/80 96 Intake and Output 07/11/17 07/11/1718 15:59 23:59 07:59 Intake Total 600 / 600 0 / 0 0 / 0 Output Total 4037 / 4037 0 / 0 0 / 0 Balance -3437 / -3437 0 / 0 0 / 0 Intake: Oral 0 / 0 0 / 0 0 / 0 Intake, Rinseback and Flushes 600 / 600 Output: Total Dialysis (HD) Output 4037 / 4037 Catheter 0 / 0 0 / 0 0 / 0 Other: Weight 236.9 kg Blood Glucose* 137 125 117 Hemodialysis Net Fluid Removed 3437 (mL) Patient Weight 07/12/17 23:59 Weight 236.9 kg - Labs 07/12/17 04:05 07/12/17 04:05 Diabetes panel 07/11/17 07/12/17 Range/Units 13:25 04:05 Sodium 134 L (136-145) mEq/L Potassium 4.5 5.7 H D (3.5-5.1) mEq/L Chloride 90 L (98-107) mEq/L Carbon Dioxide 25 (23-29) mEq/L BUN 114 H (6-20) mg/dL Creatinine 7.63 H (0.70-1.30) mg/dL Glucose 123 H (70-105) mg/dL Calcium 8.6 (8.6-10.3) mg/dL Calcium panel 07/12/17 Range/Units 04:05 Calcium 8.6 (8.6-10.3) mg/dL Pituitary panel 07/11/17 07/12/17 Range/Units 13:25 04:05 Sodium 134 L (136-145) mEq/L Potassium 4.5 5.7 H D (3.5-5.1) mEq/L Chloride 90 L (98-107) mEq/L Carbon Dioxide 25 (23-29) mEq/L BUN 114 H (6-20) mg/dL Creatinine 7.63 H (0.70-1.30) mg/dL Glucose 123 H (70-105) mg/dL Calcium 8.6 (8.6-10.3) mg/dL Adrenal panel 07/11/17 07/12/17 Range/Units 13:25 04:05 Sodium 134 L (136-145) mEq/L Potassium 4.5 5.7 H D (3.5-5.1) mEq/L Chloride 90 L (98-107) mEq/L Carbon Dioxide 25 (23-29) mEq/L BUN 114 H (6-20) mg/dL Creatinine 7.63 H (0.70-1.30) mg/dL Glucose 123 H (70-105) mg/dL Calcium 8.6 (8.6-10.3) mg/dL - Attending Attestation I examined this patient and my medical decision-making was reviewed with the Resident Physician. I agree with the documented findings, disposition and treatment plan as described except to the extent set forth below. Review the above recommendation and assessment and agree with the above- mentioned plan. We will sign off. Thank you.
[2017-07-11 15:29] LABS: Complement Component 3 148 mg/dL (88-201); Complement Component 4 13 mg/dL (10-40)
--- NOTE | 2017-07-11 23:41 | Nephrology Progress Note ---
Date of Encounter: 07/11/17 Time of Encounter: 11:00 - Assessment and Plan (1) ZOHAIB (acute kidney injury) Status: Acute SCr continues to poor with continued anuria. HD terminated yesterday after 3hrs due to line clotting. Will plan for 4hrs of HD today again for better clearance Will reassess daily for HD need, planning tentatively to dialyze again tomorrow Continue to avoid nephrotoxins if possible Limit obligate fluids if possible especially while anuric Discussed goal of care with primary team (2) Acute and chronic respiratory failure Status: Resolved on cpap, weaning per primary team Qualifiers: Respiratory failure complication: hypoxia and hypercapnia Qualified Code(s) : J96.21 - Acute and chronic respiratory failure with hypoxia; J96.22 - Acute and chronic respiratory failure with hypercapnia; J96.22 - Acute and chronic respiratory failure with hypercapnia; J96.22 - Acute and chronic respiratory failure with hypercapnia (3) Hyperkalemia Status: Acute Potassium normalized at 4.5, very catabolic and very large body habitus makes adequate HD more difficult, may need daily 4+ hr HD sessions. Continue nepro feeds Subjective Principal diagnosis: Respiratory failure Interval history: Pt seen and examined awake with trach on cpap while receiving HD. Communicative , denies any complaints. Objective - Vital Signs Vital signs: Vital Signs Temp Pulse Resp BP Pulse Ox 07/11/17 23:16 29 135/80 96 07/11/17 22:00 76 23 154/83 96 07/11/17 21:18 29 142/70 98 07/11/17 21:00 79 31 142/70 98 07/11/17 20:38 98.2 F 07/11/17 20:00 79 25 140/90 98 07/11/17 19:28 29 142/72 96 07/11/17 19:00 72 26 149/91 100 07/11/17 18:00 86 34 129/75 95 07/11/17 17:02 28 121/76 91 07/11/17 17:00 84 38 121/76 95 07/11/17 16:38 31 130/68 92 07/11/17 16:00 84 35 130/68 95 07/11/17 15:05 98.6 F 18 132/81 07/11/17 15:00 98.6 F 94 33 132/81 93 04/17/18 14:55 118/81 07/11/18 14:40 120/77 07/11/18 14:25 124/72 07/11/18 14:10 109/73 07/11/18 14:00 89 35 111/85 94 07/11/18 13:55 108/75 07/11/18 13:50 13 123/71 96 07/11/18 13:40 118/75 07/11/18 13:25 120/83 07/11/18 13:23 97.9 F 07/11/17 13:10 117/79 07/11/18 13:00 88 30 118/81 95 18 12:55 126/69 07/11/18 12:40 123/79 18 12:25 122/71 18 12:10 128/83 07/11/18 12:00 86 27 128/83 95 07/11/18 11:55 145/76 18 11:40 126/85 18 11:35 27 139/87 95 18 11:25 97.9 F 22 146/84 07/11/18 11:00 74 32 146/81 94 07/11/18 10:59 34 160/89 95 07/11/18 10:00 76 27 166/94 95 07/11/18 09:00 75 26 142/73 94 07/11/18 08:00 98.5 F 73 27 146/82 95 18 07:32 28 109/66 94 07/11/18 07:00 67 26 109/66 96 18 06:00 72 25 142/82 95 18 05:56 26 139/83 96 07/11/18 05:00 76 24 139/83 95 07/11/18 04:31 22 142/84 96 18 04:00 97.6 F 68 22 142/84 96 07/11/18 03:00 72 25 137/80 95 17/18 02:31 25 153/79 93 17/18 02:00 75 25 153/79 90 18 01:00 78 24 171/95 90 18 00:00 98.4 F 75 24 110/60 90 18 23:55 27 137/64 91 Intake and Output 07/11/17 07/11/17 07/11/17 07:59 15:59 23:59 Intake Total 0 / 0 600 / 600 0 / 0 Output Total 0 / 0 4037 / 4037 0 / 0 Balance 0 / 0 -3437 / -3437 0 / 0 Intake: Oral 0 / 0 0 / 0 0 / 0 Intake, Rinseback and Flushes 600 / 600 Output: Total Dialysis (HD) Output 4037 / 4037 Catheter 0 / 0 0 / 0 0 / 0 Other: Weight 249.7 kg Blood Glucose* 165 137 125 Hemodialysis Net Fluid Removed 3437 (mL) Patient Weight 07/11/17 23:59 Weight 249.7 kg - General Appearance General appearance: Present: intubated (with trach) EENT: Present: ATNC, mucous membranes moist Neck: Present: no JVD, supple (+trach) Additional Comments: good areation ant bilat Cardiology: Present: edema, normal S1, normal S2 Gastrointestinal: Present: no tenderness, no guarding, obese Integumentary: Present: warm and dry Neurologic: Present: no focal deficit (awake communicative) Musculoskeletal: Present: no deformities Psychiatric: Present: mood/affect appropriate, cooperative - Lab 07/12/17 04:05 07/12/17 11:47 Most recent lab results ABG pH 7.32 pH Units (7.32-7.45) 07/08/17 04:29 ABG pCO2 54 mmHg (35-45) H 07/08/17 04:29 ABG pO2 127 mmHg (85-104) H 07/08/17 04:29 ABG HCO3 28 mEq/L (21-27) H 07/08/17 04:29 ABG O2 Saturation 99 % (95-98) H 07/08/17 04:29 Calcium 8.2 mg/dL (8.6-10.3) L 07/11/17 04:50 Phosphorus 7.4 mg/dL (2.7-4.5) H 07/02/17 07:12 Magnesium 2.5 mg/dL (1.6-2.6) 07/02/17 04:00 Urine Creatinine 151 mg/dL 07/02/17 07:12 Urine Sodium 53.8 mEq/L 07/02/17 07:12 Consult Discharge Plan - Plan Additional Instructions: Patient did have tube feed over the weekend, however will require Dobbhoff for long-term enteral nutrition. Referrals: Jose David Hood DO [Resident] - (a packet will be sent to patient for new patient information) Bacilio Ruiz DO [Resident] - 07/07/17 3:20 pm
[2017-07-12] MEDS: Ipratropium/Albuterol Neb 3 ML IH SCH ×3 (03:25→11:35)
[2017-07-12 04:18] LABS: Lymphocytes % 4.2 %; Red Cell Distribution Width 13.4 % (11.5-14.5)
[2017-07-12 04:19] LABS: Basophils # 0.1 K/mcL (0.0-0.2); Basophils % 0.2 %; Eosinophils # 0.2 K/mcL (0.0-0.6); Eosinophils % 0.8 %; Hematocrit 35.2 % (37.5-50.1); Hemoglobin 11.3 g/dL (12.9-16.9); Immature Granulocytes % 0.8 % (0-4); Lymphocytes # 1.2 K/mcL (0.6-4.6); Mean Corpuscular HGB Conc 32.1 g/dL (31.6-35.5); Mean Corpuscular Hemoglobin 28.4 pg (28.0-33.3); Mean Corpuscular Volume 88.4 fL (83.0-100.0); Mean Platelet Volume 10.7 fL (9.4-12.4); Monocytes # 1.6 K/mcL (0.0-1.3); Monocytes % 5.6 %; Neutrophils # 24.7 K/mcL (1.6-8.9); Platelet Count 250 K/mcL (140-400); Red Blood Count 3.98 M/mcL (4.19-5.50); Segmented Neutrophils % 88.4 %
[2017-07-12] MEDS: Insulin LISPRO 300 UNITS/3 ML VIAL SQ SCH ×2 (04:34→08:41)
[2017-07-12 04:36] LABS: Platelet Estimate Normal (Normal)
[2017-07-12 04:37] LABS: Calcium 8.6 mg/dL (8.6-10.3); Potassium 5.7 mEq/L (3.5-5.1)
[2017-07-12] MEDS: *HR* Heparin 5,000 UNIT/ML VIAL SQ SCH (05:06)
[2017-07-12] MEDS ORDERED: *HR* Heparin 10,000 UNIT/10 ML VIAL IV PRN (07:19)
[2017-07-12] MEDS ORDERED: 0.9 % Sodium Chloride 250 ML IVC PRN (07:19)
[2017-07-12] MEDS ORDERED: 0.9 % Sodium Chloride 1,000 ML PRIME SCH (07:30)
[2017-07-12 07:49] LABS: ANA IgG by ELISA NONE DETECTED (None Detected)
[2017-07-12] MEDS ORDERED: 0.9 % Sodium Chloride 1,000 ML ONE (08:22)
[2017-07-12] MEDS: Insulin DETEMIR 100 UNIT/ML X5UNITS SQ SCH (08:41)
[2017-07-12] MEDS: Aspirin 81 MG TAB.CHEW PO SCH (08:41)
[2017-07-12] MEDS: Pantoprazole 40 MG VIAL IVP SCH (08:41)
[2017-07-12] MEDS: Chlorhexidine Rinse 15 ML MOUTHWASH MM SCH (08:42)
--- NOTE | 2017-07-12 09:12 | Discharge Summary ---
<Bryn Robertson W - Last Filed: 07/12/17 10:52> Orders not resulted at time of discharge: Pending orders 07/06/17 20:28 Eosinophil,Urine [URIN] Routine Sodium, Urine [UCHEM] Routine Urinalysis Reflex Cult & Micro [URIN] Routine Urine Microalbumin Random [UCHEM] Routine Urine Protein Creat Ratio [place] [UCHEM] Routine 07/10/17 09:00 Culture,Wound [RM] Routine 07/10/17 09:18 Culture,Blood [BC] Routine 07/10/17 11:40 Culture,Blood [BC] Routine 07/10/17 12:40 Culture,Sputum with Gram Stain [RM] Routine Date of Encounter: 07/12/17 - Discharge Diagnosis (1) Acute and chronic respiratory failure Status: Resolved Qualifiers: Respiratory failure complication: hypoxia and hypercapnia Qualified Code(s) : J96.21 - Acute and chronic respiratory failure with hypoxia; J96.22 - Acute and chronic respiratory failure with hypercapnia; J96.22 - Acute and chronic respiratory failure with hypercapnia; J96.22 - Acute and chronic respiratory failure with hypercapnia (2) Benign essential hypertension Status: Chronic (3) Morbid (severe) obesity due to excess calories Status: Chronic (4) Acute kidney injury Status: Acute (5) Diabetes Status: Chronic Qualifiers: Diabetes mellitus type: type 2 Diabetes mellitus long lines operator insulin use: without long lines operator use Diabetes mellitus complication status: with hyperglycemia Qualified Code(s): E11.65 - Type 2 diabetes mellitus with hyperglycemia (6) Leukocytosis Status: Acute Qualifiers: Leukocytosis type: unspecified Qualified Code(s): D72.829 - Elevated white blood cell count, unspecified (7) Hyperkalemia Status: Acute - Discharge Medications Home Medications: Albuterol Sulfate [Albuterol Inhaler] 1 puff IH Q4HR PRN #1 [id number] 06/27/17 [Rx] GuaiFENesin ER [Mucinex] 1,200 mg PO BID #20 tbbp.12hr 06/27/17 [Rx] Aspirin 81 mg PO DAILY tab.chew 07/12/17 [Rx] Dextrose 50 % in Water (Syg) [Dextrose 50% (Syg)] 25 ml IVP AD PRN syringe [Rx] Dextrose Gel [Gluctose] 15 gm PO ONCE PRN gel..gram. 07/12/17 [Rx] Dextrose Gel [Gluctose] 30 gm PO ONCE PRN gel..gram. 07/12/17 [Rx] Glucagon, Human Recombinant [Glucagen] 1 mg IM ONCE PRN vial 07/12/17 [Rx] GuaiFENesin Liq [Robitussin Liq] 200 mg PO Q6HR PRN udc 07/12/17 [Rx] Heparin 5,000 unit SQ Q8HCO vial 07/12/17 [Rx] Insulin DETEMIR [Levemir] 25 unit SQ BID [id number] 07/12/17 [Rx] Insulin LISPRO [HumaLOG] 0 units SQ Q4HR vial 07/12/17 [Rx] Ipratropium/Albuterol Neb [Duoneb] 3 ml IH [id number] inhsol 07/12/17 [Rx] Pantoprazole [Protonix] 40 mg IVP DAILY vial 07/12/17 [Rx] Sennosides/Docusate Sodium [Senna Plus] 2 each PO BID PRN tablet 07/12/17 [Rx] Allergies/Adverse Reactions: 3 Allergy/AdvReac Type Severity Reaction Status Date / Time No Known Allergies Allergy Verified 06/30/17 05:55 Labs on day of discharge: Labs from last 24 hours 07/12/17 07/12/17 07/12/17 04:05 04:05 04:05 WBC 27.9 H RBC 3.98 L Hgb 11.3 L Hct 35.2 L MCV 88.4 MCH 28.4 MCHC 32.1 RDW 13.4 Plt Count 250 MPV 10.7 Immature Gran % 0.8 Seg Neutrophils % 88.4 Lymphocytes % 4.2 Monocytes % 5.6 Eosinophils % 0.8 Basophils % 0.2 Neutrophils # 24.7 H Lymphocytes # 1.2 Monocytes # 1.6 H Eosinophils # 0.2 Basophils # 0.1 Platelet Estimate Normal Sodium 134 L Potassium 5.7 H D Chloride 90 L Carbon Dioxide 25 BUN 114 H Creatinine 7.63 H Est GFR ( Amer) 9 L Est GFR (Non-Af Amer) 8 L BUN/Creatinine Ratio 15 Glucose 123 H POC Glucose Calculated Osmolality 316 H Calcium 8.6 Creatine Kinase 800 H TEODORA Screen Complement C3 Complement C4 07/11/17 07/11/17 07/11/17 23:38 19:53 17:15 WBC RBC Hgb Hct MCV MCH MCHC RDW Plt Count MPV Immature Gran % Seg Neutrophils % Lymphocytes % Monocytes % Eosinophils % Basophils % Neutrophils # Lymphocytes # Monocytes # Eosinophils # Basophils # Platelet Estimate Sodium Potassium Chloride Carbon Dioxide BUN Creatinine Est GFR ( Amer) Est GFR (Non-Af Amer) BUN/Creatinine Ratio Glucose POC Glucose 120 H 125 H 146 H Calculated Osmolality Calcium Creatine Kinase TEODORA Screen Complement C3 Complement C4 07/11/17 07/11/17 07/11/17 13:25 11:37 07:39 WBC RBC Hgb Hct MCV MCH MCHC RDW Plt Count MPV Immature Gran % Seg Neutrophils % Lymphocytes % Monocytes % Eosinophils % Basophils % Neutrophils # Lymphocytes # Monocytes # Eosinophils # Basophils # Platelet Estimate Sodium Potassium 4.5 Chloride Carbon Dioxide BUN Creatinine Est GFR ( Amer) Est GFR (Non-Af Amer) BUN/Creatinine Ratio Glucose POC Glucose 137 H 151 H Calculated Osmolality Calcium Creatine Kinase TEODORA Screen Complement C3 Complement C4 07/11/17 07/09/17 07/08/17 04:37 04:20 10:56 WBC RBC Hgb Hct MCV MCH MCHC RDW Plt Count MPV Immature Gran % Seg Neutrophils % Lymphocytes % Monocytes % Eosinophils % Basophils % Neutrophils # Lymphocytes # Monocytes # Eosinophils # Basophils # Platelet Estimate Sodium Potassium Chloride Carbon Dioxide BUN Creatinine Est GFR ( Amer) Est GFR (Non-Af Amer) BUN/Creatinine Ratio Glucose POC Glucose 165 H Calculated Osmolality Calcium Creatine Kinase TEODORA Screen NONE DETECTED Complement C3 148 Complement C4 13 Preliminary micro results at discharge 07/10/17 11:40 Blood Culture - Preliminary Central Venous Catheter No growth. 07/10/17 09:18 Blood Culture - Preliminary Peripheral Venipuncture No growth. 07/10/17 12:40 Sputum Culture - Preliminary Sputum - Impressions ITS Impressions Chest X-Ray 06/30/17 19:02 IMPRESSION: Interval placement of enteric and endotracheal tubes. Enlargement of the cardiopericardial silhouette and prominence of the superior mediastinum. Follow-up PA and lateral would be helpful when possible. Suspected pulmonary vascular congestion. Asymmetric left basilar airspace disease is present, asymmetric edema, atelectasis or pneumonia. D/ / Lianna Marquez Cha, MD / Lianna Marquez Cha, MD Interpreting Provider: Lianna Marquez Cha, MD X-Ray 06/30/17 20:19 IMPRESSION: Enteric tube in place as above. D/ / Lianna Marquez Cha, MD / Lianna Marquez Cha, MD Interpreting Provider: Lianna Marquez Cha, MD Guidance Needle Placement Ultrasound 07/06/17 00:00 IMPRESSION: Ultrasound-guided placement of a temporary HD catheter as above. No immediate complications. A postprocedure chest radiograph confirms good position in the SVC. The catheter is ready for use. D/ / Jhonatan Bowen MD / Jhonatan Bowen MD Interpreting Provider: Jhonatan Bowen MD Insertion Non-Tunneled Catheter 07/06/17 00:00 IMPRESSION: Ultrasound-guided placement of a temporary HD catheter as above. No immediate complications. A postprocedure chest radiograph confirms good position in the SVC. The catheter is ready for use. D/ / Jhonatan Bowen MD / Jhonatan Bowen MD Interpreting Provider: Jhonatan Bowen MD Retroperitoneum Ultrasound 07/06/17 11:30 IMPRESSION: Unremarkable ultrasound of the kidneys. D/ / Castro Cruz MD / Castro Cruz MD Interpreting Provider: Castro Cruz MD Chest X-Ray 07/06/17 12:05 IMPRESSION: Right IJ central venous catheter in place, tip in the SVC. No pneumothorax seen. D/ / 07/06/2017 13:04:16 Travis Christensen MD / jennifer Interpreting Provider: Travis Christensen MD X-Ray 07/11/17 15:32 IMPRESSION: Feeding tube within the right lower lobe. Care team was aware when that image was obtained and the tube has already been removed. D/ / Gerald Fine MD / Gerald Fine MD Interpreting Provider: Gerald Fine MD Date of admission: 06/30/17 10:52 Primary care physician: PCP NONE Consults: 06/30/17 15:58 Consult to Invasive Line Access Team [CONS] Routine Reason for Consult: LIMITED ACCESS Line Type: EPIV 07/01/17 12:36 Consult to Cardiology [CONS] Routine Comment: Consulting Provider: Cardiology Jana Reason for Consult: elevated troponin Time Notified: 12:36 Call Completed: Yes 07/05/17 15:19 Consult to Nephrology [CONS] Routine Consulting Provider: Kidney Jana/CELESTINE/JOSE/BYRON Reason for Consult: ZOHAIB, RESP FAILURE, SEPSIS, CREATININE ABOVE 4 FOR 2 DAYS , K 5.4 Time Notified: 15:22 Call Completed: Yes 07/05/17 15:55 Consult to ENT [CONS] Routine Consulting Provider: ENT Jana Reason for Consult: evaluation for tracheostomy Call Completed: Yes 07/06/17 10:30 Consult to Interventional Radiology [CONS] Routine Consulting Provider: Radiology Interventional Cols Reason for Consult: Patient with ZOHAIB and will need dialysis. need temp HD line with 3rd port Call Completed: No 07/06/17 12:43 Consult to Field Advisor [CONS] Routine Reason for SW Consult: discharge planning, possible select for trach 07/06/17 13:00 Consult to Dialysis [CONS] ONCE 07/06/17 16:52 Consult to Gastroenterology [CONS] Routine Consulting Provider: Gastroenterology Jana Reason for Consult: coffee ground emesis Call Completed: No 07/07/17 07:45 Consult to Dialysis [CONS] ONCE 07/07/17 13:00 Consult to Dialysis [CONS] ONCE 07/08/17 08:00 Consult to Dialysis [CONS] ONCE 07/10/17 08:45 Consult to Dialysis [CONS] ONCE 07/10/17 15:39 Consult to Surgery [CONS] Routine Consulting Provider: Surgery Jana Surgical Reason for Consult: PEG Insertion Time Notified: 15:39 Call Completed: Yes 07/10/17 16:11 Consult to Physical Therapy [CONS] Routine Comment: Evaluate, develop and implement POC. Reason for Consult: Weakness. Patient is A&Ox3 and able to participate in rehab Does patient have active BEDREST order?: No Is patient medically & hemodynamically stable?: Yes OT [Consult to Occupational Therapy] [CONS] Routine Comment: Evaluate, develop and implement POC Reason for Consult: Weakness. Patient is A&Ox3 and able to participate in rehab Does patient have active BEDREST order?: No Is patient medically & hemodynamically stable?: Yes 07/11/17 07:45 Consult to Dialysis [CONS] ONCE 07/11/17 08:45 Consult to Dialysis [CONS] ONCE 07/12/17 07:30 Consult to Dialysis [CONS] ONCE 07/12/17 07:45 Consult to Dialysis [CONS] ONCE - Patient Status Disposition: Transfer LTC Condition: Serious - Discharge Instructions Follow Up With: Jose David Hood DO [Resident] - (a packet will be sent to patient for new patient information) Bacilio Ruiz DO [Resident] - 07/07/17 3:20 pm Additional Instructions: Patient did have tube feed over the weekend, however will require Dobbhoff for long-term enteral nutrition. - Hospital Course Hospital course: Mr. Garcia is a 42 year old male - Time Spent with Patient Total time spent providing and/or coordinating discharge services: Physical Examination Vital Signs: Vital Signs, Last 4 Hours Temp Pulse Resp BP Pulse Ox 07/12/17 10:40 139/87 07/12/17 10:25 146/84 07/12/17 10:10 144/88 07/12/17 10:00 82 34 138/70 95 07/12/17 09:55 98.4 F 32 148/89 07/12/17 09:01 36 92 07/12/17 09:00 82 34 156/88 91 07/12/17 08:00 99.2 F 82 34 150/88 91 07/12/17 07:40 31 93 - Attending Attestation I examined this patient and my medical decision-making was reviewed with the Resident Physician. I agree with the documented findings, disposition and treatment plan as described except to the extent set forth below. We independently had [id number] contact with the patient On the Day of discharge 07/12/2017: Patient seen and examined at bedside Labs, radiology, chart personally reviewed. Management was reviewed during multidisciplinary critical care rounds. DIGITAL CONTENT COORDINATOR: Awake and alert no deficit Pulm: Acute on chronic hypoxic hypercarbic respiratory failure requiring tracheostomy stable on pressure support ventilation Cards: Blood pressure monitored and stable FEN-GI: Pending small bore feeding tube placement for enteral nutrition he is not a candidate for PEG tube because of obesity Renal: Acute kidney injury requiring renal replacement therapy hyperkalemia today with plan for dialysis prior to discharge ID: Persistent leukocytosis blood cultures negative his completed a course of treatment for community acquired pneumonia Heme/Onc: DT prophylaxis given Endo: Glucose Monitored Integ/MSK: Skin Care per routine ICU Nursing Protocol to prevent ulcers. Lines: All lines examined without evidence of infection : Dispo: Transfer to LTAC CODE: Full code patient and family updated at bedside all questions answered and they are in agreement with plan of transfer <Gianluca Henriquez - Last Filed: 07/12/17 11:42> Orders not resulted at time of discharge: Pending orders 07/06/17 20:28 Eosinophil,Urine [URIN] Routine Sodium, Urine [UCHEM] Routine Urinalysis Reflex Cult & Micro [URIN] Routine Urine Microalbumin Random [UCHEM] Routine Urine Protein Creat Ratio [place] [UCHEM] Routine 07/10/17 09:00 Culture,Wound [RM] Routine 07/10/17 09:18 Culture,Blood [BC] Routine 07/10/17 11:40 Culture,Blood [BC] Routine 07/10/17 12:40 Culture,Sputum with Gram Stain [RM] Routine Date of Encounter: 07/12/17 Time of Encounter: 09:35 - Discharge Diagnosis (1) Acute on chronic respiratory failure with hypoxia and hypercapnia Priority: Primary Status: Acute (2) Respiratory acidosis Priority: Secondary Status: Acute (3) Pneumonia Priority: Secondary Status: Acute (4) Benign essential hypertension Priority: Secondary Status: Chronic (5) Diabetes Priority: Secondary Status: Chronic Qualifiers: Diabetes mellitus type: type 2 Diabetes mellitus usp insulin use: without long lines operator use Diabetes mellitus complication status: with hyperglycemia Qualified Code(s): E11.65 - Type 2 diabetes mellitus with hyperglycemia (6) Elevated troponin Priority: Secondary Status: Acute (7) Hyperkalemia Priority: Secondary Status: Acute (8) Leukocytosis Priority: Secondary Status: Acute Qualifiers: Leukocytosis type: unspecified Qualified Code(s): D72.829 - Elevated white blood cell count, unspecified (9) Morbid (severe) obesity due to excess calories Priority: Secondary Status: Chronic (10) Obstructive sleep apnea Priority: Secondary Status: Suspected (11) Obesity hypoventilation syndrome Priority: Secondary Status: Suspected Labs on day of discharge: Labs from last 24 hours 07/12/17 07/12/17 07/12/17 04:05 04:05 04:05 WBC 27.9 H RBC 3.98 L Hgb 11.3 L Hct 35.2 L MCV 88.4 MCH 28.4 MCHC 32.1 RDW 13.4 Plt Count 250 MPV 10.7 Immature Gran % 0.8 Seg Neutrophils % 88.4 Lymphocytes % 4.2 Monocytes % 5.6 Eosinophils % 0.8 Basophils % 0.2 Neutrophils # 24.7 H Lymphocytes # 1.2 Monocytes # 1.6 H Eosinophils # 0.2 Basophils # 0.1 Platelet Estimate Normal Sodium 134 L Potassium 5.7 H D Chloride 90 L Carbon Dioxide 25 BUN 114 H Creatinine 7.63 H Est GFR ( Amer) 9 L Est GFR (Non-Af Amer) 8 L BUN/Creatinine Ratio 15 Glucose 123 H POC Glucose Calculated Osmolality 316 H Calcium 8.6 Creatine Kinase 800 H TEODORA Screen Complement C3 Complement C4 07/11/17 07/11/17 07/11/17 23:38 19:53 17:15 WBC RBC Hgb Hct MCV MCH MCHC RDW Plt Count MPV Immature Gran % Seg Neutrophils % Lymphocytes % Monocytes % Eosinophils % Basophils % Neutrophils # Lymphocytes # Monocytes # Eosinophils # Basophils # Platelet Estimate Sodium Potassium Chloride Carbon Dioxide BUN Creatinine Est GFR ( Amer) Est GFR (Non-Af Amer) BUN/Creatinine Ratio Glucose POC Glucose 120 H 125 H 146 H Calculated Osmolality Calcium Creatine Kinase TE[place]ORA Screen Complement C3 Complement C4 07/11/17 07/11/17 07/11/17 13:25 11:37 07:39 WBC RBC Hgb Hct MCV MCH MCHC RDW Plt Count MPV Immature Gran % Seg Neutrophils % Lymphocytes % Monocytes % Eosinophils % Basophils % Neutrophils # Lymphocytes # Monocytes # Eosinophils # Basophils # Platelet Estimate Sodium Potassium 4.5 Chloride Carbon Dioxide BUN Creatinine Est GFR ( Amer) Est GFR (Non-Af Amer) BUN/Creatinine Ratio Glucose POC Glucose 137 H 151 H Calculated Osmolality Calcium Creatine Kinase TE[place]A Screen Complement C3 Complement C4 07/11/17 07/09/17 07/08/17 04:37 04:20 10:56 WBC RBC Hgb Hct MCV MCH MCHC RDW Plt Count MPV Immature Gran % Seg Neutrophils % Lymphocytes % Monocytes % Eosinophils % Basophils % Neutrophils # Lymphocytes # Monocytes # Eosinophils # Basophils # Platelet Estimate Sodium Potassium Chloride Carbon Dioxide BUN Creatinine Est GFR ( Amer) Est GFR (Non-Af Amer) BUN/Creatinine Ratio Glucose POC Glucose 165 H Calculated Osmolality Calcium Creatine Kinase TE[place]ORA Screen NONE DETECTED Complement C3 148 Complement C4 13 Preliminary micro results at discharge 07/10/17 12:40 Sputum Culture - Preliminary Sputum - Impressions ITS Impressions Chest X-Ray 06/30/17 19:02 IMPRESSION: Interval placement of enteric and endotracheal tubes. Enlargement of the cardiopericardial silhouette and prominence of the superior mediastinum. Follow-up PA and lateral would be helpful when possible. Suspected pulmonary vascular congestion. Asymmetric left basilar airspace disease is present, asymmetric edema, atelectasis or pneumonia. D/ / Lianna Marquez Cha, MD / Lianna Marquez Cha, MD Interpreting Provider: Lianna Marquez Cha, MD X-Ray 06/30/17 20:19 IMPRESSION: Enteric tube in place as above. D/ / Lianna Marquez Cha, MD / Lianna Marquez Cha, MD Interpreting Provider: Lianna Marquez Cha, MD Guidance Needle Placement Ultrasound 07/06/17 00:00 IMPRESSION: Ultrasound-guided placement of a temporary HD catheter as above. No immediate complications. A postprocedure chest radiograph confirms good position in the SVC. The catheter is ready for use. D/ / Jhonatan Bowen MD / Jhonatan Bowen MD Interpreting Provider: Jhonatan Bowen MD Insertion Non-Tunneled Catheter 07/06/17 00:00 IMPRESSION: Ultrasound-guided placement of a temporary HD catheter as above. No immediate complications. A postprocedure chest radiograph confirms good position in the SVC. The catheter is ready for use. D/ / Jhonatan Bowen MD / Jhonatan Bowen MD Interpreting Provider: Jhonatan Bowen MD Retroperitoneum Ultrasound 07/06/17 11:30 IMPRESSION: Unremarkable ultrasound of the kidneys. D/ / Castro Cruz MD / Castro Cruz MD Interpreting Provider: Castro Cruz MD Chest X-Ray 07/06/17 12:05 IMPRESSION: Right IJ central venous catheter in place, tip in the SVC. No pneumothorax seen. D/ / 07/06/2017 13:04:16 Travis Christensen MD / [facility] Interpreting Provider: Tarvis Christensen MD X-Ray 07/11/17 15:32 IMPRESSION: Feeding tube within the right lower lobe. Care team was aware when that image was obtained and the tube has already been removed. D/ / Gerald Fine MD / Gerald Fine MD Interpreting Provider: Gerald Fine MD Date of admission: 06/30/17 10:52 Primary care physician: PCP NONE Consults: 06/30/17 15:58 Consult to Invasive Line Access Team [CONS] Routine Reason for Consult: LIMITED ACCESS Line Type: EPIV 07/01/17 12:36 Consult to Cardiology [CONS] Routine Comment: Consulting Provider: Cardiology Jana Reason for Consult: elevated troponin Time Notified: 12:36 Call Completed: Yes 07/05/17 15:19 Consult to Nephrology [CONS] Routine Consulting Provider: Kidney Jana/CELESTINE/JOSE/BYRON Reason for Consult: ZOHAIB, RESP FAILURE, SEPSIS, CREATININE ABOVE 4 FOR 2 DAYS , K 5.4 Time Notified: 15:22 Call Completed: Yes 07/05/17 15:55 Consult to ENT [CONS] Routine Consulting Provider: ENT Jana Reason for Consult: evaluation for tracheostomy Call Completed: Yes 07/06/17 10:30 Consult to Interventional Radiology [CONS] Routine Consulting Provider: Radiology Interventional Cols Reason for Consult: Patient with ZOHAIB and will need dialysis. need temp HD line with 3rd port Call Completed: No 07/06/17 12:43 Consult to Field Advisor [CONS] Routine Reason for SW Consult: discharge planning, possible select for trach 07/06/17 13:00 Consult to Dialysis [CONS] ONCE 07/06/17 16:52 Consult to Gastroenterology [CONS] Routine Consulting Provider: Gastroenterology Jana Reason for Consult: coffee ground emesis Call Completed: No 07/07/17 07:45 Consult to Dialysis [CONS] ONCE 07/07/17 13:00 Consult to Dialysis [CONS] ONCE 07/08/17 08:00 Consult to Dialysis [CONS] ONCE 07/10/17 08:45 Consult to Dialysis [CONS] ONCE 07/10/17 15:39 Consult to Surgery [CONS] Routine Consulting Provider: Surgery Jana Surgical Reason for Consult: PEG Insertion Time Notified: 15:39 Call Completed: Yes 07/10/17 16:11 Consult to Physical Therapy [CONS] Routine Comment: Evaluate, develop and implement POC. Reason for Consult: Weakness. Patient is A&Ox3 and able to participate in rehab Does patient have active BEDREST order?: No Is patient medically & hemodynamically stable?: Yes OT [Consult to Occupational Therapy] [CONS] Routine Comment: Evaluate, develop and implement POC Reason for Consult: Weakness. Patient is A&Ox3 and able to participate in rehab Does patient have active BEDREST order?: No Is patient medically & hemodynamically stable?: Yes 07/11/17 07:45 Consult to Dialysis [CONS] ONCE 07/11/17 08:45 Consult to Dialysis [CONS] ONCE 07/12/17 07:30 Consult to Dialysis [CONS] ONCE 07/12/17 07:45 Consult to Dialysis [CONS] ONCE Discharging clinician: Bryn Robertson Anticipated date of discharge: 07/12/17 - Patient Status Overall status at discharge: patient is not back to baseline - Diet and Activity Activity: as per physical therapy, wear oxygen at all times Diet: other - Hospital Course Hospital course: Mr. Garcia is a 42 year old male with history of chronic bronchitis, super- morbid obesity and essential hypertension who presented to the emergency room on 06/30/17 with worsening shortness of breath and productive cough. His symptoms have began approximately 4 days prior to that and he was seen in urgent care at which time his x-ray did not demonstrate infiltrates but did show signs of CHF. He was DC'd home at that time with a prednisone taper and Keflex however his symptoms did not resolve. He was requiring increased usage of his albuterol inhaler at home. He eventually presented to the ED with an ABG that demonstrated pH 7.26, PCO2 73 and PO2 74. At that time he additionally had an elevated troponin which was determined to be demand ischemia. He was initially tried on BiPAP, however he was unable to tolerate and required intubation later that day. At that time he was also treated for suspicious pneumonia with Levaquin for which she would continue for 8 day course to completion. Respiratory status did not seem to improve significantly and in fact there was concern that the patient progressed to ARDS, and the patient required insertion of a tracheostomy. The patient also began to develop a significant anuric ZOHAIB during his stay which possibly is related to elevated CK. Nephrology was consulted and the patient was started on acute dialysis following insertion of a temporary dialysis catheter, which is required daily. Although there was never positive microbiology for cultures, the patient did remain leukocytotic throughout his stay despite resolution of symptoms of infection. He has also had hyperkalemia which is treated with daily acute dialysis. In regards to nutrition, the patient is not a candidate for PEG tube placement, however Dobbhoff placement planned under fluoroscopy is a reasonable option. The patient will require transfer to LTAC for long-term treatment including nursing and rehabilitation services. The patient has a strong support system with family members who are actively involved in his care , there is understanding of treatment plan and agreement. - Time Spent with Patient Total time spent providing and/or coordinating discharge services: Greater than 30 minutes Physical Examination Vital Signs: Vital Signs, Last 4 Hours Temp Pulse Resp BP Pulse Ox 07/12/17 09:01 36 92 07/12/17 09:00 82 34 156/88 91 07/12/17 08:00 99.2 F 82 34 150/88 91 07/12/17 07:40 31 93 07/12/17 06:27 26 154/90 94 07/12/17 06:00 78 22 154/90 97 07/12/17 05:18 26 139/85 98 Gen: Vitals noted. No acute distress. Morbidly obese HEENT: oropharynx clear, Normocephalic, atraumatic Neck: Supple. No adenopathy. Tracheostomy is in place Cardiac: RRR, no murmur, +S1/S2 Pulmonary: Diffuse scattered rhonchi Abdomen: soft, nontender, BS noted, no guarding MSK: ROM intact, no joint swelling noted Extremities: no BLE edema, nontender calf, no cyanosis or clubbing. There is darkened skin consistent with chronic stasis Neuro: A&Ox3, moves all extremities, no focal deficits Psych: Appropriate mood and behavior
[2017-07-12 12:39] VITALS: BP 129/82
--- NOTE | 2017-07-12 23:03 | Nephrology Progress Note ---
Date of Encounter: 07/12/17 Time of Encounter: 11:00 - Assessment and Plan (1) ZOHAIB (acute kidney injury) Status: Acute SCr continues to poor with continued anuria. Continue HD, shortened today with UF gaol of 3kg, transfer to [facility] in [place] today planned Continue to avoid nephrotoxins if possible Limit obligate fluids if possible especially while anuric Discussed goal of care with primary team (2) Acute and chronic respiratory failure Status: Resolved on cpap, weaning per primary team Qualifiers: Respiratory failure complication: hypoxia and hypercapnia Qualified Code(s) : J96.21 - Acute and chronic respiratory failure with hypoxia; J96.22 - Acute and chronic respiratory failure with hypercapnia; J96.22 - Acute and chronic respiratory failure with hypercapnia; J96.22 - Acute and chronic respiratory failure with hypercapnia (3) Hyperkalemia Status: Acute Potassium normalized with daily HD and on nepro feeds Subjective Principal diagnosis: Respiratory failure Interval history: Pt seen and examined awake with trach on cpap while receiving HD which was shortened due to pending transfer to [facility] in [place] Objective - Vital Signs Vital signs: Vital Signs Temp Pulse Resp BP Pulse Ox 07/12/17 12:35 97.5 F L 34 129/82 07/12/17 12:25 115/82 07/12/17 12:10 126/80 07/12/17 12:00 97.5 F L 100 34 105/81 94 07/12/17 11:55 127/81 07/12/17 11:40 132/96 07/12/17 11:36 23 94 07/12/17 11:25 138/96 07/12/17 11:10 129/80 07/12/17 11:00 90 30 136/84 94 07/12/17 10:55 133/80 07/12/17 10:40 139/87 07/12/17 10:25 146/84 07/12/17 10:10 144/88 07/12/17 10:00 82 34 138/70 95 07/12/17 09:55 98.4 F 32 148/89 07/12/17 09:01 36 92 07/12/17 09:00 82 34 156/88 91 07/12/17 08:00 99.2 F 82 34 150/88 91 07/12/17 07:40 31 93 04/18/18 06:27 26 154/90 94 04/18/18 06:00 78 22 154/90 97 07/12/17 05:18 26 139/85 98 07/12/17 05:00 92 31 139/85 96 07/12/17 04:00 97.8 F 81 30 129/84 98 07/12/17 03:25 29 142/84 97 07/12/17 03:00 80 24 142/84 96 07/12/17 02:00 83 28 117/61 98 07/12/17 01:09 23 145/82 99 07/12/17 01:00 71 23 145/82 99 07/12/17 00:11 98.6 F 07/12/17 00:00 79 26 148/84 96 07/11/17 23:16 29 135/80 96 Intake and Output 07/12/17 07/12/17 07/12/17 07:59 15:59 23:59 Intake Total 0 / 0 600 / 600 Output Total 0 / 0 3600 / 3600 Balance 0 / 0 -3000 / -3000 Intake: Oral 0 / 0 0 / 0 Intake, Rinseback and Flushes 600 / 600 Output: Total Dialysis (HD) Output 3600 / 3600 Catheter 0 / 0 0 / 0 Other: Weight 236.9 kg Blood Glucose* 117 122 Hemodialysis Net Fluid Removed 3000 (mL) Patient Weight 07/12/17 23:59 Weight 236.9 kg - General Appearance General appearance: Present: intubated (with trach) EENT: Present: ATNC, mucous membranes moist Neck: Present: no JVD, supple Respiratory: Present: clear Cardiology: Present: edema, normal S1, normal S2 Dialysis Vascular Access: Venous Catheter (temp HD) Gastrointestinal: Present: no tenderness, no guarding, obese Integumentary: Present: warm and dry Neurologic: Present: no focal deficit Musculoskeletal: Present: no deformities Psychiatric: Present: mood/affect appropriate, cooperative - Lab 07/12/17 04:05 07/12/17 11:47 Most recent lab results ABG pH 7.32 pH Units (7.32-7.45) 07/08/17 04:29 ABG pCO2 54 mmHg (35-45) H 07/08/17 04:29 ABG pO2 127 mmHg (85-104) H 07/08/17 04:29 ABG HCO3 28 mEq/L (21-27) H 07/08/17 04:29 ABG O2 Saturation 99 % (95-98) H 07/08/17 04:29 Calcium 8.6 mg/dL (8.6-10.3) 07/12/17 04:05 Phosphorus 7.4 mg/dL (2.7-4.5) H 07/02/17 07:12 Magnesium 2.5 mg/dL (1.6-2.6) 07/02/17 04:00 Urine Creatinine 151 mg/dL 07/02/17 07:12 Urine Sodium 53.8 mEq/L 07/02/17 07:12 Consult Discharge Plan - Plan Additional Instructions: Patient did have tube feed over the weekend, however will require [facility] for long-term enteral nutrition. Referrals: Jose David Hood DO [Resident] - (a packet will be sent to patient for new patient information) Bacilio Ruiz DO [Resident] - 07/07/17 3:20 pm
--- NOTE | 2017-07-14 08:32 | Electrocardiograph Report ---
[place] [id number] Test Date: 2017-07-07 Pat Name: Michael Garcia Department: [id number] Room: [facility] Gender: M [employer]: : [id number] Requested By: Rex Prieto Order Number: [id number] Reading MD: Fede Denney Measurements Intervals [place] Rate: 76 P: -8 NM: 134 QRS: 7 QRSD: 98 T: 38 QT: 369 QTc: 400 Interpretive Statements SINUS RHYTHM INCOMPLETE RIGHT BUNDLE BRANCH BLOCK Electronically Signed On 07-14-2017 8:31:31 EDT by Fede Denney
== END 2017-07-12 13:11 | DRG 5 ==
LOC: EMEROO 05:47 → 2NNU 10:52 → ICNU 19:52
PROVIDERS: ADMIT Internal Medicine; ATTEND Internal Medicine

== ENCOUNTER 2021-04-24 14:27 | Inpatient (IN) ==
[2021-04-24] MEDS ORDERED: 0.9 % Sodium Chloride 1,000 ML IV ONE (15:02)
[2021-04-24 15:24] LABS: Hematocrit 26.1 % (37.5-50.1); Hemoglobin 8.5 g/dL (12.9-16.9); Mean Corpuscular HGB Conc 32.6 g/dL (31.6-35.5); Mean Corpuscular Hemoglobin 30.1 pg (28.0-33.3); Mean Corpuscular Volume 92.6 fL (83.0-100.0); Mean Platelet Volume 10.8 fL (9.4-12.4); Nucleated Red Blood Cells 0.5 /100 WBC (0); Platelet Count 297 K/mcL (140-400); Red Blood Count 2.82 M/mcL (4.19-5.50); Red Cell Distribution Width 14.4 % (11.5-14.5)
[2021-04-24 15:28] LABS: White Blood Count 37.4 K/mcL (4.3-11.1)
[2021-04-24 15:45] LABS: Lymphocytes # 2.6 K/mcL (0.6-4.6); Monocytes # 0.8 K/mcL (0.0-1.3); Neutrophils # 33.7 K/mcL (1.6-8.9); Platelet Estimate Normal (Normal)
[2021-04-24 15:46] LABS: Anisocytosis 1+ (Not Present)
[2021-04-24 15:49] LABS: Albumin 2.7 g/dL (3.5-5.7); Albumin/Globulin Ratio 0.8 (1.1-2.2); Bilirubin,Total 0.8 mg/dL (0.3-1.0); Calcium 7.7 mg/dL (8.6-10.3); Globulin 3.5 g/dL (2.4-3.5); Total Protein 6.2 g/dL (6.4-8.9)
[2021-04-24] MEDS ORDERED: Vancomycin 2,000 MG/520 ML IV.SOLN IVPB ONE (16:26)
[2021-04-24] MEDS ORDERED: Piperacillin/Tazobactam 3.375 GM in 0.9 % Sodium Chloride Mini Bag 100 ML IVPB ONE (16:26)
[2021-04-24 17:20] LABS: Influenza A PCR Negative (Negative); Influenza B PCR Negative (Negative); Resp. Syncytial Virus PCR Negative (Negative)
[2021-04-24 17:23] LABS: SARS-CoV-2 by PCR (In House) Positive (Negative)
[2021-04-24] MEDS ORDERED: Ondansetron ODT 4 MG TAB.RAPDIS SL ONE ×2 (17:29→17:32)
[2021-04-24] MEDS ORDERED: Naloxone 0.4 MG/ML INJ IVP PRN (19:24)
[2021-04-24] MEDS ORDERED: Ondansetron ODT 4 MG TAB.RAPDIS SL PRN (19:24)
[2021-04-24] MEDS ORDERED: Calcium Gluconate 1gm/50mL 1 GM/50 ML BAG IVPB ONE (19:29)
[2021-04-24] MEDS ORDERED: D5% in Water 1,000 ML IVC PRN (22:31)
[2021-04-24] MEDS ORDERED: Dextrose Gel 15 GM/37.5 ML TUBE PO PRN ×2 (22:31)
[2021-04-24] MEDS ORDERED: *HR* Dextrose 50 % in Water (Syg) 50 ML SYRINGE IVP PRN (22:31)
[2021-04-24] MEDS ORDERED: Insulin LISPRO 300 UNITS/3 ML VIAL SUBQ SCH (22:45)
[2021-04-24] MEDS ORDERED: *HR* Heparin 5,000 UNIT/ML VIAL IVP ONE (23:20)
[2021-04-24] MEDS ORDERED: *HR* Heparin 5,000 UNIT/ML VIAL IVP PRN (23:20)
[2021-04-24] MEDS: Heparin 25,000UNIT/250ML 1/2NS 25,000 UNIT/250 ML IV.SOLN IVC SCH (23:53)
[2021-04-25] MEDS: Insulin LISPRO 300 UNITS/3 ML VIAL SUBQ SCH ×5 (00:02→22:24)
[2021-04-25 05:13] LABS: Mean Platelet Volume 10.8 fL (9.4-12.4); Nucleated Red Blood Cells 0.3 /100 WBC (0); Red Cell Distribution Width 14.4 % (11.5-14.5)
[2021-04-25 05:15] LABS: Hematocrit 25.7 % (37.5-50.1); Hemoglobin 8.3 g/dL (12.9-16.9); Mean Corpuscular HGB Conc 32.3 g/dL (31.6-35.5); Mean Corpuscular Hemoglobin 29.7 pg (28.0-33.3); Mean Corpuscular Volume 92.1 fL (83.0-100.0); Platelet Count 297 K/mcL (140-400); Red Blood Count 2.79 M/mcL (4.19-5.50)
[2021-04-25 05:29] LABS: Albumin 2.7 g/dL (3.5-5.7); Albumin/Globulin Ratio 0.8 (1.1-2.2); Bilirubin,Direct 0.4 mg/dL (0.0-0.2); Bilirubin,Indirect 0.3 mg/dL (0.0-1.0); Bilirubin,Total 0.7 mg/dL (0.3-1.0); Globulin 3.6 g/dL (2.4-3.5); Total Protein 6.3 g/dL (6.4-8.9)
[2021-04-25 05:31] LABS: BUN/Creatinine Ratio 43 (6-26); Blood Urea Nitrogen 58 mg/dL (6-20); Calcium 7.7 mg/dL (8.6-10.3); Carbon Dioxide 26 mEq/L (23-29); Chloride 95 mEq/L (98-107); Glucose 163 mg/dL (70-105); Iron 15 mcg/dL (65-175); Lactate Dehydrogenase 304 Units/L (140-271); Magnesium 2.3 mg/dL (1.6-2.6); Osmolality,Calculated 290 (280-300); Phosphorous 3.9 mg/dL (2.7-4.5); Potassium 3.6 mEq/L (3.5-5.1); Sodium 130 mEq/L (136-145); eGFR For African Americans > 60 (> 60); eGFR For Non-African Americans 56 (> 60)
[2021-04-25 05:33] LABS: % Iron Saturation 6 % (20-55); Transferrin 168 mg/dL (203-362)
[2021-04-25 05:44] LABS: Thyroid Stimulating Hormone 2.658 mcIU/mL (0.340-5.600)
[2021-04-25 05:45] LABS: INR 1.3
[2021-04-25 05:46] LABS: White Blood Count 40.2 K/mcL (4.3-11.1)
[2021-04-25 05:50] LABS: Ferritin 841 ng/mL (20-250)
[2021-04-25] MEDS: Vancomycin 2,000 MG/520 ML IV.SOLN IVPB SCH ×2 (06:02→17:03)
[2021-04-25] MEDS ORDERED: Iron Sucrose Complex 400 MG in 0.9 % Sodium Chloride 250 ML IVPB ONE (07:30)
[2021-04-25] MEDS: Heparin 25,000UNIT/250ML 1/2NS 25,000 UNIT/250 ML IV.SOLN IVC SCH ×2 (07:35→15:39)
[2021-04-25 07:46] LABS: Monocytes # 1.6 K/mcL (0.0-1.3)
[2021-04-25 07:48] LABS: Lymphocytes # 4.8 K/mcL (0.6-4.6); Neutrophils # 33.4 K/mcL (1.6-8.9); Platelet Estimate Normal (Normal)
[2021-04-25] MEDS: Piperacillin/Tazobactam 3.375 GM in 0.9 % Sodium Chloride Mini Bag 100 ML IVPB SCH ×4 (09:50→23:02)
[2021-04-25] MEDS ORDERED: Metoclopramide 10 MG/2 ML VIAL IVP ONE (14:59)
[2021-04-25 15:17] LABS: Estimated Average Glucose 171 mg/dl; Hemoglobin A1C 7.6 %
[2021-04-25] MEDS: *HR* Heparin 5,000 UNIT/ML VIAL IVP PRN ×2 (15:40→22:58)
[2021-04-25 17:00] LABS: Acinetobacter baumannii by PCR Not Detected (Not Detect); Candida albicans by PCR Not Detected (Not Detect); Candida glabrata by PCR Not Detected (Not Detect); Candida krusei by PCR Not Detected (Not Detect); Candida parapsilosis by PCR Not Detected (Not Detect); Candida tropicalis by PCR Not Detected (Not Detect); Enterobacter cloacae Cmplx PCR Not Detected (Not Detect); Enterococcus by PCR Not Detected (Not Detect); Escherichia coli by PCR Not Detected (Not Detect); Klebsiella oxytoca by PCR Not Detected (Not Detect); Klebsiella pneumoniae by PCR Not Detected (Not Detect); Pseudomonas aeruginosa by PCR Not Detected (Not Detect); Serratia marcescens by PCR Not Detected (Not Detect); Staphylococcus aureus by PCR Not Detected (Not Detect); Staphylococcus by PCR Not Detected (Not Detect); Streptococcus agalactiae(B)PCR Not Detected (Not Detect); Streptococcus by PCR DETECTED (Not Detect); Streptococcus pneumoniae PCR Not Detected (Not Detect); Streptococcus pyogenes (A) PCR Not Detected (Not Detect)
[2021-04-25] MEDS: Acetaminophen 325 MG TABLET PO PRN (21:58)
[2021-04-26 04:43] LABS: Basophils % 0.5 %; Immature Granulocytes % 7.7 % (0-4); Mean Corpuscular HGB Conc 32.2 g/dL (31.6-35.5); Mean Platelet Volume 11.1 fL (9.4-12.4); Nucleated Red Blood Cells 0.8 /100 WBC (0); Red Cell Distribution Width 14.4 % (11.5-14.5)
[2021-04-26 04:44] LABS: Basophils # 0.2 K/mcL (0.0-0.2); Eosinophils # 0.2 K/mcL (0.0-0.6); Eosinophils % 0.5 %; Hemoglobin 7.4 g/dL (12.9-16.9); Lymphocytes # 5.1 K/mcL (0.6-4.6); Lymphocytes % 11.7 %; Mean Corpuscular Volume 93.1 fL (83.0-100.0); Monocytes # 1.6 K/mcL (0.0-1.3); Monocytes % 3.7 %; Platelet Count 327 K/mcL (140-400); Red Blood Count 2.47 M/mcL (4.19-5.50); Segmented Neutrophils % 75.9 %
[2021-04-26 04:53] LABS: White Blood Count 43.5 K/mcL (4.3-11.1)
[2021-04-26 05:07] LABS: Alanine Aminotransferase 117 Units/L (7-52); Albumin 2.5 g/dL (3.5-5.7); Albumin/Globulin Ratio 0.8 (1.1-2.2); Alkaline Phosphatase 144 Units/L (34-104); Aspartate Amino Transferase 90 Units/L (13-39); BUN/Creatinine Ratio 35 (6-26); Bilirubin,Total 0.5 mg/dL (0.3-1.0); Blood Urea Nitrogen 41 mg/dL (6-20); Calcium 7.3 mg/dL (8.6-10.3); Carbon Dioxide 28 mEq/L (23-29); Chloride 95 mEq/L (98-107); Globulin 3.3 g/dL (2.4-3.5); Glucose 159 mg/dL (70-105); Osmolality,Calculated 281 (280-300); Potassium 3.7 mEq/L (3.5-5.1); Sodium 129 mEq/L (136-145); Total Protein 5.8 g/dL (6.4-8.9); eGFR For African Americans > 60 (> 60); eGFR For Non-African Americans > 60 (> 60)
[2021-04-26 05:12] LABS: Platelet Estimate Normal (Normal)
[2021-04-26 05:13] LABS: Hypochromasia Present (Not Present); Polychromasia 1+ (Not Present)
[2021-04-26] MEDS: *HR* Heparin 5,000 UNIT/ML VIAL IVP PRN (05:31)
[2021-04-26] MEDS: Vancomycin 2,000 MG/520 ML IV.SOLN IVPB SCH (05:33)
[2021-04-26] MEDS: Acetaminophen 325 MG TABLET PO PRN (06:16)
[2021-04-26 07:27] LABS: Enterobacteriaceae by PCR Not Detected (Not Detect); Proteus by PCR Not Detected (Not Detect); blaKPC Carbapenem-Resist Gene Not Detected (Not Detect)
[2021-04-26] MEDS: Piperacillin/Tazobactam 3.375 GM in 0.9 % Sodium Chloride Mini Bag 100 ML IVPB SCH ×3 (09:32→23:26)
[2021-04-26 10:41] LABS: Hepatitis B Surface Antigen Nonreactive (Nonreactive)
[2021-04-26 11:09] LABS: Hepatitis B Core IgM Nonreactive (Nonreactive); Hepatitis C Virus Antibody Nonreactive (Nonreactive)
[2021-04-26 11:11] LABS: Hepatitis A Antibody IgM Nonreactive (Nonreactive)
[2021-04-26] MEDS: Heparin 25,000UNIT/250ML 1/2NS 25,000 UNIT/250 ML IV.SOLN IVC SCH ×2 (11:28→23:18)
[2021-04-26] MEDS: Insulin LISPRO 300 UNITS/3 ML VIAL SUBQ SCH ×3 (11:33→20:54)
[2021-04-26] MEDS: Ipratropium 1 PUFF INHALER IH SCH ×3 (16:04→23:44)
[2021-04-27 03:33] LABS: Hematocrit 23.7 % (37.5-50.1); Hemoglobin 7.2 g/dL (12.9-16.9); Mean Corpuscular HGB Conc 30.4 g/dL (31.6-35.5); Mean Corpuscular Hemoglobin 29.1 pg (28.0-33.3); Nucleated Red Blood Cells 1.5 /100 WBC (0); Platelet Count 396 K/mcL (140-400); Red Blood Count 2.47 M/mcL (4.19-5.50); Red Cell Distribution Width 14.5 % (11.5-14.5)
[2021-04-27 03:37] LABS: White Blood Count 40.6 K/mcL (4.3-11.1)
[2021-04-27 03:54] LABS: Alanine Aminotransferase 97 Units/L (7-52); Albumin 2.5 g/dL (3.5-5.7); Albumin/Globulin Ratio 0.7 (1.1-2.2); Alkaline Phosphatase 114 Units/L (34-104); Aspartate Amino Transferase 47 Units/L (13-39); BUN/Creatinine Ratio 24 (6-26); Bilirubin,Total 0.5 mg/dL (0.3-1.0); Blood Urea Nitrogen 26 mg/dL (6-20); C-Reactive Protein 94 mg/L (Less than 10); Calcium 7.4 mg/dL (8.6-10.3); Carbon Dioxide 27 mEq/L (23-29); Chloride 99 mEq/L (98-107); Globulin 3.4 g/dL (2.4-3.5); Glucose 168 mg/dL (70-105); Lactate Dehydrogenase 213 Units/L (140-271); Magnesium 2.5 mg/dL (1.6-2.6); Osmolality,Calculated 285 (280-300); Potassium 3.8 mEq/L (3.5-5.1); Sodium 133 mEq/L (136-145); Total Protein 5.9 g/dL (6.4-8.9); eGFR For African Americans > 60 (> 60); eGFR For Non-African Americans > 60 (> 60)
[2021-04-27] MEDS: Heparin 25,000UNIT/250ML 1/2NS 25,000 UNIT/250 ML IV.SOLN IVC SCH ×5 (04:11→19:49)
[2021-04-27 04:12] LABS: Ferritin 869 ng/mL (20-250)
[2021-04-27] MEDS: Insulin LISPRO 300 UNITS/3 ML VIAL SUBQ SCH ×5 (04:12→22:05)
[2021-04-27] MEDS: Vancomycin 2,000 MG/520 ML IV.SOLN IVPB SCH ×3 (04:12→17:33)
[2021-04-27] MEDS: Ipratropium 1 PUFF INHALER IH SCH ×5 (04:31→20:21)
[2021-04-27] MEDS: Acetaminophen 325 MG TABLET PO PRN (04:33)
[2021-04-27 04:39] LABS: Folate 12.2 ng/mL (3.0-16.0); Lymphocytes # 7.3 K/mcL (0.6-4.6); Monocytes # 0.8 K/mcL (0.0-1.3); Neutrophils # 29.2 K/mcL (1.6-8.9); Platelet Estimate Normal (Normal); Vitamin B12 > 1500 pg/mL (250-1100)
[2021-04-27] MEDS: Piperacillin/Tazobactam 3.375 GM in 0.9 % Sodium Chloride Mini Bag 100 ML IVPB SCH ×2 (08:41→17:34)
[2021-04-27 11:48] LABS: Hematocrit 25.1 % (37.5-50.1); Hemoglobin 7.7 g/dL (12.9-16.9)
[2021-04-28] MEDS: Ipratropium 1 PUFF INHALER IH SCH ×7 (00:14→23:57)
[2021-04-28] MEDS: Piperacillin/Tazobactam 3.375 GM in 0.9 % Sodium Chloride Mini Bag 100 ML IVPB SCH ×2 (00:41→07:53)
[2021-04-28] MEDS: Vancomycin 2,000 MG/520 ML IV.SOLN IVPB SCH (04:29)
[2021-04-28 06:01] LABS: Hemoglobin 6.5 g/dL (12.9-16.9); Red Cell Distribution Width 14.9 % (11.5-14.5)
[2021-04-28 06:03] LABS: Hematocrit 21.7 % (37.5-50.1); Mean Corpuscular Hemoglobin 29.3 pg (28.0-33.3); Mean Corpuscular Volume 97.7 fL (83.0-100.0); Nucleated Red Blood Cells 1.2 /100 WBC (0); Platelet Count 429 K/mcL (140-400); Red Blood Count 2.22 M/mcL (4.19-5.50)
[2021-04-28 06:11] LABS: White Blood Count 32.6 K/mcL (4.3-11.1)
[2021-04-28 06:23] LABS: Alanine Aminotransferase 69 Units/L (7-52); Albumin 2.4 g/dL (3.5-5.7); Albumin/Globulin Ratio 0.7 (1.1-2.2); Alkaline Phosphatase 94 Units/L (34-104); Aspartate Amino Transferase 28 Units/L (13-39); BUN/Creatinine Ratio 16 (6-26); Bilirubin,Total 0.4 mg/dL (0.3-1.0); Blood Urea Nitrogen 15 mg/dL (6-20); Calcium 7.6 mg/dL (8.6-10.3); Carbon Dioxide 28 mEq/L (23-29); Chloride 103 mEq/L (98-107); Globulin 3.6 g/dL (2.4-3.5); Glucose 187 mg/dL (70-105); Osmolality,Calculated 288 (280-300); Potassium 4.1 mEq/L (3.5-5.1); Sodium 136 mEq/L (136-145); eGFR For African Americans > 60 (> 60); eGFR For Non-African Americans > 60 (> 60)
[2021-04-28 06:25] LABS: Eosinophils # 0.7 K/mcL (0.0-0.6); Large Platelets Present (Not Present); Lymphocytes # 2.6 K/mcL (0.6-4.6); Platelet Estimate Normal (Normal)
[2021-04-28 06:26] LABS: Microcytosis Present (Not Present); Polychromasia 1+ (Not Present)
[2021-04-28] MEDS: Insulin LISPRO 300 UNITS/3 ML VIAL SUBQ SCH ×3 (08:07→17:51)
[2021-04-28] MEDS ORDERED: 0.9 % Sodium Chloride 250 ML IVC SCH (08:30)
[2021-04-28 11:30] LABS: Hematocrit 23.3 % (37.5-50.1); Hemoglobin 7.3 g/dL (12.9-16.9)
[2021-04-28] MEDS: Heparin 25,000UNIT/250ML 1/2NS 25,000 UNIT/250 ML IV.SOLN IVC SCH ×2 (11:50→17:33)
[2021-04-28] MEDS: cefTRIAXone 2,000 MG in 0.9 % Sodium Chloride Mini Bag 100 ML IVPB SCH (12:03)
[2021-04-28] MEDS: Pantoprazole 40 MG VIAL IVP SCH ×2 (12:04→17:42)
[2021-04-28] MEDS ORDERED: Remdesivir 200 MG in 0.9 % Sodium Chloride 100 ML IVPB ONE (13:23)
[2021-04-28 16:04] LABS: Bilirubin,Urine Negative (Negative); Blood,Urine Negative (Negative); Clarity,Urine Clear (Clear); Color,Urine Light-Yellow (Yellow); Glucose,Urine (UA) 100 mg/dL (Normal); Ketones,Urine Negative (Negative); Leukocyte Esterase,Urine Negative (Negative); Nitrite,Urine Negative (Negative); Protein,Urine Trace mg/dL (Neg-Trace); RBC,Urine 0-3 per hpf (0-3); Specific Gravity,Urine 1.012 (1.010-1.025); Squamous Epithelial Cell,Urine Few per hpf (None-Few); Urobilinogen,Urine Normal (Normal); WBC,Urine 0-3 per hpf (0-3)
[2021-04-28 18:51] LABS: Hematocrit 23.1 % (37.5-50.1); Hemoglobin 6.8 g/dL (12.9-16.9)
[2021-04-28] MEDS: Furosemide 20 MG/2 ML VIAL IVP SCH (20:45)
[2021-04-28 20:50] LABS: Lambda Qnt Free Light Chains 83.03 mg/L (5.71-26.30)
[2021-04-29 02:06] LABS: Hematocrit 22.9 % (37.5-50.1); Hemoglobin 6.8 g/dL (12.9-16.9); Mean Corpuscular HGB Conc 29.7 g/dL (31.6-35.5); Mean Corpuscular Hemoglobin 29.4 pg (28.0-33.3); Mean Corpuscular Volume 99.1 fL (83.0-100.0); Mean Platelet Volume 10.1 fL (9.4-12.4); Nucleated Red Blood Cells 1.3 /100 WBC (0); Platelet Count 441 K/mcL (140-400); Red Blood Count 2.31 M/mcL (4.19-5.50); Red Cell Distribution Width 15.3 % (11.5-14.5); White Blood Count 21.9 K/mcL (4.3-11.1)
[2021-04-29 03:43] LABS: Eosinophils # 0.4 K/mcL (0.0-0.6); Lymphocytes # 4.6 K/mcL (0.6-4.6); Monocytes # 2.2 K/mcL (0.0-1.3); Neutrophils # 14.7 K/mcL (1.6-8.9); Platelet Estimate Normal (Normal); Reactive Lymphocytes Present (Not Present)
[2021-04-29 03:44] LABS: Hypochromasia Present (Not Present); Polychromasia 1+ (Not Present)
[2021-04-29] MEDS: Ipratropium 1 PUFF INHALER IH SCH ×5 (04:04→19:28)
[2021-04-29] MEDS: Pantoprazole 40 MG VIAL IVP SCH (05:27)
[2021-04-29 06:24] LABS: Red Cell Distribution Width 15.5 % (11.5-14.5)
[2021-04-29 06:25] LABS: Hematocrit 22.5 % (37.5-50.1); Hemoglobin 6.7 g/dL (12.9-16.9); Mean Corpuscular HGB Conc 29.8 g/dL (31.6-35.5); Mean Corpuscular Hemoglobin 29.6 pg (28.0-33.3); Mean Corpuscular Volume 99.6 fL (83.0-100.0); Mean Platelet Volume 10.3 fL (9.4-12.4); Nucleated Red Blood Cells 1.3 /100 WBC (0); Platelet Count 459 K/mcL (140-400); Red Blood Count 2.26 M/mcL (4.19-5.50); White Blood Count 22.2 K/mcL (4.3-11.1)
[2021-04-29 07:07] LABS: Alanine Aminotransferase 54 Units/L (7-52); Albumin 2.6 g/dL (3.5-5.7); Albumin/Globulin Ratio 0.7 (1.1-2.2); Alkaline Phosphatase 82 Units/L (34-104); Aspartate Amino Transferase 20 Units/L (13-39); BUN/Creatinine Ratio 11 (6-26); Bilirubin,Direct 0.2 mg/dL (0.0-0.2); Bilirubin,Indirect 0.1 mg/dL (0.0-1.0); Bilirubin,Total 0.3 mg/dL (0.3-1.0); Blood Urea Nitrogen 10 mg/dL (6-20); Carbon Dioxide 27 mEq/L (23-29); Chloride 108 mEq/L (98-107); Globulin 3.7 g/dL (2.4-3.5); Glucose 141 mg/dL (70-105); Magnesium 1.9 mg/dL (1.6-2.6); Osmolality,Calculated 287 (280-300); Phosphorous 3.7 mg/dL (2.7-4.5); Potassium 4.1 mEq/L (3.5-5.1); Sodium 138 mEq/L (136-145); Total Protein 6.3 g/dL (6.4-8.9); eGFR For African Americans > 60 (> 60); eGFR For Non-African Americans > 60 (> 60)
[2021-04-29 07:26] LABS: Lymphocytes # 1.3 K/mcL (0.6-4.6); Monocytes # 0.9 K/mcL (0.0-1.3)
[2021-04-29] MEDS: Insulin LISPRO 300 UNITS/3 ML VIAL SUBQ SCH ×5 (07:55→20:29)
[2021-04-29] MEDS: Heparin 25,000UNIT/250ML 1/2NS 25,000 UNIT/250 ML IV.SOLN IVC SCH (07:56)
[2021-04-29] MEDS: cefTRIAXone 2,000 MG in 0.9 % Sodium Chloride Mini Bag 100 ML IVPB SCH (08:44)
[2021-04-29] MEDS: Furosemide 20 MG/2 ML VIAL IVP SCH ×2 (08:45→20:29)
[2021-04-29 08:47] LABS: Kappa Qnt Free Light Chains 129.81 mg/L (3.30-19.40)
[2021-04-29] MEDS: Remdesivir 100 MG in 0.9 % Sodium Chloride 100 ML IVPB SCH (16:25)
[2021-04-29 17:07] LABS: Hematocrit 24.9 % (37.5-50.1); Hemoglobin 7.4 g/dL (12.9-16.9)
[2021-04-29 21:59] LABS: Hematocrit 25.4 % (37.5-50.1); Hemoglobin 7.6 g/dL (12.9-16.9)
[2021-04-30] MEDS: Ipratropium 1 PUFF INHALER IH SCH ×5 (00:08→15:21)
[2021-04-30 06:02] LABS: Hematocrit 25.5 % (37.5-50.1); Hemoglobin 7.5 g/dL (12.9-16.9); Mean Corpuscular HGB Conc 29.4 g/dL (31.6-35.5); Mean Corpuscular Hemoglobin 28.8 pg (28.0-33.3); Mean Corpuscular Volume 98.1 fL (83.0-100.0); Mean Platelet Volume 10.4 fL (9.4-12.4); Nucleated Red Blood Cells 1.2 /100 WBC (0); Platelet Count 384 K/mcL (140-400); Red Cell Distribution Width 15.9 % (11.5-14.5); White Blood Count 18.5 K/mcL (4.3-11.1)
[2021-04-30 06:13] LABS: D-Dimer 2107 ng/mLFEU (0-500); Fibrinogen 534 mg/dL (169-393)
[2021-04-30 06:40] VITALS: PULSE 81
[2021-04-30 06:51] LABS: Eosinophils # 0.6 K/mcL (0.0-0.6); Lymphocytes # 3.2 K/mcL (0.6-4.6); Monocytes # 1.3 K/mcL (0.0-1.3); Neutrophils # 13.5 K/mcL (1.6-8.9)
[2021-04-30 06:52] LABS: Platelet Estimate Normal (Normal); Reactive Lymphocytes Present (Not Present)
[2021-04-30 07:09] LABS: Albumin 2.7 g/dL (3.5-5.7); Albumin/Globulin Ratio 0.7 (1.1-2.2); Bilirubin,Direct 0.1 mg/dL (0.0-0.2); Bilirubin,Indirect 0.2 mg/dL (0.0-1.0); Bilirubin,Total 0.3 mg/dL (0.3-1.0); Globulin 3.9 g/dL (2.4-3.5); Total Protein 6.6 g/dL (6.4-8.9)
[2021-04-30 07:15] LABS: BUN/Creatinine Ratio 12 (6-26); Blood Urea Nitrogen 10 mg/dL (6-20); Calcium 8.1 mg/dL (8.6-10.3); Carbon Dioxide 29 mEq/L (23-29); Chloride 104 mEq/L (98-107); Glucose 148 mg/dL (70-105); Magnesium 1.7 mg/dL (1.6-2.6); Osmolality,Calculated 288 (280-300); Phosphorous 4.6 mg/dL (2.7-4.5); Potassium 4.1 mEq/L (3.5-5.1); Sodium 138 mEq/L (136-145); eGFR For African Americans > 60 (> 60); eGFR For Non-African Americans > 60 (> 60)
[2021-04-30 07:25] LABS: Ferritin 353 ng/mL (20-250)
[2021-04-30] MEDS: Insulin LISPRO 300 UNITS/3 ML VIAL SUBQ SCH ×3 (08:26→16:37)
[2021-04-30] MEDS: Furosemide 20 MG/2 ML VIAL IVP SCH (08:45)
[2021-04-30] MEDS: cefTRIAXone 2,000 MG in 0.9 % Sodium Chloride Mini Bag 100 ML IVPB SCH (08:45)
[2021-04-30 11:43] VITALS: BP 127/71; TEMP 98.2
[2021-04-30 12:13] LABS: Alpha 2 Globulin (PEP) 0.91 g/dL (0.48-1.05); Beta Globulin (PEP) 0.81 g/dL (0.48-1.10)
[2021-04-30 12:54] LABS: IFE Reflexed IFE Done
[2021-04-30 12:55] LABS: Immunoglobulin A 252 mg/dL (68-408); Immunoglobulin G 1189 mg/dL (768-1632); Immunoglobulin M 94 mg/dL (35-263)
[2021-04-30] MEDS: Remdesivir 100 MG in 0.9 % Sodium Chloride 100 ML IVPB SCH (16:37)
[2021-04-30 16:50] VITALS: O2SAT 98
== END 2021-04-30 19:00 | disposition home health service (06) | DRG 720 ==
LOC: EMEROOARM 14:27 → 3ANU 14:27 → SUATTDRO 21:00 → 3NENU 04-27 22:41
PROVIDERS: ADMIT Internal Medicine; ATTEND Internal Medicine